=== PATIENT | female | born 1950 | race Caucasian/White ===

== ENCOUNTER → 2018-03-11 12:53 | Outpatient (CLI) | payer OTHER, SELFPAY ==
--- NOTE | 2018-03-11 12:59 | ECHOD_ITS ---
Reason For Study: Murmur Procedure This was a 2D Doppler, Color Flow transthoracic echocardiogram. Exam performed in department. Left Ventricle Normal size and thickness. The estimated ejection fraction is 65 %. Stage 1 diastolic dysfunction. No regional wall motion abnormalities noted. Right Ventricle Normal size and thickness. Normal systolic function. Atria Normal left atrium. Normal right atrium. Normal atrial septum. Mitral Valve The mitral valve is structurally normal. No prolapse or stenosis seen. Trivial mitral valve insufficiency. Tricuspid Valve Normal tricuspid valve. Trivial tricuspid valve insufficiency. Right ventricular systolic pressure estimated to be 32 mmHg. Aortic Valve Normal aortic valve. Trisinus/trileaflet aortic valve. Pulmonic Valve Normal pulmonic valve. Great Vessels Normal aortic root. Normal arch. Normal inferior vena cava. Inferior vena cava collapse with sniff. Pericardium/Pleural No pericardial effusion. MMode/2D Measurements & Calculations LVIDd: 4.6 cm IVSd: 0.96 cm Ao root diam: 3.1 cm LVIDs: 2.4 cm LVPWd: 0.76 cm LA dimension: 4.1 cm RVDd: 3.3 cm FS: 46.4 % LAV(MOD-bp): 46.4 ml LA A4 area: 16.8 cm2 RA A4 area: 11.9 cm2 LAV(MOD-bp) Indexed: 25.9 ml/m2 LAV(MOD-sp2): 44.4 ml LAV(MOD-sp4): 45.2 ml Time Measurements MV dec time: 0.26 sec Doppler Measurements & Calculations MV E max chris: 87.4 cm/sec Lat Peak E' Chris: 10.6 cm/sec Med Peak E' Chris: 6.1 cm/sec MV A max chris: 96.5 cm/sec E/E' lat: 8.2 E/E' med: 14.4 MV E/A: 0.91 MV V2 max: 99.2 cm/sec MV P1/2t max chris: 93.4 cm/sec Ao V2 max: 143.4 cm/sec MV max P.9 mmHg MV P1/2t: 90.3 msec Ao max P.2 mmHg MV V2 mean: 62.1 cm/sec MV dec slope: 302.9 cm/sec2 Ao V2 mean: 95.7 cm/sec MV mean P.7 mmHg MVA(P1/2t): 2.4 cm2 Ao mean P.1 mmHg MV V2 VTI: 32.8 cm Ao V2 VTI: 32.2 cm LV V1 max: 121.7 cm/sec PA V2 max: 96.3 cm/sec TR max chris: 259.3 cm/sec LV V1 max P.9 mmHg TR max P.9 mmHg LV V1 mean P.2 mmHg LV V1 mean: 67.2 cm/sec LV V1 VTI: 24.7 cm Interpretation Summary The estimated ejection fraction is 65 %. Stage 1 diastolic dysfunction. Trivial mitral valve insufficiency. Trivial tricuspid valve insufficiency. Right ventricular systolic pressure estimated to be 32 mmHg. Compared to echo report dated 12/04/2011, no appreciable changes noted. Ordering Physician: Filippo Javier Referring Physician: Filippo Javier Performed By: Jr Peña RCS
== END ==
PROVIDERS: Family Provider Family Medicine; PCP Family Medicine; Referring Provider Family Medicine; Visit Provider Family Medicine
DX: R01.1 Cardiac murmur, unspecified (principal)
CPT/HCPCS: 93306

== ENCOUNTER → 2018-12-11 | Outpatient (CLI) | payer OTHER, SELFPAY ==
[2018-12-11 12:36] VITALS: BMI 29.5
--- NOTE | 2018-12-11 13:22 | RAD_ITS ---
STUDY: X-RAY - RIGHT KNEE REASON FOR EXAM: Female, 68 years old. Pain, decreased range of motion TECHNIQUE: 3 view(s) of the knee. COMPARISON: None. FINDINGS: Normal visualized distal femur. Normal visualized proximal tibia and fibula. Normal proximal tibiofibular articulation. There is mild degenerative arthrosis of the medial femorotibial compartment. Normal lateral femorotibial compartment. There is mild degenerative arthrosis of the patellofemoral articulation. Diffuse soft tissue swelling anterior to patella consistent with likely hematoma RAD/Knee 3 Views IMPRESSION: Medial compartment arthrosis Anterior soft tissue swelling suggests hematoma Electronically Signed: Georges Tripathi MD at 14:08 EDT , Service support ,
== END | disposition home or self-care (01) ==
LOC: HPRAD 13:20
PROVIDERS: Family Provider Family Medicine; PCP Family Medicine; Referring Provider Physician Assistant Medical; Visit Provider Physician Assistant Medical
DX: M25.561 Pain in right knee (principal); M25.461 Effusion, right knee
CPT/HCPCS: 73562

== ENCOUNTER → 2019-01-03 | Outpatient (CLI) | payer OTHER, SELFPAY ==
[2018-12-16 08:46] VITALS: BMI 29.5
--- NOTE | 2019-01-03 14:11 | BI_ITS ---
MAMMOGRAPHY - BILATERAL SCREENING 3-D TOMOSYNTHESIS REASON FOR EXAM: Female, 68 years old. Bilateral Screening 3-D tomosynthesis PERTINENT HISTORY: No significant family history. TECHNIQUE: 2-D mammograms and 3-D Tomosynthesis of the breast (s) were performed. CAD was performed. COMPARISON: 11/17/2016, 03/24/2015, 01/14/2014. FINDINGS: The breast composition is heterogeneously dense that can obscure small breast masses. Scattered benign calcifications are seen. No dense spiculated masses or suspicious microcalcifications are identified. No architectural distortion is identified. There is no skin thickening or retraction. There has been no significant change since the prior study. BI/SCREEN MAMM (CAD) W/ISAC BILAT IMPRESSION: No mammographic signs of malignancy. Routine yearly mammograms recommended. ASSESSMENT CATEGORY: BIRADS Category 2: Benign. A letter regarding these results will be sent to the patient by the facility within 30 days. FOLLOW UP RECOMMENDATION: Yearly follow up mammogram recommended. (A) Approximately 10% of breast cancers are not detected by mammography. A normal mammogram should not delay biopsy of a clinically suspicious abnormality. Electronically Signed: Buddy Lenz MD at 12:57 EDT Tel [phone], Service support ,
== END | disposition home or self-care (01) ==
PROVIDERS: Family Provider Family Medicine; PCP Family Medicine; Referring Provider Family Medicine; Visit Provider Family Medicine
DX: Z12.31 Encounter for screening mammogram for malignant neoplasm of breast (principal)
CPT/HCPCS: 77063; 77067

== ENCOUNTER 2019-02-04 08:29 | Day surgery (SDC) | payer MEDICARE, SELFPAY ==
--- NOTE | 2019-01-08 09:25 | HP_ITS ---
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: No Is patient in pain?: No Allergies No Known Allergies Allergy (Unverified 01/08/19 09:32) Medications calcium carbonate 600 mg calcium (1,500 mg) tablet 600 mg PO DAILY 01/08/19 [History Confirmed 01/08/19] lisinopril 20 mg-hydrochlorothiazide 12.5 mg tablet 1 tab PO DAILY 01/08/19 [History Confirmed 01/08/19] multivitamin tablet 1 tab PO DAILY 01/08/19 [History Confirmed 01/08/19] PFSH Medical History (Updated 01/08/19 @ 09:29 by Kimberli Hall) Systolic murmur (Acute) Osteoporosis (Acute) Osteoarthritis (Acute) Eustachian tube disorder (Acute) Stool guaiac positive (Acute) Hypertension (Chronic) Surgical History (Updated 01/08/19 @ 09:29 by Kimberli Hall) Hx of colonoscopy (Acute) Hx of hysterectomy (Acute) Family History (Updated 01/08/19 @ 09:30 by Kimberli Hall) Mother Hypertension Father Hypertension Social History (Updated 01/08/19 @ 10:40 by Andrea Massey MD) Smoking Status: Never smoker second hand exposure: No alcohol intake: never substance use type: does not use caffeine: No what type of physical activity do you participate in: none frequency: does not exercise HPI HPI HPI: INÉS TAMEZ is a 68 F who presents to the office today for HPI HPI Surgical H&P: Yes HPI: INÉS TAMEZ is a 68 F who presents to the office today for surgical consultation regarding Hemoccult-positive stool. The patient was referred by Dr. Filippo Claremore and a written copy of my surgical consult recommendations will be returned to him. The patient via her insurance program obtain a stool sample which ended up being Hemoccult positive. She has never had a previous positive card though she is done these in the past. She had a very remote colonoscopy greater than 10 years ago. She has no personal history of colon polyps or colon cancer. She does not know of any family history of colon cancer. She denies history of peptic ulcer disease. She has not noticed any bright red blood per rectum or melena. No abdominal pain. No unexpected weight loss. She otherwise states that she enjoys a good quality of health. She is not on any anticoagulants ROS General General: No weight change, appetite, fatigue, colon cancer, breast cancer or weakness HEENT HEENT: No difficulty swallowing, eye injury, eye surgery, swollen glands or hoarseness Endo Endocrine: No thyroid disease, diabetes mellitus, thyroid cancer, Hair loss, heat intolerance or cold intolerance Skin Skin: No rash or changing moles Musc Musculoskeletal: Yes arthritis; no back problems, rheumatoid arthritis, gout or joint pain Cardio Cardiovascular: Yes high blood pressure; no murmur, pacemaker, heart disease, atrial fibrillation, heart attack, heart stent, palpitations, shortness of breat with exertion or chest pain Psych Psychiatric: No depression, anxiety or hearing voices Resp Respiratory: No shortness of breath, No sleep apnea, No cough, No COPD, No asthma, No emphysema, No wheezing Gastro Gastrointestinal: No abdominal pain, No nausea or vomiting, No diarrhea, No constipation, Yes blood in stool, No acid reflux, No hemorrhoids, No ulcers, No gallbladder problem, No black,tarry stools Kel Hematologic: No blood thinners, No blood disorders, No bleeding, No anemia, No blood clots Neuro Neurologic: No system reviewed and no additional complaints, except as docu, No as per HPI, No abnormal walking, No abnormal hearing, No abnormal movements, No abnormal speech, No behavioral changes, No burning sensations, No confusion, No seizure-like activity, No unsteadiness, No dizziness, No localized weakness, No frequent falls, No headache(s), No lack of coordination, No loss of vision, No memory loss, No numbness, No other visual disturbances, No radiating pain, No restless legs, No sensory deficit, No fainting, No tingling, No tremor(s), No weakness, No other Exam Const General: cooperative, healthy appearing, comfortable, no acute distress Nutritional Appearance: average body habitus Orientation: alert, awake HENMT Head: normal to inspection Chest Chest palpation & inspection: normal inspection of the chest Resp Effort & Inspection: normal respiratory effort Auscultation: clear to auscultation bilaterally Cardio Rate: regular rate Rhythm: regular rhythm Heart Sounds: no murmurs GI Palpation: soft, no hepatosplenomegaly Auscultation: normal bowel sounds Musc Cervical Spine: normal cervical lordosis Neuro Cognition: normal cognition Extrem General: no calf tenderness bilaterally Psych Affect: normal affect Assessment & Plan Problems 1. Stool guaiac positive R19.5 Plan I have discussed with the patient the potential etiology to her guaiac positive stool. Unfortunately it is not clear as to whether it is emanating from an upper or lower source. In detail I have discussed with her the technique, benefits, risks and alternatives of a combined esophagogastroduodenoscopy with possible biopsy as well as a colonoscopy with possible biopsy or polypectomy is indicated. She has had an opportunity to ask and have questions answered. We will schedule and proceed at her discretion. I very much appreciate the kind opportunity of assisting with her surgical care. CC: Dr. Filippo Massey M.D., F.A.C.S. Medications Discontinued: etodolac do not take with other NSAIDS Discontinued Reason: Pt no longer taking 500 mg PO ONCE 28 tabs 0RF Coding Level of Care Code Off vis,new,level 2 Diagnoses Stool guaiac positive R19.5 01/08/19 1040 <Electronically signed by Andrea godoy MD> Date _ Andrea Massey MD I have re-examined the patient. There are no clinical changes since date of exam.
[2019-01-08 09:31] VITALS: BMI 28.7
[2019-02-04] VITALS (9 sets, daily range): BP systolic 95–153; BP diastolic 51–120; PULSE 54–82; RESP 16; TEMP 36.4–36.8; O2SAT 94–99; BMI 28.9
[2019-02-04] MEDS: Lactated Ringers 1,000 ML 75 ML IV (09:01)
--- NOTE | 2019-02-04 09:30 | IMM_PTH ---
PATIENT: INÉS TAMEZ LOC: EN U#:[id number] AGE/SX: 68/F ROOM: RE02/04/[address]: Dr. Andrea Massey MD : 1950 BED: DIS: 02/04/2019 SPEC #: [id number] RECD: 02/04/19 12:26 STATUS: ANNA REQ #: [id number] REGGIE: 02/04/19 09:[address]: Andrea Massey DEPT: IMMUNOHISTOCHEMISTRY RECD BY: Cherelle Maldonado ENTERED: 02/04/19 12:27 SP TYPE: IMMUNO OTHR DR: Dr. Filippo Javier, Tissues: A - Stomach, NOS Procedures: H Pylori (initial) PHYSICIAN & INSTITUTION [place] [address] SPECIMEN INFORMATION: Tissue Source: A - Antral biopsy Clinical Info: Guaiac positive stool Specimen Number: [id number] CPT code: 07735 METHODOLOGY: Deparaffinized sections of prefer/formalin-fixed tissue or PAP/DQ stained slides are incubated with monoclonal/polyclonal antibodies/oligonucleotide probes. Localization is made via biotin free immunoperoxidase method. Appropriate controls are performed and reacted as expected. Results on target cell population are indicated in the following table: RESULTS: ANTIBODY / CLONE RESULT Block A H Pylori (polyclonal) positive These tests were developed and their performance characteristics determined by [facility]. They may not have been cleared or approved by the U.S. Food and Drug Administration. The FDA has determined that such clearance or approval is not necessary. INTERPRETATION: A. Antral biopsy: Positive for a few Helicobacter pylori organisms. SJ:jazmin 02/05/19 Case has been reviewed in consultation with Dr. Bassett who concurs with the above diagnosis. IDC:AM
--- NOTE | 2019-02-04 09:30 | EGD_PTH ---
PATIENT: INÉS TAMEZ LOC: EN U#:[id number] AGE/SX: 68/F ROOM: RE02/04/[address]: Dr. Andrea Massey MD : 1950 BED: DIS: 02/04/2019 SPEC #: [id number] RECD: 02/04/19 10:49 STATUS: ANNA REDhruv #: [id number] REGGIE: 02/04/19 09:[address]: Andrea Massey DEPT: SURGICAL PATHOLOGY RECD BY: Dorian Giang ENTERED: 02/04/19 11:52 SP TYPE: EGD BIOPSY OTHR DR: Dr. Filippo Javier, DO Tissues: A - Gastric mucous membrane B - Esophageal mucous membrane C - Sigmoid colon biopsy Procedures: Surgery Specimen Level IV HEADER OPERATION: Colonoscopy, EGD (MOD) PRE-OP DIAGNOSIS: Guaiac positive stool TISSUE SUBMITTED: A - Antral biopsy for H. pylori and pathology, B - Distal esophageal biopsy, C - Proximal sigmoid polyp MICROSCOPIC DIAGNOSIS A. Antrum biopsy: Moderate gastritis. See microscopic description and comment. B. Distal esophagus, biopsy: Fragments of squamous mucosa with focal ulceration, associated acute and chronic inflammation and reactive epithelial changes. Special stain for fungi is negative for organisms; matched control is appropriate. C. Proximal sigmoid polyp, biopsy: Tubular adenoma. SJ:jazmin 02/05/19 COMMENT A. The results of immunohistochemistry for Helicobacter pylori will be reported separately ([id number]). Case has been reviewed in consultation with Dr. Bassett who concurs with the above diagnosis. IDC:AM MICROSCOPIC DESCRIPTION Slides are reviewed. A. The specimen shows fragments of gastric mucosa with chronic inflammatory cell infiltrates in the lamina propria consisting of lymphocytes and plasma cells, consistent with moderate chronic gastritis. GROSS DESCRIPTION A - Received in fixative is one container labeled with the patient's name and designated antral biopsy. The specimen consists of one irregular fragment of light moreno soft tissue that measures 0.2 x 0.2 x 0.1 cm. The specimen is totally submitted in one cassette. B - Received in fixative is one container labeled with the patient's name and designated distal esophagus biopsy. The specimen consists of one irregular fragment of light moreno soft tissue that measures 0.3 x 0.2 x 0.1 cm. The specimen is totally submitted in one cassette. C -Received in fixative is one container labeled with the patient's name and designated proximal sigmoid polyp. The specimen consists of one irregular fragment of light moreno soft tissue that measures 0.4 x 0.4 x 0.3 cm. The specimen is totally submitted in one cassette. / AM:jazmin 02/04/19 TC:1 CPT: 18222 x3, 78316
--- NOTE | 2019-02-04 23:36 | OP.ENDO_ITS ---
02/04/2019 Filippo Javier [address] [place] [address] Re : Colonoscopy procedure for [place] Lieberman Dear Dr. Javier This procedure was performed on Monday, February 04, 2019. My impressions and recommendations are as follows: Impressions : - Non-thrombosed internal hemorrhoids and internal hemorrhoids that prolapse with straining, but spontaneously regress to the resting position (Grade II) found on digital rectal exam. - One 8 mm polyp in the proximal sigmoid colon, removed with a hot snare. Resected and retrieved. - Tortuous colon. Recommendations : - Discharge patient to home. - Resume previous diet. - Continue present medications. - Repeat colonoscopy in 5 years for surveillance based on pathology results. - Telephone my office for pathology results in 1 week. My findings are described in the full procedure note, which is enclosed. If I can be of further assistance, please feel free to contact me at Doctor phone number(s): Work: . Sincerely, Andrea Massey MD 02/04/2019 10:38:48 AM This report has been signed electronically.
--- NOTE | 2019-02-04 23:36 | OP.ENDO_ITS ---
02/04/2019 Filippo Javier [address] [place] [address] Re : Upper GI endoscopy procedure for [place] Lieberman Dear Dr. Javier This procedure was performed on Monday, February 04, 2019. My impressions and recommendations are as follows: Impressions : - LA Grade A reflux esophagitis. Biopsied. Mid esophageal non bleeding varices - Small hiatal hernia. - Erythematous mucosa in the antrum. Biopsied. - Normal examined duodenum. Recommendations : - Discharge patient to home. - Resume previous diet. - Continue present medications. - Telephone my office for pathology results in 1 week. Consider OTC medication for GERD My findings are described in the full procedure note, which is enclosed. If I can be of further assistance, please feel free to contact me at Doctor phone number(s): Work: . Sincerely, Andrea Massey MD 02/04/2019 10:35:27 AM This report has been signed electronically.
== END 2019-02-04 11:53 | disposition home or self-care (01) ==
LOC: EN 08:32 → AC 08:33
PROVIDERS: Family Provider Family Medicine; PCP Family Medicine; Referring Provider Family Medicine; Visit Provider Surgery
PROC: 0DJD8ZZ Inspection of Lower Intestinal Tract, Via Natural or Artificial Opening Endoscopic (ICD-10-PCS; CPT 45378; principal; 2019-02-04 09:25)
DX: K29.70 Gastritis, unspecified, without bleeding (principal); K44.9 Diaphragmatic hernia without obstruction or gangrene; K21.0 Gastro-esophageal reflux disease with esophagitis; I85.00 Esophageal varices without bleeding; D12.5 Benign neoplasm of sigmoid colon; K64.1 Second degree hemorrhoids; Q43.8 Other specified congenital malformations of intestine; R01.1 Cardiac murmur, unspecified; M81.0 Age-related osteoporosis without current pathological fracture; M19.90 Unspecified osteoarthritis, unspecified site; I10 Essential (primary) hypertension; H69.90 Unspecified Eustachian tube disorder, unspecified ear; Z79.899 Other long term (current) drug therapy
CPT/HCPCS: 43239; 45385; 88305; 88342; 99152; 99153; J7120

== ENCOUNTER → 2019-02-10 10:41 | Outpatient (CLI) | payer MEDICARE, SELFPAY ==
[2019-02-04 08:47] VITALS: BMI 28.9
[2019-02-10 11:06] LABS: Hematocrit 37.1 % (37-47); Mean Corp Hgb Conc 32.3 g/dL (32-36); Mean Corpuscular Hgb 28.3 pg (27.0-32.0); Mean Corpuscular Volume 87.5 fL (81-99); Mean Platelet Vol. 10.6 fl (6.2-12.0); Platelet Count 240 K/mm3 (150-450); RBC Distribution Width CV 12.9 % (11.6-14.6); RBC Distribution Width SD 41.3 fl (35.1-43.9); Red Blood Count 4.24 M/mm3 (4.2-5.4); White Blood Count 6.6 K/mm3 (4.4-11.0)
== END ==
PROVIDERS: Family Provider Family Medicine; PCP Family Medicine; Referring Provider Surgery; Visit Provider Surgery
DX: K92.1 Melena (principal)
CPT/HCPCS: 36415; 85027

== ENCOUNTER → 2019-11-28 15:04 | Outpatient (CLI) | payer MEDICARE, SELFPAY ==
[2019-02-04 08:47] VITALS: BMI 28.9
[2019-11-28 17:37] LABS: Anion Gap 7 (5-15); BUN 22 mg/dL (7-18); BUN/Creat Ratio 20.8 RATIO (10-20); Calcium,Total 8.8 mg/dL (8.5-10.1); Chloride 101 mmol/L (98-107); Creatinine, Serum 1.06 mg/dL (0.55-1.02); EST Glomerular Filtration Rate 54 mL/min (>60); Est Glom Filt Rate - Afr Amer 66 mL/min (>60); Glucose 103 mg/dL (74-106); Potassium 3.6 mmol/L (3.5-5.1); Sodium Level 139 mmol/L (136-145)
== END ==
PROVIDERS: PCP Student in an Organized Health Care Education/Training Program; Referring Provider Student in an Organized Health Care Education/Training Program; Visit Provider Student in an Organized Health Care Education/Training Program
DX: R94.4 Abnormal results of kidney function studies (principal); I10 Essential (primary) hypertension
CPT/HCPCS: 36415; 80048

== ENCOUNTER → 2020-04-01 11:43 | Outpatient (CLI) | payer MEDICARE, SELFPAY ==
[2019-02-04 08:47] VITALS: BMI 28.9
--- NOTE | 2020-04-01 11:46 | US_ITS ---
STUDY: RENAL ULTRASOUND - COMPLETE REASON FOR EXAM: Female, 69 years old. CKD3 TECHNIQUE: Ultrasound evaluation of the kidneys was performed with real-time and static lema-scale imaging. COMPARISON: None. FINDINGS: RIGHT KIDNEY: Normal location of the right kidney, which is normal in size. The right kidney measures 9.3 cm x 4.7 cm x 4.5 cm. There is diffuse thinning of the renal cortex. The renal cortex measures 0.8 cm. There is a 1.7 cm x 1.5 cm x 1.6 cm cyst. There are no right renal calculi. There is no right hydronephrosis. DISTAL RIGHT URETER: There is non-visualization of the distal right ureter. There is no demonstrated right ureterovesical junction calculus. There is a visualized right ureteral jet. LEFT KIDNEY: Normal location of the left kidney, which is normal in size. The left kidney measures 10.3 cm x 4.2 cm x 4.7 cm. There is a normal cortex of the left kidney. The renal cortex measures 1.0 cm. There is no left renal mass or cyst. There are no left renal calculi. There is no left hydronephrosis. DISTAL LEFT URETER: There is non-visualization of the distal left ureter. There is no demonstrated left ureterovesical junction calculus. There is a visualized left ureteral jet. BLADDER: The distended urinary bladder has a volume of 2010 ml. There is a normal wall thickness of the distended urinary bladder. There is no demonstrated mass within the urinary bladder. There are no demonstrated bladder calculi. Incidental note is made of a 5.4 cm x 6.8 cm x 6.3 cm cyst in the right lobe of the liver. US/Kidney and Bladder IMPRESSION: Small right renal cyst. Hepatic cyst. Electronically Signed: Jayden Yu, at 13:07 EST , Service support ,
== END ==
PROVIDERS: PCP Student in an Organized Health Care Education/Training Program; Referring Provider Student in an Organized Health Care Education/Training Program; Visit Provider Student in an Organized Health Care Education/Training Program
DX: N18.30 Chronic kidney disease, stage 3 unspecified (principal)
CPT/HCPCS: 76770

== ENCOUNTER → 2020-04-13 11:06 | Outpatient (CLI) | payer MEDICARE, SELFPAY ==
[2019-02-04 08:47] VITALS: BMI 28.9
--- NOTE | 2020-04-13 11:09 | US_ITS ---
STUDY: ABDOMINAL ULTRASOUND - RIGHT UPPER QUADRANT REASON FOR VISIT: Female, 69 years old HEPATIC CYST ON KIDNEY US TECHNIQUE: Ultrasound evaluation of the right upper quadrant was performed with real-time and static tejeda-scale imaging. TECHNICAL QUALITY: Adequate. COMPARISON: None. FINDINGS: Liver: The liver measures 15 cm. There is increased echogenicity of the liver. The bile ducts are within normal limits. There is hepatic color flow. The direction of portal flow is hepatopetal. There is simple anechoic cysts of the right hepatic lobe measuring up to 6.7 cm. Gallbladder: Normal distended gallbladder. The gallbladder wall measures 2 mm. There is a negative sonographic Rizzo''s sign. There is no pericholecystic fluid. There are no gallstones. Common Bile Duct (C.B.D.): The common bile duct measures 4 mm. Pancreas: There is no demonstrated pancreatic mass or cyst. Right Kidney: Normal size of the right kidney. The right kidney measures 9.3 x 5.2 x 3.9 cm. The right cortex measures 0.8 cm. There is a simple right renal cyst measures 1.9 cm. There is no right hydronephrosis. US/Abdomen Limited IMPRESSION: 1. Simple hepatic cysts. No solid hepatic masses. 2. Simple renal cysts. 3. Increased echogenicity of the liver is nonspecific but most commonly associated with hepatic steatosis. Electronically Signed: Renny Ohara MD ([place]) at 19:45 EST , Service support ,
== END ==
PROVIDERS: PCP Student in an Organized Health Care Education/Training Program; Referring Provider Student in an Organized Health Care Education/Training Program; Visit Provider Student in an Organized Health Care Education/Training Program
DX: K76.89 Other specified diseases of liver (principal)
CPT/HCPCS: 76705

== ENCOUNTER → 2020-04-23 15:43 | Outpatient (CLI) | payer MEDICARE, SELFPAY ==
[2019-02-04 08:47] VITALS: BMI 28.9
--- NOTE | 2020-04-22 16:30 | BI_ITS ---
MAMMOGRAPHY - BILATERAL SCREENING REASON FOR EXAM: Female, 69 years old. Routine annual screening examination. PERTINENT HISTORY: Non-contributory. TECHNIQUE: Digital bilateral breast isac (3D mammographic acquisition) in the CC and MLO projections. 2-D mediolateral oblique (MLO) and craniocaudad (CC) views of both breasts were obtained. CAD: Full Field Digital Mammography with Computer Added Detection was performed. COMPARISON: Comparison is made with prior study dated 01/03/2019 and 11/17/2016. FINDINGS: Breast Composition: The breasts are heterogeneously dense, which may obscure small masses. Since prior study, there is evidence of a cluster of microcalcifications in the central slightly lateral aspect of the left breast. A biopsy is recommended. No other significant abnormalities are identified. BI/SCREEN MAMM (CAD) W/ISAC BILAT IMPRESSION: Cluster microcalcifications in the central slightly lateral aspect of the left breast as described. Biopsy is recommended. ASSESSMENT CATEGORY: BIRADS Category 4: Suspicious - Biopsy Should Be Considered. A letter regarding these results will be sent to the patient by the facility within 30 days. Approximately 10% of breast cancers are not detected by mammography. A normal mammogram should not delay biopsy of a clinically suspicious abnormality. [id number] Electronically Signed: Jayden Yu, at 8:16 EST , Service support ,
== END ==
PROVIDERS: PCP Student in an Organized Health Care Education/Training Program; Referring Provider Student in an Organized Health Care Education/Training Program; Visit Provider Student in an Organized Health Care Education/Training Program
DX: Z12.31 Encounter for screening mammogram for malignant neoplasm of breast (principal)
CPT/HCPCS: 77063; 77067

== ENCOUNTER 2020-07-07 05:56 | Day surgery (SDC) | payer MEDICARE, SELFPAY ==
[2020-06-23 14:27] VITALS: BMI 27.6
[2020-07-07] VITALS (8 sets, daily range): BP systolic 92–154; BP diastolic 50–95; PULSE 64–79; RESP 16; TEMP 35.9–36.2; O2SAT 94–100; BMI 28.0
--- NOTE | 2020-07-07 06:23 | HP_ITS ---
Intake Vital Signs 06/23/20 Height 5 ft 3 in 06/23/20 Weight: 156 lb 06/23/20 BMI 27.6 06/23/20 BP 143/79 H 06/23/20 Blood Pressure Location Rt brachial 06/23/20 Position Sitting 06/23/20 Respiration 16 Intake Visit Reasons: Port placement Consult Chief Complaint: port placement [employer]ated [employer] Driver Required: No Is patient in pain?: No Allergies No Known Allergies Allergy (Verified 06/30/20 13:01) Medications lisinopril 20 mg-hydrochlorothiazide 12.5 mg tablet 1 tab PO DAILY 01/08/19 [History Confirmed 06/30/20] multivitamin 1 tab PO DAILY 01/08/19 [History Confirmed 06/30/20] cholecalciferol (vitamin D3) 50 mcg (2,000 unit) capsule 50 mcg PO DAILY 05/07/20 [History Confirmed 06/30/20] [facility] Medical History (Updated 06/23/20 @ 14:28 by Josefina Eason) Microcalcification of left breast on mammogram (Acute) Abnormal mammogram of left breast (Acute) Systolic murmur (Acute) Osteoporosis (Acute) Osteoarthritis (Acute) Eustachian tube disorder (Acute) Stool guaiac positive (Acute) Hypertension (Chronic) Breast cancer, left (Acute) Surgical History Hx of colonoscopy (Acute) Hx of hysterectomy (Acute) Family History Mother Hypertension Father Hypertension Social History (Updated 07/05/20 @ 13:[address] Karie Rojas MD) Smoking Status: Never smoker second hand exposure: No alcohol intake: never substance use type: does not use caffeine: Yes what type of physical activity do you participate in: aerobics frequency: daily HPI HPI HPI: INÉS TAMEZ, is a 69 F who presents to the office today for HPI HPI Surgical H&P: Yes HPI: INÉS TAMEZ, is a 69 F who presents to the office today for port placement due to left breast cancer with metastasis to axillary lymph nodes. Patient is seeing Dr. Latham at [facility] and Dr. Gutierrez for oncology. ROS General General: No weight change, appetite, fatigue, colon cancer, breast cancer or weakness HEENT HEENT: No difficulty swallowing, eye injury, eye surgery, swollen glands or hoarseness Endo Endocrine: No thyroid disease, diabetes mellitus, thyroid cancer, Hair loss, heat intolerance or cold intolerance Skin Skin: No rash or changing moles Breast Breast: Yes abnormal mammogram; no left breast lump, right breast lump, nipple discharge, breast pain, abnormal US or breast enlargement Musc Musculoskeletal: Yes arthritis; no back problems, rheumatoid arthritis, gout or joint pain Cardio Cardiovascular: Yes murmur and high blood pressure; no pacemaker, heart disease, atrial fibrillation, heart attack, heart stent, palpitations, shortness of breat with exertion or chest pain Psych Psychiatric: No depression, anxiety or hearing voices Resp Respiratory: No shortness of breath, No sleep apnea, No cough, No COPD, No asthma, No emphysema, No wheezing Gastro Gastrointestinal: No abdominal pain, No nausea or vomiting, No diarrhea, No constipation, No blood in stool, No acid reflux, No hemorrhoids, No ulcers, No gallbladder problem, No black,tarry stools Kel Hematologic: No blood thinners, No blood disorders, No bleeding, No anemia, No blood clots Neuro Neurologic: No system reviewed and no additional complaints, except as docu, No as per HPI, No abnormal walking, No abnormal hearing, No abnormal movements, No abnormal speech, No behavioral changes, No burning sensations, No confusion, No seizure-like activity, No unsteadiness, No dizziness, No localized weakness, No frequent falls, No headache(s), No lack of coordination, No loss of vision, No memory loss, No numbness, No other visual disturbances, No radiating pain, No restless legs, No sensory deficit, No fainting, No tingling, No tremor(s), No weakness, No other Exam Const General: cooperative, comfortable, no acute distress Neck Neck: supple Chest Chest palpation & inspection: normal inspection of the chest (Of upper chest) Breast Palpation: No nipple discharge Resp Effort & Inspection: normal respiratory effort Cardio Rate: regular rate Heart Sounds: murmur Assessment & Plan Problems 1. Breast cancer, left breast C50.912 Plan I have discussed above with the patient- Port-a-Cath placement. Right possible left IJ Patient has been counseled as to the risks/benefits of the procedure. I have explained the risks of the surgery, including but not limited to: infection, bleeding, injury to any blood vessels/nerves, injury to lungs (such as pneumothorax or hemothorax and need for chest tube), not having any access, nonfunctioning of port due to thrombosis, infection of port, etc. the patient understands and agrees to proceed. I have answered all the patient's questions to the patient?s satisfaction and the patient has no further questions. Karie Rojas M.D. Pager: [phone] [facility] [address] [place] [address], [address] [place] [address] Office: [phone] Plan Detail Follow Up We will schedule surgery Coding Level of Care Code Off vis,new,level 3 Diagnoses Breast cancer, left breast C50.912
[2020-07-07] MEDS: Lactated Ringers 1,000 ML 100 ML IV ×2 (06:39→08:27)
--- NOTE | 2020-07-07 07:20 | PCM.HP.BLA ---
History and Physical Date of Admission: 07/07/20 Date of Service: 06/23/20 MR#: [id number] Acct: [id number] Name: INÉS TAMEZ Rep #: [id number] : 1950 Provider: Dr. Karie Rojas MD Age/Sex: 69/F Location: [facility] Status: Signed Intake Vital Signs 06/23/20 Height 5 ft 3 in 06/23/20 Weight: 156 lb 06/23/20 BMI 27.6 06/23/20 BP 143/79 H 06/23/20 Blood Pressure Location Rt brachial 06/23/20 Position Sitting 06/23/20 Respiration 16 Intake Visit Reasons: Port placement Consult Chief Complaint: port placement [employer] Inventory Clerk Required: No Is patient in pain?: No Allergies No Known Allergies Allergy (Verified 06/30/20 13:01) Medications lisinopril 20 mg-hydrochlorothiazide 12.5 mg tablet 1 tab PO DAILY 01/08/19 [History Confirmed 06/30/20] multivitamin 1 tab PO DAILY 01/08/19 [History Confirmed 06/30/20] cholecalciferol (vitamin D3) 50 mcg (2,000 unit) capsule 50 mcg PO DAILY 05/07/20 [History Confirmed 06/30/20] PFSH Medical History (Updated 06/23/20 @ 14:28 by Josefina Eason) Microcalcification of left breast on mammogram (Acute) Abnormal mammogram of left breast (Acute) Systolic murmur (Acute) Osteoporosis (Acute) Osteoarthritis (Acute) Eustachian tube disorder (Acute) Stool guaiac positive (Acute) Hypertension (Chronic) Breast cancer, left (Acute) Surgical History Hx of colonoscopy (Acute) Hx of hysterectomy (Acute) Family History Mother Hypertension Father Hypertension Social History (Updated 07/05/20 @ 13:[address] Karie Rojas MD) Smoking Status: Never smoker second hand exposure: No alcohol intake: never substance use type: does not use caffeine: Yes what type of physical activity do you participate in: aerobics frequency: daily HPI HPI HPI: INÉS TAMEZ, is a 69 F who presents to the office today for HPI HPI Surgical H&P: Yes HPI: INÉS TAMEZ, is a 69 F who presents to the office today for port placement due to left breast cancer with metastasis to axillary lymph nodes. Patient is seeing Dr. Latham at [facility] and Dr. Gutierrez for oncology. ROS General General: No weight change, appetite, fatigue, colon cancer, breast cancer or weakness HEENT HEENT: No difficulty swallowing, eye injury, eye surgery, swollen glands or hoarseness Endo Endocrine: No thyroid disease, diabetes mellitus, thyroid cancer, Hair loss, heat intolerance or cold intolerance Skin Skin: No rash or changing moles Breast Breast: Yes abnormal mammogram; no left breast lump, right breast lump, nipple discharge, breast pain, abnormal US or breast enlargement Musc Musculoskeletal: Yes arthritis; no back problems, rheumatoid arthritis, gout or joint pain Cardio Cardiovascular: Yes murmur and high blood pressure; no pacemaker, heart disease, atrial fibrillation, heart attack, heart stent, palpitations, shortness of breat with exertion or chest pain Psych Psychiatric: No depression, anxiety or hearing voices Resp Respiratory: No shortness of breath, No sleep apnea, No cough, No COPD, No asthma, No emphysema, No wheezing Gastro Gastrointestinal: No abdominal pain, No nausea or vomiting, No diarrhea, No constipation, No blood in stool, No acid reflux, No hemorrhoids, No ulcers, No gallbladder problem, No black,tarry stools Kel Hematologic: No blood thinners, No blood disorders, No bleeding, No anemia, No blood clots Neuro Neurologic: No system reviewed and no additional complaints, except as docu, No as per HPI, No abnormal walking, No abnormal hearing, No abnormal movements, No abnormal speech, No behavioral changes, No burning sensations, No confusion, No seizure-like activity, No unsteadiness, No dizziness, No localized weakness, No frequent falls, No headache(s), No lack of coordination, No loss of vision, No memory loss, No numbness, No other visual disturbances, No radiating pain, No restless legs, No sensory deficit, No fainting, No tingling, No tremor(s), No weakness, No other Exam Const General: cooperative, comfortable, no acute distress Neck Neck: supple Chest Chest palpation & inspection: normal inspection of the chest (Of upper chest) Breast Palpation: No nipple discharge Resp Effort & Inspection: normal respiratory effort Cardio Rate: regular rate Heart Sounds: murmur Assessment & Plan Problems 1. Breast cancer, left breast C50.912 Plan I have discussed above with the patient- Port-a-Cath placement. Right possible left IJ Patient has been counseled as to the risks/benefits of the procedure. I have explained the risks of the surgery, including but not limited to: infection, bleeding, injury to any blood vessels/nerves, injury to lungs (such as pneumothorax or hemothorax and need for chest tube), not having any access, nonfunctioning of port due to thrombosis, infection of port, etc. the patient understands and agrees to proceed. I have answered all the patient's questions to the patient?s satisfaction and the patient has no further questions. Karie Rojas M.D. Pager: [phone] [facility] [address] [place] [address], [address] [place] [id number] Office: [phone] Plan Detail Follow Up We will schedule surgery Coding Level of Care Code Off vis,new,level 3 Diagnoses Breast cancer, left breast C50.912 07/05/20 1349 <Electronically signed by Karie Rojas MD> Date Karie Rojas MD
[2020-07-07] MEDS: Cefazolin 2 GM in 0.9% Normal Saline 100 ML IV (07:26)
[2020-07-07] MEDS: Lidocaine 1% /Epi 1:100 (20ml) 20 ML Vial (07:30)
[2020-07-07] MEDS: Bupivacaine Mpf 0.5% 30 ML VIAL (07:30)
--- NOTE | 2020-07-07 08:05 | PCM.OPRPT ---
Report of Operation Date of Procedure: 07/07/20 Pre-Operative Diagnosis: Z45.2, left breast cancer, Post-Operative Diagnosis: Same Surgery/Procedure Performed:: 1. Placement of right IJ port. 2. Use of ultrasound. 3. Use of fluoroscopy Type of Anesthesia:: MAC/Supplemental Anesthesiologist: Tung Mcdaniel Special Medications: Ancef 2 g IV x1 Specimen's removed: None Estimated Blood Loss (mL): < 10 cc Fluids Replaced: 800 cc Description of Procedure: After informed consent was given, the patient was brought to the operating room and placed in the supine position. Appropriate time out protocol was followed. He was then given IV conscious sedation for anesthesia. The patient's right upper chest and neck were then prepped with a surgical skin preparation and sterile surgical drapes were placed. After proper landmarks were ascertained, the skin at the upper right chest area was then infiltrated with 1:1 mixture of 1% lidocaine with epinephrine and 0.5% marcaine. A needle trocar was then inserted into the right internal jugular vein with ultrasound guidance-multiple vessels were viewed with u/s and the right IJ was chosen-- and there was good aspiration of venous blood. A wire was then threaded into the needle trocar and this was visualized under fluoroscopy to ensure that the wire was in the superior vena cava. Once this was done, then the needle trocar was removed. A small skin levi was made with an 11 blade knife at the wire entrance site. The dilator with the introducer sheath attached was then placed over the wire into the right internal jugular vein via the Seldinger technique and this was visualized under fluoroscopy. The dilator and sheath were in proper position as visualized by fluoroscopy. A subcutaneous pocket was then created caudad to the catheter insertion site. A transverse skin incision was made after the skin and subcutaneous tissues were infiltrated with local anesthetic. Blunt dissection was then used to create a space large enough for placement of the subcutaneous port. The catheter was then tunneled into the subcutaneous pocket. The wire and dilator were then removed. The catheter was then threaded into the introducer sheath and was positioned with its tip at the junction of the superior vena cava and the right atrium as visualized under fluoroscopy. The excess catheter was transected. The catheter was then attached to the subcutaneous port using manufacturers guidelines. The catheter was flushed with a heparin saline mixture prior to placement. Hemostasis was carefully controlled with electrocautery. The port was sutured to the subcutaneous fascia using 2-0 Vicryl suture at two sites. The port was then placed in the subcutaneous pocket. The incision were reapproximated with interrupted subdermal 3-0 vicryl sutures. The skin was reapproximated with 3-0 nylon suture in a interrupted fashion. Steristrips were used for reinforcement of the skin closure at IJ insertion site and a sterile opsite dressings were applied. The patient tolerated the procedure well. Implants Used: [employer] PowerPort isp M.R.I. 6Fr Lot [id number] ref [id number] Grafts/Implants Used: [employer] PowerPort isp M.R.I. 6Fr Lot [id number] ref [id number] - Complications none
--- NOTE | 2020-07-07 08:11 | PCM.DC.POR ---
Discharge Diet: Light diet - advance as tolerated Discharge Activity: May not drive while taking narcotic pain medications. May shower in (days): 5 - Keep port site clean and dry for 5 days okay for neck incision to get wet after 24 hours. Okay to tape off the port site with Ziploc bag and shower or do lower shower and upper sponge bath. Lifting Restrictions: No lifting greater than 15 pounds x 2 days with the right arm Call your doctor if your incision/area has: Continuous Slow Oozing, Sudden Increased Bleeding, Increased Pain/ Swelling, Increased Redness, Foul Smelling Discharge, Swelling at the incision site Call your doctor if you observe: Fever of 101 or Higher Remove Dressing in (days):: 5 - Okay to remove the neck OpSite in 1 day Steri-Strips after 7 to 10 days if they do not fall off in 10 days okay to remove. Keep the port site clean and dry for 5 days. Okay to keep OpSite on for 2 to 3 days at a time. Okay to get wet after 5 days. Allergies/Adverse Reactions: Allergies No Known Allergies Allergy (Verified 06/30/20 13:01) Medications to take at Discharge lisinopril 20 mg-hydrochlorothiazide 12.5 mg tablet 1 tab PO DAILY 01/08/19 multivitamin 1 tab PO DAILY 01/08/19 cholecalciferol (vitamin D3) 50 mcg (2,000 unit) capsule 50 mcg PO DAILY 05/07/20 Oxycodone HCl/Acetaminophen [Percocet 5/325] 1 tablet PO Q6H PRN PRN 2 Days #5 tablet 07/07/20 The following prescriptions were given: Oxycodone HCl/Acetaminophen [Percocet 5/325] 1 tablet PO Q6H PRN PRN 2 Days #5 tablet PRN Reason: Pain Transmission Status: Sent to [facility] Primary Care Physician: Odilon Novak DO [Primary Care Provider] - Test Results: Test results from this visit will be discussed in further detail at your follow-up appointment, if applicable. Please Follow Up With: Karie Rojas MD - At 5 PM and on the weekends call [phone] with any concerns When: Call the office for a follow-up appointment in 10 days for suture removal. Proposed Discharge Date: 07/07/20
--- NOTE | 2020-07-07 08:15 | RAD_ITS ---
STUDY: X-RAY CHEST REASON FOR EXAM: Female, 69 years old. Post port placement TECHNIQUE: Single AP portable view of the chest. COMPARISON: None. FINDINGS: A right-sided portacatheter as been placed. The tip is at the junction of the superior vena cava and right atrium. The lungs are clear and expanded. There is no demonstrated pleural abnormality. Normal size heart. Normal mediastinum and nuria. Normal visualized pulmonary arteries. There is atherosclerotic calcification of the aortic arch with tortuosity. There are diffuse degenerative changes of the visualized thoracic spine. Normal visualized ribs, clavicles, and shoulders. There is no demonstrated abnormality of the visualized soft tissue structures of the upper abdomen. RAD/CXR for Line Placement IMPRESSION: The tip of the right-sided portacatheter is at the junction of the superior vena cava and right atrium. Electronically Signed: Jayden Yu MD at 8:39 EST , Service support ,
== END 2020-07-07 09:43 | disposition home or self-care (01) ==
LOC: SDC 05:56 → AC 05:57
PROVIDERS: PCP Student in an Organized Health Care Education/Training Program; Referring Provider Surgery; Visit Provider Surgery
PROC: (CPT 36561; principal; 2020-07-07 07:15)
DX: Z45.2 Encounter for adjustment and management of vascular access device (principal); C50.912 Malignant neoplasm of unspecified site of left female breast; Z20.828 Contact with and (suspected) exposure to other viral communicable diseases; I10 Essential (primary) hypertension; M81.0 Age-related osteoporosis without current pathological fracture; M19.90 Unspecified osteoarthritis, unspecified site; Z78.0 Asymptomatic menopausal state; Z79.899 Other long term (current) drug therapy
CPT/HCPCS: 00532; 36561; 71045; 77001; 87426; C9803; J7120; J2405

== ENCOUNTER 2020-07-18 17:04 | Inpatient (IN) | payer MEDICARE, SELFPAY ==
[2020-07-07 06:26] VITALS: BMI 28.0
[2020-07-18 17:04] VITALS: BP 124/61; PULSE 114; RESP 18; TEMP 37.8; O2SAT 95; BMI 28.3
--- NOTE | 2020-07-18 17:43 | EKG12_ITS ---
Test Reason : GENERAL ILLNESS Blood Pressure : / mmHG Vent. Rate : 102 BPM Atrial Rate : 102 BPM P-R Int : 120 ms QRS Dur : 088 ms QT Int : 326 ms P-R-T Axes : 046 -03 -20 degrees QTc Int : 424 ms Sinus tachycardia Possible Inferior infarct , age undetermined Abnormal ECG Confirmed by YENNY MONCADA, XIOMARA ([id number]), editor continuity and script CESAR MAIN ([id number]) on 07/20/2020 10:34:50 AM Referred By: MILTON Confirmed By:XIOMARA ARMON MD
--- NOTE | 2020-07-18 17:57 | ED.DCSUM_ITS ---
- ER Visit Summary Date of Service: 07/18/20 Chief Complaint: Nausea, diarrhea, decreased appetite History of Present Illness: The patient is a 70 F who presents with nausea, decreased appetite, and diarrhea that began today. Patient states she had chemotherapy 6 days ago. Patient states her diarrhea is watery. Patient denies any melena or hematochezia. Patient admits to nausea but has not vomited. Patient denies any abdominal pain. Patient admits to general myalgias and aching. Patient states nothing makes it better nothing makes it worse. Patient admits to subjective chills but denies any fevers at home. Patient admits to a mild headache. Patient states she feels weak all over. Patient is unsure if this is all related to her recent chemotherapy. Physical Examination: Vital signs are stable except for tachycardia of 114. Patient has a temperature of 100.1 here. Patient is in no acute distress. Oral mucosa is pink and slightly dry. Oropharynx shows some mild erythema on the soft palate. There are a couple of white exudates noted. Neck is supple. Trachea is midline. There is no JVD. Heart was regular and tachycardic. Lungs are clear and equal bilaterally. Abdomen is soft. Bowel sounds are normal. There is no tenderness. Cranial nerves II through XII are intact. There are no focal motor or sensory deficits noted. Extremities are intact. There is no calf tenderness or edema. Test Results: EKG was obtained. On my interpretation, there is a sinus tachycardia with a rate of 122. There are no acute ST or T wave changes. Portable 1 view chest x-ray was obtained. On my interpretation, lung machado are clear. There is normal cardiac silhouette. Bony thorax is normal. There is no acute process noted. Radiologist also interpreted the x-ray and agrees. CBC shows a white blood cell count of 0.9. Platelets were slightly low at 124. Comprehensive metabolic profile was essentially within normal limits. BUN was slightly elevated at 28 and creatinine was 1.13. Troponin was normal. Lactate was normal. COVID-19 rapid antigen was obtained and was negative. Influenza swab was obtained and was negative. Urinalysis is ordered and does not show any evidence of urinary tract infection. Blood cultures are pending. Rapid strep was ordered and is negative. Emergency Department Course and Treatment: Patient was given IV fluids and Zofran here. Patient is feeling somewhat better on reevaluation. Patient was advised of her findings. Case was discussed with the hospitalist. She will admit the patient to her service. Patient was started on Zosyn. Patient und erstood and was agreeable with the plan. All questions were answered. Disposition: Admit to hospital Impression: 1. Neutropenic fever This note was generated with [employer] dictation software. It may contain incorrect words, spelling, and punctuation that were not noted in review of the chart prior to signing ED Disposition - Plan for ED Patient: Disposition: Acute Care Hospital [facility] Diagnosis: Neutropenia with fever
[2020-07-18 18:19] VITALS: BP 124/61; PULSE 95; RESP 18; TEMP 37.7; O2SAT 95
[2020-07-18] MEDS: Ondansetron 4 MG/2 ML Vial IV (18:20)
[2020-07-18] MEDS: 0.9% Normal Saline 1,000 ML 1000 ML IV (18:20)
--- NOTE | 2020-07-18 18:30 | RAD_ITS ---
STUDY: X-RAY CHEST REASON FOR EXAM: Female, 70 years old. Shortness of breath TECHNIQUE: Single AP portable view of the chest. COMPARISON: 07/07/2020. FINDINGS: [id number] terminates in the superior vena cava. The lungs are clear and expanded. There is no demonstrated pleural abnormality. Normal size heart. Normal mediastinum and nuria. Normal visualized pulmonary arteries. Normal visualized aortic arch and descending thoracic aorta. Normal visualized thoracic spine. Normal visualized ribs, clavicles, and shoulders. There is no demonstrated abnormality of the visualized soft tissue structures of the upper abdomen. RAD/Chest 1 View (Portable) IMPRESSION: Normal x-ray examination of the chest. Electronically Signed: Ludmila Abarca MD at 19:03 EST Tel , Service support ,
[2020-07-18 18:34] LABS: Absolute Lymphocyte Count 0.54 X10^3/uL (0.83-4.51); Absolute Neutrophil Count 0.1 X10^3/uL (2.0-7.7); Basophil# 0.01 X10^3/uL; Basophil% 1.2 % (0-1); Eosinophil# 0.02 X10^3/uL; Eosinophils% 2.3 % (0-5); Hematocrit 33.5 % (37-47); Hemoglobin 10.8 g/dL (12.0-15.0); Lymphocyte # 0.54 X10^3/ul (4.0); Lymphocyte % 62.8 % (19-41); Mean Corp Hgb Conc 32.2 g/dL (32-36); Mean Corpuscular Hgb 28.3 pg (27.0-32.0); Mean Corpuscular Volume 87.7 fL (81-99); Mean Platelet Vol. 12.1 fl (6.2-12.0); Monocyte# 0.23 X10^3/uL; Monocyte% 26.7 % (0-10); NRBC Flagged by Analyzer 0 % (0-5); Neutrophil # 0.06 X10^3/uL (2.7-7.7); POSITIVE COUNT YES; POSITIVE DIFFERENTIAL YES; POSITIVE MORPHOLOGY YES; Platelet Count 124 K/mm3 (150-450); RBC Distribution Width CV 12.2 % (11.6-14.6); RBC Distribution Width SD 39.2 fl (35.1-43.9); Red Blood Count 3.82 M/mm3 (4.2-5.4); White Blood Count 0.9 K/mm3 (4.4-11.0)
[2020-07-18 18:48] LABS: Differential Indicated SCAN CRITERIA MET
[2020-07-18 18:49] LABS: ALB/GLOB Ratio 1.1 RATIO (0.9-2.4); AST(SGOT) 21 U/L (15-37); Alanine Aminotransfer ALT/SGPT 32 U/L (13-56); Albumin, Serum 3.5 g/dL (3.2-5.0); Alkaline Phosphatase 79 U/L (45-117); Anion Gap 9 (5-15); BUN 28 mg/dL (7-18); BUN/Creat Ratio 24.8 RATIO (10-20); Calcium,Total 8.6 mg/dL (8.5-10.1); Chloride 99 mmol/L (98-107); Creatinine, Serum 1.13 mg/dL (0.55-1.02); EST Glomerular Filtration Rate 50 mL/min (>60); Est Glom Filt Rate - Afr Amer 61 mL/min (>60); Estimated Creatinine Clearance 35.59 ml/min; Globulin 3.2 g/dL (2.2-4.2); Glucose 142 mg/dL (74-106); International Normalized Ratio 1.1; Partial Thromboplast Time 26.9 Seconds (24.1-36.2); Potassium 3.2 mmol/L (3.5-5.1); Protein, Total 6.7 g/dL (6.4-8.2); Prothrombin Time (Protime)PT. 13.7 SECONDS (11.7-14.9); Sodium Level 136 mmol/L (136-145)
[2020-07-18 18:55] LABS: Lactic Acid 1.9 mmol/L (0.4-1.9)
[2020-07-18 19:10] VITALS: BP 98/61; PULSE 81; RESP 20; TEMP 37.7; O2SAT 95
--- NOTE | 2020-07-18 19:11 | ED.RN ---
PT ASSISTED UP TO BEDSIDE COMMODE. PT UNABLE TO URINATE AT THIS TIME.
[2020-07-18] MEDS: 0.9% Normal Saline 1,000 ML 999 ML IV (19:48)
[2020-07-18 20:00] VITALS: BP 97/54; PULSE 83; RESP 20; TEMP 37.1; O2SAT 95
--- NOTE | 2020-07-18 20:14 | HP.PCM_ITS ---
Problem List (1) Pancytopenia Status: Acute (2) Neutropenia with fever Status: Acute (3) Breast cancer, left Status: Chronic Qualifiers: Breast location: unspecified site of breast Estrogen receptor status: unspecified Patient sex: female Qualified Code(s): C50.912 - Malignant neoplasm of unspecified site of left female breast (4) Hypertension Status: Chronic Qualifiers: Hypertension type: essential hypertension Qualified Code(s): I10 - Essential (primary) hypertension History of Present Illness Date of Admission: 07/18/20 Chief Complaint: F/C, weakness, sore throat, recent chemotherapy The patient is a 70 y/o F w/ PMHx: CKD stage III, HTN, OA, L Breast CA following at [facility] with Dr. Latham and also with Dr. Gutierrez locally with oncology who presents to the [facility] ED on 07/18/20 with history of first chemotherapy 6 days prior to current presentation now with onset fever, chills, debility, weakness and malaise, poor appetite, nausea with poor oral intake, mild loose stools, sore throat. Work-up in the ED included T 100.1 improved to 98.7, heart rate initially 114 improved 83, BP 124/61 with a low of 97/54, respiratory rate 20, 95% on room air, CBC with WBC 0.9, hemoglobin 10.8, platelet 124 with ANC 0.1 and absolute lymphocytes 0.54, unremarkable coags, CMP with potassium 3.2, BUN/creatinine 28/1.13, glucose 142, lactic acid 1.9, troponin 0 0.030, unremarkable hepatic profile, SARS rapid Covid antigen and rapid influenza negative, blood culture pending per ED, rest x-ray with no acute cardiopulmonary findings, urinalysis pending per ED upon requested evaluation. In the ED patient ministered normal saline, Zofran, Tylenol. Past Medical History Past Medical History (Chronic Problems): Chronic Problems (Last Updated 06/23/20 @ 14:28 by Josefina Eason) Breast cancer, left (Chronic) Hypertension (Chronic) Medical History: Medical History (Last Updated 06/23/20 @ 14:28 by Josefina Eason) Microcalcification of left breast on mammogram (Acute) R92.0 Abnormal mammogram of left breast (Acute) R92.8 Systolic murmur (Acute) R01.1 Osteoporosis (Acute) M81.0 Osteoarthritis (Acute) M19.90 Eustachian tube disorder (Acute) H69.90 Stool guaiac positive (Acute) R19.5 Hypertension (Chronic) I10 Breast cancer, left C50.912 Allergies No Known Allergies Allergy (Verified 06/30/20 13:01) Home Medications: Ambulatory Orders Medication Instructions Recorded lisinopril 20 1 tab PO DAILY 01/08/19 mg-hydrochlorothiazide 12.5 mg tablet multivitamin 1 tab PO DAILY 01/08/19 cholecalciferol (vitamin D3) 50 50 mcg PO DAILY 05/07/20 mcg (2,000 unit) capsule Surgical History: Surgical History (Last Reviewed 06/23/20 @ 14:27 by Josefina Eason) Hx of colonoscopy (Acute) Z98.890 Hx of hysterectomy (Acute) Z90.710 Surgical History: - - Port placement, Hysterectomy. Psychiatric History: No pertinent psych hx [employer] History: No pertinent [employer] history Lives: Spouse/ Significant Other Smoking Status: Never smoker Tobacco Use: Non-smoker Alcohol: None Drugs: None - *Family History Maternal Family History: Family History (Last Reviewed 06/23/20 @ 14:27 by Josefina Eason) Mother Hypertension Father Hypertension History Items: Heart Disease Paternal Family History: Family History (Last Reviewed 06/23/20 @ 14:27 by Josefina Eason) Mother Hypertension Father Hypertension History Items: Hypertension Review of Systems Constitutional: Reports: Anorexia, Chills, Fever, Malaise, Weakness, Fatigue. Denies: Weight Change HEENT: Reports: Sore Throat. Denies: Head Aches, Sinus Congestion, Sinus Drainage Cardiovascular: Denies: Chest Pain, Palpitations Respiratory: Denies: Cough, Shortness of breath at rest, Sputum production Gastrointestinal: Reports: Diarrhea, Nausea, Vomiting. Denies: Abdominal Pain Genitourinary: Denies: Dysuria Musculoskeletal: Reports: Joint Pain. Denies: Joint Tenderness Skin: Denies: Rash, Wounds Neurological: Denies: Numbness, Tingling, Focal weakness Psychiatric: Denies: Anxiety, Depression, Homicidal Ideations, Suicidal Ideations Hematologic/ Lymphatic: Reports: Anemia. Denies: Easy Bruising, Easy Bleeding VTE Information - Inpt Only VTE Present on Admission: No VTE Mechan Device Prophylaxis: SCD's VTE Pharm Prophylaxis ordered?: Yes Patient Problems: Active and Suspected Problems (Last Updated 06/23/20 @ 14:28 by Josefina Eason) Neutropenia with fever (Acute) Pancytopenia (Acute) Subjective: Seated upright in the ED bed, fatigued, ill appearing. Objective: Physical Examination: General: awake, alert, oriented x 3 and cooperative, seated upright in the ED bed in no apparent distress, fatigued and ill appearing. Skin: normal color, turgor, no icterus, cyanosis. HEENT: AT/NC, EOMI, PERRLA, dry MM, mild OP erythema, minimal scant posterior exudate, no carotid bruits or JVD noted. Lungs: Diminished BS BL, > bases, moderate effort, no rales, ronchi or wheezing. Heart: Improved, mildly tachycardic with regular rhythm; no gallop, rub audible. Abdomen: soft, NTTP, ND, normal BS, no HSM. Extremities: no cyanosis, clubbing, or edema. Neurological: patient awake, alert, oriented as noted; cognitive function intact; pupils equally reactive to light and accomodation; cranial nerves II-XII grossly normal, moving all 4 extremities, no focal deficits, strength moderately to severely globally decreased secondary to acute presentation. Psychiatric: affect appears fatigued, ill appearing, no acute evidence of depressive or anxiety feelings. - Physical Exam Vitals/I&O's: Vital Signs Temp Pulse Resp BP Pulse Ox 98.7 F 83 20 H 97/54 L 95 07/18/20 20:00 07/18/20 20:00 07/18/20 20:00 07/18/20 20:00 07/18/20 20:00 Oxygen Delivery Method Room Air Weight: 155 lb Body Mass Index (BMI) 28.3 Intake and Output for Last 24 Hours 07/16/20 07/17/20 07/18/20 23:59 23:59 23:59 Intake Total 1000 / 1000 Balance 1000 / 1000 Microbiology Past 72 Hours 07/18/20 17:58 Mucosa - Nose SARS-CoV-2 Antigen (Rapid) - Final 07/18/20 17:58 Mucosa - Nose Influenza Types A,B Direct FA (RICARDO) - Final Laboratory Results 07/18/20 18:15: WBC 0.9 L*, RBC 3.82 L, Hgb 10.8 L, Hct 33.5 L, MCV 87.7, MCH 28.3, MCHC 32.2, RDW Std Deviation 39.2, RDW Coeff of Terrence 12.2, Plt Count 124 L, MPV 12.1 H, Immature Gran % (Auto) 0.000, Neut % (Auto) 7.0 L, Lymph % (Auto) 62.8 H, [place] % (Auto) 26.7 H, Eos % (Auto) 2.3, Baso % (Auto) 1.2 H, Absolute Neuts (auto) 0.1 L, Absolute Lymphs (auto) 0.54 L, Nucleated RBC % 0, Diff Path Review September07/18/20 18:15: PT 13.7, INR 1.1, APTT 26.9 07/18/20 18:15: Sodium 136, Potassium 3.2 L, Chloride 99, Carbon Dioxide 28.0, Anion Gap 9, BUN 28 H, Creatinine 1.13 H, Estim Creat Clear Calc 35.59, Est GFR (MDRD) Af Amer 61, Est GFR (MDRD) Non-Af 50 L, BUN/Creatinine Ratio 24.8 H, Glucose 142 H, Calcium 8.6, Total Bilirubin 0.40, AST 21, ALT 32, Alkaline Phosphatase 79, Troponin I 0.030, Total Protein 6.7, Albumin 3.5, Globulin 3.2, Albumin/Globulin Ratio 1.1 07/18/20 18:15: Lactic Acid 1.9 Current Medications Sodium Chloride () 1,000 mls @ 999 mls/hr IV .Q1H1M ONE Stop: 07/18/20 20:42 Last Admin: 07/18/20 19:48 Dose: 999 mls/hr Documented by: Assessment/Plan All Active Problems (Last Updated 06/23/20 @ 14:28 by Josefina Eason) Neutropenia with fever (Acute) Pancytopenia (Acute) Microcalcification of left breast on mammogram (Acute) Abnormal mammogram of left breast (Acute) Hx of colonoscopy (Acute) Hx of hysterectomy (Acute) Systolic murmur (Acute) Osteoporosis (Acute) Osteoarthritis (Acute) Eustachian tube disorder (Acute) Stool guaiac positive (Acute) The patient is a 70 y/o F w/ PMHx: CKD stage III, HTN, OA, L Breast CA following at [facility] with Dr. Latham and also with Dr. Gutierrez locally with oncology who presents to the [facility] ED on 07/18/20 with history of first chemotherapy 6 days prior to current presentation now with onset fever, chills, debility, weakness and malaise, poor appetite, nausea with poor oral intake, mild loose stools, sore throat. 1. SIRS with L Sided Breast Cancer, Unclear Type w/ Acute Pancytopenia/neutropenic Fever: Will admit to MS, maintain on Neutropenic precautions, obtain mag and phos level given recent chemotherapy treatments, maintain I&Os, treat with IV meropenem pending cultures. PRN tylenol, anti- emetics, pain regimen. Recent right IJ port placement on 07/07/2020 therefore will assure blood culture also obtained from the port as well as peripherally. Urinalysis pending upon presentation, urine culture will be added. Stool culture and cdiff requested. Rapid strep also pending per ED given mild evidence mild posterior OP erythema/exudate. Until etiology elucidated or negative cultures will initiate empiric zosyn therapy. May consider Oncology consultation. Plan to remove sutures 07/19/20 or 07/20/20 if amenable per Surgery. 2. Hypokalemia: Admission K+ 3.2, magnesium level requested, supplementation given, repeat level in AM. 3. Hypertension: Patient BP low upon presentation, will temporarily hold lisinopril/hydrochlorothiazide, resume once appropriate, PRN hydralazine. 4. Chronic Kidney Disease Stage III with mild insufficiency: Admission BUN/Cr 28/1.13, baseline renal function 0.9 previously, repeat BMP in AM. 5. DVT prophylaxis: SCDs, Lovenox. 6. CODE status: Patient HCPOA is her and living will is currently in place. Patient and her spouse nor her daughter who is present have ever discussed CODE STATUS concept therefore strongly encouraged especially given her recent diagnosis but they discuss these items. Currently, discussed CODE status at length including difference between FULL code, DNR-CCA and DNR-CC status and following discussions about the differences in these status, will remain Full Code status until they further discuss. Advanced Care Planning Face to Face Time: 16 minutes. OBSV E&M: 72763 Initial observation care L3 Procedures: 41910 Advncd Care Plan 30 Min
[2020-07-18 20:22] LABS: Bacteria 0 SEEN /hpf (None Seen); Color, Urine Yellow (Yellow); Glucose, Dipstick Normal (Normal); Ketone-Dipstick Negative (Negative); Leukocyte Esterase-Dipstick Negative /ul (Negative); Mucous, Urine 0 SEEN /hpf (<or=2+); Nitrite-Dipstick Negative (Negative); Occult Blood-Urine Negative /ul (Negative); Protein-Dipstick Negative (Negative); Red Blood Cells-Urine 0 SEEN /hpf (0-5); Squamous Epithelial Cells - UA 0 SEEN /hpf (5-10); Urine Bilirubin Dipstick Negative (Negative); Urine Clarity Clear (Clear); Urine Urobilinogen Normal (Normal); White Blood Cells 0 SEEN /hpf (0-5)
[2020-07-18 20:27] VITALS: BP 102/57; PULSE 94; RESP 18; TEMP 37.1
[2020-07-18 20:36] LABS: Uric Acid Crystals Ur 1+ /hpf (<or=1+)
[2020-07-18 21:08] VITALS: BMI 27.5
[2020-07-18 21:12] VITALS: BP 97/52; PULSE 87; RESP 18; TEMP 37.2; O2SAT 97
[2020-07-18 21:17] VITALS: BMI 27.5
[2020-07-18 21:50] LABS: Magnesium 1.9 mg/dL (1.6-2.6); Phosphorus 2.4 mg/dL (2.5-4.9)
[2020-07-18] MEDS: 0.9% Normal Saline 1,000 ML 125 ML IV (21:51)
[2020-07-18] MEDS: Potassium Chloride Oral Tablet 20 MEQ 40 MEQ PO (21:52)
[2020-07-18 22:00] LABS: Procalcitonin 0.08 ng/mL (0.00-0.09)
[2020-07-18] MEDS: Famotidine 20 MG Tablet PO (22:28)
[2020-07-19 02:50] VITALS: BP 128/65; PULSE 84; RESP 16; TEMP 37.4; O2SAT 93
[2020-07-19] MEDS: Menthol/Lanolin/Calamine/Znox 113 GM Tube 1 APPLIC TOPICAL ×5 (02:57→21:53)
[2020-07-19] MEDS: Acetaminophen 325 MG Tablet 650 MG PO ×2 (03:00→18:45)
[2020-07-19 04:57] LABS: Absolute Neutrophil Count 0.1 X10^3/uL (2.0-7.7); Basophil# 0.01 X10^3/uL; Basophil% 0.9 % (0-1); Eosinophil# 0.02 X10^3/uL; Eosinophils% 1.8 % (0-5); Hematocrit 27.4 % (37-47); Hemoglobin 8.7 g/dL (12.0-15.0); Lymphocyte % 53.1 % (19-41); Mean Corp Hgb Conc 31.8 g/dL (32-36); Mean Corpuscular Hgb 28.2 pg (27.0-32.0); Monocyte# 0.35 X10^3/uL; NRBC Flagged by Analyzer 0 % (0-5); Neutrophil # 0.14 X10^3/uL (2.7-7.7); Neutrophil % 12.3 % (47-70); POSITIVE COUNT YES; POSITIVE DIFFERENTIAL YES; POSITIVE MORPHOLOGY YES; Platelet Count 101 K/mm3 (150-450); RBC Distribution Width CV 12.3 % (11.6-14.6); RBC Distribution Width SD 39.8 fl (35.1-43.9); Red Blood Count 3.08 M/mm3 (4.2-5.4)
[2020-07-19 04:59] LABS: Differential Indicated SCAN CRITERIA MET; White Blood Count 1.1 K/mm3 (4.4-11.0)
[2020-07-19 05:11] LABS: AST(SGOT) 27 U/L (15-37); Alanine Aminotransfer ALT/SGPT 32 U/L (13-56); Albumin, Serum 2.7 g/dL (3.2-5.0); Alkaline Phosphatase 66 U/L (45-117); Anion Gap 6 (5-15); BUN 19 mg/dL (7-18); BUN/Creat Ratio 22.3 RATIO (10-20); Calcium,Total 7.6 mg/dL (8.5-10.1); Chloride 109 mmol/L (98-107); Creatinine, Serum 0.85 mg/dL (0.55-1.02); EST Glomerular Filtration Rate 70 mL/min (>60); Est Glom Filt Rate - Afr Amer 84 mL/min (>60); Estimated Creatinine Clearance 47.32 ml/min; Globulin 2.7 g/dL (2.2-4.2); Glucose 99 mg/dL (74-106); Potassium 3.8 mmol/L (3.5-5.1); Protein, Total 5.4 g/dL (6.4-8.2); Sodium Level 140 mmol/L (136-145)
[2020-07-19] MEDS: 0.9% Normal Saline 1,000 ML 125 ML IV (05:27)
[2020-07-19] MEDS: 0.9% Saline Lock 10 ML Syringe IV ×2 (05:28→22:00)
[2020-07-19] MEDS: Ensure Clear 120 ML Liquid PO ×2 (08:27→11:41)
[2020-07-19] MEDS: Famotidine 20 MG Tablet PO ×2 (08:30→22:05)
[2020-07-19] MEDS: Multivitamins,Therapeutic Tablet 1 TABLET PO (08:30)
[2020-07-19 08:43] VITALS: BP 119/51; PULSE 86; RESP 16; TEMP 36.6; O2SAT 97
[2020-07-19] MEDS: Enoxaparin 30 MG/0.3 ML Syringe SC (08:53)
--- NOTE | 2020-07-19 09:12 | PN_ITS ---
Patient Problems: Active and Suspected Problems (Last Updated 06/23/20 @ 14:28 by Josefina Eason) Neutropenia with fever (Acute) Pancytopenia (Acute) Subjective: Chief complaint: Follow-up after admission for febrile neutropenia, pancytopenia. Patient seen and examined. No acute events overnight. Today, she is feeling better, weakness improved. Still complaining of diarrhea, but she was. No abdominal pain. Maximum temperature overnight was 98.6 Fahrenheit. Other vital signs are stable. - Physical Exam Vitals/I&O's: Vital Signs Temp Pulse Resp BP Pulse Ox 99.3 F H 84 16 128/65 H 93 07/19/20 02:50 07/19/20 02:50 07/19/20 02:50 07/19/20 02:50 07/19/20 02:50 Oxygen Delivery Method Room Air Weight: 154 lb Body Mass Index (BMI) 27.5 Intake and Output for Last 24 Hours 07/17/20 07/18/20 07/19/20 23:59 23:59 23:59 Intake Total 2300 / 2300 1151.25 / 1151.25 Output Total 900 / 900 550 / 550 Balance 1400 / 1400 601.25 / 601.25 General: Alert, Oriented x3, Cooperative, No apparent distress HEENT: Atraumatic, PERRLA, EOMI, Normocephalic Oral: Moist Mucosa, No Gingival or Mucosal Lesions/ Ulcerations Neck: Supple, No JVD, Negative Carotid Bruits, Trachea Midline, Thyroid Normal Size and Texture Lungs: Clear to auscultation, Normal air movement, No rhonchi, No wheeze, No rales, Diminished Cardiovascular: Regular rate, Regular Rhythm, Normal S1, Normal S2, PMI Normal Abdomen: Bowel Sounds Present, Soft, Non Tender, Non-Distended, No Hepato- splenomegaly Extremities: No clubbing, No cyanosis, No edema Skin: No rashes, No breakdown Lymphatic: No Cervical, Supraclavicular, or Inguinal Adenopathy Neurological: Cranial nerves II-XII grossly intact, Motor Exam 5/5 strength throughout Psych/Mental Status: Normal Affect, Appropriate, Alert and oriented to time, place, person, mood and affect Microbiology Past 72 Hours 07/19/20 06:35 Stool C. difficile DNA Amplification - Final 02/28/21 20:50 Mucosa - Nose Group A Streptococcus Rapid Screen - Final 07/18/20 17:58 Mucosa - Nose SARS-CoV-2 Antigen (Rapid) - Final 07/18/20 17:58 Mucosa - Nose Influenza Types A,B Direct FA (RICARDO) - Final Laboratory Results 07/18/20 18:15: WBC 0.9 L*, RBC 3.82 L, Hgb 10.8 L, Hct 33.5 L, MCV 87.7, MCH 28.3, MCHC 32.2, RDW Std Deviation 39.2, RDW Coeff of Terrence 12.2, Plt Count 124 L, MPV 12.1 H, Immature Gran % (Auto) 0.000, Neut % (Auto) 7.0 L, Lymph % (Auto) 62.8 H, [place] % (Auto) 26.7 H, Eos % (Auto) 2.3, Baso % (Auto) 1.2 H, Absolute Neuts (auto) 0.1 L, Absolute Lymphs (auto) 0.54 L, Nucleated RBC % 0, Diff Path Review September07/18/20 18:15: PT 13.7, INR 1.1, APTT 26.9 07/18/20 18:15: Sodium 136, Potassium 3.2 L, Chloride 99, Carbon Dioxide 28.0, Anion Gap 9, BUN 28 H, Creatinine 1.13 H, Estim Creat Clear Calc 35.59, Est GFR (MDRD) Af Amer 61, Est GFR (MDRD) Non-Af 50 L, BUN/Creatinine Ratio 24.8 H, Glucose 142 H, Calcium 8.6, Total Bilirubin 0.40, AST 21, ALT 32, Alkaline Phosphatase 79, Troponin I 0.030, Total Protein 6.7, Albumin 3.5, Globulin 3.2, Albumin/Globulin Ratio 1.1 07/18/20 18:15: Lactic Acid 1.9 07/18/20 18:15: Phosphorus 2.4 L, Magnesium 1.9 07/18/20 18:15: Procalcitonin 0.08 07/18/20 20:15: Urine Color Yellow, Urine Clarity Clear, Urine pH 6.0, Ur Specific [place] 1.010, Urine Protein Negative, Urine Glucose (UA) Normal, Urine Ketones Negative, Urine Occult Blood Negative, Urine Nitrite Negative, Urine Bilirubin Negative, Urine Urobilinogen Normal, Ur Leukocyte Esterase Negative, Urine RBC 0 SEEN, Urine WBC 0 SEEN, Ur Squamous Epith Cells 0 SEEN, Uric Acid Crystals 1+, Urine Bacteria 0 SEEN, Urine Mucus 0 SEEN 07/19/20 04:45: WBC 1.1 L*, RBC 3.08 L, Hgb 8.7 L, Hct 27.4 L, MCV 89.0, MCH 28.2, MCHC 31.8 L, RDW Std Deviation 39.8, RDW Coeff of Terrence 12.3, Plt Count 101 L, MPV 11.0, Immature Gran % (Auto) 0.900, Neut % (Auto) 12.3 L, Lymph % (Auto) 53.1 H, [place] % (Auto) 31.0 H, Eos % (Auto) 1.8, Baso % (Auto) 0.9, Absolute Neuts (auto) 0.1 L, Absolute Lymphs (auto) 0.60 L, Nucleated RBC % 0, Differential Comment , Diff Path Review September07/19/20 04:45: Sodium 140, Potassium 3.8, Chloride 109 H, Carbon Dioxide 25.0, Anion Gap 6, BUN 19 H, Creatinine 0.85, Estim Creat Clear Calc 47.32, Est GFR (MDRD) Af Amer 84, Est GFR (MDRD) Non-Af 70, BUN/Creatinine Ratio 22.3 H, Glucose 99, Calcium 7.6 L, Total Bilirubin 0.50, AST 27, ALT 32, Alkaline Phosphatase 66, Total Protein 5.4 L, Albumin 2.7 L, Globulin 2.7, Albumin/Globulin Ratio 1.0 Clinical Impression(s) from Imaging Studies Chest X-Ray 07/18/20 18:30 IMPRESSION: Normal x-ray examination of the chest. Electronically Signed: Ludmila Abarca MD at 19:03 EST Tel , Service support , Current Medications Acetaminophen (Acetaminophen 325 Mg Tablet) 650 mg PO Q6H PRN PRN PRN Reason: Pain Score 1-10/Temp > 100.7 F Last Admin: 07/19/20 03:00 Dose: 650 mg Documented by: Al Hydroxide/Mg Hydroxide (Mag Hydrox/Al Hydrox/Simeth 30 Ml Udc) 30 ml PO Q6H PRN PRN PRN Reason: Gastric Burning Albuterol Sulfate (Albuterol 2.5 Mg/3 Ml Vial.Neb.) 2.5 mg INHALATION Q2H PRN PRN PRN Reason: Dyspnea, wheezing Calamine/Phenol (Menthol/Lanolin/Calamine/Znox 113 Gm Tube) 1 applic TOPICAL 4X/DAY [facility]; Protocol Last Admin: 07/19/20 08:31 Dose: 1 applicatio Documented by: Enoxaparin Sodium (Enoxaparin 30 Mg/0.3 Ml Syringe) 30 mg SC DAILY [facility] Last Admin: 07/19/20 08:53 Dose: 30 mg Documented by: Famotidine (Famotidine 20 Mg Tablet) 20 mg PO BID [facility] Last Admin: 07/19/20 08:30 Dose: 20 mg Documented by: Guaifenesin (Guaifenesin 10 Ml Udc (200mg/10ml)) 20 ml PO Q4H PRN PRN PRN Reason: COUGH Heparin Sodium (Beef Lung) (Heparin Pf Lock 10 Units/Ml 50 Units/5 Ml Syringe) 50 units IV UD PRN PRN Reason: Port-a-Cath (VAD)Heparin Flush Hydralazine HCl (Hydralazine 20 Mg/Ml Vial) 10 mg IV Q4H PRN PRN PRN Reason: SBP > 160 Sodium Chloride () 250 mls @ 15 mls/hr IV .[id number] PRN PRN Reason: Saline Flush Last Infusion: 07/19/20 05:32 Dose: 0 mls/hr Documented by: Sodium Chloride () 250 mls @ 15 mls/hr IV .[id number] PRN PRN Reason: Additional IVPB Infusion Sodium Chloride () 1,000 mls @ 125 mls/hr IV .Q8H [facility] Last Admin: 07/19/20 05:27 Dose: 125 mls/hr Documented by: Piperacillin Sod/Tazobactam (Sod 3.375 gm/ Sodium Chloride) 50 mls @ 12.5 mls/hr IV Q8 [facility] Last Admin: 07/19/20 05:32 Dose: 12.5 mls/hr Documented by: Melatonin (Melatonin 3 Mg Tablet) 3 mg PO QHS PRN PRN PRN Reason: INSOMNIA Multivitamins (Multivitamins,Therapeutic Tablet) 1 tablet PO DAILYCM [facility] Last Admin: 07/19/20 08:30 Dose: 1 tablet Documented by: Nutritional Formula (Lactose Free) (Ensure Clear 120 Ml Liquid) 120 ml PO TIDCM [facility] Last Admin: 07/19/20 08:27 Dose: 120 ml Documented by: Ondansetron HCl (Ondansetron 4 Mg/2 Ml Vial) 4 mg IV Q8H PRN PRN PRN Reason: NAUSEA/VOMITING Prochlorperazine Edisylate (Prochlorperazine 10 Mg/2 Ml Vial) 5 mg IV Q4H PRN PRN PRN Reason: Breakthrough nausea/vomiting Sodium Chloride (0.9% Saline Lock 10 Ml Syringe) 10 - 40 ml IV UD PRN PRN Reason: Port-a-Cath (VAD) Flush Last Admin: 07/19/20 05:28 Dose: 20 ml Documented by: Sodium Chloride (0.9 % Nacl (Sterile) Posiflush 10 Ml) 10 - 40 ml IV UD PRN PRN Reason: Port access or dressing change Sodium Chloride (0.9% Saline Lock 10 Ml Syringe) 10 - 40 ml IV UD PRN PRN Reason: SALINE FLUSH Throat Lozenges (Benzocaine/Menthol 1 Lozenge) 1 lozenge MUCOUS MEM Q2H PRN PRN PRN Reason: SORE THROAT Medical Necessity - Tobacco Use Smoking Status: Never smoker Tobacco Use: Non-smoker Assessment/Plan All Active Problems (Last Updated 06/23/20 @ 14:28 by Josefina Eason) Neutropenia with fever (Acute) Pancytopenia (Acute) This is a 70 years old female patient presented to the emergency room because of fever, chills, weakness and she was found to have febrile neutropenia and pancytopenia. #1 febrile neutropenia: Without evidence of infection. It is secondary to chemotherapy. Today's WBC is 1100, absolute neutrophil count is 100. Chest x- ray showed no acute findings. Urinalysis was unremarkable. Patient is on IV Zosyn empirically. COVID-19 antigen was negative. Nasal swab for influenza a and B were negative. Blood cultures are pending. Stool studies are pending at this time. This morning, her temperature was 99.8 Fahrenheit. Other vital signs are stable. Patient stated that she received Neulasta injection after a chemotherapy which was around 8 days ago. Plan to continue same treatment, repeat CBC and BMP tomorrow morning. #2 pancytopenia: As above due to chemotherapy. WBC, hemoglobin and platelets are low. Plan as above. At this time, no indication for transfusion. Pro time and INR normal. #3 hypokalemia/dehydration: She is on IV fluids. Potassium was replaced and corrected. Serum magnesium was normal. Today's potassium is 3.8. #4 left breast cancer: Currently on chemotherapy, plan as above. #5 hypertension: Blood pressure stable. Currently, she is off lisinopril and HCTZ. #6 DVT prophylaxis: Subcu Lovenox. This note was generated with [employer] dictation software. It may contain incorrect words, spelling, and punctuation that were not noted in checking the note before signing. Inpatient E&M: 98067 Subs Hosp L2
[2020-07-19] MEDS: BENZOCAINE/MENTHOL 1 LOZENGE MUCOUS MEM ×3 (11:41→22:05)
[2020-07-19 11:53] VITALS: BP 109/58; PULSE 89; RESP 16; TEMP 36.9; O2SAT 98
--- NOTE | 2020-07-19 12:57 | PCM.PN.SRG ---
Patient Problems: Active and Suspected Problems (Last Updated 07/19/20 @ 10:[address] Sarah Beth Johnston MD) Neutropenia with fever (Acute) Pancytopenia (Acute) Subjective: Patient ended due to neutropenic fever status post chemo still has permanent sutures from port placement.Patient states overall she is feeling better. - Physical Exam Vitals/I&O's: Vital Signs Temp Pulse Resp BP Pulse Ox 98.4 F 89 16 109/58 L 98 07/19/20 11:53 07/19/20 11:53 07/19/20 11:53 07/19/20 11:53 07/19/20 11:53 Oxygen Delivery Method Room Air Weight: 154 lb Body Mass Index (BMI) 27.5 Intake and Output for Last 24 Hours 07/17/20 07/18/20 07/19/20 23:59 23:59 23:59 Intake Total 2300 / 2300 2376.25 / 2376.25 Output Total 900 / 900 550 / 550 Balance 1400 / 1400 1826.25 / 1826.25 Skin: - - Right chest permanent sutures removed from port incision. Incision healing well. Microbiology Past 72 Hours 07/19/20 06:35 Stool Enteric Bacteriology - Final 07/19/20 06:35 Stool C. difficile DNA Amplification - Final 07/18/20 20:50 Mucosa - Nose Group A Streptococcus Rapid Screen - Final 07/18/20 17:58 Mucosa - Nose SARS-CoV-2 Antigen (Rapid) - Final 07/18/20 17:58 Mucosa - Nose Influenza Types A,B Direct FA (RICARDO) - Final Laboratory Results 07/18/20 18:15: WBC 0.9 L*, RBC 3.82 L, Hgb 10.8 L, Hct 33.5 L, MCV 87.7, MCH 28.3, MCHC 32.2, RDW Std Deviation 39.2, RDW Coeff of Terrence 12.2, Plt Count 124 L, MPV 12.1 H, Immature Gran % (Auto) 0.000, Neut % (Auto) 7.0 L, Lymph % (Auto) 62.8 H, [place] % (Auto) 26.7 H, Eos % (Auto) 2.3, Baso % (Auto) 1.2 H, Absolute Neuts (auto) 0.1 L, Absolute Lymphs (auto) 0.54 L, Nucleated RBC % 0, Diff Path Review [facility] 07/18/20 18:15: PT 13.7, INR 1.1, APTT 26.9 07/18/20 18:15: Sodium 136, Potassium 3.2 L, Chloride 99, Carbon Dioxide 28.0, Anion Gap 9, BUN 28 H, Creatinine 1.13 H, Estim Creat Clear Calc 35.59, Est GFR (MDRD) Af Amer 61, Est GFR (MDRD) Non-Af 50 L, BUN/Creatinine Ratio 24.8 H, Glucose 142 H, Calcium 8.6, Total Bilirubin 0.40, AST 21, ALT 32, Alkaline Phosphatase 79, Troponin I 0.030, Total Protein 6.7, Albumin 3.5, Globulin 3.2, Albumin/Globulin Ratio 1.1 07/18/20 18:15: Lactic Acid 1.9 07/18/20 18:15: Phosphorus 2.4 L, Magnesium 1.9 07/18/20 18:15: Procalcitonin 0.08 07/18/20 20:15: Urine Color Yellow, Urine Clarity Clear, Urine pH 6.0, Ur Specific [place] 1.010, Urine Protein Negative, Urine Glucose (UA) Normal, Urine Ketones Negative, Urine Occult Blood Negative, Urine Nitrite Negative, Urine Bilirubin Negative, Urine Urobilinogen Normal, Ur Leukocyte Esterase Negative, Urine RBC 0 SEEN, Urine WBC 0 SEEN, Ur Squamous Epith Cells 0 SEEN, Uric Acid Crystals 1+, Urine Bacteria 0 SEEN, Urine Mucus 0 SEEN 07/19/20 04:45: WBC 1.1 L*, RBC 3.08 L, Hgb 8.7 L, Hct 27.4 L, MCV 89.0, MCH 28.2, MCHC 31.8 L, RDW Std Deviation 39.8, RDW Coeff of Terrence 12.3, Plt Count 101 L, MPV 11.0, Immature Gran % (Auto) 0.900, Neut % (Auto) 12.3 L, Lymph % (Auto) 53.1 H, [place] % (Auto) 31.0 H, Eos % (Auto) 1.8, Baso % (Auto) 0.9, Absolute Neuts (auto) 0.1 L, Absolute Lymphs (auto) 0.60 L, Nucleated RBC % 0, Differential Comment , Diff Path Review September07/19/20 04:45: Sodium 140, Potassium 3.8, Chloride 109 H, Carbon Dioxide 25.0, Anion Gap 6, BUN 19 H, Creatinine 0.85, Estim Creat Clear Calc 47.32, Est GFR (MDRD) Af Amer 84, Est GFR (MDRD) Non-Af 70, BUN/Creatinine Ratio 22.3 H, Glucose 99, Calcium 7.6 L, Total Bilirubin 0.50, AST 27, ALT 32, Alkaline Phosphatase 66, Total Protein 5.4 L, Albumin 2.7 L, Globulin 2.7, Albumin/Globulin Ratio 1.0 Current Medications Acetaminophen (Acetaminophen 325 Mg Tablet) 650 mg PO Q6H PRN PRN PRN Reason: Pain Score 1-10/Temp > 100.7 F Last Admin: 07/19/20 03:00 Dose: 650 mg Documented by: Al Hydroxide/Mg Hydroxide (Mag Hydrox/Al Hydrox/Simeth 30 Ml Udc) 30 ml PO Q6H PRN PRN PRN Reason: Gastric Burning Albuterol Sulfate (Albuterol 2.5 Mg/3 Ml Vial.Neb.) 2.5 mg INHALATION Q2H PRN PRN PRN Reason: Dyspnea, wheezing Calamine/Phenol (Menthol/Lanolin/Calamine/Znox 113 Gm Tube) 1 applic TOPICAL 4X/DAY [facility]; Protocol Last Admin: 07/19/20 08:31 Dose: 1 applicatio Documented by: Enoxaparin Sodium (Enoxaparin 30 Mg/0.3 Ml Syringe) 30 mg SC DAILY [facility] Last Admin: 07/19/20 08:53 Dose: 30 mg Documented by: Famotidine (Famotidine 20 Mg Tablet) 20 mg PO BID [facility] Last Admin: 07/19/20 08:30 Dose: 20 mg Documented by: Guaifenesin (Guaifenesin 10 Ml Udc (200mg/10ml)) 20 ml PO Q4H PRN PRN PRN Reason: COUGH Heparin Sodium (Beef Lung) (Heparin Pf Lock 10 Units/Ml 50 Units/5 Ml Syringe) 50 units IV UD PRN PRN Reason: Port-a-Cath (VAD)Heparin Flush Hydralazine HCl (Hydralazine 20 Mg/Ml Vial) 10 mg IV Q4H PRN PRN PRN Reason: SBP > 160 Sodium Chloride () 250 mls @ 15 mls/hr IV .[id number] PRN PRN Reason: Saline Flush Last Infusion: 07/19/20 05:32 Dose: 0 mls/hr Documented by: Sodium Chloride () 250 mls @ 15 mls/hr IV .[id number] PRN PRN Reason: Additional IVPB Infusion Piperacillin Sod/Tazobactam (Sod 3.375 gm/ Sodium Chloride) 50 mls @ 12.5 mls/hr IV Q8 [facility] Last Infusion: 07/19/20 09:32 Dose: Infused Documented by: Melatonin (Melatonin 3 Mg Tablet) 3 mg PO QHS PRN PRN PRN Reason: INSOMNIA Multivitamins (Multivitamins,Therapeutic Tablet) 1 tablet [facility] Last Admin: 07/19/20 08:30 Dose: 1 tablet Documented by: Nutritional Formula (Lactose Free) (Ensure Clear 120 Ml Liquid) 120 ml PO TIDCM [facility] Last Admin: 07/19/20 11:41 Dose: 120 ml Documented by: Ondansetron HCl (Ondansetron 4 Mg/2 Ml Vial) 4 mg IV Q8H PRN PRN PRN Reason: NAUSEA/VOMITING Prochlorperazine Edisylate (Prochlorperazine 10 Mg/2 Ml Vial) 5 mg IV Q4H PRN PRN PRN Reason: Breakthrough nausea/vomiting Sodium Chloride (0.9% Saline Lock 10 Ml Syringe) 10 - 40 ml IV UD PRN PRN Reason: Port-a-Cath (VAD) Flush Last Admin: 07/19/20 05:28 Dose: 20 ml Documented by: Sodium Chloride (0.9 % Nacl (Sterile) Posiflush 10 Ml) 10 - 40 ml IV UD PRN PRN Reason: Port access or dressing change Sodium Chloride (0.9% Saline Lock 10 Ml Syringe) 10 - 40 ml IV UD PRN PRN Reason: SALINE FLUSH Throat Lozenges (Benzocaine/Menthol 1 Lozenge) 1 lozenge MUCOUS MEM Q2H PRN PRN PRN Reason: SORE THROAT Last Admin: 07/19/20 11:41 Dose: 1 lozenge Documented by: Medical Necessity - Tobacco Use Smoking Status: Never smoker Tobacco Use: Non-smoker Assessment/Plan All Active Problems (Last Updated 07/19/20 @ 10:[address] Sarah Beth Johnston MD) Neutropenia with fever (Acute) Pancytopenia (Acute) 70-year-old female with neutropenic fever status post chemo and port placement. 1. Permanent sutures removed from right chest port site. Incision healing well. Port working well currently accessed. Karie Rojas M.D. Pager: [phone] [facility] [address] [place] [address], [address] [place] [address] Office: [phone]
[2020-07-19 14:35] LABS: Pathologist Review Reviewed
[2020-07-19 14:36] LABS: Pathologist Review Reviewed
[2020-07-19 18:35] VITALS: BP 121/54; PULSE 85; RESP 16; TEMP 36.7; O2SAT 98
[2020-07-19 22:17] VITALS: BP 142/76; PULSE 85; RESP 18; TEMP 36.8; O2SAT 97
[2020-07-20 03:03] VITALS: BP 124/60; PULSE 75; RESP 16; TEMP 36.8; O2SAT 94
[2020-07-20 06:57] LABS: Absolute Lymphocyte Count 1.14 X10^3/uL (0.83-4.51); Absolute Neutrophil Count 2.6 X10^3/uL (2.0-7.7); Basophil# 0.06 X10^3/uL; Basophil% 1.3 % (0-1); Eosinophil# 0.03 X10^3/uL; Eosinophils% 0.6 % (0-5); Hematocrit 31.4 % (37-47); Lymphocyte # 1.14 X10^3/ul (4.0); Lymphocyte % 23.8 % (19-41); Mean Corp Hgb Conc 31.8 g/dL (32-36); Mean Corpuscular Hgb 28.7 pg (27.0-32.0); Mean Platelet Vol. 11.4 fl (6.2-12.0); Monocyte# 0.77 X10^3/uL; Monocyte% 16.1 % (0-10); NRBC Flagged by Analyzer 0 % (0-5); Neutrophil # 2.59 X10^3/uL (2.7-7.7); Neutrophil % 54.2 % (47-70); POSITIVE MORPHOLOGY YES; Platelet Count 124 K/mm3 (150-450); RBC Distribution Width CV 12.4 % (11.6-14.6); RBC Distribution Width SD 40.3 fl (35.1-43.9); Red Blood Count 3.49 M/mm3 (4.2-5.4); White Blood Count 4.8 K/mm3 (4.4-11.0)
[2020-07-20 07:03] LABS: Differential Indicated SCAN CRITERIA MET
[2020-07-20 07:22] LABS: Anion Gap 8 (5-15); BUN 7 mg/dL (7-18); BUN/Creat Ratio 8.5 RATIO (10-20); Calcium,Total 8.4 mg/dL (8.5-10.1); Chloride 111 mmol/L (98-107); Creatinine, Serum 0.83 mg/dL (0.55-1.02); EST Glomerular Filtration Rate 72 mL/min (>60); Est Glom Filt Rate - Afr Amer 87 mL/min (>60); Estimated Creatinine Clearance 48.46 ml/min; Glucose 85 mg/dL (74-106); Potassium 3.5 mmol/L (3.5-5.1); Sodium Level 141 mmol/L (136-145)
[2020-07-20 07:35] VITALS: O2SAT 98
[2020-07-20 07:40] LABS: Dohle Bodies RARE; Hypochromasia RARE; Platelet Estimate ADEQUATE (ADEQ); Toxic Granulation 1+
[2020-07-20] MEDS: Loperamide 2 MG Capsule PO (08:24)
[2020-07-20 08:27] VITALS: BP 139/72; PULSE 83; RESP 18; TEMP 36.7; O2SAT 95
--- NOTE | 2020-07-20 08:35 | PCM.DC ---
- Discharge Diagnoses Current Active Problems: Current Active and Chronic Problems (Last Updated 07/19/20 @ 10:[address] Sarah Beth Johnston MD) Neutropenia with fever (Acute) Pancytopenia (Acute) Breast cancer, left (Chronic) Hypertension (Chronic) You will use the following diet at home:: Cardiac Your food should be the consistency of: Regular Discharge Activity: Return to Normal Activity Weight Bearing Status: Weight bearing as tolerated Call your doctor if you observe: Fever of 101 or Higher, Shortness of breath, Dizziness, Fainting spells, Chest pain, Increased palpitations (irregular heartbeat), Uncontrolled pain Allergies/Adverse Reactions: Allergies No Known Allergies Allergy (Verified 06/30/20 13:01) Medications to take at Discharge lisinopril 20 mg-hydrochlorothiazide 12.5 mg tablet 1 tab PO DAILY 01/08/19 multivitamin 1 tab PO DAILY 01/08/19 cholecalciferol (vitamin D3) 50 mcg (2,000 unit) capsule 50 mcg PO DAILY 05/07/20 Loperamide [Imodium] 2 mg PO Q4H PRN PRN #30 cap 07/20/20 The following prescriptions were given: Loperamide [Imodium] 2 mg PO Q4H PRN PRN #30 cap PRN Reason: Diarrhea Transmission Status: Pending to [facility] Primary Care Physician: Odilon Novak DO [Primary Care Provider] - Please follow up with your Primary Care Physician in: 2 weeks. Test Results: Test results from this visit will be discussed in further detail at your follow-up appointment, if applicable. Please Follow Up With: Sukumar Gutierrez DO When: as scheduled.
[2020-07-20] MEDS: Ensure Clear 120 ML Liquid PO (08:36)
[2020-07-20] MEDS: Multivitamins,Therapeutic Tablet 1 TABLET PO (08:36)
--- NOTE | 2020-07-20 10:54 | PHA.DC.MC ---
Pharmacy Service has performed discharge medication reconciliation and counseling for this patient. 1. LOPERAMIDE 2MG PO Q4H PRN DIARRHEA The patient's discharge medication list was reviewed for discrepancies and discrepancies were resolved. Home Medications lisinopril 20 mg-hydrochlorothiazide 12.5 mg tablet 1 tab PO DAILY 01/08/19 multivitamin 1 tab PO DAILY 01/08/19 cholecalciferol (vitamin D3) 50 mcg (2,000 unit) capsule 50 mcg PO DAILY 05/07/20 Loperamide [Imodium] 2 mg PO Q4H PRN PRN #30 cap 07/20/20 The patient was counseled on the following discharge medications and changes in medications for homegoing were reviewed. The Reason for Use, instructions for use, and potential side effects were reviewed for all new medications. The patient's questions regarding all of their medications were answered. The patient was able to verbally demonstrate an understanding of their discharge medications.
[2020-07-20] MEDS: Menthol/Lanolin/Calamine/Znox 113 GM Tube 1 APPLIC TOPICAL (11:18)
[2020-07-20] MEDS: Famotidine 20 MG Tablet PO (11:18)
[2020-07-20] MEDS: 0.9% Saline Lock 10 ML Syringe IV (11:20)
--- NOTE | 2020-07-20 11:30 | CASEMGMT ---
RN NAOMI Face to Face with patient for initial transition planning/care coordination assessment. RN CM introduced self and role at [facility]. Patient lying in bed, alert and oriented. Patient willing to participate in assessment and is able to answer all questions appropriately. Care providers, pharmacy, and demographics verified. Patient wishes to discharge home, denies need for home health at this time. Patient states she has no further needs or concerns at this time. CM to follow for discharge planning needs that may arise. PCP: Kishore Specialists: Matt, oncologist Preferred Pharmacy: [facility] Insurance: [facility] Prescription Benefit: yes Living Will/HPOA: yes, Charlie Lieberman LNOK: Living Arrangements: Patient lives with in a single story home with no steps to enter. Patient states she is independent at home. Transportation: self/ DME/HHC: Patient denies previous HHC or DME. Disposition Plan: Patient to discharge home with family support and follow-up plans in place. Astrid WADE, RN, CM
[2020-07-20 11:41] VITALS: BP 131/57; PULSE 89; RESP 14; TEMP 36.8; O2SAT 98
--- NOTE | 2020-07-20 11:59 | PCM.DC.SUM ---
Discharge Date and Diagnosis - Problem List Patient Problems: Active and Suspected Problems (Last Updated 07/19/20 @ 10:[address] Sarah Beth Johnston MD) Neutropenia with fever (Acute) Pancytopenia (Acute) Date of Admission: 07/18/20 Date of Discharge: 07/20/20 - Primary Discharge Diagnosis Acute Problems: Active Problems (Last Updated 07/19/20 @ 10:[address] Sarah Beth Johnston MD) #1 febrile neutropenia without evidence of infection. #2 pancytopenia. #3 hypokalemia/dehydration. #4 acute diarrheal illness, secondary to chemotherapy, stool studies were negative. - Secondary Discharge Diagnosis Chronic Problems: Chronic Problems (Last Updated 07/19/20 @ 10:[address] Sarah Beth Johnston MD) Breast cancer, left (Chronic) Microcalcification of left breast on mammogram (Chronic) Systolic murmur (Chronic) Osteoporosis (Chronic) Osteoarthritis (Chronic) Hypertension (Chronic) Hospital Course and Treatment Imaging Results: Clinical Impression(s) from Imaging Studies Chest X-Ray 07/18/20 18:30 IMPRESSION: Normal x-ray examination of the chest. Electronically Signed: Ludmila Abarca MD at 19:03 EST Tel , Service support , Operations: None Procedures: None Summary of Care Provided: Patient was seen and examined on the day of discharge and appeared to be stable to be discharged home. She has been afebrile overnight, vital signs were stable. She still complaining of diarrhea and she was started on Imodium. Her stool studies were negative. The patient is a 70 year old F presented to the emergency room because of fever, chills, weakness and she was found to have febrile neutropenia and pancytopenia. This patient had a history of breast cancer and she received chemotherapy around 1 week ago before admission. On admission, her WBC was 900, absolute neutrophil count was 100, platelet count was 124,000 and hemoglobin was 10.8 g/dL. She was started on IV Zosyn empirically for febrile neutropenia. Chest x-ray showed no acute findings. Urinalysis showed no evidence of infection. LFT was unremarkable. COVID-19 antigen was negative. Patient stated that she received Neulasta injection 1 day after her last chemotherapy which was around 1 week ago. Stool was negative for C. difficile and enteric pathogens. Nasal swab for influenza a and B were negative. Blood culture showed no growth up to the time of discharge. With treatment, symptoms improved. Her potassium was replaced and corrected. On day of discharge, her wounds are recovered and had WBC went back to normal. Discharge WBC was 4800, absolute neutrophil count was 2600 and her platelet count was 124,000. Discharge hemoglobin was 10 g/dL. There was no evidence of active bleeding. Patient was started on on Imodium for diarrhea. Patient discharged home in a stable medical condition, discharged on Imodium as needed for diarrhea, continued on her previous home medications without any changes, plan to follow-up with oncology as scheduled, recommended follow-up with PCP in 2 weeks. Patient Problems: Active and Suspected Problems (Last Updated 07/19/20 @ 10:[address] Sarah Beth Johnston MD) Neutropenia with fever (Acute) Pancytopenia (Acute) - Physical Exam Vitals/I&O's: Vital Signs Temp Pulse Resp BP Pulse Ox 98.3 F 89 14 131/57 H 98 07/20/20 11:41 07/20/20 11:41 07/20/20 11:41 07/20/20 11:41 07/20/20 11:41 Oxygen Delivery Method Room Air Weight: 154 lb 15.759 oz Body Mass Index (BMI) 27.5 Intake and Output for Last 24 Hours 07/18/20 07/19/20 07/20/20 23:59 23:59 23:59 Intake Total 2300 / 2300 2876.25 / 2876.25 100 / 100 Output Total 900 / 900 550 / 850 600 / 600 Balance 1400 / 1400 2326.25 / 2026.25 -500 / -500 General: Alert, Oriented x3, Cooperative, No apparent distress HEENT: Atraumatic, PERRLA, EOMI, Normocephalic Oral: Moist Mucosa, No Gingival or Mucosal Lesions/ Ulcerations Neck: Supple, No JVD, Negative Carotid Bruits, Trachea Midline, Thyroid Normal Size and Texture Lungs: Clear to auscultation, Normal air movement, No rhonchi, No wheeze, No rales Cardiovascular: Regular rate, Regular Rhythm, Normal S1, Normal S2, PMI Normal Abdomen: Bowel Sounds Present, Soft, Non Tender, Non-Distended, No Hepato-splenomegaly Extremities: No clubbing, No cyanosis, No edema Skin: No rashes, No breakdown Lymphatic: No Cervical, Supraclavicular, or Inguinal Adenopathy Neurological: Cranial nerves II-XII grossly intact, Neuro grossly intact Psych/Mental Status: Normal Affect, Appropriate Microbiology Past 72 Hours 07/18/20 20:50 Mucosa - Nose Group A Streptococcus Rapid Screen - Preliminary 07/19/20 06:35 Stool Enteric Bacteriology - Final 07/19/20 06:35 Stool C. difficile DNA Amplification - Final 07/18/20 17:58 Mucosa - Nose SARS-CoV-2 Antigen (Rapid) - Final 07/18/20 17:58 Mucosa - Nose Influenza Types A,B Direct FA (RICARDO) - Final Laboratory Results 07/18/20 18:15: Diff Path Review Reviewed 07/19/20 04:45: Diff Path Review Reviewed 07/20/20 06:30: WBC 4.8, RBC 3.49 L, Hgb 10.0 L, Hct 31.4 L, MCV 90.0, MCH 28.7, MCHC 31.8 L, RDW Std Deviation 40.3, RDW Coeff of Terrence 12.4, Plt Count 124 L, MPV 11.4, Immature Gran % (Auto) 4.000 H, Neut % (Auto) 54.2, Lymph % (Auto) 23.8, [place] % (Auto) 16.1 H, Eos % (Auto) 0.6, Baso % (Auto) 1.3 H, Absolute Neuts (auto) 2.6, Absolute Lymphs (auto) 1.14, Nucleated RBC % 0, Toxic Granulation 1+, Dohle Bodies RARE, Platelet Estimate ADEQUATE, Hypochromasia RARE 07/20/20 06:30: Sodium 141, Potassium 3.5, Chloride 111 H, Carbon Dioxide 22.0, Anion Gap 8, BUN 7, Creatinine 0.83, Estim Creat Clear Calc 48.46, Est GFR (MDRD) Af Amer 87, Est GFR (MDRD) Non-Af 72, BUN/Creatinine Ratio 8.5 L, Glucose 85, Calcium 8.4 L Current Medications Acetaminophen (Acetaminophen 325 Mg Tablet) 650 mg PO Q6H PRN PRN PRN Reason: Pain Score 1-10/Temp > 100.7 F Last Admin: 07/19/20 18:45 Dose: 650 mg Documented by: Al Hydroxide/Mg Hydroxide (Mag Hydrox/Al Hydrox/Simeth 30 Ml Udc) 30 ml PO Q6H PRN PRN PRN Reason: Gastric Burning Albuterol Sulfate (Albuterol 2.5 Mg/3 Ml Vial.Neb.) 2.5 mg INHALATION Q2H PRN PRN PRN Reason: Dyspnea, wheezing Calamine/Phenol (Menthol/Lanolin/Calamine/Znox 113 Gm Tube) 1 applic TOPICAL 4X/DAY [facility]; Protocol Last Admin: 07/20/20 11:18 Dose: 1 applicatio Documented by: Enoxaparin Sodium (Enoxaparin 30 Mg/0.3 Ml Syringe) 30 mg SC DAILY [facility] Last Admin: 07/20/20 11:15 Dose: Not Given Documented by: Famotidine (Famotidine 20 Mg Tablet) 20 mg PO BID [facility] Last Admin: 07/20/20 11:18 Dose: 20 mg Documented by: Guaifenesin (Guaifenesin 10 Ml Udc (200mg/10ml)) 20 ml PO Q4H PRN PRN PRN Reason: COUGH Heparin Sodium (Beef Lung) (Heparin Pf Lock 10 Units/Ml 50 Units/5 Ml Syringe) 50 units IV UD PRN PRN Reason: Port-a-Cath (VAD)Heparin Flush Last Admin: 07/20/20 11:19 Dose: 50 units Documented by: Hydralazine HCl (Hydralazine 20 Mg/Ml Vial) 10 mg IV Q4H PRN PRN PRN Reason: SBP > 160 Sodium Chloride () 250 mls @ 15 mls/hr IV .[id number] PRN PRN Reason: Saline Flush Last Infusion: 07/19/20 05:32 Dose: 0 mls/hr Documented by: Sodium Chloride () 250 mls @ 15 mls/hr IV .[id number] PRN PRN Reason: Additional IVPB Infusion Piperacillin Sod/Tazobactam (Sod 3.375 gm/ Sodium Chloride) 50 mls @ 12.5 mls/hr IV Q8 [facility] Last Infusion: 07/20/20 10:00 Dose: Infused Documented by: Loperamide HCl (Loperamide 2 Mg Capsule) 2 mg PO Q2H PRN PRN PRN Reason: Diarrhea Last Admin: 07/20/20 08:24 Dose: 2 mg Documented by: Melatonin (Melatonin 3 Mg Tablet) 3 mg PO QHS PRN PRN PRN Reason: INSOMNIA Multivitamins (Multivitamins,Therapeutic Tablet) [facility] Last Admin: 07/20/20 08:36 Dose: 1 tablet Documented by: Nutritional Formula (Lactose Free) (Ensure Clear 120 Ml Liquid) 120 ml PO TIDCM [facility] Last Admin: 07/20/20 08:36 Dose: 120 ml Documented by: Ondansetron HCl (Ondansetron 4 Mg/2 Ml Vial) 4 mg IV Q8H PRN PRN PRN Reason: NAUSEA/VOMITING Prochlorperazine Edisylate (Prochlorperazine 10 Mg/2 Ml Vial) 5 mg IV Q4H PRN PRN PRN Reason: Breakthrough nausea/vomiting Sodium Chloride (0.9% Saline Lock 10 Ml Syringe) 10 - 40 ml IV UD PRN PRN Reason: Port-a-Cath (VAD) Flush Last Admin: 07/20/20 11:20 Dose: 10 ml Documented by: Sodium Chloride (0.9 % Nacl (Sterile) Posiflush 10 Ml) 10 - 40 ml IV UD PRN PRN Reason: Port access or dressing change Sodium Chloride (0.9% Saline Lock 10 Ml Syringe) 10 - 40 ml IV UD PRN PRN Reason: SALINE FLUSH Throat Lozenges (Benzocaine/Menthol 1 Lozenge) 1 lozenge MUCOUS MEM Q2H PRN PRN PRN Reason: SORE THROAT Last Admin: 07/19/20 22:05 Dose: 1 lozenge Documented by: Discharge Activity: Return to Normal Activity Weight Bearing Status: Weight bearing as tolerated Call your doctor if you observe: Fever of 101 or Higher, Shortness of breath, Dizziness, Fainting spells, Chest pain, Increased palpitations (irregular heartbeat), Uncontrolled pain Home Medications: Medications to take at Discharge lisinopril 20 mg-hydrochlorothiazide 12.5 mg tablet 1 tab PO DAILY 01/08/19 multivitamin 1 tab PO DAILY 01/08/19 cholecalciferol (vitamin D3) 50 mcg (2,000 unit) capsule 50 mcg PO DAILY 05/07/20 Loperamide [Imodium] 2 mg PO Q4H PRN PRN #30 cap 07/20/20 Following Prescriptions Were Given to Patient: Loperamide [Imodium] 2 mg PO Q4H PRN PRN #30 cap PRN Reason: Diarrhea Transmission Status: Received by [facility] Primary Care Physician: Odilon Novak DO [Primary Care Provider] - Please follow up with your Primary Care Physician in: 2 weeks. Please Follow Up With: Sukumar Gutierrez DO When: as scheduled. Disposition: Home Minutes spent on discharge:: 32 Patient Condition:: Stable Medical Necessity - Tobacco Use Smoking Status: Never smoker Tobacco Use: Non-smoker Meaningful Use Info Meaningful Use Diagnoses (Choose all that apply): None applicable Inpatient E&M: [id number] [facility]
== END 2020-07-20 12:19 | disposition home or self-care (01) | DRG 809 ==
LOC: ED 20:10 → MS3 20:28
PROVIDERS: Admitting Provider Family Medicine; Emergency Provider Emergency Medicine; PCP Student in an Organized Health Care Education/Training Program; Visit Provider Hospitalist
DX: D70.1 Agranulocytosis secondary to cancer chemotherapy (principal); K52.1 Toxic gastroenteritis and colitis; D61.810 Antineoplastic chemotherapy induced pancytopenia; R50.81 Fever presenting with conditions classified elsewhere; C50.912 Malignant neoplasm of unspecified site of left female breast; T45.1X5A Adverse effect of antineoplastic and immunosuppressive drugs, initial encounter; Y92.9 Unspecified place or not applicable; E86.0 Dehydration; E87.6 Hypokalemia; H69.90 Unspecified Eustachian tube disorder, unspecified ear; I12.9 Hypertensive chronic kidney disease with stage 1 through stage 4 chronic kidney disease, or unspecified chronic kidney disease; M19.90 Unspecified osteoarthritis, unspecified site; M81.0 Age-related osteoporosis without current pathological fracture; N18.30 Chronic kidney disease, stage 3 unspecified; N28.9 Disorder of kidney and ureter, unspecified; R01.1 Cardiac murmur, unspecified; Z79.899 Other long term (current) drug therapy
CPT/HCPCS: 36415; 71045; 80048; 80053; 81001; 83605; 83735; 84100; 84145; 84484; 85025; 85610; 85730; 87040; 87426; 87493; 87506; 87804; 87880; 93005; 97161; 97166; 97802; 99251; 99285; J7030; J7050; A4216; G0463; J2405

== ENCOUNTER → 2020-11-02 11:19 | Outpatient (CLI) | payer MEDICARE, SELFPAY ==
[2020-11-02 11:27] VITALS: BP 106/60; PULSE 93; RESP 16; TEMP 36.7; O2SAT 98; BMI 24.3
[2020-11-02 12:12] VITALS: BP 101/51; PULSE 88; RESP 16; TEMP 36.9; O2SAT 98
[2020-11-02 13:33] VITALS: BP 104/58; PULSE 87; RESP 16; TEMP 36.5; O2SAT 98
[2020-11-02 14:20] VITALS: BP 97/55; PULSE 84; RESP 16; TEMP 36.5; O2SAT 99
== END ==
PROVIDERS: PCP Student in an Organized Health Care Education/Training Program; Referring Provider Internal Medicine Hematology & Oncology; Visit Provider Internal Medicine Hematology & Oncology
DX: D64.81 Anemia due to antineoplastic chemotherapy (principal)
CPT/HCPCS: 36430; 86850; 86900; 86901; 86920; 86922; J7040; J7050; P9016

== ENCOUNTER 2021-02-24 14:00 | Outpatient (RCR) | payer MEDICARE, SELFPAY ==
--- NOTE | 2021-02-21 16:54 | HP.OTEVAL_ITS ---
Patient's Visit Information INÉS TAMEZ is a 70 year old F, referred to Occupational Therapy by CESAR SABA, with a diagnosis of breast cancer. Date of Evaluation: 02/16/21 Occupational Therapist: Johanna Newman, SUE/Aileen, CHT - Subjective This 70 year old female was seen for OT eval with dx of breast cancer. pt states she had double mastectomy on 2020. pt is 6 weeks and 2 days s/p- states she went for radiation on 02/07/21 but could not get her arms in the position they wanted- pts states she then was given UB ROM exercises- pt states she initiated exercise and is trying doing them at least two times a day. pt goes back to radiation this coming Sunday. - ROM Shoulder: right 125 left 110 ROM Comments: right shoulder abductions 135 left 125. pt limited with shoulder external rotation - Goals Goal:: pt will demo a increase in bilateral shoulder flexion by 30* or greater to increase pts ability to position self for radiation by d.c Goal:: pt will demo understanding of skin care and scar mtg by end of 1st session - Rehabilitation General Assessment: pt demo with limited bilateral shoulder ROM following double mastectomy. this limited ROM interferes with her IND with ADLs and IADLs . pt demo need for skilled OT services 1-2x 4 weeks to increase pts BUE shoulder ROM to return pt to PLOF. Rehabilitation Potential: Excellent - Anticipated Interventions A/AAROM/PROM, Scar Care, Home Program - Visit Plan Frequency: 1-2x /Week Duration: 6 Weeks TEXT: Thank you for the opportunity to evaluate your patient. For Medicare and Medicare HMO plans, please review the plan of care and approve it. It will need to be FAXED BACK to us at [phone] for Medicare purposes. Please let me know if there are questions or concerns regarding this plan of care. Physician S ignature: Date:
--- NOTE | 2021-06-09 09:45 | HP.OT.NRP ---
INÉS TAMEZ was seen in my office for initial evaluation on 02/16/21. The following Plan of Care was established for this patient: Initial Frequency: 1-2x /Week Initial Duration: 6 Weeks Anticipated Interventions: A/AAROM/PROM, Scar Care, Home Program This patient was last seen in our office 02/24/21. Pertinent comments regarding their Occupational therapy will appear below: pt was seen for 2 OT sessions for dx of lymphedema. No further apts are scheduled and due to time lapse in services pt is d/c. At this point I will be discontinuing this patient from occupational therapy. I would be happy to see this patient again in the future if found appropriate by the physician. Thank you! Johanna Newman, OTR/L, CHT
== END 2021-02-24 19:00 | disposition home or self-care (01) ==
LOC: OT 14:00
PROVIDERS: PCP Student in an Organized Health Care Education/Training Program
DX: C50.412 Malignant neoplasm of upper-outer quadrant of left female breast (principal); Z17.1 Estrogen receptor negative status [ER-]
CPT/HCPCS: 97140; 97166

== ENCOUNTER 2021-06-29 10:29 | Outpatient (CLI) | payer MEDICARE, SELFPAY ==
--- NOTE | 2021-06-29 10:37 | BD_ITS ---
STUDY: DUAL ENERGY X-RAY ABSORPTIOMETRY / DXA REASON FOR EXAM: Female, 70 years old. Z780. The patient is postmenopausal. TECHNIQUE: Bone Mineral Density (BMD) measurements of lumbar spine and bilateral hips were obtained. COMPARISON: Comparison is made with prior study 08/18/2010. FINDINGS: Lumbar Spine (L1-L4): g/cm2 (0.818) / T-score (-2.1) / Z-score (0.2) Findings are suggestive of osteopenia with a high fracture risk. Left Femur Total: g/cm2 (0.787) / T-score (-1.3) / Z-score (0.4) Left Femoral Neck: g/cm2 (0.622) / T-score (-2.0) / Z-score (-0.1) Right Femur Total: g/cm2 (0.791) / T-score (-1.2) / Z-score (0.4) Right Femoral Neck: g/cm2 (0.654) / T-score (-1.8) / Z-score (0.2) The T-Scores on the most recent prior examination were: Lumbar Spine (L1-L4): There has been worsening of bone density since the previous examination. Left Femur Total: which represents a worsening of 14.3%. Right Femur Total: which represents a worsening of 9.3%. BD/Dexa Bone Density Study IMPRESSION: The patient is considered osteopenic as outlined below according to World [place] Organization (WHO) criteria with a moderate fracture risk. There has been worsening of bone density since the previous examination. Reference Information: The T-score is the number of standard deviations above or below the standard which is normal for young adults at their peak bone mineral density. The World Health Organization (WHO) interprets the T-scores as follows: Above -1 Normal bone density Between -1 and -2.5 Osteopenia Equal to / or below -2.5 Osteoporosis As a practical clinical guideline, osteopenia may be graded as follows: Mild -1 through -1.5 Moderate -1.6 through -2.0 Severe -2.1 through -2.4 The Z-score is the number of standard deviations above or below age-matched controls. A Z-score of less than -1.5 would be considered abnormal. References: 1. NIH Osteoporosis and Related Bone Diseases www osteo.org 2. International Society for Clinical Densitometry www iscd.org 3. National Osteoporosis Foundation www nof.org Electronically Signed: Jayden Yu MD at 10:30 EST ,
== END 2021-06-29 23:59 | disposition home or self-care (01) ==
LOC: OPBD 10:30
PROVIDERS: PCP Student in an Organized Health Care Education/Training Program; Referring Provider Student in an Organized Health Care Education/Training Program; Visit Provider Student in an Organized Health Care Education/Training Program
DX: Z78.0 Asymptomatic menopausal state (principal); Z13.820 Encounter for screening for osteoporosis
CPT/HCPCS: 77080

== ENCOUNTER → 2021-10-03 | Outpatient (CLI) | payer MEDICARE, SELFPAY ==
[2021-10-03 17:04] LABS: Anion Gap 4 (5-15); BUN 28 mg/dL (7-18); BUN/Creat Ratio 28.5 RATIO (10-20); Calcium,Total 9.4 mg/dL (8.5-10.1); Chloride 106 mmol/L (98-107); Creatinine, Serum 0.98 mg/dL (0.55-1.02); EST Glomerular Filtration Rate 59 mL/min (>60); Est Glom Filt Rate - Afr Amer 71 mL/min (>60); Glucose 86 mg/dL (74-106); Sodium Level 140 mmol/L (136-145)
== END | disposition home or self-care (01) ==
PROVIDERS: PCP Student in an Organized Health Care Education/Training Program; Visit Provider Student in an Organized Health Care Education/Training Program
DX: I10 Essential (primary) hypertension (principal)
CPT/HCPCS: 36415; 80048

== ENCOUNTER → 2024-02-22 | Outpatient (CLI) | payer MEDICARE, SELFPAY ==
[2024-02-22 11:47] LABS: Hematocrit 35.8 % (37-47); Hemoglobin 11.2 g/dL (12.0-15.0); Mean Corp Hgb Conc 31.3 g/dL (32-36); Mean Corpuscular Hgb 28.2 pg (27.0-32.0); Mean Corpuscular Volume 90.2 fL (81-99); Mean Platelet Vol. 10.8 fl (6.2-12.0); Platelet Count 228 K/mm3 (150-450); RBC Distribution Width CV 13.3 % (11.6-14.6); RBC Distribution Width SD 44.4 fl (35.1-43.9); Red Blood Count 3.97 M/mm3 (4.2-5.4); White Blood Count 5.2 K/mm3 (4.4-11.0)
[2024-02-22 12:01] LABS: PTHIN 62.9 pg/mL (18.4-80.1)
[2024-02-22 12:16] LABS: ALB/GLOB Ratio 1.1 RATIO (0.9-2.4); AST(SGOT) 24 U/L (15-37); Alanine Aminotransfer ALT/SGPT 19 U/L (13-56); Albumin, Serum 3.8 g/dL (3.2-5.0); Alkaline Phosphatase 119 U/L (45-117); Anion Gap 3 (5-15); BUN 18 mg/dL (7-18); BUN/Creat Ratio 21.4 RATIO (10-20); Calcium,Total 9.2 mg/dL (8.5-10.1); Chloride 107 mmol/L (98-107); Cholesterol 207 mg/dL (200); Creatinine, Serum 0.84 mg/dL (0.55-1.02); EST Glomerular Filtration Rate 70 mL/min (>60); Est Glom Filt Rate - Afr Amer 85 mL/min (>60); Ferritin 80 ng/mL (8-252); Globulin 3.4 g/dL (2.2-4.2); Glucose 94 mg/dL (74-106); High Density Lipoprotein 67 mg/dL; Iron 64 ug/dL (50-170); Phosphorus 2.9 mg/dL (2.5-4.9); Potassium 4.2 mmol/L (3.5-5.1); Protein, Total 7.2 g/dL (6.4-8.2); Sodium Level 140 mmol/L (136-145); Triglycerides 48 mg/dL; Very Low Density Lipoprotein 10 mg/dL (5-40)
[2024-02-22 12:44] LABS: Hepatitis C Antibody Non-Reactive (Nonreactive); Vitamin B12 694 pg/mL (211-911); Vitamin D,25 Hydroxy 37.8 ng/mL
== END | disposition home or self-care (01) ==
LOC: LAB 10:20
PROVIDERS: PCP Student in an Organized Health Care Education/Training Program; Referring Provider Student in an Organized Health Care Education/Training Program; Visit Provider Student in an Organized Health Care Education/Training Program
DX: Z00.00 Encounter for general adult medical examination without abnormal findings (principal); N18.31 Chronic kidney disease, stage 3a; I12.9 Hypertensive chronic kidney disease with stage 1 through stage 4 chronic kidney disease, or unspecified chronic kidney disease; I49.8 Other specified cardiac arrhythmias; N39.0 Urinary tract infection, site not specified; Z11.59 Encounter for screening for other viral diseases; R01.1 Cardiac murmur, unspecified; D64.9 Anemia, unspecified; E55.9 Vitamin D deficiency, unspecified
CPT/HCPCS: 36415; 80053; 80061; 82306; 82607; 82728; 82746; 83540; 83970; 84100; 85027; 86803; 87086; 87088

== ENCOUNTER → 2024-09-19 | Outpatient (CLI) | payer MEDICARE, SELFPAY ==
--- NOTE | 2024-09-19 15:10 | VDLE_ITS ---
Reason For Study Reason For Study: Right leg swelling RIGHT LEFT GSV is normal. CFV is compressible, spontaneous, phasic, competent, CFV is compressible, spontaneous, phasic, competent and demonstrates normal augmentation. and demonstrates normal augmentation. FV is compressible, spontaneous, phasic, competent and demonstrates normal augmentation. POP V is compressible, spontaneous, phasic, competent and demonstrates normal augmentation. T/P Trunk is compressible. PTV is compressible. RT PerV is compressible. Procedure This is a venous duplex using B-mode, color flow and spectral Doppler. Exam performed in department. A preliminary report was called and/or faxed to Deya AZAR. VL/Venous Duplex US, Unilateral Interpretation Summary Deep veins of the right lower extremity are patent and compressible segmentally . There is no evidence of right lower extremity deep vein thrombosis. Valvular competence appears intact within the p roximal deep venous system on the right . The right great saphenous vein appears patent and compressible segmentally. The left common femoral vein is patent and compressible . Ordering Physician: Tana Falk Referring Physician: Odilon Novak Performed By: Astrid Proctor RVT
== END | disposition home or self-care (01) ==
PROVIDERS: PCP Student in an Organized Health Care Education/Training Program; Referring Provider Physician Assistant; Visit Provider Physician Assistant
DX: R22.41 Localized swelling, mass and lump, right lower limb (principal)
CPT/HCPCS: 93971

== ENCOUNTER → 2024-11-27 | Outpatient (CLI) | payer MEDICARE, SELFPAY ==
--- NOTE | 2024-11-27 14:56 | CT_ITS ---
PROCEDURE: EXTREMITY LOWER WITHOUT CONTRA 11/27/2024 REASON FOR EXAM: STRESS FX R TIBIA/MENISCUS TEAR TECHNIQUE: EXTREMITY LOWER WITHOUT CONTRA Coronal and Sagittal reconstruction series were provided. CONTRAST: VOLUME: mL One or more dose reduction techniques were used (e.g., Automated exposure control, adjustment of the mA and/or kV according to patient size, use of iterative reconstruction technique). RADIATION DOSE SUMMARY: CTDlvol: mGy DLP: mGycm COMPARISON: none FINDINGS: I-HIP: Mild right hip osteoarthritic changes evident by small marginal osteophytic lipping of its opposing articular surfaces with subcortical pseudocystic changes of the acetabulum and associated narrowed joint space. No evidence of femoral head fractures of structural collapse. No significant hip joints effusion. Degenerative changes of the sacroiliac joint. Femoral greater trochanter as well as ischial and iliac ensethopathy noted. 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 Mottled johny-articular osteopenia. Mild osteoarthritic changes of the tibiofemoral and patellofemoral articulations as evidenced by marginal osteophytes, subchondral sclerosis of the articular surfaces, spiking of tibial spines and bi-polar patellar spurring with cortical irregularities and subcortical luecncies of its articular surfaces and relatively narrowed joints spaces. Subarticular luecncies of the patella. Marked knee joint effusion with synovial hypertrophy and johny-articular soft tissue edema. Vascular atheromatous calcifications III-ANKLE: Insertional calcifications of the Achilles tendon. Type I Os navicular is noted. The examined bones show osseous destruction or no obvious acute osseous fractures. Intact articular relations. No dislocation or obvious subluxation is seen at the ankle joint. Mild tibio-talar and inter-tarsal joints effusion. 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 Mottled johny-articular osteopenia. Mild osteoarthritic changes of the knee. Marked knee joint effusion with synovial hypertrophy and johny-articular soft ti ssue edema. Unremarkable study of the ankle with mild joint effusion. [facility]
== END | disposition home or self-care (01) ==
LOC: CT 14:52
PROVIDERS: PCP Student in an Organized Health Care Education/Training Program; Referring Provider Student in an Organized Health Care Education/Training Program; Visit Provider Student in an Organized Health Care Education/Training Program
DX: M84.361D Stress fracture, right tibia, subsequent encounter for fracture with routine healing (principal); S83.281D Other tear of lateral meniscus, current injury, right knee, subsequent encounter; S83.241D Other tear of medial meniscus, current injury, right knee, subsequent encounter; X58.XXXD Exposure to other specified factors, subsequent encounter
CPT/HCPCS: 73700

== ENCOUNTER 2024-12-01 05:14 | Day surgery (SDC) | payer MEDICARE, SELFPAY ==
--- NOTE | 2024-11-11 10:57 | EKG12_ITS ---
Test Reason : PRE OP Blood Pressure : */* mmHG Vent. Rate : 78 BPM Atrial Rate : 78 BPM P-R Int : 98 ms QRS Dur : 82 ms QT Int : 376 ms P-R-T Axes : 25 58 26 degrees QTcB Int : 428 ms Sinus rhythm with short [place] Left ventricular hypertrophy with repolarization abnormality Abnormal ECG Confirmed by YENNY MONCADA, XIOMARA ([id number]), deputy editor in chief [facility] ([id number]) on 11/12/2024 11:01:37 AM Referred By: Sarthak Browning Confirmed By: XIOMARA RAMON MD
--- NOTE | 2024-11-11 10:57 | EKG12_ITS ---
Test Reason : PRE OP Blood Pressure : */* mmHG Vent. Rate : 78 BPM Atrial Rate : 78 BPM P-R Int : 98 ms QRS Dur : 82 ms QT Int : 376 ms P-R-T Axes : 25 58 26 degrees QTcB Int : 428 ms Sinus rhythm with short [place] Left ventricular hypertrophy with repolarization abnormality Abnormal ECG Confirmed by YENNY MONCADA, XIOMARA ([id number]), website/blog editor [facility] ([id number]) on 11/12/2024 11:01:37 AM Referred By: Sarthak Browning Confirmed By: XIOMARA RAMON MD
[2024-11-11 12:05] LABS: Hematocrit 35.3 % (37-47); Hemoglobin 11.4 g/dL (12.0-15.0); Immature Granulocytes Count 0.020 X10^3/uL (0.0-0.0); Mean Corp Hgb Conc 32.3 g/dL (32-36); Mean Corpuscular Volume 88.3 fL (81-99); Mean Platelet Vol. 10.6 fl (6.2-12.0); NRBC Flagged by Analyzer 0 % (0-5); Platelet Count 241 K/mm3 (150-450); RBC Distribution Width CV 12.7 % (11.6-14.6); RBC Distribution Width SD 41.2 fl (35.1-43.9); Red Blood Count 4.00 M/mm3 (4.2-5.4); White Blood Count 6.0 K/mm3 (4.4-11.0)
[2024-11-11 12:53] LABS: Albumin, Serum 4.3 g/dL (3.4-4.8); Anion Gap 11 (5-15); BUN 25 mg/dL (4-19); BUN/Creat Ratio 28.5 RATIO (10-20); Calcium,Total 9.3 mg/dL (7.6-11.0); Carbon Dioxide 24.7 mmol/L (21.0-32.0); Chloride 105 mmol/L (98-108); Glucose 99 mg/dL (70-99); Potassium 3.8 mmol/L (3.3-5.1)
[2024-11-11 13:25] LABS: Magnesium 2.2 mg/dL (1.5-2.2)
--- NOTE | 2024-11-11 16:18 | PAT.ANE_ITS ---
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 When Was Last Pacemaker Check QUESTION #4 FULL TEXT: You/Your Family Experience fever (hyperthermia) with Anesthesia Last Oral Intake Last Oral intake: Last Oral Intake NPO since Meds taken in AM with sips of water? 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 Female Yes 11/10/24 11:13 HX of Motion Sickness No 11/10/24 11:13 HX of N/V After Surgery No 11/10/24 11:13 Non-Smoker Yes 11/10/24 11:13 Duration of Surgery greater Yes 11/10/24 11:13 than 60 minutes Number of Risk Factors 3 11/10/24 11:13 PONV Score Moderate Risk 11/10/24 11:13 Height & Weight Height & Weight: Anesthesia: Height & Weight Height 5 ft 3 in 11/02/20 11:27 Respiratory Assessment Respiratory Assessment - semiconductor wafers etcher stripper: Respiratory Tract Infection Hx - semiconductor wafers etcher stripper Hx Respiratory Tract Infection No 11/10/24 11:13 STOP Sleep Apnea STOP Sleep Apnea - semiconductor wafers etcher stripper: STOP Sleep Apnea - semiconductor wafers etcher stripper Hx Hypertension Yes: ON MED 11/10/24 11:13 Hx Sleep Apnea No 11/10/24 11:13 CPAP BIPAP Do you snore loudly (louder No 11/10/24 11:13 than talking or can be heard Do you often feel tired/ No 11/10/24 11:13 fatigued/ sleepy during daytime? Has anyone observed you stop No 11/10/24 11:13 breathing during sleep? STOP Results Negative 11/10/24 11:13 QUESTION #5 FULL TEXT : Do you snore loudly (louder than talking or can be heard through closed doors)? 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 Specify any problems Hx of Preganancy in last 3 No 11/10/24 11:13 Months Nurse Filling Out Transfusion JZOLLNELSY 11/10/24 11:13 & Questions: Date: 11/10/24 11/10/24 11:13 Time: 11:11/10/24 11:13 Patient unable to answer at this time (ie. 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 stripper: /Reproductive Hx- semiconductor wafers etcher stripper Hx Now Gestational Age (in weeks): EDC: Hx Hx Para Hx Section SAB No 11/10/24 11:13 PFSH Medical History (Updated 11/10/24 @ 11:13 by Es Willard) Loss of hearing Wears glasses Anxiety Non-smoker Hx of echocardiogram Breast cancer, left Microcalcification of left breast on mammogram Abnormal mammogram of left breast Systolic murmur Osteoporosis Osteoarthritis Eustachian tube disorder Stool guaiac positive Hypertension Home Medications ?Medication ?Instructions ?Recorded ?Last Taken ?Type lisinopril 20 1 tab PO DAILY 01/08/1901/19 06:00 History mg-hydrochlorothiazide 12.5 mg tablet multivitamin 1 tab PO DAILY 01/08/19 Unkn own History cholecalciferol (vitamin D3) 50 50 mcg PO DAILY Unknown History mcg (2,000 unit) capsule acetaminophen 500 mg tablet 1,000 mg PO Q6H PRN pain 0 11/10/24 Unknown History (Tylenol Extra Strength) hydroxyzine HCl 50 mg tablet 50 mg PO TID PRN PRN anxi ety 11/10/24 Unknown History ibuprofen 600 mg tablet 600 mg PO Q6H PRN PRN pain 0 11/10/24 Unknown History meloxicam 15 mg tablet 15 mg PO DAILY 11/10/24 Unkn own History Allergy/AdvReac Type Severity Reaction Status Date / Time No Known Allergies Allergy Verified 11/10/24 10:57 Family History Mother Hypertension Father Hypertension Surgical History (Updated 11/10/24 @ 11:13 by Es Willard) History of total mastectomy History of prolapse of bladder Hx of colonoscopy Hx of hysterectomy Social History Smoking Status: Never smoker second hand exposure: No alcohol intake: never substance use type: does not use caffeine: Yes what type of physical activity do you participate in: aerobics frequency: daily Audit: Pertinent Findings Pertinent Findings EKG Perinent findings: November 11, 2024. Sinus rhythm with short RI interval. Left ventricular hypertrophy with repolarization abnormality. Compared to 2020 borderline criteria for inferior infarct are no longer present. The T wave amplitude has increased in the anterior leads. Echo (EF%) pertinent findings: March 11, 2018. EF is 65%. RVSP is 32 mmHg. No aortic stenosis is noted. Recommendation Anesthesia Recommendation Anesthesia recommendation: OPTIMIZED for anesthesia
--- NOTE | 2024-11-11 16:18 | PAT.ANE_ITS ---
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 When Was Last Pacemaker Check QUESTION #4 FULL TEXT: You/Your Family Experience fever (hyperthermia) with Anesthesia Last Oral Intake Last Oral intake: Last Oral Intake NPO since Meds taken in AM with sips of water? 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 Female Yes 11/10/24 11:13 HX of Motion Sickness No 11/10/24 11:13 HX of N/V After Surgery No 11/10/24 11:13 Non-Smoker Yes 11/10/24 11:13 Duration of Surgery greater Yes 11/10/24 11:13 than 60 minutes Number of Risk Factors 3 11/10/24 11:13 PONV Score Moderate Risk 11/10/24 11:13 Height & Weight Height & Weight: Anesthesia: Height & Weight Height 5 ft 3 in 11/02/20 11:27 Respiratory Assessment Respiratory Assessment - office mail clerk: Respiratory Tract Infection Hx - office mail clerk Hx Respiratory Tract Infection No 11/10/24 11:13 STOP Sleep Apnea STOP Sleep Apnea - office mail clerk: STOP Sleep Apnea - office mail clerk Hx Hypertension Yes: ON MED 11/10/24 11:13 Hx Sleep Apnea No 11/10/24 11:13 CPAP BIPAP Do you snore loudly (louder No 11/10/24 11:13 than talking or can be heard Do you often feel tired/ No 11/10/24 11:13 fatigued/ sleepy during daytime? Has anyone observed you stop No 11/10/24 11:13 breathing during sleep? STOP Results Negative 11/10/24 11:13 QUESTION #5 FULL TEXT : Do you snore loudly (louder than talking or can be heard through closed doors)? 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 Specify any problems Hx of Preganancy in last 3 No 11/10/24 11:13 Months Nurse Filling Out Transfusion JZOLLNELSY 11/10/24 11:13 & Questions: Date: 11/10/24 11/10/24 11:13 Time: 11:11/10/24 11:13 Patient unable to answer at this time (ie. confused, unrespo /Reproduction History /Reproductive History - office mail clerk: /Reproductive Hx- office mail clerk Hx Now Gestational Age (in weeks): EDC: Hx Hx Para Hx Section SAB No 11/10/24 11:13 PFSH Medical History (Updated 11/10/24 @ 11:13 by Es Willard) Loss of hearing Wears glasses Anxiety Non-smoker Hx of echocardiogram Breast cancer, left Microcalcification of left breast on mammogram Abnormal mammogram of left breast Systolic murmur Osteoporosis Osteoarthritis Eustachian tube disorder Stool guaiac positive Hypertension Home Medications ?Medication ?Instructions ?Recorded ?Last Taken ?Type lisinopril 20 1 tab PO DAILY 01/08/1901/19 06:00 History mg-hydrochlorothiazide 12.5 mg tablet multivitamin 1 tab PO DAILY 01/08/19 Unkn own History cholecalciferol (vitamin D3) 50 50 mcg PO DAILY Unknown History mcg (2,000 unit) capsule acetaminophen 500 mg tablet 1,000 mg PO Q6H PRN pain 0 11/10/24 Unknown History (Tylenol Extra Strength) hydroxyzine HCl 50 mg tablet 50 mg PO TID PRN PRN anxi ety 11/10/24 Unknown History ibuprofen 600 mg tablet 600 mg PO Q6H PRN PRN pain 0 11/10/24 Unknown History meloxicam 15 mg tablet 15 mg PO DAILY 11/10/24 Unkn own History Allergy/AdvReac Type Severity Reaction Status Date / Time No Known Allergies Allergy Verified 11/10/24 10:57 Family History Mother Hypertension Father Hypertension Surgical History (Updated 11/10/24 @ 11:13 by Es Willard) History of total mastectomy History of prolapse of bladder Hx of colonoscopy Hx of hysterectomy Social History Smoking Status: Never smoker second hand exposure: No alcohol intake: never substance use type: does not use caffeine: Yes what type of physical activity do you participate in: aerobics frequency: daily Audit: Pertinent Findings Pertinent Findings EKG Perinent findings: November 11, 2024. Sinus rhythm with short [place] interval. Left ventricular hypertrophy with repolarization abnormality. Compared to 2020 borderline criteria for inferior infarct are no longer present. The T wave amplitude has increased in the anterior leads. Echo (EF%) pertinent findings: March 11, 2018. EF is 65%. RVSP is 32 mmHg. No aortic stenosis is noted. Recommendation Anesthesia Recommendation Anesthesia recommendation: OPTIMIZED for anesthesia
[2024-12-01] VITALS (15 sets, daily range): BP systolic 119–181; BP diastolic 60–86; PULSE 60–74; RESP 14–67; TEMP 36.4–37.4; O2SAT 14–100; BMI 24.5
--- OUTSIDE RECORDS SUMMARY | 2024-12-01 05:23 | XMS RPT_ITS | CCD ---
Author Organization [facility] CliniSy[facility] Care Team Providers Care Emergency Service Worker Name Role Phone Odilon Serrano DO Unavailable Lucy Chan RN Unavailable Unavailable Odilon Serrano DO Primary Care Provider [phone] Emile MONCADA MD, Daesung Unavailable Fish Rosaline N Unavailable Roberts MARINE DRILLER.ISAÍAS, Elizabeth Unavailable [phone] Dr. Odilon Serrano Primary Care Provider [phone] Dr. Odilon Serrano Referring Provider [phone] Karie Rojas Attending Provider [phone] Odilon Serrano DO Unavailable Dustin PEARSON, Lucy Unavailable Unavailable Odilon Serrano DO Primary Care Provider [phone] Emile MONCADA MD, Daesung Unavailable Fish ISAÍAS Rosaline N Unavailable Roberts MARINE DRILLER.ISAÍAS, Elizabeth Unavailable [phone] Odilon Serrano DO Unavailable Dustin PEARSON, Lucy Unavailable Unavailable Odilon Serrano DO Primary Care Provider [phone] Emiel MONCADA MD, Daesung Unavailable Fish ISAÍAS Rosaline N Unavailable Roberts MARINE DRILLER.ISAÍAS Elizabeth Unavailable [phone] DR ODILON SERRANO DO Attending Unavailable DR ODILON SERRANO DO Primary Care Unavailable Lucy Chan RN Unavailable Unavailable Odilon Serrano DO Primary Care Provider [phone] Wilman Baptiste MD Unavailable DR ODILON SERRANO DO Primary Care Physician Roberts MARINE DRILLER.PRODUCTION ILLUSTRATOR, Elizabeth Unavailable [phone] SHAILA, ELIZABETH JAYDA Admitting Unavailable SHAILA, ELIZABETH MONTELONGO Attending Unavailable ROMAR, ODILON Primary Care Unavailable Fish ISAÍAS, Rosaline N Unavailable Cary MARINE DRILLER.PRODUCTION ILLUSTRATOR, Elizabeth Unavailable Kishore DO, Dr. Donald Primary Care Provider Tana Martinez Attending Provider Tana Martinez Referring Provider [phone] ROMAR, ODILON Primary Care Unavailable IRAIS PEÑALOZA Attending Unavailable ROMAR, ODILON Primary Care Unavailable SHAILA, ELIZABETH MONTELONGO Referring Unavailable ROMAR, ODILON Primary Care Unavailable IRAIS PEÑALOZA Attending Unavailable ROMAR, ODILON Primary Care Unavailable SHAILA, ELIZABETH JAYDA Referring Unavailable SHAILAELIZABETH Attending Unavailable ROMAR, ODILON Primary Care Unavailable SHAILA, ELIZABETH MONTELONGO Referring Unavailable ROMAR, ODILON Primary Care Unavailable ROMAR, ODILON Primary Care Unavailable ROMAR, ODILON Primary Care Unavailable SHAILA, ELIZABETH MONTELONGO Attending Unavailable ROMAR, ODILON Primary Care Unavailable SHAILA, ELIZABETH MONTELONGO Attending Unavailable ROMAR DO, DR DONALD Primary Care Unavailable ROMAR DO, DR DONALD Attending Unavailable ROMAR DO, DR DONALD Primary Care Unavailable ROMAR DO, DR DONALD Attending Unavailable ROMAR DO, DR DONALD Primary Care Unavailable ROMAR DO, DR DONALD Attending Unavailable ROMAR DO, DR DONALD Primary Care Unavailable ROMAR DO, DR DONALD Attending Unavailable ROMAR DO, DR DONALD Primary Care Unavailable JANNETTE MEI MD Attending Unavail able ROMAR DO, DR DONALD Attending Unavailable ROMAR DO, DR DONALD Primary Care Unavailable ROMAR DO, DR DONALD Primary Care Unavailable ROMAR DO, DR DONALD Attending Unavailable ROMAR DO, DR DONALD Primary Care Unavailable MARKO MARINE DRILLER-PRODUCTION ILLUSTRATOR, ROSEMARY Attending Unavai lable RomOdilon dunlap Referring Unavailable Romar, Odilon Attending Unavailable Romar, Odilon Primary Care Unavailable Romar, Odilon Primary Care Unavailable RomarOdilon Attending Unavailable SpittSarthak ayala Referring Unavailable Spittlucy, Sarthak Attending Unavailable Romar, Odilon Primary Care Unavailable Romar, Odilon Primary Care Unavailable SpittleSarthak Referring Unavailable Spittle, Sarthak Attending Unavailable Odilon Serrano Primary Care Unavailable Tana Martinez Referring Unavailable Tana Martinez Attending Unavailable Medications Current Medications Medication Drug Class(es) Dates Sig (Normalized) Sig (Original) acetaminophen 500 mg oral tablet (3 sources) Start: 11-14-2024 End: 01-13-2025 take 1 tablet by mouth once daily acetaminophen 500 mg oral tablet Dose : 1,000 mg = 2 tab(s), Oral, q8hr, PRN as needed for pain, not to exceed 3000 mg/day, # 100 tab(s), 1 Refill(s), Pharmacy: [id number], 157.6, cm, 11/14/24 8:56:00 EDT, Height, kg, 11/14/24 8:56:00 EDT, Dosing Weight Start Date: 11/14/24 Stop Date: 01/13/25 Status: Ordered Quantity: 100.0 Unit: tab(s) Repeat number: 2 Start: 09-12-2024 End: 09-19-2024 take 2 tablets by mouth every six hours as needed acetaminophen (TYLENOL EXTRA STRENGTH) 500 mg tablet Take 2 tablets by mouth every 6 hours as needed for pain for up to 7 days. 56 tablet 09/12/2024 10:19 AM EDT 09/12/2024 09/19/2024 calcium carbonate 1500 mg oral tablet (10 sources) Start: 12-31-2018 End: 06-23-2020 take 1 tablet by mouth once daily calcium carbonate (CALTRATE) 600 mg calcium (1,500 mg) tab Take 600 mg by mouth once daily. 12/31/2018 Active Start: 12-31-2018 calcium (as ca rbonate) 600 mg oral tablet Dose : 600 mg = 1 tab(s), Oral, qDay, 0 Refill(s) Start Date: 12/31/18 Status: Ordered Repeat number: 1 cholecalciferol 0.05 mg oral capsule (4 sources) Vitamin D Start: 05-07-2020 take 1 capsule by mouth once daily Cholecalciferol (Vitamin D3) 50 mcg (2,000 unit) capsule Active 50 ug PO DAILY May 07, 2020 1:00am cholecalciferol, vitamin D3, (VITAMIN D3 ORAL) (20 sources) take 1 tablet by mouth once daily cholecalciferol, vitamin D3, (VITAMIN D3 ORAL) Take 1 tablet by mouth once daily. Active take 1 tablet by mouth once cecil y cholecalciferol, vitamin D3, (VITAMIN D3 ORAL) Take 1 tablet by mouth once daily. 0 Active Comment on above: Take 1 tablet by michael th once daily. diclofenac sodium 0.01 mg/mg topical gel (2 sources) Nonsteroidal Anti-inflammatory Drug Start: apply 4 g topically four times daily ARTHRITIS PAIN, DICLOFENAC, 1 % topical gel Apply 4 g to affected area four times daily. 09/30/2024 Active docusate sodium 100 mg oral capsule (1 source) Start: End: take 1 capsule by mouth twice daily docusate sodium (COLACE) 100 mg capsule Take 1 capsule by mouth two times a day. 60 capsule 09/12/2024 10:19 AM EDT 09/12/2024 10/12/2024 Active hydroCHLOROthiazide 12.5 mg / lisinopril 20 mg oral tablet (4 sources) Thiazide Diuretic, Angiotensin Converting Enzyme Inhibitor Start: Lisinopril-Garwood chlorothiazide 20-12.5 mg tablet Active 1 {tbl} PO DAILY January 08, 2019 12:00am Start: 01-08-2019 take 1 tablet by michael once daily Lisinopril-Hydrochlorothiazide Active 1 TABLET PO DAILY January 08, 2019 9:33am hydrOXYzine hydrochloride 50 mg oral tablet (17 sources) Antihistamine Start: 11-14-2024 End: 02-12-2025 hydrOXYzine hydrochloride 50 mg oral tablet Dose : 50 mg = 1 tab(s), Oral, QID, PRN as needed for anxiety, Do not drive, operate heavy machinery, or drink alcohol while on this med. Okay to try half a tab when first starting med. Do not take any other anti-histamines while on this med., # 100 tab(s), 0 Refill(s), Pharmacy: [facility], 157.6, cm, 11/14/24 8:56:00 EDT, Height, kg, 11/14/24 8:56:00 EDT, Dosing Weight Start Date: 11/14/24 Stop Date: 02/12/25 Status: Ordered Quantity: 100.0 Unit: tab(s) Repeat number: 1 Start: 01-28-2024 End: 04-27-2024 hydrOXYzine hydrochloride 50 mg oral tablet Dose : 50 mg = 1 tab(s), Oral, QID, PRN as needed for anxiety, Do not drive, operate heavy machinery, or drink alcohol while on this med. Okay to try half a tab when first starting med. Do not take any other anti-histamines while on this med., # 100 tab(s), 0 Refill(s), Pharmacy: [facility], 158.8, cm, 08/02/23 14:00:00 EDT, Height, kg, 08/02/23 14:00:00 EDT, Dosing Weight Start Date: 01/28/24 Stop Date: 04/27/24 Status: Ordered hydrOXYzine HCl (ATARAX) 10 mg tablet Take 10 mg by mouth as needed. Active lisinopril 5 mg oral tablet (20 sources) Angiotensin Converting Enzyme Inhibitor Start: 09-11-2024 End: 12-20-2024 lisinopril 5 mg oral tablet Dose : 5 mg = 1 tab(s), Oral, qDay, # 100 tab(s), 0 Refill(s), Pharmacy: [id number], 157.6, cm, 08/12/24 11:01:00 EDT, Height, kg, 08/12/24 11:01:00 EDT, Dosing Weight Start Date: 09/11/24 Stop Date: 12/20/24 Status: Ordered Quantity: 100.0 Unit: tab(s) Repeat number: 1 Start: 02-07-2024 End: 08-25-2024 lisinopril 5 mg oral tablet Dose : 5 mg = 1 tab(s), Oral, qDay, # 100 tab(s), 1 Refill(s), Pharmacy: [id number], 159.5, cm, 02/07/24 13:29:00 EDT, Height, kg, 02/07/24 13:29:00 EDT, Dosing Weight Start Date: 02/07/24 Stop Date: 08/25/24 Status: Ordered Start: 03-08-2022 take 1 tablet by michael th once daily lisinopril (ZESTRIL, PRINIVIL) 10 mg tablet Take 10 mg by mouth once daily. 07/26/2021 Active Start: 12-11-2018 End: 01-08-2019 take 1 tablet by mouth once daily Lisinopril 5 mg tablet Discontinued 5 mg PO DAILY December 11, 2018 12:00am January 08, 2019 9:32am Comment on above: Take 10 mg by mouth once daily. loperamide hydrochloride 2 mg oral capsule (4 sources) Opioid Agonist Start: 07-21-19 take 1 capsule by mouth every four hours as needed for diarrhea Loperamide 2 MG capsule Active 2 mg PO EVERY 4 HOURS NEEDED as needed for Diarrhea July 20, 2020 9:33am meloxicam 15 mg oral tablet (4 sources) Nonsteroidal Anti-inflammatory Drug Start: 11-15-19 meloxicam 15 mg oral tablet Dose : 15 mg = 1 tab(s), Oral, qDay, # 30 tab(s), 0 Refill(s) Start Date: 11/14/24 Status: Ordered Quantity: 30.0 Unit: tab(s) Repeat number: 1 take 1 tablet by mouth once cecil y meloxicam (MOBIC) 15 mg tablet Take 15 mg by mouth once daily. Active Multivitamin preparation (7 sources) Start: 07-03-2019 take 1 tablet by mouth once daily Multivitamin Dose = 1 tab(s), Oral, Daily, 0 Refill(s) Start Date: 07/03/19 Status: Ordered Repeat number: 1 Start: 07-03-2019 take 1 tablet by michael th once daily Multivitamin Dose = 1 tab(s), Oral, Daily, 0 Refill(s) Start Date: 07/03/19 Status: Ordered Start: 01-08-2019 take 1 tablet by michael th once daily Multivitamin Active 1 TABLET PO DAILY January 08, 2019 9:33am Start: 01-08-2019 take 1 tablet by michael th once daily Multivitamin Active 1 TABLET PO DAILY January 07, 2019 11:00pm multivitamin tablet (20 sources) take 1 tablet by michael th twice daily multivitamin tablet Take 1 tablet by mouth twice daily. Active take 1 tablet by mouth twice edwin ly multivitamin tablet Take 1 tablet by mouth twice daily. 0 Active Comment on above: Take 1 tablet by michael th twice daily. Multivitamin tablet (1 source) Start: 01-09-20 Multivitamin tablet Active 1 {tbl} PO DAILY January 08, 2019 12:00am mupirocin 0.02 mg/mg topical ointment (2 sources) RNA Synthetase Inhibitor Antibacterial Start: 11-15-19 End: 11-25-19 mupirocin 2% topical ointment Apply 1 sirena, Topical, BID, Apply into each nostril (an amount sufficient to cover the top of a cotton swab [~500 mg]) twice daily for 10 days, Apply to: each nostril, X 10 day(s), # 22 gram(s), 0 Refill(s), Pharmacy: [facility], 157.6, cm, 11/14/24 8:56:00 EDT, Height, 62.6, kg, 11/14/24 8:56:00 EDT, Dosing Weight Start Date: 11/14/24 Stop Date: 11/24/24 Status: Ordered Quantity: 22.0 Unit: g Repeat number: 1 oxyCODONE hydrochloride 5 mg oral tablet (1 source) Opioid Agonist Start: 09-21-19 End: 09-24-19 take 1 tablet by mouth every six hours as needed for pain oxyCODONE IR (ROXICODONE) 5 mg immediate release tablet Indications: Post-op pain Take 1 tablet by mouth every 6 hours as needed for pain for up to 3 days. 5 tablet 09/20/2024 09/23/2024 Active perflutren lipid microspheres 1.3 mL in NaCl (PF) 0.9% 10 mL injection (DEFINITY) (19 sources) Start: 06-10-19 End: 09-10-19 perflutren lipid microspheres 1.3 mL in NaCl (PF) 0.9% 10 mL injection (DEFINITY) Start: 02-03-2021 End: 05-05-2022 perflutren lipid microsphere s 1.3 mL in NaCl (PF) 0.9% 10 mL injection (DEFINITY) Start: 12-16-2020 End: 03-17-2022 perflutren lipid microsphere s 1.3 mL in NaCl (PF) 0.9% 10 mL injection (DEFINITY) polyethylene glycol 3350 27971 mg powder for oral solution (1 source) Osmotic Laxative Start: 09-12-2024 End: 10-12-2024 polyethylene glycol 3350 (MIRALAX) 17 gram/dose powder Take 17 g by mouth once daily. Dissolve dose in 4 - 8 ounces of liquid and take as directed. 476 g 09/12/2024 10:19 AM EDT 09/12/2024 10/12/2024 Active 125 ml sodium chloride 9 mg/ml prefilled syringe (19 sources) Start: 12-16-2020 End: 09-09-2022 sodium chloride 0.9 % (flush) 10 mL (BD POSIFLUSH) Vitamin D3 50 mcg (2000 intl units) oral tablet (2 sources) Start: 03-12-2024 End: 03-07-2025 Vitamin D3 50 mcg (2000 intl units) oral tablet Dose : 2,000 unit(s) = 1 tab(s), Oral, Daily, # 90 tab(s), 3 Refill(s), Pharmacy: [facility], 158.3, cm, 03/12/24 13:32:00 EDT, Height, kg, 03/12/24 13:32:00 EDT, Dosing Weight Start Date: 03/12/24 Stop Date: 03/07/25 Status: Ordered Quantity: 90.0 Unit: tab(s) Repeat number: 4 Completed/Discontinued Medications Medication Drug Class(es) Dates Sig (Normalized) Sig (Original) acetaminophen 325 mg / oxyCODONE hydrochloride 5 mg oral tablet (4 sources) Opioid Agonist Start: 07-07-2020 End: 07-09-2020 Oxycodone-Acetamino phen 1 TABLET tablet Discontinued 1 {tbl} PO EVERY 6 HOURS NEEDED as needed for Pain 5 2 July 07, 2020 July 08, 2020 1:00am July 09, 2020 1:03am Start: 07-07-2020 End: 07-09-2020 take 1 tablet by mouth every six hours as needed Oxycodone-Acetaminophen Discontinued 1 TABLET PO EVERY 6 HOURS NEEDED 5 2 July 07, 2020 July 09, 2020 12:03am bismuth subsalicylate 262 mg oral tablet (4 sources) Bismuth Start: 02-06-2019 End: 02-20-2019 take 6 tablets by mouth every twenty-four hours as needed for diarrhea Bismuth Subsalicylate 262 mg tablet Discontinued 2 {tbl} PO .q 6 as needed for diarrhea 112 February 06, 2019 12:00am February 19, 2019 12:00am February 20, 2019 12:07am do not exceed 16 tabs per 24 hrs etodolac 500 mg oral tablet (4 sources) Nonsteroidal Anti-inflammatory Drug Start: 12-16-2018 End: 01-08-2019 take 1 tablet by mouth once Etodolac 500 mg tablet Discontinued 500 mg PO ONCE December 16, 2018 12:00am January 08, 2019 9:32am do not take with other NSAIDS ibuprofen 600 mg oral tablet (5 sources) Nonsteroidal Anti-inflammatory Drug Start: 09-12-2024 End: 09-19-2024 take 1 tablet by mouth every six hours as needed ibuprofen (MOTRIN) 600 mg tablet Take 1 tablet by mouth every 6 hours as needed for pain for up to 7 days. 28 tablet 09/12/2024 10:19 AM EDT 09/12/2024 09/19/2024 Start: 07-03-2019 take 2 tablets by mo uth every eight hours ibuprofen (MOTRIN) 200 mg tablet Take 400 mg by mouth every 8 hours. 07/03/2019 Active Start: 07-03-2019 ibuprofen 200 mg oral tablet Dose : 400 mg = 2 tab(s), Oral, q6hr, PRN as needed for pain, 0 Refill(s) Start Date: 07/03/19 Status: Ordered lansoprazole 30 mg delayed release oral capsule (4 sources) Proton Pump Inhibitor Start: 02-06-2019 End: 02-20-2019 take 1 capsule by mouth twice daily Lansoprazole 30 mg capsule,delayed release(DR/EC) Discontinued 30 mg PO TWICE A DAY 28 February 06, 2019 12:00am February 19, 2019 12:00am February 20, 2019 12:07am lidocaine 25 mg/ml / prilocaine 25 mg/ml topical cream (1 source) Antiarrhythmic, Amide Local Anesthetic Start: 06-18-2020 End: 08-17-2021 lidocaine-prilocain e (EMLA) 2.5-2.5 % cream Apply to port site 60 minutes prior to accessing. 15 g 2 06/18/2020 08/17/2021 Discontinued (Course of therapy completed) Comment on above: Apply to port site 6 0 minutes prior to accessing. methylPREDNISolone acetate 40 mg/ml injectable suspension (1 source) Corticosteroid Start: 12-16-2018 End: 12-16-2018 Depo-Medrol (methylprednisolone acetate) 40 mg/mL suspension for injection Discontinued 40 MG INTRAARTIC ONCE 1 December 16, 2018 8:38am December 16, 2018 9:00am metroNIDAZOLE 250 mg oral tablet (4 sources) Nitroimidazole Antimicrobial Start: 02-06-2019 End: 02-20-2019 take 1 tablet by mouth every six hours Metronidazole 250 mg tablet Discontinued 250 mg PO EVERY 6 HOURS 56 14 February 06, 2019 12:00am February 19, 2019 12:00am February 20, 2019 12:07am tetracycline hydrochloride 500 mg oral capsule (4 sources) Tetracycline-class Antimicrobial Start: 02-06-2019 End: 05-07-2020 take 1 capsule by mouth every six hours Tetracycline 500 mg capsule Discontinued 500 mg PO EVERY 6 HOURS 56 February 06, 2019 12:00am May 07, 2020 10:01am Vitamin D3 2000 intl units (50 mcg) oral tablet (2 sources) Start: 04-04-2020 End: 10-01-2020 Vitamin D3 2000 intl units (50 mcg) oral tablet Dose : 2,000 unit(s) = 1 tab(s), Oral, Daily, # 90 tab(s), 1 Refill(s), Pharmacy: [facility], 159.4, cm, 03/24/20 13:42:00 EST, Height, kg, 03/24/20 13:42:00 EST, Dosing Weight Start Date: 04/04/20 Stop Date: 10/01/20 Status: Ordered Problems Active Problems Problem Classification Problem Date Documented Da te Episodic/Chronic Administrative/social admission (3 sources) Education and/or schooling finding; Translations: [Problems related to education and literacy, unspecified] Onset: 5 08-19-2024 Episodic Anxiety disorders (11 sources) Anxiety; Translations: [Anxiety disorder, unspecified] Onset: 5 08-09-2020 Chronic Cancer of breast (20 sources) Malignant neoplasm of upper-outer quadrant of female breast; Translations: [Malignant neoplasm of upper-outer quadrant of left female breast] Onset: 1 Chronic Comment on above: Lymph node positive for metastatic carcinoma, ER/MT negative, 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 Cancer of breast (17 sources) History of malignant neoplasm of breast; Translations: [Personal history of malignant neoplasm of breast] Onset: 1 10-26-2023 Episodic Chronic kidney disease (4 sources) Chronic kidney disease stage 3A 12-01-2019 Chronic Chronic kidney disease (1 source) Chronic kidney disease; Translations: [Chronic kidney disease, stage 3 unspecified] Onset: 5 Conduction disorders (4 sources) Ventricular bigeminy 08-02-2023 Chronic Congestive heart failure; nonhypertensive (2 sources) Diastolic dysfunction 03-12-2024 Chronic Deficiency and other anemia (6 sources) Pancytopenia; Translations: [Other pancytopenia] 08-06-2020 Chronic Deficiency and other anemia (4 sources) Anemia 02-08-2024 Episodic Deficiency and other anemia (1 source) Anemia, unspecified; Translations: [Anemia, unspecified] Onset: 5 Episodic Diseases of mouth; excluding dental (4 sources) Lesion of lip 06-05-2022 Episodic Diseases of white blood cells (4 sources) Febrile neutropenia; Translations: [Neutropenia, unspecified] 07-18-2020 Chronic Esophageal disorders (8 sources) Gastroesophageal reflux disease; Translations: [Ulcer of esophagus] 07-19-2020 Chronic Comment on above: On colonoscopy 02/06 tejas Massey, focal ulceration Essential hypertension (16 sources) Hypertensive disorder; Translations: [Essential (primary) hypertension] Onset: 5 06-07-2021 Chronic Fluid and electrolyte disorders (2 sources) Hypokalemia 08-06-2020 Episodic Gastritis and duodenitis (4 sources) Chronic gastritis 04-29-2021 Chronic Comment on above: On colonoscopy 02/06 tejas Massey Genitourinary symptoms and ill-defined conditions (4 sources) Stress incontinence (female) (male); Translations: [Stress incontinence, female] Onset: 5 07-30-2024 Chronic Heart valve disorders (11 sources) Systolic murmur; Translations: [Cardiac murmur, unspecified] Onset: 5 12-15-2020 Episodic Intestinal infection (4 sources) Infection caused by Helicobacter pylori 07-03-2019 Episodic Mycoses (4 sources) Onychomycosis of toenails 08-02-2023 Episodic Nutritional deficiencies (5 sources) Vitamin D deficiency; Translations: [Vitamin D deficiency, unspecified] Onset: 5 04-04-2020 Chronic Osteoarthritis (8 sources) Osteoarthritis; Translations: [Unspecified osteoarthritis, unspecified site] 12-26-2018 Chronic Osteoporosis (8 sources) Osteoporosis; Translations: [Age-related osteoporosis without current pathological fracture] 12-26-2018 Chronic Other aftercare (4 sources) Patient encounter status; Translations: [Encounter for adjustment and management of vascular access device] 08-01-2021 Episodic Other aftercare (1 source) Encounter for adjustment and management of vascular access device; Translations: [Fitting and adjustment of vascular catheter] Episodic Other aftercare (1 source) Encounter for follow-up examination after completed treatment for malignant neoplasm; Translations: [Encounter for follow-up surveillance of breast cancer] Onset: Episodic Other aftercare (1 source) Surgical follow-up; Translations: [Encounter for surgical aftercare following surgery on the genitourinary system] 10-27-2024 Episodic Other and ill-defined heart disease (2 sources) Left ventricular hypertrophy 11-14-2024 Chronic Other and ill-defined heart disease (2 sources) Rupture of papillary muscle, not elsewhere classified; Translations: [Rupture of papillary muscle, not elsewhere classified] Onset: Chronic Other and unspecified benign neoplasm (4 sources) Tubular adenoma of colon 04-29-2021 Episodic Comment on above: On colonoscopy 02/06 tejas Massey Other bone disease and musculoskeletal deformities (4 sources) Osteopenia 07-14-2021 Episodic Other diseases of bladder and urethra (2 sources) Polyp of urethra 03-12-2024 Episodic Other diseases of kidney and ureters (4 sources) Cyst of kidney 05-06-2020 Episodic Comment on above: 04/09 US simple righ t renal cyst measures 1.9 cm Other ear and sense organ disorders (4 sources) Hearing loss 05-02-2021 Chronic Other ear and sense organ disorders (4 sources) Lesion of ear canal 06-05-2022 Episodic Other gastrointestinal disorders (8 sources) Occult blood in stools; Translations: [Other fecal abnormalities] 12-31-2018 Episodic Other gastrointestinal disorders (4 sources) Constipation 07-19-2020 Episodic Other liver diseases (4 sources) Lesion of liver 08-03-2020 Chronic Comment on above: Indeterminate on MRI breasts 07/11 Other liver diseases (4 sources) Liver cyst 05-06-2020 Chronic Comment on above: 04/09 US benign marta uring up to 6.7 cm Other liver diseases (4 sources) Steatosis of liver 05-04-2020 Chronic Other lower respiratory disease (4 sources) Chronic cough 07-03-2019 Episodic Other lower respiratory disease (4 sources) Nodule of lung 08-03-2020 Episodic Other lower respiratory disease (5 sources) Wheezing; Translations: [Wheezing] Onset: 5 06-07-2021 Episodic Other lower respiratory disease (1 source) Wheezing; Translations: [Wheezing] Onset: 5 Episodic Other nervous system disorders (1 source) Postoperative pain ; Translations: [Other acute postprocedural pain] 09-16-2024 Episodic Other nutritional; endocrine; and metabolic disorders (1 source) Hypomagnesemia; Translations: [Hypomagnesemia] Chronic Other nutritional; endocrine; and metabolic disorders (2 sources) Hypocalcemia 08-06-2020 Chronic Other screening for suspected conditions (not mental disorders or infectious disease) (7 sources) Mammography abnormal; Translations: [Other abnormal and inconclusive findings on diagnostic imaging of breast] Onset: 5 07-19-2020 Episodic Other skin disorders (1 source) Localized swelling, mass and lump, right lower limb; Translations: [Localized swelling, mass and lump, right lower limb] Onset: 5 Episodic Other upper respiratory disease (4 sources) Lesion of nose 05-02-2021 Episodic Otitis media and related conditions (8 sources) Eustachian tube disorder; Translations: [Unspecified Eustachian tube disorder, unspecified ear] 12-31-2018 Episodic Meredith-; endo-; and myocarditis; cardiomyopathy (except that caused by tuberculosis or sexually transmitted disease) (11 sources) Ejection murmur; Translations: [Heart valve disorder] Onset: 5 06-07-2021 Chronic Prolapse of female genital organs (6 sources) Vaginal vault prolapse; 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, unspecified] Onset: 5 07-30-2024 Chronic Residual codes; unclassified (4 sources) History of colonoscopy; Translations: [Other specified postprocedural states] 07-19-2020 Episodic Residual codes; unclassified (4 sources) Difficulty sleeping 06-27-2020 Episodic Residual codes; unclassified (4 sources) Not for resuscitation 08-06-2023 Episodic Residual codes; unclassified (4 sources) Postmenopausal state 05-02-2021 Episodic Residual codes; unclassified (1 source) Postoperative state; Translations: [Other specified postprocedural states] 10-27-2024 Episodic Secondary malignancies (20 sources) Secondary malignant neoplasm of axillary lymph nodes; Translations: [Secondary and unspecified 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] Onset: 1 06-17-2020 Chronic Unclassified (4 sources) Glomerular filtration rate decreased 04-04-2023 Past or Other Problems Problem Classification Problem Date Documented Da te Episodic/Chronic Genitourinary symptoms and ill-defined conditions (4 sources) Urgent desire to urinate; Translations: [Urgency of urination] Onset: 08-07-2024 08-21-2024 Episodic Nonmalignant breast conditions (20 sources) Lump in left breast; Translations: [Unspecified lump in the left breast, unspecified quadrant] Onset: 06-09-2020 06-09-2020 Episodic Unclassified (1 source) Primary stress urinary incontinence 07-30-2024 Urinary tract infections (2 sources) Urinary tract infection, site not specified; Translations: [Urinary tract infection, site not specified] Onset: 02-07-2024 Episodic Results Test Name Value Interpretation Reference Range Facility XR CHEST 2 VIEWSon 5 XR CHEST 2 VIEWS ORIGINAL EXAMINATION: TWO XRAY VIEWS OF THE CHEST 11/14/2024 10:17 am COMPARISON: September 29, 2020 HISTORY: ORDERING SYSTEM PROVIDED HISTORY: Reason for Exam: wheezing scattered throughout, rule out pneumonia FINDINGS: Heart is normal in size and there is no vascular congestion present. No infiltrate or pleural fluid seen. Minor degenerative changes are noted in the spine. IMPRESSION: No acute process. Interpreted by: Zeeshan Montenegro MD Preliminary Report By: Zeeshan Montenegro MD Electronically signed By Zeeshan Montenegro MD Dictated Date: 11/15/2024 8:29:47 AM Prelim Date: 11/15/2024 8:30:16 AM Sign Date: 11/15/2024 8:30:16 AM Ordering Provider: ODILON SERRANO Interpreted by: Zeeshan Montenegro MD Preliminary Report By: Zeeshan Montengero MD Electronically signed By Zeeshan Montenegro MD Dictated Date: 11/15/2024 8:29:47 AM Prelim Date: 11/15/2024 8:30:16 AM Sign Date: 11/15/2024 8:30:16 AM Ordering Provider: ODILON SERRANO Normal [facility]dered By: Myrna Salas on 11-14-2024 Albumin DL <= 20 mg/L (U) [Mass/Vol] 8.6 mg/L Invalid Interpretation Code AO ADM SS Albumin/Creatinine DL <= 20 mg/L (U) [Mass ratio] 12 mg/G Normal 0 - 30 mg/G AO Chemistry S Creatinine (U) [Mass/Vol] 68.8 mg/dL Invalid Interpretation Code AO ADM SS MALBRon 11-14-2024 U Creatinine 68.8 mg/dL Normal [facility] Comment on above: Performed By: #### M ALBR #### [address] [place], [place] [address] U Microalb 8.6 mg/L Normal [facility] Comment on above: Performed By: #### M ALBR #### [address] [address] U Ratio Alb/Cre 12 mg/G Normal 0-30 [facility] Comment on above: Performed By: #### M ALBR #### [address] [place], [place] [address] 12 Lead EKGon 11-11-2024 12 Lead EKG [facility] [address] [place] [address] 12 Lead EKG 11/11/24 1102 MR#: [id number] Acct: [id number] Name: INÉS LIEBERMAN Rep #: [id number] : 1950 74 From: Joseph Gaines MD Attending Dr: Dr. Sarthak Browning, DO Status: PRE SDC Ordering Dr: Sarthak Browning DO Date: 11/11/24 [place] [facility] [place] Sex: F C Admitted: Test Reason : PRE OP Blood Pressure : */* mmHG Vent. Rate : 78 BPM Atrial Rate : 78 BPM P-R Int : 98 ms QRS Dur : 82 ms QT Int : 376 ms P-R-T Axes : 25 58 26 degrees QTcB Int : 428 ms Sinus rhythm with short MT Left ventricular hypertrophy with repolarization abnormality Abnormal ECG Confirmed by YENNY MONCADA, JOESPH ([id number]), senior editor SUZI MAIN ([id number]) on 11/12/2024 11:01:37 AM Referred By: Sarthak Browning Confirmed By: JOSEPH GAINES MD 11/12/24 1101 Date Joseph Gaines MD CC: Dr. Odilon Serrano DO; Dr. Sarthak Browning DO Signed Normal [facility] Albumin, Serumon 11-11-2024 Albumin [Mass/Vol] 4.3 g/dL Normal 3.4-4.8 [facility] Comment on above: Performed By: #### M 100.651, L100.0100, L500.2500, L501.1800 #### [facility] [address] [place], [address] Basic Metabolic Profile (BMP )on 11-11-2024 BUN/CRE 28.5 RATIO High 10-20 [facility] Comment on above: Performed By: #### M 100.651, L100.0100, L500.2500, L501.1800 #### [facility] [address] [place], [address] Calcium [Mass/Vol] 9.3 mg/dL Normal 7.6-11.0 [facility] Comment on above: Performed By: #### M 100.651, L100.0100, L500.2500, L501.1800 #### [facility] [address] [place], [address] Chloride [Moles/Vol] 105 mmol/L Normal 98-[address] [facility] Comment on above: Performed By: #### M 100.651, L100.0100, L500.2500, L501.1800 #### [facility] [address] [place], [address] CO2 [Moles/Vol] 24.7 mmol/L Normal 21.0-32.0 [facility] Comment on above: Performed By: #### M 100.651, L100.0100, L500.2500, L501.1800 #### [facility] [address] [place], [address] Creatinine [Mass/Vol] 0.87 mg/dL Normal 0.70-1.20 [facility] Comment on above: Performed By: #### M 100.651, L100.0100, L500.2500, L501.1800 #### [facility] [address] [place], [address] GAP 11 Normal 5-15 [facility] Comment on above: Performed By: #### M 100.651, L100.0100, L500.2500, L501.1800 #### [facility] [address] [place], [address] GFR/1.73 sq M.predicted among non-blacks MDRD (S/P/Bld) [Vol rate/Area] 69 mL/min/{1.73_m2} Normal >60 [facility] Comment on above: Result Comment: mL/m in/1.73m2 CKD-EPI Creatinine Equation (2020) Performed By: #### M 100.651, L100.0100, L500.2500, L501.1800 #### [facility] [address] [place], [address] Glucose [Mass/Vol] 99 mg/dL Normal 70-99 [facility] Comment on above: Performed By: #### M 100.651, L100.0100, L500.2500, L501.1800 #### [facility] [address] [place], [address] Potassium [Moles/Vol] 3.8 mmol/L Normal 3.3-5.1 [facility] Comment on above: Performed By: #### M 100.651, L100.0100, L500.2500, L501.1800 #### [facility] [address] [place], [address] Sodium [Moles/Vol] 140 mmol/L Normal 133-145 [facility] Comment on above: Performed By: #### M 100.651, L100.0100, L500.2500, L501.1800 #### [facility] [address] [place], [address] Urea nitrogen [Mass/Vol] 25 mg/dL High 4-19 [facility] Comment on above: Performed By: #### M 100.651, L100.0100, L500.2500, L501.1800 #### [facility] [address] [place], [address] CBC W/Diff, Automatedon 06-2 -2024 Absolute Lymph 1.36 X10 3/uL Normal 0.83-4.51 [facility] Comment on above: Performed By: #### M 100.651, L100.0100, L500.2500, L501.1800 #### [facility] [address] [place], [address] Absolute Neut 3.9 X10 3/uL Normal 2.0-7.7 [facility] Comment on above: Performed By: #### M 100.651, L100.0100, L500.2500, L501.1800 #### [facility] [address] [place], [address] Basophils/100 WBC (Bld) 0.8 % Normal 0-1 [facility] Comment on above: Performed By: #### M 100.651, L100.0100, L500.2500, L501.1800 #### [facility] [address] [place], [address] Eosinophils/100 WBC (Bld) 1.8 % Normal 0-5 [facility] Comment on above: Performed By: #### M 100.651, L100.0100, L500.2500, L501.1800 #### [facility] [address] [place], [address] Erythrocyte distribution width (RBC) [Ratio] 12.7 % Normal 11.6-14.6 [facility] Comment on above: Performed By: #### M 100.651, L100.0100, L500.2500, L501.1800 #### [facility] [address] [place], [address] Hematocrit (Bld) [Volume fraction] 35.3 % Low 37-47 [facility] Comment on above: Performed By: #### M 100.651, L100.0100, L500.2500, L501.1800 #### [facility] [address] [place], [address] Hemoglobin (Bld) [Mass/Vol] 11.4 g/dL Low 12.0-15.0 [facility] Comment on above: Performed By: #### M 100.651, L100.0100, L500.2500, L501.1800 #### [facility] [address] [place], [address] IG% 0.300 Normal 0.0-0.9 [facility] Comment on above: Result Comment: IG% - Immature Granulocytes (promyelocytes, myelocytes and metamyelocytes) > 1% indicates that a LEFT SHIFT is Present. Performed By: #### M 100.651, L100.0100, L500.2500, L501.1800 #### [facility] [address] [place], [address] Lymphocytes/100 WBC (Bld) 22.7 % Normal 19-41 [facility] Comment on above: Performed By: #### M 100.651, L100.0100, L500.2500, L501.1800 #### [facility] [address] [place], [address] MCH (RBC) [Entitic mass] 28.5 pg Normal 27.0-32.0 [facility] Comment on above: Performed By: #### M 100.651, L100.0100, L500.2500, L501.1800 #### [facility] [address] [place], [address] MCHC (RBC) [Mass/Vol] 32.3 g/dL Normal 32-36 [facility] Comment on above: Performed By: #### M 100.651, L100.0100, L500.2500, L501.1800 #### [facility] [address] [place], [address] MCV (RBC) [Entitic vol] 88.3 fL Normal 81-99 [facility] Comment on above: Performed By: #### M 100.651, L100.0100, L500.2500, L501.1800 #### [facility] [address] [place], [address] Monocytes/100 WBC (Bld) 9.9 % Normal 0-10 [facility] Comment on above: Performed By: #### M 100.651, L100.0100, L500.2500, L501.1800 #### [facility] [address] [place], [address] Neutrophils/100 WBC (Bld) 64.5 % Normal 47-70 [facility] Comment on above: Performed By: #### M 100.651, L100.0100, L500.2500, L501.1800 #### [facility] [address] [place], [address] Nucleated RBC (Bld) [#/Vol] 0 10*3/uL Normal 0-5 [facility] Comment on above: Performed By: #### M 100.651, L100.0100, L500.2500, L501.1800 #### [facility] [address] [place], [address] Platelet mean volume (Bld) [Entitic vol] 10.6 fL Normal 6.2-12.0 [facility] Comment on above: Performed By: #### M 100.651, L100.0100, L500.2500, L501.1800 #### [facility] [address] [place], [address] Platelets (Bld) [#/Vol] 241 10*3/uL Normal 150-450 [facility] Comment on above: Performed By: #### M 100.651, L100.0100, L500.2500, L501.1800 #### [facility] [address] [place], [address] RBC (Bld) [#/Vol] 4.00 10*6/uL Low 4.2-5.4 [facility] Comment on above: Performed By: #### M 100.651, L100.0100, L500.2500, L501.1800 #### [facility] [address] [place], [address] RDW SD 41.2 fl Normal 35.1-43.9 [facility] Comment on above: Performed By: #### M 100.651, L100.0100, L500.2500, L501.1800 #### [facility] [address] [place], [address] WBC (Bld) [#/Vol] 6.0 10*3/uL Normal 4.4-11.0 [facility] Comment on above: Performed By: #### M 100.651, L100.0100, L500.2500, L501.1800 #### [facility] [address] [place], [address] MR/PAT.HAWKon 11-11-2024 MR/PAT.HAWK [facility] Medical Records Department [address] [place] [address] PAT - Anesthesia 11/11/24 1618 MR#: [id number] Acct: [id number] Name: INÉS LIEBERMAN Rep #: [id number] : 1950 74 From: Evangelista Guzmán MD PCP: Dr. 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 When Was Last Pacemaker Check QUESTION #4 FULL TEXT: You/Your Family Experience fever (hyperthermia) with Anesthesia Last Oral Intake Last Oral intake: Last Oral Intake NPO since Meds taken in AM with sips of water? 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 - engraved roller inspector: PONV - engraved roller inspector Female Yes 11/10/24 11:13 HX of Motion Sickness No 11/10/24 11:13 HX of N/V After Surgery No 11/10/24 11:13 Non-Smoker Yes 11/10/24 11:13 Duration of Surgery greater Yes 11/10/24 11:13 than 60 minutes Number of Risk Factors 3 11/10/24 11:13 PONV Score Moderate Risk 11/10/24 11:13 Height Weight Height Weight: Anesthesia: Height Weight Height 5 ft 3 in 11/02/20 11:27 Respiratory Assessment Respiratory Assessment - engraved roller inspector: Respiratory Tract Infection Hx - engraved roller inspector Hx Respiratory Tract Infection No 11/10/24 11:13 STOP Sleep Apnea STOP Sleep Apnea - engraved roller inspector: STOP Sleep Apnea - engraved roller inspector Hx Hypertension Yes: ON MED 11/10/24 11:13 Hx Sleep Apnea No 11/10/24 11:13 CPAP BIPAP Do you snore loudly (louder No 11/10/24 11:13 than talking or can be heard Do you often feel tired/ No 11/10/24 11:13 fatigued/ sleepy during daytime? Has anyone observed you stop No 11/10/24 11:13 breathing during sleep? STOP Results Negative 11/10/24 11:13 QUESTION #5 FULL TEXT : Do you snore loudly (louder than talking or can be heard through closed doors)? Tobacco Use History Tobacco Use History - engraved roller inspector: Tobacco Use History - engraved roller inspector Tobacco Use Smoking Status Never smoker 11/10/24 11:13 Hx Tobacco Use No 11/10/24 11:13 Years Smoking Packs Smoked per Day Smoking Cessation Date was within the last 15 years Hx Smoking Cessation Date Hx Smoking Cessation Counseling Hematologic Medial History Hematologic Hx - engraved roller inspector: Hematologic Medical Hx - mop man Hx of Blood Transfusion No 11/10/24 11:13 Hx of Transfusion in last 3 No 11/10/24 11:13 Months Date of Last Transfusion (if within last 3 months) Ever experience any problems No 11/10/24 11:13 with transfusion(s)? Specify any problems Hx of Preganancy in last 3 No 11/10/24 11:13 Months Nurse Filling Out Transfusion JZOLLINGE 11/10/24 11:13 Questions: Date: 11/10/24 11/10/24 11:13 Time: 11:11/10/24 11:13 Patient unable to answer at this time (ie. confused, unrespo /Reproduction History /Reproductive History - engraved roller inspector: /Reproductive Hx- engraved roller inspector Hx Now Gestational Age (in weeks): EDC: Hx Hx Para Hx Section SAB No 11/10/24 11:13 PFSH Medical History (Updated 11/10/24 @ 11:13 by Es Willard) Loss of hearing Wears glasses Anxiety Non-smoker Hx of echocardiogram Breast cancer, left Microcalcification of left breast on mammogram Abnormal mammogram of left breast Systolic murmur Osteoporosis Osteoarthritis Eustachian tube disorder Stool guaiac positive Hypertension Home Medications ???Medication ???Instructions ???Recorded ???Last Taken ???Type lisinopril 20 1 tab PO DAILY 01/08/19 02/04/19 0 6:00 History mg-hydrochlorothiazide 12.5 mg tablet multivitamin 1 tab PO DAILY 01/08/19 Unknown Hi story cholecalciferol (vitamin D3) 50 50 mcg PO DAILY 05/07/20 Unknown H istory mcg (2,000 unit) capsule acetaminophen 500 mg tablet 1,000 mg PO Q6H PRN pain 11/10/24 Unknown History (Tylenol Extra Strength) hydroxyzine HCl 50 mg tablet 50 mg PO TID PRN PRN anxiety 11/10 Unknown History ibuprofen 600 mg tablet 6 (more content not included)... Normal [facility] MRSA/SAID NASAL SCREENon MRSA+SAID SCRN Reason for Exam: PRE OP MRSA MRSA Negative S. AUREUS S. aureus PositiveA Normal [facility] Comment on above: Performed By: #### M 100.651, L100.0100, L500.2500, L501.1800 #### [facility] [address] [place], [place], [address] Magnesiumon 11-11-2024 Magnesium [Mass/Vol] 2.2 mg/dL Normal 1.5-2.[address] [facility] Comment on above: Performed By: #### L 501.5200 #### [facility] [address] [place], [address] CNOVon 10-27-2024 CNOV Office Visit ([place] ) INÉS LIEBERMAN ([id number]) 1950 F Date Time Provider Department 10/27/24 3:30 PM ELIZABETH LINTON During your visit today, we recorded the following information about you: Pulse Blood pressure Weight 65/minute 181/79 63 kg Elizabeth Linton MD 10/27/2024 4:50 PM Signed Female Pelvic Medicine AND Reconstructive Surgery Post-Op Visit Recording using Secure[employer] software for draft documentation of the visit was discussed with the patient/authorized professional healthcare representative; all questions welcomed and answered. Patient/authorized professional healthcare representative agreed to proceed HPI:Inés Lieberman is a 74 year old female who presents for a 6 Week post-op check s/p Procedure(s): Sacrospinous ligament suspension of the vaginal vault/extraperitoneal colpopexy, Anterior colporrhaphy, Posterior colporrhaphy, Perineorrhaphy, and Cystoscopy. Post-op complications: no Bleeding: no Pain: no If you had pain related to your prolapse before surgery, has your pain resolved? Yes Abnormal vaginal discharge: no Pathology: n/a PFDI-20 Do you: Usually experience pressure in the lower abdomen? No (0) Usually experience heaviness or dullness in the pelvic area? No (0) Usually have a bulge or something falling out that you can see or feel in your vaginal area? No (0) Ever have to push on the vagina or around the rectum to have or complete a bowel movement? Yes, somewhat bothersome (2) Usually experience a feeling of incomplete bladder emptying? No (0) Ever have to push up on a bulge in the vaginal area with your fingers to start or complete urination? No (0) Feel you need to strain too hard to have a bowel movement? Yes, not at all bothersome (1) Feel you have not completely emptied your bowels at the end of a bowel movement? Yes, not at all bothersome (1) Usually lose stool beyond your control if your stool is well formed? Yes, not at all bothersome (1) Usually lose stool beyond your control if your stool is loose? Yes, not at all bothersome (1) Usually lose gas from the rectum beyond your control? Yes, somewhat bothersome (2) Usually have pain when you pass your stool? Yes, not at all bothersome (1) Experience a strong sense of urgency and have to escobedo to the bathroom to have a bowel movement? Yes, not at all bothersome (1) Does part of your bowel ever pass through the rectum and bulge outside during or after a bowel movement? Yes, not at all bothersome (1) Usually experience frequent urination? Yes, somewhat bothersome (2) Usually experience urine leakage associated with a feeling of urgency, that is, a strong sensation of needing to go to the bathroom? Yes, somewhat bothersome (2) Usually experience urine leakage related to coughing, sneezing or laughing? Yes, somewhat bothersome (2) Usually experience small amounts of urine leakage (that is, drops)? Yes, somewhat bothersome (2) Usually experience difficulty emptying your bladder? Yes, not at all bothersome (1) Usually experience pain or discomfort in the lower abdomen or genital region? Yes, not at all bothersome (1) Overall, how satisfied were you with your postoperative pain medication? Very satisfied With regard to your expectations before surgery, did you have the amount of pain you expected, more pain, or less pain? About the amount of pain I expected Was the preoperative teaching you had about pain expectations helpful? Yes Were the discharge instructions you received about pain medications helpful? Yes Building Operator offered:Patient accepts, visit chaperoned by RN SENSITIVE EXAM: The sensitive examination was discussed with the Patient or Patient's Authorized Canine Deputy. As applicable, any other physician, advance practice provider, medical student, or other health professional student that will be observing or involved in the sensitive examination for educational or training purposes was discussed with the Patient or Authorized Canine Deputy. The Patient or Authorized Canine Deputy has agreed to proceed with the sensitive examination. (Sensitive examination includes inspection and/or palpation of the breasts, pelvis, prostate and anorectal regions). OBJECTIVE: BP 181/79 Pulse 65 Wt 139 lb (63.1kg) General: Well appearing, alert, in no acute distress, well-hydrated, well nourished. Abdomen: Abdomen soft, non-tender Pelvic: Ext. Genitalia, No lesions or other abnormalities, Perineal incision healing well Vagina: WNL, Good vaginal support, and Surgical incisions are well healed Cervix: Absent Urethra: Normal, Supine cough stress test negative Bimanual: No tenderness, No masses Rectovaginal: No tenderness, No masses ASSESMENT: Inés Lieberman is a 74 year old female who is post-op; stable and doing well post-operative course uncomplicated PLAN: May resume normal activities. May resume intercourse. Follow u (more content not included)... Normal [facility] CNOVSPon 10-24-2024 CNOVSP Visit ([place]) Office ([place]) INÉS LIEBERMAN ([id number]) 1950 F Date Time Provider Department 10/24/24 10:00 AM IRAIS PEÑALOZA During your visit today, we recorded the following information about you: Temperature Pulse Blood pressure Weight 98.4 degrees 69/minute 172/75 63.5 kg Irais Peñaloza APRN.PRODUCTION ILLUSTRATOR 10/24/2024 10:30 AM Signed Chief Complaint Patient presents with: Established Patient HPI: Inés Lieberman is a 74 year old female who presents here today for follow up breast cancer. Per Dr. Gutierrez's previous note: H/o hypertension. Screening mammogram in April demonstrated a 9 cm area of segmental pleomorphic calcifications in the left breast. A subsequent left breast ultrasound revealed a 1-1/2 cm irregular mass in the left breast at the 3:00 middle depth position. There was also a lymph node with uniform cortical thickening in the left axillary tail consistent with an enlarged lymph node and was moderate suspicion for malignancy. Patient underwent ultrasound-guided core needle biopsy with clip placement on 06/09/2020. Pathology: Invasive ductal carcinoma, grade 3 nuclei. Biopsy of left axillary lymph node revealed fragments of lymph node positive for metastatic carcinoma (approximately 3 mm in greatest dimension). ER - - - - - Negative. MT - - - - - Negative. HER2 (ERBB2) IMMUNOHISTOCHEMISTRY ASSAY Interpretation: POSITIVE for HER2 (ERBB2) Expression Score: 3+ Percentage of cells with uniform intense complete membrane stainin% (reported for 2+ and 3+ scores only). Underwent right-sided internal jugular vein port placement on 07/07/2020. MRI Breasts 06/30/2020: RESULT: Bilateral background breast enhancement is mild. Current study was also evaluated with a Computer Aided Detection (CAD) system. There is 4.5 cm x 9.2 cm x 6.5 cm segmental area in the left breast lower outer aspect middle depth. This shows non-mass like enhancement. This correlates with mammography and ultrasound findings. Specifically, multiple masses with intervening non mass enhancement (NME) is demonstrated in a segmental distribution from approximately 3:00 to 6:00, correlating with the malignant calcifications seen mammographically. This is inclusive of the prior biopsy site at the 3:00 position 5 cmfn, which contains a biopsy clip. Enhancement extends to a mildly retracted left nipple, which is also enhancing asymmetrically and abnormally. No suspicious enhancement extends posteriorly to the chest wall. The skin of the left breast is thickened and edematous with mildly asymmetric enhancement, which appears somewhat nodular in areas (especially medially) on later time points. There is no suspicious mass, abnormal enhancement, distortion, or other significant abnormality in the right breast. Multiple small foci of persistent enhancement are seen and these are judged to be benign. There also are multiple oval masses in the left axilla. These show heterogeneous enhancement and rapid initial rise and delayed washout type vascular enhancement. The largest node measures 2.3 cm maximally and contains a biopsy clip. This is a biopsy proven metastatic axillary node. No abnormalities in the right axillary nodes or internal mammary nodes region. Multiple T2/STIR hyperintense lesions are scattered within the liver measuring up to 1.4 cm in size. While these most likely represent benign cysts or hemangiomas, they are incompletely characterized on the current exam. The 4.5 cm x 9.2 cm x 6.5 cm segmental area in the left breast lower outer aspect middle depth is consistent with the known carcinoma and is a known biopsy positive for malignancy. A surgical consult is recommended. This area is inclusive of the biopsy site at 3:00 5 cmfn, which contains a biopsy clip. - There is involvement of the left nipple and abnormal enhancement of thickened edematous skin of the left breast. No evidence for chest wall disease involvement. The multiple oval masses in the left axilla are consistent with a pathological lymph node and are a known biopsy positive for malignancy. A surgical consult is recommended. This includes a biopsy proven metastatic axillary node, which contains a biopsy clip. - No internal mammary adenopathy. No MRI evidence of malignancy in the right breast. Multiple indeterminate T2/STIR hyperintense liver lesions. While these most likely represent benign cysts or hemangiomas, they are incompletely characterized on the current exam. Further evaluation via dedicated abdominal CT or MRI is recommended. Previous therapy: 1) Neoadjuvant TCHP. 2) Adjuvant radiation 03/03/21 - 04/06/21. 3) Trastuzumab alone. Completed 2021. CT chest 11/04 revealed stable 3 mm nodule right lung. MRI Breasts 11/12/2020: Left Breast - Category 6 - Known cancer. No residual enhancing tissue at the (more content not included)... Normal [facility] Venous Duplex US, Unilateral on 09-19-2024 Venous Duplex US, Unilateral [facility] [address] [place] [address] Venous Duplex US, Unilateral 09/19/24 1515 MR#: [id number] Acct: [id number] Name: INÉS LIEBERMAN Rep #: [id number] : 1950 74 From: Alessandro Mak MD Attending Dr: DOE Downing Status: REG CL I Ordering Dr: Tana Falk Date: 09/19/24 Location: [facility] Sex: F C Admitted: Reason For Study Reason For Study: Right leg swelling RIGHT LEFT GSV is normal. CFV is compressible, spontaneous, phasic, competent, CFV is compressible, spontaneous, phasic, competent and demonstrates normal augmentation. and demonstrates normal augmentation. FV is compressible, spontaneous, phasic, competent and demonstrates normal augmentation. POP V is compressible, spontaneous, phasic, competent and demonstrates normal augmentation. T/P Trunk is compressible. PTV is compressible. RT PerV is compressible. Procedure This is a venous duplex using B-mode, color flow and spectral Doppler. Exam performed in department. A preliminary report was called and/or faxed to Deya AZAR. VL/Venous Duplex US, Unilateral Interpretation Summary Deep veins of the right lower extremity are patent and compressible segmentally. There is no evidence of right lower extremity deep vein thrombosis. Valvular competence appears intact within the proximal deep venous system on the right . The right great saphenous vein appears patent and compressible segmentally. The left common femoral vein is patent and compressible . Ordering Physician: Tana Falk Referring Physician: Odilon Serrano Performed By: Astrid Proctor, RVT 09/19/241834 Date Alessandro Mak MD CC: DOE Downing; Dr. Odilon Serrano, Date Dictated: 09/19/241514 Date Transcribed: 09/19/241834 Lime Kiln Operator: Signed Normal [facility] Venous duplex ultrasound rep ortOrdered By: Alessandro Mak on 09-19-2024 US Vein [facility] [address] [place] [address] Venous Duplex US, Unilateral 09/19/241514 MR#: [id number] Acct: [id number] Name: INÉS LIEBERMAN Rep #:[id number] : 1950 74 From: Alessandro Mak MD Attending Dr: DOE Downing atus: REG CLI Ordering Dr: Tana Falk Date : 09/19/24 Location: [facility] Sex: F C Admitted: Reason For Study Reason For Study: Right leg swelling RIGHT LEFT GSV is normal. CFV is compressible, spontaneous, phasic, competent, CFV is compressible, spontaneous, phasic, competent and demonstrates normal augmentation. and demonstrates normal augmentation. FV is compressible, spontaneous, phasic, competent and demonstrates normal augmentation. POP V is compressible, spontaneous, phasic, competent and demonstrates normal augmentation. T/P Trunk is compressible. PTV is compressible. RT PerV is compressible. Procedure This is a venous duplex using B-mode, color flow and spectral Doppler. Exam performed in department. A preliminary report was called and/or faxed to Deya AZAR. VL/Venous Duplex US, Unilateral Interpretation Summary Deep veins of the right lower extremity are patent and compressible segmentally.There is no evidence of right lower extremity deep vein thrombosis. Valvular competence appears intact within the proximal deep venous system on the right . The right great saphenous vein appears patent and compressible segmentally. The left common femoral vein is patent and compressible . Ordering Physician: Tana Falk Referring Physician: Odilon Serrano Performed By: Astrid Proctor RVT 09/19/241834 Date _ Alessandro Mak MD CC: DOE Downing; Dr. Odilon Serrano, DO ~ Date Dictated: 09/19/24 1515 Date Transcribed: 09/19/241834 [place] [place] Operator: Signed [facility] Other Phone: ANES POSTPROC EVALon 025 ANES POSTPROC EVAL HNO ID: [id number] Author: STEFANY GARCIA MD Service: Anesthesiology Author Type: Anesthesiologist Type: Anesthesia Postprocedure Evaluation Filed: 09/12/2024 14:23 Note Text: POST ANESTHESIA EVALUATION NOTE : 1950 Procedure Summary Date: 09/12/24 Room / Location: [facility] OR / [facility] OR Anesthesia Start: 0752 Anesthesia Stop: 946 Procedures: COLPOPEXY VAGINAL EXTRA-PERITONEAL (Vagina ) ANTERIOR COLPORRHAPHY REPAIR CYSTOCELE W/REPAIR URETHROCELE INCLUDING CYSTOURETHROSCOPY WHEN PERFORMED (Vagina ) POSTERIOR COLPORRHAPHY W/ REPAIR RECTOCELE AND PERINEORRHAPHY (Vagina ) CYSTOSCOPY (Bladder) Diagnosis: Vaginal vault prolapse Primary stress urinary incontinence History of breast cancer Pre-operative clearance (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]) (Primary stress urinary incontinence [N39.3]) (History of breast cancer [Z85.3]) (Pre-operative clearance [Z01.818]) Surgeons: Elizabeth Linton MD Responsible Provider: Stefany Garcia MD Anesthesia Type: general ASA Status: 3 Anesthesia Type: general Airway Type: ETT Last Vitals Vitals Value Taken Time BP 162/74 09/12/24 1045 Temp 36.5 ?C (97.7 ?F) 09/12/24 0945 Pulse 71 09/12/24 1104 Resp 19 09/12/24 1035 SpO2 99 % 09/12/24 1104 Vitals shown include unfiled device data. Post Anesthesia Patient Status Patient Evaluation: PACU. PACU/ICU Patient Condition: stable. Anticipated Disposition: inpatient floor planned admission. Neurological Status: aware and responsive. Pulmonary Status: breathing comfortably on room air Airway Control: returned to baseline unsupported. Cardiovascular Status: stable. Pain Management: clinically adequate - multimodal analgesia pain management approach Postoperative Hydration: acceptable. Intraoperative Events: no significant anesthesia events Post Operative Nausea/Vomiting Status: no significant post operative nausea or vomiting Recommendation: continue current plan of care and further care per PACU/ICU/floor team. Anesthesia Observations No Documentation SIGNATURE: Stefany Garcia MD PATIENT NAME: Inés Lieberman DATE: September 12, 2024 TIME: 2:23 PM CSN: [id number] [facility] ANES PRE-OPon 09-12-2024 ANES PRE-OP HNO ID: [id number] Author: STEFANY GARCIA MD Service: Anesthesiology Author Type: Anesthesiologist Type: Anesthesia Preprocedure Evaluation Filed: 09/12/2024 06:45 Note Text: ANESTHESIOLOGY DAY OF SURGERY NOTE : 1950 Procedure Information Date/Time: 09/12/24 0730 Procedures: COLPOPEXY VAGINAL EXTRA-PERITONEAL (Vagina ) - 300MIN PER ANGEL ANTERIOR COLPORRHAPHY REPAIR CYSTOCELE W/REPAIR URETHROCELE INCLUDING CYSTOURETHROSCOPY WHEN PERFORMED (Vagina ) POSTERIOR COLPORRHAPHY W/ REPAIR RECTOCELE AND PERINEORRHAPHY (Vagina ) CYSTOSCOPY (Bladder) SUSPENSION BLADDER SLING TAPE TRANSVAGINAL (Vagina ) Location: ND OR / ND OR Surgeons: Elizabeth Linton MD Estimated body mass index is 25.56 kg/m? as calculated from the following: Height as of 08/25/24: 158.8 cm (5' 2.5). Weight as of 08/25/24: 64.4 kg (142 lb). 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 Tracheostomy tube not present Mallampati: II. TM distance: >3 FB. Neck ROM: full ROM without neurological symptoms. Mouth opening: adequate. Short neck: no. Thick neck: no DENTAL Dental findings: teeth intact. Additional exam findings: yes. CARDIOVASCULAR Rhythm: regular PULMONARY Breath sounds clear to auscultation. II - ANESTHESIA PLAN ASA Score: 3 Anesthetic Plan: general Airway type: ETT The patient is not a current smoker. NPO Status: adequate Beta Thelma Monitoring Plan Monitoring plan: Standard ASA. Post Procedure Analgesic Plan Postoperative analgesic plan: parenteral or oral opioids and multimodal analgesia. Informed Consent Anesthetic risks, benefits, alternatives, personnel and consent discussed: yes. Patient / Responsible Republican agrees to proceed: yes Patient / Surrogate agrees to blood products: yes DNR status not reviewed with patient and/or family prior to surgery. Significant changes in the patient condition since the History and Physical, not otherwise documented in primary service progress note: no. Potential Anesthesia issues that may suggest increased risk of complications or contraindication to planned procedure: none. Vitals Value Taken Time BP 188/86 09/12/24 0618 Pulse Resp 16 09/12/24 0618 Temp 36.6 ?C (97.9 ?F) 09/12/24 0618 SpO2 95 % 09/12/2418 Facility-Administered Medications as of 09/12/2024 Medication Dose Route Frequency [COMPLETED] acetaminophen 650 mg tab(s) (TYLENOL) 650 mg ORAL Pre-Op Once [COMPLETED] promethazine 12.5 mg tab(s) (PHENERGAN) 12.5 mg ORAL Pre-Op Once lactated ringers iv infusion 5-30 mL/hr INTRAVENOUS CONTINUOUS Outpatient Medications as of 09/12/2024 Medication Sig lisinopril (ZESTRIL, PRINIVIL) 10 mg tablet Take 10 mg by mouth once daily. hydrOXYzine HCl (ATARAX) 10 mg tablet Take 10 mg by mouth as needed. multivitamin tablet Take 1 tablet by mouth twice daily. cholecalciferol, vitamin D3, (VITAMIN D3 ORAL) Take 1 tablet by mouth once daily. I have interviewed and examined the patient. I have reviewed the medical record and/or the pre-anesthesia evaluation, pertinent labs, and test results. This contains updated information obtained within 48 hours of Surgery/Procedure. SIGNATURE: Stefany Garcia MD PATIENT NAME: Inés Lieberman DATE: September 12, 2024 TIME: 6:45 AM CSN: [id number] [facility] HISTORY PHYSICALon HISTORY PHYSICAL HNO ID: [id number] Author: ELIZABETH LINTON MD Service: Urogynecology Author Type: Physician Type: H&P Filed: 09/12/2024 07:46 Note Text: UPDATED HISTORY AND PHYSICAL EXAMINATION SERVICE DATE: 09/12/2024 SERVICE TIME: 744 Participation of a fellow, resident, medical student, or advanced practice provider student in performing the sensitive examination was discussed with the patient or authorized professional healthcare representative. The patient or authorized professional healthcare representative has agreed to proceed with the sensitive examination. PHYSICAL EXAM MUST BE COMPLETED ON ADMISSION The History and Physical (completed in the past 30 days) has been reviewed and the patient has been examined. The contents accurately reflect the patient's condition with the following additions or revisions since the HANDP was completed. Examination indicates no changes. This HANDP can be found in Epic SIGNATURE: Elizabeth Linton MD PATIENT NAME: Inés Lieberman DATE: September 12, 2024 TIME: 7:46 AM [facility] OPERATIVE NOon 09-12-2024 OPERATIVE NO HNO ID: [id number] Author: ELIZABETH LINTON MD Service: Urogynecology Author Type: Physician Type: Operative Report Filed: 09/12/2024 10:08 Note Text: OPERATIVE / PROCEDURE NOTE LOG ID: [id number] Surgery/Procedure Date: 09/12/2024 Incision/Procedure Start Time: 8:16 AM Incision Close/Procedure End Time: 9:34 AM Surgeon(s)/Proceduralis t(s) and Green Hide Inspector(s): Surgeons and Role: * Elizabeth Linton MD - Primary Registered Nurse Claim Rep: Nasra Wilkerson RN Procedure(s): Sacrospinous ligament suspension of the vaginal vault/extraperitoneal colpopexy, Anterior colporrhaphy, Posterior colporrhaphy, Perineorrhaphy, and Cystoscopy Anesthesia: General Findings: -normal uterus, cervix, bilateral fallopian tubes and ovaries. Ovaries normal bilaterally by visual inspection and palpation. -Normal 360 degree cystoscopy. Bladder and urethra without injury, sutures, or masses. Strong bilateral ureteral jets seen. -Stage III Cystocele and stage II vaginal vault prolapse, stage 2 rectocele -vaginal sweep negative -rectal exam without injury or suture Estimated Blood Loss: 25 mls IVF/UOP: per anesthesia records Antibiotics: 2g of cefazolin prior to skin incision Specimens: none VTE Prophylaxis: SCDs for mechanical prophylaxis Complications: None Implanted Devices: * No implants in log * Pre-Op/Pre-Procedure Diagnosis: Cystocele, Vaginal vault prolapse, and Rectocele Post-Op/Post-Procedure Diagnosis: same Indications: The patient is a 74 year old with symptoms of vaginal vault prolapse, cystocele, rectocele, and stress incontinence who desires surgical management. Preoperative POPQ points were: Aa =+3 Ba = +3 C = 0 gh = 4 pb = 2.5 tvl = 8 Ap = 0 Bp = 0 D = NA. Preoperative urodynamics did show urodynamic stress incontinence at max capacity of 569ml. We discussed r/b/a of anti-incontinence procedure. After long discussion, she would like to have a staged procedure if SHALINI develops. We discussed UDS testing isn't perfect to predict leakage and she understands this. Risks, benefits, and alternatives of the procedure were reviewed, and the patient wished to proceed. Informed consent was obtained. Procedure: The patient was taken to the operating room where a surgical time-out and safety checklist were performed. The patient was then given prophylactic antibiotic and compression stockings were applied bilaterally. She underwent general anesthesia without any difficulty. She was positioned in the dorsal lithotomy position using Yellofin stirrups, making sure that her lower extremities were not overly extended or flexed. She was prepped and draped in the normal sterile fashion. A Trinh catheter was inserted, and the bladder was drained of all urine. Indications: The patient is a 61 year old with symptoms of vaginal vault prolapse, cystocele, rectocele who desires surgical management. Preoperative POPQ points were: Aa =+3 Ba = +3 C = -7 gh = 4.5 pb = 2 tvl = 10 Ap = 0 Bp = 0 D = NA. Risks, benefits, and alternatives of the procedure were reviewed, and the patient wished to proceed. Informed consent was obtained. Procedure: The patient was taken to the operating room where a surgical time-out and safety checklist were performed. The patient was then given prophylactic antibiotic and compression stockings were applied bilaterally. She underwent general anesthesia without any difficulty. She was positioned in the dorsal lithotomy position using Yellofin stirrups, making sure that her lower extremities were not overly extended or flexed. She was prepped and draped in the normal sterile fashion. A Trinh catheter was inserted, and the bladder was drained of all urine. The apex of the vaginal cuff was identified and grasped with an Allis clamp. The apex was tented towards the right ischial spine, which confirmed adequate vaginal length to reach the sacrospinous ligament. The apex was tagged with an Allis clamp. The anterior vaginal wall was grasped in the midline just cephalad to the bladder neck. Dilute lidocaine with epinephrine was injected along the anterior vaginal wall. The epithelium was excised vertically, about 1cm from the previously marked Allis. The vaginal epithelium was then cut with a scalpel in the midline. Allis clamps were placed on the epithelial edges of the incision and sharp dissection was performed to dissect the vaginal epithelium off of the underlying muscularis to open the extraperitoneal space. Blunt dissection into the right pararectal space was performed until the ischial spine was palpated and the sacrospinous ligament was identified and cleared off. Using the Capio device, two 0-PDS Monodek sutures were placed in the mid portion of the ligament with the most lateral stitched placed 1.5 cm medial to the ischial spine. Repeated tensioning on both PDS sutures confirmed excellent placement. A rectal exam was normal. The anterior colporrhaphy was comp (more content not included)... [facility] INÉS LIEBERMAN ([id number]) 1950 F Date Time Provider Department 08/27/24 ELIZABETH LINTON During your visit today, we recorded the following information about you: Odilia Velasco 08/27/2024 11:43 AM Signed Patient called stating she had her pre anesthesia appt on 08/25 and they mentioned that there is no confirmation for her surgery on 09/12 at [facility]. She was told to reach out to the office. Odilia Velasco 08/29/2024 11:00 AM Signed Patient called in again in regard to her upcoming surgery Allergies As of Date: 08/27/2024 (No Known Allergies) Date Reviewed: 08/25/2024 Reviewed by: Bartolome Lopez APRN.[facility] - Fully Assessed Reason for Visit: Surgery Question [Other] Prescriptions as of 09/01/2024 - hydrOXYzine HCl (ATARAX) 10 mg tablet Take 10 mg by mouth as needed. - lisinopril (ZESTRIL, PRINIVIL) 10 mg tablet Take 10 mg by mouth once daily. - multivitamin tablet Take 1 tablet by mouth twice daily. - cholecalciferol, vitamin D3, (VITAMIN D3 ORAL) Take 1 tablet by mouth once daily. 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 Author Type: Nurse Practitioner Type: H&P Filed: 08/25/2024 09:01 Note Text: [facility] HISTORY AND PHYSICAL EXAMINATION SERVICE DATE: 08/25/2024 SERVICE TIME: 9:00 AM PRIMARY CARE PHYSICIAN: Odilon Serrano DO Assessment Patient has the following medical conditions which may affect meredith-operative course: History of breast cancer Assessment: hx left breast CA, s/p bilateral mastectomy, chemo and XRT HTN (hypertension) Assessment: controlled on rx Last 14 BP Last 14 Encounter BP Readings: Date: BP: 08/25/2024 140/68 08/21/2024 196/82[patient notes being anxious about testing. denies cardiac symptoms[ 07/28/2024 185/64 04/25/2024 190/76 10/26/2023 163/76 10/25/2022 170/78 04/26/2022 169/92 01/25/2022 145/71 10/26/2021 143/72 08/17/2021 176/66[Re check[ 07/27/2021 131/75 07/04/2021 140/70 06/13/2021 144/60 06/10/2021 120/57 Anxiety Assessment: rx as needed VHD (valvular heart disease) Assessment: +murmur, 2021 echo EF 65%, trace MVR, trace-1+ TVR, trace PVR ANESTHESIA FINDINGS: Intubation History: No history of difficult intubation Significant Anesthesia Considerations: potential postop nausea/vomiting Airway History: No history of difficult airway Perez Activity Status Index: METS: Climb a flight of stairs or walk up a hill (5.50 METs) DASI Score: 5.5 Patient denies any chest pain or undue shortness of breath with the above physical activity. Clinical Frailty Scale: 3. Well, with treated comorbid disease STOP-Bang Score: Denies snoring loudly Denies feeling tired, fatigued, or sleepy during the daytime Has not been observed to stop breathing or choking/gasping during sleep Denies having high blood pressure BMI less than or equal to 35 kg/m2 Patient 50 years old or younger Does not have a large neck Non-male patient STOP-Bang Score: 0 [id number] Score: Age: >=75 Sex: female CHF history: No Hypertension history: Yes Stroke/TIA/thromboembol ism history: No Vascular disease history: No Diabetes history: No [id number] Score: 4 ARISCAT Score: Age: 51-80 Preoperative SpO2: >=96% Respiratory infection in the last month: No Preoperative anemia: No Surgical incision: peripheral Duration of surgery: >3 hrs Emergency procedure: No ARISCAT Score: 26 I - PHYSICAL EVALUATION AIRWAY Patient intubated: No. Tracheostomy tube not present Mallampati: II. TM distance: >3 FB. Neck ROM: full ROM without neurological symptoms. Mouth opening: adequate. Short neck: no. Thick neck: no Kerr present: no Lip Bite Test: I Microretrognathia/Micro nagthia/Recessed Chin: No DENTAL Dental findings: teeth intact. II - ANESTHESIA PLAN Anesthetic Plan: other Beta Thelma Monitoring Plan Post Procedure Analgesic Plan Prepared for Surgery: optimally prepared for surgery. CONSULTS: Patient does not require consults for optimization at this time Planned Anesthetic: other anesthesia choice The Following Tests/Procedures Have Been Initiated: No orders of the defined types were placed in this encounter. REASON FOR VISIT: Inés Lieberman is a 74 year old female who is scheduled for Procedure(s) with comments: COLPOPEXY VAGINAL EXTRA-PERITONEAL (N/A) - 300MIN PER ANGEL ANTERIOR COLPORRHAPHY REPAIR CYSTOCELE W/REPAIR URETHROCELE INCLUDING CYSTOURETHROSCOPY WHEN PERFORMED (N/A) POSTERIOR COLPORRHAPHY W/ REPAIR RECTOCELE AND PERINEORRHAPHY (N/A) CYSTOSCOPY (N/A) SUSPENSION BLADDER SLING TAPE TRANSVAGINAL (N/A) at the request of Dr. Elizabeth Linton for consultation. My final recommendation will be communicated back to the requesting physician by way of shared medical record or letter. Subjective The patient has the following: COVID-19 Immunization Status Current Care Gaps Covid-19 Vaccine ( season) Overdue since 01/20/2024 04/19/2021 Imm Admin: COVID-19 original vaccine, full dose, monovalent (MODERNA) 10/02/2020 Imm Admin: COVID-19 original vaccine, age 12+ yr, monovalent (PFIZER-BIONTECH - PURPLE TOP) 09/11/2020 Imm Admin: COVID-19 original vaccine, age 12+ yr, monovalent (PFIZER-BIONTECH - PURPLE TOP) Only the first 3 history entries have been loaded, but more history exists. CHIEF COMPLAINT: Pre-op exam HPI: Inés Lieberman is a 74 year old seen for PAC due to scheduled above surgery because of vaginal prolapse. 07/28/2024, Dr. Elizabeth Linton HISTORY OF PRESENT ILLNESS: Patient is a poor historian. S/P prolapse repair at [facility], unknown year. Has had hysterectomy, open. Has midline vertical incision. Doesn't remember why she had hysterectomy. Feels recurrent bulge. Interested in surgical repair, does not want a pessary. SHALINI- leakage with cough, laugh, sneeze UUI- mostly at night, urinary frequency and urgency. Voiding every hour, has been going on for so (more content not included)... Normal [facility] UA DIP B/Oon 08-21-2024 Bilirubin Ql (U) Negative Neg [facility] Color/Appearance Clear/Yellow comment: [facility] Glucose Ql (U) Negative Neg mg/dL [facility] Hemoglobin Ql (U) Negative Neg [facility] Interpretation and review of laboratory results Abnormal [facility] Ketones Ql (U) Negative Neg [facility] Leukocytes Negative Neg [facility] Nitrite Ql (U) Negative Neg [facility] pH (U) 5 [pH] 4.5 - 8.[address] [facility] Protein.monoclonal (U) [Mass/Vol] Negative Neg mg/dL [facility] Specific [place], Ur 1 Abnormal 1.005 - 1.030 C [facility] Urobilinogen, Urine Normal Normal ( <1.1) [facility] Fredrick 08-18-2024 SOFIA Telephone (HIOB) INÉS LIEBERMAN ([id number]) 1950 F Date Time Provider Department 08/18/24 ELIZABETH LINTON During your visit today, we recorded the following information about you: Nasra Doe 08/18/2024 3:36 PM Signed Inés Lieberman called today. Caller's (home) [phone] (cell) Reason for call: Patient had a cortisone shot and was told to check to make sure this does not interfere with any upcoming visits. Please call and advise. Cindy Law RN 08/18/2024 4:20 PM Signed Called Patient. Verified name and . Pt asking if a cortisone injection into her knee completed on 08-14-24 at [facility] will interfere with her procedure that was originally on 09-04-[address] Linton. Pt informed RN that her surgery was moved to 08-21-24 and her PACC is still trying to be rescheduled to accommodate pt new procedure date. Cindy Mason RN August 18, 2024 4:19 PM Liana Araya APRN.ISAÍAS 08/19/2024 9:19 AM Signed D/W Dr. Linton. Pt needs to wait at least 1 month after injection to have surgery. Unfortunately - her case will need to be reschedule. Dr. Linton will work on getting the patient rescheduled. Please let her know. Thank you Liana Araya APRN.Vin Bangura RN 08/19/2024 9:34 AM Signed Called Patient. Verified name and . Notified of message below from Liana Araya APRN CNP. Patient verbalized understanding. Patient asking if it was ok to have her UDS completed this week. Notified patient that should be fine to keep that appt but will route to providers to double check. Vin Nath RN August 19, 2024 9:33 AM Liana Araya APRN.PRODUCTION ILLUSTRATOR 08/19/2024 10:49 AM Signed Yes, it's fine to proceed with UDS as scheduled Thanks Liana Araya APRN.Vida Fontenot RN 08/19/2024 11:00 AM Signed Called and spoke with pt. She is advised to keep scheduled UDS appt for this week. Pt states understanding and denies any further questions or concerns at this time. Vida Merrill RN Allergies As of Date: 08/18/2024 (No Known Allergies) Date Reviewed: 07/28/2024 Reviewed by: Brad Sauceda RN - Fully Assessed Reason for Visit: Patient Question [3147] Primary Visit Diagnosis:Educational circumstance [Z55.9] Prescriptions as of 08/19/2024 - hydrOXYzine HCl (ATARAX) 10 mg tablet Take 10 mg by mouth as needed. - lisinopril (ZESTRIL, PRINIVIL) 10 mg tablet Take 10 mg by mouth once daily. - multivitamin tablet Take 1 tablet by mouth twice daily. - cholecalciferol, vitamin D3, (VITAMIN D3 ORAL) Take 1 tablet by mouth once daily. 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)*06/15/2020 Malignant neoplasm of overlapping sites of left*07/30/2020 H/O bilateral mastectomy [Z90.13] 08/15/2021 Encounter Status:Closed by NASRA DOE on 08/19/24 [facility] SOFIA Telephone (WHQ) MIOINÉS WATKINS ([id number]) 1950 F Date Time Provider Department 08/18/24 ELIZABETH LINTON During your visit today, we recorded the following information about you: Lenora Borja 08/18/2024 4:22 PM Signed Spoke with pt to get PACC appt rescheduled since her uds/consent appt was changed, pt aware of new date, time AND location Allergies As of Date: 08/18/2024 (No Known Allergies) Date Reviewed: 07/28/2024 Reviewed by: Brad Sauceda, MICHEL - Fully Assessed Reason for Visit: Appointment Rescheduled [1024] Prescriptions as of 08/18/2024 - hydrOXYzine HCl (ATARAX) 10 mg tablet Take 10 mg by mouth as needed. - lisinopril (ZESTRIL, PRINIVIL) 10 mg tablet Take 10 mg by mouth once daily. - multivitamin tablet Take 1 tablet by mouth twice daily. - cholecalciferol, vitamin D3, (VITAMIN D3 ORAL) Take 1 tablet by mouth once daily. 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 Vascular calcifications. No acute fracture or dislocation. No suspicious osseous lesions. Quadriceps enthesopathy. No significant knee joint effusion. Mild infrapatellar subcutaneous edema. IMPRESSION: No acute fracture. Mild infrapatellar subcutaneous edema. If clinical concern persists for internal derangement of the knee consider correlation with cross-sectional imaging. Interpreted by: Ruth Rojas Preliminary Report By: Ruth Rojas Electronically signed By Ruth Rojas Dictated Date: 08/12/2024 11:38:22 AM Prelim Date: 08/12/2024 11:39:49 AM Sign Date: 08/12/2024 11:39:49 AM Ordering Provider: JANNETTE Van [facility] Basic metabolic 2000 panelon 08-01-2024 Anion gap [Moles/Vol] 9 mmol/L Normal 8-15 [facility] Comment on above: Order Comment: Speci men Type: BLOOD SPECIMENOrdering Facility: [facility] Address: [address] [place] [address] Performed By: #### 2 4321-2 ####[facility] LABCLIA [id number] [place] [address] [place] Calcium [Mass/Vol] 9.7 mg/dL Normal 8.5-10.2 [facility] Comment on above: Order Comment: Speci men Type: BLOOD SPECIMENOrdering Facility: [facility] Address: [address] [place] [address] Performed By: #### 2 4321-2 ####[facility] LABCLIA [id number] [place] [address] [place] Chloride [Moles/Vol] 104 mmol/L Normal 98-107 [facility] Comment on above: Order Comment: Speci men Type: BLOOD SPECIMENOrdering Facility: [facility] Address: [address] [place] [address] Performed By: #### 2 4321-2 ####[facility] LABCLIA [id number] [place] [id number] [place] CO2 [Moles/Vol] 28 mmol/L Normal 22-30 [facility] Comment on above: Order Comment: Speci men Type: BLOOD SPECIMENOrdering Facility: [facility] Address: [address] [place] [address] Performed By: #### 2 4321-2 ####[facility] LABIA [id number] [address] [address] [place] Creatinine [Mass/Vol] 0.94 mg/dL Normal 0.58-0.96 [facility] Comment on above: Order Comment: Cielo sanches Type: BLOOD SPECIMENOrdering Facility: [facility] Address: [address] [place] [address] Performed By: #### 2 4321-2 ####[facility] LABIA [id number] [address] [address] [place] Creatinine and Glomerular filtration rate.predicted panel (S/P/Bld) 63 mL/min/1.73m??? Normal >=60 [facility] Comment on above: Order Comment: Cielo sanches Type: BLOOD SPECIMENOrdering Facility: [facility] Address: [address] [place] [address] Result Comment: Leesa mated Glomerular Filtration Rate (eGFR) is calculated using the 2020 CKD-EPI creatinine equation. This equation utilizes serum creatinine, sex, and age as parameters. The creatinine assay has traceable calibration to isotope dilution-mass spectrometry. Refer to KDIGO guidelines for clinical interpretation. In patients with unstable renal function, e.g. those with acute kidney injury, the eGFR may not accurately reflect actual GFR. Performed By: #### 2 4321-2 ####[facility] LABIA [id number] [address] [address] [place] Glucose [Mass/Vol] 138 mg/dL High 74-99 [facility] Comment on above: Order Comment: Novai men Type: BLOOD SPECIMENOrdering Facility: [facility] Address: [address] [place] [address] Result Comment: The [place] Diabetes Association (ADA) provides guidance for cutoff values for fasting glucose and random glucose. The ADA defines fasting as no caloric intake for at least 8 hours. Fasting plasma glucose results between 100 to 125 mg/dL indicate increased risk for diabetes (prediabetes). Fasting plasma glucose results greater than or equal to 126 mg/dL meet the criteria for diagnosis of diabetes. In the absence of unequivocal hyperglycemia, results should be confirmed by repeat testing. In a patient with classic symptoms of hyperglycemia or hyperglycemic crisis, random plasma glucose results greater than or equal to 200 mg/dL meet the criteria for diagnosis of diabetes. Reference: Standards of Medical Care in Diabetes 2016, [place] [employer] Association. Diabetes Care. 2016.39(Suppl 1). Performed By: #### 2 4321-2 ####[facility] LABCLIA [id number] [place] [address] [place] Potassium [Moles/Vol] 4.2 mmol/L Normal 3.7-5.1 [facility] Comment on above: Order Comment: Cielo sanches Type: BLOOD SPECIMENOrdering Facility: [facility] Address: [address] [place] [address] Performed By: #### 2 4321-2 ####[facility] [id number] [place] [address] [place] Sodium [Moles/Vol] 141 mmol/L Normal 136-144 [facility] Comment on above: Order Comment: Cielo sanches Type: BLOOD SPECIMENOrdering Facility: [facility] Address: [address] [place] [address] Performed By: #### 2 4321-2 ####[facility] LABIA [id number] [place] [address] [place] Urea nitrogen [Mass/Vol] 17 mg/dL Normal 7-21 [facility] Comment on above: Order Comment: Cielo sanches Type: BLOOD SPECIMENOrdering Facility: [facility] Address: [address] [place] [address] Performed By: #### 2 4321-2 ####[facility] LABIA [id number] [place] [id number] [place] CBC W Auto Differential pane l (Bld)on 08-01-2024 Basophils (Bld) [#/Vol] 0.03 10*3/uL Normal <0.11 [facility] Comment on above: Order Comment: Speci men Type: BLOOD SPECIMEN [facility] Address: [address] [place] [address] Performed By: #### 5 7021-8 #### [facility] CLIA [id number] [address] [place] [address] [place] Basophils/100 WBC (Bld) 0.5 % Normal [facility] Comment on above: Order Comment: Speci men Type: BLOOD SPECIMEN [facility]ing [facility] Address: [address] [place] [address] Performed By: #### 5 7021-8 #### [facility] CLIA [id number] [address] [place] [address] [place] Differential cell count method Nom (Bld) Auto Normal [facility] Comment on above: Order Comment: Speci men Type: BLOOD SPECIMEN [facility] Address: [address] [place] [address] Performed By: #### 5 7021-8 #### [facility] CLIA [id number] [address] [place] [address] [place] Eosinophils (Bld) [#/Vol] 0.08 10*3/uL Normal <0.46 [facility] Comment on above: Order Comment: Speci men Type: BLOOD SPECIMEN [facility] Address: [address] [place] [address] Performed By: #### 5 7021-8 #### [facility] CLIA [id number] [address] [place] [address] [place] Eosinophils/100 WBC (Bld) 1.4 % Normal [facility] Comment on above: Order Comment: Speci men Type: BLOOD SPECIMEN [facility] Address: [address] [place] [address] Performed By: #### 5 7021-8 #### [facility] [id number] [address] [place] [address] [place] Erythrocyte distribution width (RBC) [Ratio] 12.9 % Normal 11.5-15.0 [facility] Comment on above: Order Comment: Speci men Type: BLOOD SPECIMEN [facility] Address: [address] [place] [address] Performed By: #### 5 7021-8 #### [facility] CLIA [id number] [address] [place] [address] [place] Hematocrit (Bld) [Volume fraction] 35.3 % Low 36.0-46.0 [facility] Comment on above: Order Comment: Speci men Type: BLOOD SPECIMEN [facility] Address: [address] [place] [address] Performed By: #### 5 7021-8 #### [facility] CLIA [id number] [address] [place] [address] [place] Hemoglobin (Bld) [Mass/Vol] 11.6 g/dL Normal 11.5-15.5 [facility] Comment on above: Order Comment: Speci men Type: BLOOD SPECIMEN [facility] Address: [address] [place] [address] Performed By: #### 5 7021-8 #### [facility] CLIA [id number] [address] [place] [address] [place] Immature granulocytes (Bld) [#/Vol] 10*3/uL Normal <0.10 [facility] Comment on above: Order Comment: Speci men Type: BLOOD SPECIMEN [facility] Address: [address] [place] [address] Performed By: #### 5 7021-8 #### [facility] CLIA [id number] [address] [place] [address] [place] Immature granulocytes/100 WBC (Bld) 0.2 % Normal [facility] Comment on above: Order Comment: Speci men Type: BLOOD SPECIMEN [facility] Address: [address] [place] [address] Performed By: #### 5 7021-8 #### [facility] CLIA [id number] [address] [place] [address] [place] Lymphocytes (Bld) [#/Vol] 1.17 10*3/uL Normal 1.00-4.00 [facility] Comment on above: Order Comment: Speci men Type: BLOOD SPECIMEN [facility] Address: [address] [place] [address] Performed By: #### 5 7021-8 #### [facility] CLIA [id number] [address] [place] [address] [place] Lymphocytes/100 WBC (Bld) 20.7 % Normal [facility] Comment on above: Order Comment: Speci men Type: BLOOD SPECIMEN [facility] Address: [address] [place] [address] Performed By: #### 5 7021-8 #### [facility] CLIA [id number] [address] [place] [address] [place] MCH (RBC) [Entitic mass] 29.1 pg Normal 26.0-34.0 [facility] Comment on above: Order Comment: Speci men Type: BLOOD SPECIMEN [facility] Address: [address] [place] [address] Performed By: #### 5 7021-8 #### [facility] CLIA [id number] [address] [place] [address] [place] MCHC (RBC) [Mass/Vol] 32.9 g/dL Normal 30.5-36.0 [facility] Comment on above: Order Comment: Speci men Type: BLOOD SPECIMEN [facility] Address: [address] [place] [address] Performed By: #### 5 7021-8 #### [facility] CLIA [id number] [address] [place] [address] [place] MCV (RBC) [Entitic vol] 88.7 fL Normal 80.0-100.0 [facility] Comment on above: Order Comment: Speci men Type: BLOOD SPECIMEN [facility] Address: [address] [place] [address] Performed By: #### 5 7021-8 #### [facility] CLIA [id number] [address] [place] [address] [place] Monocytes (Bld) [#/Vol] 0.41 10*3/uL Normal <0.87 [facility] Comment on above: Order Comment: Speci men Type: BLOOD SPECIMEN [facility] Address: [address] [place] [address] Performed By: #### 5 7021-8 #### [facility] CLIA [id number] [address] [place] [address] [place] Monocytes/100 WBC (Bld) 7.3 % Normal [facility] Comment on above: Order Comment: Speci men Type: BLOOD SPECIMEN [facility] Address: [address] [place] [address] Performed By: #### 5 7021-8 #### [facility] CLIA [id number] [address] [place] [address] [place] Neutrophils (Bld) [#/Vol] 3.95 10*3/uL Normal 1.45-7.50 [facility] Comment on above: Order Comment: Speci men Type: BLOOD SPECIMEN [facility] Address: [address] [place] [address] Performed By: #### 5 7021-8 #### [facility] CLIA [id number] [address] [place] [address] [place] Neutrophils/100 WBC (Bld) 69.9 % Normal [facility] Comment on above: Order Comment: Speci men Type: BLOOD SPECIMEN [facility] Address: [address] [place] [address] Performed By: #### 5 7021-8 #### [facility] CLIA [id number] [address] [place] [address] [place] Nucleated RBC (Bld) [#/Vol] 10*3/uL Normal <0.01 [facility] Comment on above: Order Comment: Speci men Type: BLOOD SPECIMEN [facility] Address: [address] [place] [address] Performed By: #### 5 7021-8 #### [facility] CLIA [id number] [address] [place] [address] [place] Nucleated RBC/100 WBC (Bld) [Ratio] 0.0 /100 WBC Normal [facility] Comment on above: Order Comment: Speci men Type: BLOOD SPECIMEN [facility] Address: [address] [place] [address] Performed By: #### 5 7021-8 #### [facility] CLIA [id number] [address] [place] [address] [place] Platelet mean volume (Bld) [Entitic vol] 10.1 fL Normal 9.0-12.7 [facility] Comment on above: Order Comment: Speci men Type: BLOOD SPECIMEN [facility] Address: [address] [place] [address] Performed By: #### 5 7021-8 #### [facility] CLIA [id number] [address] [place] [address] [place] Platelets (Bld) [#/Vol] 230 10*3/uL Normal 150-400 [facility] Comment on above: Order Comment: Speci men Type: BLOOD SPECIMEN [facility] Address: [address] [place] [address] Performed By: #### 5 7021-8 #### [id number] [address] [place] [address] [place] RBC (Bld) [#/Vol] 3.98 10*6/uL Normal 3.90-5.20 [facility] Comment on above: Order Comment: Speci men Type: BLOOD SPECIMEN [facility] Address: [address] [place] [address] Performed By: #### 5 7021-8 #### [facility] [id number] [address] [place] [address] [place] WBC (Bld) [#/Vol] 5.65 10*3/uL Normal 3.70-11.00 [facility] Comment on above: Order Comment: Speci men Type: BLOOD SPECIMEN [facility] Address: [address] [place] [address] Performed By: #### 5 7021-8 #### [facility] [id number] [address] [place] [address] OF [facility] Fredrick 08-01-2024 [facility] Telephone ([facility]) INÉS LIEBERMAN ([id number]) 1950 F Date Time Provider Department 08/01/24 ELIZABETH LINTON [facility] During your visit today, we recorded the following information about you: Lenora Borja 08/01/2024 8:52 AM Signed Spoke with pt AND confirmed 09/04/24 surgery date at , scheduled pre/post op appts and informed pt teaching appt does not appear on MyChart Allergies As of Date: 08/01/2024 (No Known Allergies) Date Reviewed: 07/28/2024 Reviewed by: Brad Sauceda RN - Fully Assessed Reason for Visit: Future Appointment [256] Prescriptions as of 08/01/2024 - hydrOXYzine HCl (ATARAX) 10 mg tablet Take 10 mg by mouth as needed. - lisinopril (ZESTRIL, PRINIVIL) 10 mg tablet Take 10 mg by mouth once daily. - multivitamin tablet Take 1 tablet by mouth twice daily. - cholecalciferol, vitamin D3, (VITAMIN D3 ORAL) Take 1 tablet by mouth once daily. 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)*06/15/2020 Malignant neoplasm of overlapping sites of left*07/30/2020 H/O bilateral mastectomy [Z90.13] 08/15/2021 Encounter Status:Closed by LENORA BORJA on 08/01/24 Normal [facility] HbA1c (Bld)on 08-01-2024 Average glucose Estimated from glycated hemoglobin (Bld) [Mass/Vol] 120 mg/dL Normal [facility] Comment on above: Order Comment: Cielo sanches Type: BLOOD SPECIMENOrdering Facility: [facility] Address: [address] [place] [address] Result Comment: eAG: (Estimated average glucose) is a calculated value from HgbA1c and is professional healthcare representative of the average blood glucose level in the last 2-3 month period. Performed By: #### 5 5454-3 ####[facility] LABCLIA [id number] [place] [address] [place] HbA1c (Bld) [Mass fraction] 5.8 % High 4.3-5.6 [facility] Comment on above: Order Comment: Cielo sanches Type: BLOOD SPECIMENOrdering Facility: [facility] Address: [address] [place] [address] Result Comment: Amer [place] Diabetes Association guidelines indicate that patients with HgbA1c in the range 5.7-6.4% are at increased risk for development of diabetes, and intervention by lifestyle modification may be beneficial. HgbA1c greater or equal to 6.5% is considered diagnostic of diabetes. Performed By: #### 5 5454-3 ####[facility] LABLITA [id number] [place] [address] [place] XR KNEE THREE VIEWS RIGHTon 08-01-2024 XR KNEE THREE VIEWS RIGHT ORIGINAL EXAMINATION: XR right knee three views 08/01/2024 11:53 am COMPARISON: None HISTORY: ORDERING SYSTEM PROVIDED HISTORY: Reason for Exam: Right knee pain, FINDINGS: No acute fracture, dislocation, lytic process or periosteal reaction is seen in the visualized bones and joints. No erosive type of arthritis. No periarticular soft tissue calcification. No significant osteoarthritis, joint space narrowing or joint effusion. Mild arterial calcifications. No patellar instability. IMPRESSION: No significant skeletal abnormality in the right knee. Interpreted by: Henry Funez MD Preliminary Report By: Henry Funez MD Electronically signed By Henry Funez MD Dictated Date: 08/01/2024 4:54:53 PM Prelim Date: 08/01/2024 4:55:29 PM Sign Date: 08/01/2024 4:55:29 PM [facility] Office Visit (RAKESH ) INÉS LIEBERMAN ([id number]) 1950 F Date Time Provider Department 07/28/24 2:00 PM ELIZABETH LINTON During your visit today, we recorded the following information about you: Blood pressure Weight Height 185/64 67 kg 1.6 m Elizabeth Linton MD 07/30/2024 3:19 PM Signed Female Pelvic Medicine AND Reconstructive Surgery Consult CHIEF COMPLAINT: Inés Lieberman is a 74 year old female who presents for consultation requested by Dr. Serrano, PCP for an opinion regarding Pelvic Organ Prolapse . HISTORY OF PRESENT ILLNESS: Patient is a poor historian. S/P prolapse repair at [facility], unknown year. Has had hysterectomy, open. Has midline vertical incision. Doesn't remember why she had hysterectomy. Feels recurrent bulge. Interested in surgical repair, does not want a pessary. SHALINI- leakage with cough, laugh, sneeze UUI- mostly at night, urinary frequency and urgency. Voiding every hour, has been going on for some months. Voiding 2 times a night, leakage 3 times weekly at night Urgency Hesitancy Patient can feel her prolapse and is experiencing urgency. When she does feel like she has to go she has pressure, but does not void. Has worse urgency at night and UUI, nocturnal enuresis (drops on pads). +SHALINI with sneeze. Occasional has a hard time stooling and has to bear down at times. Of note, hx of breast cancer in 2020 s/p mastectomy and chemo. She stopped herceptin in 2021. No longer on any medications. 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 Last Mammogram: Her last mammogram was 2020. She has a previous history of an abnormal mammogram with breast cancer diagnosed in 2020 LMP: No LMP recorded. Patient has had a hysterectomy.; Menopause Yes: Menstrual history: Menarche: 10; Deliveries: History of third or fourth degree laceration: No Weight of largest baby: 8 lb 14oz Sexual function Sexually active: Yes, painful at time. PFDI-20 Do you: Usually experience pressure in the lower abdomen? Yes, somewhat bothersome (2) Usually experience heaviness or dullness in the pelvic area? Yes, moderately bothersome (3) Usually have a bulge or something falling out that you can see or feel in your vaginal area? 4 Ever have to push on the vagina or around the rectum to have or complete a bowel movement? 2 Usually experience a feeling of incomplete bladder emptying? Yes, quite a bit bothersome (4) Ever have to push up on a bulge in the vaginal area with your fingers to start or complete urination? Yes, quite a bit bothersome (4) Feel you need to strain too hard to have a bowel movement? Yes, somewhat bothersome (2) Feel you have not completely emptied your bowels at the end of a bowel movement? Yes, somewhat bothersome (2) Usually lose stool beyond your control if your stool is well formed? Yes, somewhat bothersome (2) Usually lose stool beyond your control if your stool is loose? Yes, somewhat bothersome (2) Usually lose gas from the rectum beyond your control? Yes, somewhat bothersome (2) Usually have pain when you pass your stool? Yes, somewhat bothersome (2) Experience a strong sense of urgency and have to escobedo to the bathroom to have a bowel movement? Yes, somewhat bothersome (2) Does part of your bowel ever pass through the rectum and bulge outside during or after a bowel movement? Yes, not at all bothersome (1) Usually experience frequent urination? Yes, quite a bit bothersome (4) Usually experience urine leakage associated with a feeling of urgency, that is, a strong sensation of needing to go to the bathroom? Yes, quite a bit bothersome (4) Usually experience urine leakage related to coughing, sneezing or laughing? Yes, moderately bothersome (3) Usually experience small amounts of urine leakage (that is, drops)? Yes, moderately bothersome (3) Usually experience difficulty emptying your bladder? Yes, quite a bit bothersome (4) Usually experience pain or discomfort in the lower abdomen or genital region? Yes, moderately bothersome (3) Do you have pain associated with your prolapse (not pressure or fullness) No PAST SURGICAL HISTORY Procedure Laterality Date BREAST BIOPSY HX Left 06/09/2020 Invasive Ductal Carcinoma EXCISION AXILLARY LYMPH NODE Left 01/03/2021 2 nodes removed; #1 Features consistent with therapy effect. Negative for malignancy, #2 negative HYSTERECTOMY HX IMAGING GUIDED BIOPSY INGUINAL/AXILLARY LYMPH NODE Left 06/09/2020 metastic invasive ductal carcinoma MASTECTOMY, SIMPLE, COMPLETE Bilateral 01/03/2021 Left: IDC Right: negative PAST MEDICAL HISTORY Diagnosis Date H/O bilateral mastectomy No reconstruction was done HTN (hypertension) Malignant neoplasm of left breast in female, estrogen receptor 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) PONV (postoperative nausea and vomiting) FAMILY HISTOR (more content not included)... Normal [facility] Fredrick 05-19-2024 ISAÍASN Telephone ([place] [employer]) INÉS LIEBERMAN ([id number]) 1950 F Date Time Provider Department 05/19/24 SUKUMAR GUTIERREZ During your visit today, we recorded the following information about you: Katerine Krishnamurthy LPN 05/19/2024 2:[address] Karen Woods contacted office questioning if pt. Can be placed on Topical Vaginal Estrogen 0.25 gm as a pre op for prolapsed uterus? Informed Dr. Gutierrez will not return into office until 05/22/[address] Woods office [phone] and speak with her nurse. JAQUI Dutta Paul A, DO 05/21/2024 11:06 AM Signed Yes, that would be okay. DO Isaura Mejias Melanie, LPN 05/22/2024 10:02 AM Signed Left message for nurse to contact this office. JAQUI Zaragoza Pamela S, LPN 05/28/2024 12:39 PM Signed Attempted to contact pt, and physicians office . No answer at either place. JAQUI Dutta Pamela S, LPN 05/29/2024 1:29 PM Signed Spoke with Hannah NAILS in Dr. Vincent office, given information ,ok for Topical Vaginal Estrogen 0.25 gm as a pre op for prolapsed uterus per Dr. Gutierrez. Hannah will pass informeation on to physician. Katerine Krishnamurthy LPN Allergies As of Date: 05/19/2024 (No Known Allergies) Date Reviewed: 04/25/2024 Reviewed by: Irais Peñaloza APRN.PRODUCTION ILLUSTRATOR - Fully Assessed Reason for Visit: medication question [Other] Prescriptions as of 05/29/2024 - lisinopril (ZESTRIL, PRINIVIL) 10 mg tablet Take 10 mg by mouth once daily. - multivitamin tablet Take 1 tablet by mouth twice daily. - cholecalciferol, vitamin D3, (VITAMIN D3 ORAL) Take 1 tablet by mouth once daily. 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)*06/15/2020 Malignant neoplasm of overlapping sites of left*07/30/2020 H/O bilateral mastectomy [Z90.13] 08/15/2021 Encounter Status:Closed by KATERINE KRISHNAMURTHY on 05/29/24 [facility] CNOVSPon 04-25-2024 CNOVSP Visit (SP) Office ([place]) MIOINÉS ([id number]) 1950 F Date Time Provider Department 04/25/24 10:00 AM IRAIS PEÑALOZA During your visit today, we recorded the following information about you: Temperature Pulse Blood pressure Weight 97.5 degrees 69/minute 190/76 66.8 kg Irais Peñaloza APRN.CNP 04/25/2024 10:22 AM Signed Chief Complaint Patient presents with: Established Patient HPI: Inés Lieberman is a 73 year old female who presents here today for follow up breast cancer. Per Dr. Gutierrez's previous note: H/o hypertension. Screening mammogram in April demonstrated a 9 cm area of segmental pleomorphic calcifications in the left breast. A subsequent left breast ultrasound revealed a 1-1/2 cm irregular mass in the left breast at the 3:00 middle depth position. There was also a lymph node with uniform cortical thickening in the left axillary tail consistent with an enlarged lymph node and was moderate suspicion for malignancy. Patient underwent ultrasound-guided core needle biopsy with clip placement on 06/09/2020. Pathology: Invasive ductal carcinoma, grade 3 nuclei. Biopsy of left axillary lymph node revealed fragments of lymph node positive for metastatic carcinoma (approximately 3 mm in greatest dimension). ER - - - - - Negative. MT - - - - - Negative. HER2 (ERBB2) IMMUNOHISTOCHEMISTRY ASSAY Interpretation: POSITIVE for HER2 (ERBB2) Expression Score: 3+ Percentage of cells with uniform intense complete membrane stainin% (reported for 2+ and 3+ scores only). Underwent right-sided internal jugular vein port placement on 07/07/2020. MRI Breasts 06/30/2020: RESULT: Bilateral background breast enhancement is mild. Current study was also evaluated with a Computer Aided Detection (CAD) system. There is 4.5 cm x 9.2 cm x 6.5 cm segmental area in the left breast lower outer aspect middle depth. This shows non-mass like enhancement. This correlates with mammography and ultrasound findings. Specifically, multiple masses with intervening non mass enhancement (NME) is demonstrated in a segmental distribution from approximately 3:00 to 6:00, correlating with the malignant calcifications seen mammographically. This is inclusive of the prior biopsy site at the 3:00 position 5 cmfn, which contains a biopsy clip. Enhancement extends to a mildly retracted left nipple, which is also enhancing asymmetrically and abnormally. No suspicious enhancement extends posteriorly to the chest wall. The skin of the left breast is thickened and edematous with mildly asymmetric enhancement, which appears somewhat nodular in areas (especially medially) on later time points. There is no suspicious mass, abnormal enhancement, distortion, or other significant abnormality in the right breast. Multiple small foci of persistent enhancement are seen and these are judged to be benign. There also are multiple oval masses in the left axilla. These show heterogeneous enhancement and rapid initial rise and delayed washout type vascular enhancement. The largest node measures 2.3 cm maximally and contains a biopsy clip. This is a biopsy proven metastatic axillary node. No abnormalities in the right axillary nodes or internal mammary nodes region. Multiple T2/STIR hyperintense lesions are scattered within the liver measuring up to 1.4 cm in size. While these most likely represent benign cysts or hemangiomas, they are incompletely characterized on the current exam. The 4.5 cm x 9.2 cm x 6.5 cm segmental area in the left breast lower outer aspect middle depth is consistent with the known carcinoma and is a known biopsy positive for malignancy. A surgical consult is recommended. This area is inclusive of the biopsy site at 3:00 5 cmfn, which contains a biopsy clip. - There is involvement of the left nipple and abnormal enhancement of thickened edematous skin of the left breast. No evidence for chest wall disease involvement. The multiple oval masses in the left axilla are consistent with a pathological lymph node and are a known biopsy positive for malignancy. A surgical consult is recommended. This includes a biopsy proven metastatic axillary node, which contains a biopsy clip. - No internal mammary adenopathy. No MRI evidence of malignancy in the right breast. Multiple indeterminate T2/STIR hyperintense liver lesions. While these most likely represent benign cysts or hemangiomas, they are incompletely characterized on the current exam. Further evaluation via dedicated abdominal CT or MRI is recommended. Previous therapy: 1) Neoadjuvant TCHP. 2) Adjuvant radiation 03/03/21 - 04/06/21. 3) Trastuzumab alone. Completed 2021. CT chest 11/04 revealed stable 3 mm nodule right lung. MRI Breasts 11/12/2020: Left Breast - Category 6 - Known cancer. No residual enhancing tissue at the (more content not included)... Normal [facility] BD BONE DENSITY DEXA AXIAL S [facility] 02-25-2024 BD BONE DENSITY DEXA AXIAL S[facility]TON ORIGINAL EXAMINATION: BONE DENSITOMETRY 02/25/2024 1:17 pm TECHNIQUE: A bone density dual x-ray absorptiometry (DEXA) scan was performed of the axial (e.g. hips, spine) and/or appendicular (e.g. radius) skeleton as appropriate. COMPARISON: None. HISTORY: ORDERING SYSTEM PROVIDED HISTORY: Reason for Exam: Osteoporosis Screening FINDINGS: BMD (g/cm2) Lumbar Spine: 0.831. T Score Lumbar Spine: -2.0 BMD (g/cm2) Left Femoral Neck: 0.648. T Score Left Femoral Neck: -1.8 BMD (g/cm2) Left Hip: 0.827. T Score Left Hip: -0.9 FRAX: 10 year fracture risk assessment Major osteoporotic fracture: 13% Hip fracture: 3.1% IMPRESSION: Osteopenia by WHO criteria. World Health Organization criteria: (Comparing with young normal sex matched population) - Normal: T-score at or above -1 SD (standard deviation) - Osteopenia: T-score between -1 and -2.5 SD - Osteoporosis: T-score at or below -2.5 SD The NOF recommends that FDA-approved medical therapies be considered in post-menopausal women and men age >/= 50 years with a: * Hip or vertebral fracture, or * T-score of /= 20% for major osteoporotic fractures or * >/= 3% for hip fractures All treatment decisions require clinical judgement and consideration of individual patient factors, including patient preferences, comorbidities, previous drug use, risk factors not captured in the FRAX registered model (e.g., frailty, falls, vitamin D deficiency, increased bone turnover, interval significant decline in bone density) and possible under- or over-estimation of fracture risk by FRAX. I have personally reviewed the images of this examination and agree with the resident's findings and interpretation. Interpreted by: Feliciano Ventura DO Preliminary Report By: Tomas Monterroso Electronically signed By Feliciano Ventura DO Dictated Date: 02/25/2024 1:39:04 PM Prelim Date: 02/25/2024 1:50:25 PM Sign Date: 02/25/2024 1:50:25 PM Ordering Provider: ODILON SERRANO [facility] Urine Cultureon 02-24-2024 URC Mixed Gram Positive Organisms [place] Count 1000-10,000 MIXC Mixed contaminants. Submit a new specimen if indicated. Normal [facility] Comment on above: Performed By: #### L 506.0250, L3890.6300, L503.6550, M100.2200, L506.1000, L503.0105, L503.6150, L501.2300, L100.0500, L500.4100, L509.1000, L500.4050 ####[facility] [address] [place], [address] CBC-Complete Blood Cnt No Di ffon 02-22-2024 Erythrocyte distribution width (RBC) [Ratio] 13.3 % Normal 11.6-14.6 [facility] Comment on above: Performed By: #### L 506.0250, L3890.6300, L503.6550, M100.2200, L506.1000, L503.0105, L503.6150, L501.2300, L100.0500, L500.4100, L509.1000, L500.4050 #### [facility] [address] [place], [address] Hematocrit (Bld) [Volume fraction] 35.8 % Low 37-47 [facility] Comment on above: Performed By: #### L 506.0250, L3890.6300, L503.6550, M100.2200, L506.1000, L503.0105, L503.6150, L501.2300, L100.0500, L500.4100, L509.1000, L500.4050 #### [facility] [address] [facility] [place], [address] ( Hemoglobin (Bld) [Mass/Vol] 11.2 g/dL Low 12.0-15.0 [facility] Comment on above: Performed By: #### L 506.0250, L3890.6300, L503.6550, M100.2200, L506.1000, L503.0105, L503.6150, L501.2300, L100.0500, L500.4100, L509.1000, L500.4050 #### [facility] [address] [facility] [place], [address] MCH (RBC) [Entitic mass] 28.2 pg Normal 27.0-32.0 [facility] Comment on above: Performed By: #### L 506.0250, L3890.6300, L503.6550, M100.2200, L506.1000, L503.0105, L503.6150, L501.2300, L100.0500, L500.4100, L509.1000, L500.4050 #### [facility] [address] [facility] [place], [address] MCHC (RBC) [Mass/Vol] 31.3 g/dL Low 32-36 [facility] Comment on above: Performed By: #### L 506.0250, L3890.6300, L503.6550, M100.2200, L506.1000, L503.0105, L503.6150, L501.2300, L100.0500, L500.4100, L509.1000, L500.4050 #### [facility] [address] [place], [address] MCV (RBC) [Entitic vol] 90.2 fL Normal 81-99 [facility] Comment on above: Performed By: #### L 506.0250, L3890.6300, L503.6550, M100.2200, L506.1000, L503.0105, L503.6150, L501.2300, L100.0500, L500.4100, L509.1000, L500.4050 #### [facility] [address] [place], [place], [phone] ([address] Platelet mean volume (Bld) [Entitic vol] 10.8 fL Normal 6.2-12.0 [facility] Comment on above: Performed By: #### L 506.0250, L3890.6300, L503.6550, M100.2200, L506.1000, L503.0105, L503.6150, L501.2300, L100.0500, L500.4100, L509.1000, L500.4050 #### [facility] [address] [place], [address] Platelets (Bld) [#/Vol] 228 10*3/uL Normal 150-450 [facility] Comment on above: Performed By: #### L 506.0250, L3890.6300, L503.6550, M100.2200, L506.1000, L503.0105, L503.6150, L501.2300, L100.0500, L500.4100, L509.1000, L500.4050 #### [facility] [address] [place], [place], [phone] (164) RBC (Bld) [#/Vol] 3.97 10*6/uL Low 4.2-5.4 [facility] Comment on above: Performed By: #### L 506.0250, L3890.6300, L503.6550, M100.2200, L506.1000, L503.0105, L503.6150, L501.2300, L100.0500, L500.4100, L509.1000, L500.4050 #### [facility] [address] [place], [place], [id number] RDW SD 44.4 fl High 35.1-43.9 [facility] Comment on above: Performed By: #### L 506.0250, L3890.6300, L503.6550, M100.2200, L506.1000, L503.0105, L503.6150, L501.2300, L100.0500, L500.4100, L509.1000, L500.4050 #### [facility] [address] [place], [place], [phone] WBC (Bld) [#/Vol] 5.2 10*3/uL Normal 4.4-11.0 [facility] Comment on above: Performed By: #### L 506.0250, L3890.6300, L503.6550, M100.2200, L506.1000, L503.0105, L503.6150, L501.2300, L100.0500, L500.4100, L509.1000, L500.4050 #### [facility] [address] [place], [place], [id number] Comprehensive Metabolic Prof akon 02-22-2024 Albumin [Mass/Vol] 3.8 g/dL Normal 3.2-5.0 [facility] Comment on above: Order Comment: N Performed By: #### L 506.0250, L3890.6300, L503.6550, M100.2200, L506.1000, L503.0105, L503.6150, L501.2300, L100.0500, L500.4100, L509.1000, L500.4050 ####[facility] [address] [place], [place], [phone] Albumin/Globulin [Mass ratio] 1.1 {ratio} Normal 0.9-2.4 [facility] Comment on above: Order Comment: N Performed By: #### L 506.0250, L3890.6300, L503.6550, M100.2200, L506.1000, L503.0105, L503.6150, L501.2300, L100.0500, L500.4100, L509.1000, L500.4050 ####[facility] [address] [place], [place], [id number] ALK P 119 U/L High 45-117 [facility] Comment on above: Order Comment: N Performed By: #### L 506.0250, L3890.6300, L503.6550, M100.2200, L506.1000, L503.0105, L503.6150, L501.2300, L100.0500, L500.4100, L509.1000, L500.4050 ####[facility] [address] [place], [place], [id number] ALT [Catalytic activity/Vol] 19 U/L Normal 13-56 [facility] Comment on above: Order Comment: N Performed By: #### L 506.0250, L3890.6300, L503.6550, M100.2200, L506.1000, L503.0105, L503.6150, L501.2300, L100.0500, L500.4100, L509.1000, L500.4050 ####[facility] [address] [place], [place], [id number] AST [Catalytic activity/Vol] 24 U/L Normal 15-37 [facility] Comment on above: Order Comment: N Performed By: #### L 506.0250, L3890.6300, L503.6550, M100.2200, L506.1000, L503.0105, L503.6150, L501.2300, L100.0500, L500.4100, L509.1000, L500.4050 ####[facility] [address] [place], [place], [phone](948) Bilirubin [Mass/Vol] 0.50 mg/dL Normal 0.20-1.[address] [facility] Comment on above: Order Comment: N Result Comment: For patients on eltrombopag therapy, use of Dimension [place] TBIL is not recommended. Performed By: #### L 506.0250, L3890.6300, L503.6550, M100.2200, L506.1000, L503.0105, L503.6150, L501.2300, L100.0500, L500.4100, L509.1000, L500.4050 ####[facility] [address] [place], [place], [phone](369) BUN/CRE 21.4 RATIO High 10-20 [facility] Comment on above: Order Comment: N Performed By: #### L 506.0250, L3890.6300, L503.6550, M100.2200, L506.1000, L503.0105, L503.6150, L501.2300, L100.0500, L500.4100, L509.1000, L500.4050 ####[facility] [address] [place], [place], [phone](221) CA,Total 9.2 mg/dL Normal 8.5-10.1 [facility] Comment on above: Order Comment: N Performed By: #### L 506.0250, L3890.6300, L503.6550, M100.2200, L506.1000, L503.0105, L503.6150, L501.2300, L100.0500, L500.4100, L509.1000, L500.4050 ####[facility] [address] [place], [address] Chloride [Moles/Vol] 107 mmol/L Normal 98-[address] [facility] Comment on above: Order Comment: N Performed By: #### L 506.0250, L3890.6300, L503.6550, M100.2200, L506.1000, L503.0105, L503.6150, L501.2300, L100.0500, L500.4100, L509.1000, L500.4050 ####[facility] [facility] [address] [place], [address] CO2 [Moles/Vol] 29.0 mmol/L Normal 21.0-32.0 [facility] Comment on above: Order Comment: N Performed By: #### L 506.0250, L3890.6300, L503.6550, M100.2200, L506.1000, L503.0105, L503.6150, L501.2300, L100.0500, L500.4100, L509.1000, L500.4050 ####[facility] [address] [place], [address] Creatinine [Mass/Vol] 0.84 mg/dL Normal 0.55-1.02 [facility] Comment on above: Order Comment: N Result Comment: The validity of the calculated GFR GFRAA in patients over 70 years has not been determined. Clinical correlation is essential. Performed By: #### L 506.0250, L3890.6300, L503.6550, M100.2200, L506.1000, L503.0105, L503.6150, L501.2300, L100.0500, L500.4100, L509.1000, L500.4050 ####[facility] [address] [place], [address] EST GFR - AA 85 mL/min Normal >60 [facility] Comment on above: Order Comment: N Result Comment: Afri can Malian GFR Calc Performed By: #### L 506.0250, L3890.6300, L503.6550, M100.2200, L506.1000, L503.0105, L503.6150, L501.2300, L100.0500, L500.4100, L509.1000, L500.4050 ####[facility] [address] [place], [place], [phone] GAP 3 Low 5-15 [facility] Comment on above: Order Comment: N Performed By: #### L 506.0250, L3890.6300, L503.6550, M100.2200, L506.1000, L503.0105, L503.6150, L501.2300, L100.0500, L500.4100, L509.1000, L500.4050 ####[facility] [address] [place], [address] GFR/1.73 sq M.predicted among non-blacks MDRD (S/P/Bld) [Vol rate/Area] 70 mL/min/{1.73_m2} Normal >60 [facility] Comment on above: Order Comment: N Result Comment: Non- GFR Calc Performed By: #### L 506.0250, L3890.6300, L503.6550, M100.2200, L506.1000, L503.0105, L503.6150, L501.2300, L100.0500, L500.4100, L509.1000, L500.4050 ####[facility] [address] [place], [place], [phone] Globulin (S) [Mass/Vol] 3.4 g/dL Normal 2.2-4.2 [facility] Comment on above: Order Comment: N Performed By: #### L 506.0250, L3890.6300, L503.6550, M100.2200, L506.1000, L503.0105, L503.6150, L501.2300, L100.0500, L500.4100, L509.1000, L500.4050 ####[facility] [address] [place], [address] Glucose [Mass/Vol] 94 mg/dL Normal 74-106 [facility] Comment on above: Order Comment: N Performed By: #### L 506.0250, L3890.6300, L503.6550, M100.2200, L506.1000, L503.0105, L503.6150, L501.2300, L100.0500, L500.4100, L509.1000, L500.4050 ####[facility] [address] [place], [address] Potassium [Moles/Vol] 4.2 mmol/L Normal 3.5-5.1 [facility] Comment on above: Order Comment: N Performed By: #### L 506.0250, L3890.6300, L503.6550, M100.2200, L506.1000, L503.0105, L503.6150, L501.2300, L100.0500, L500.4100, L509.1000, L500.4050 ####[facility] [address] [place], [address] Sodium [Moles/Vol] 140 mmol/L Normal 136-145 [facility] Comment on above: Order Comment: N Performed By: #### L 506.0250, L3890.6300, L503.6550, M100.2200, L506.1000, L503.0105, L503.6150, L501.2300, L100.0500, L500.4100, L509.1000, L500.4050 ####[facility] [address] [place], [address] T PROT 7.2 g/dL Normal 6.4-8.2 [facility] Comment on above: Order Comment: N Performed By: #### L 506.0250, L3890.6300, L503.6550, M100.2200, L506.1000, L503.0105, L503.6150, L501.2300, L100.0500, L500.4100, L509.1000, L500.4050 ####[facility] [address] [place], [place], [phone] Urea nitrogen [Mass/Vol] 18 mg/dL Normal 7-18 [facility] Comment on above: Order Comment: N Performed By: #### L 506.0250, L3890.6300, L503.6550, M100.2200, L506.1000, L503.0105, L503.6150, L501.2300, L100.0500, L500.4100, L509.1000, L500.4050 ####[facility] [address] [facility] [address] [place], [place], [phone] Ferritinon 02-22-2024 Ferritin [Mass/Vol] 80 ng/mL Normal 8-252 [facility] Comment on above: Order Comment: N Performed By: #### L 506.0250, L3890.6300, L503.6550, M100.2200, L506.1000, L503.0105, L503.6150, L501.2300, L100.0500, L500.4100, L509.1000, L500.4050 ####[facility] [address] [place], [place], [address] Folates, (Folic Acid)on FOLATES 19.20 ng/mL Normal 3.1-55.4 [facility] Comment on above: Order Comment: N Performed By: #### L 506.0250, L3890.6300, L503.6550, M100.2200, L506.1000, L503.0105, L503.6150, L501.2300, L100.0500, L500.4100, L509.1000, L500.4050 ####[facility] [address] [place], [place], [phone] Hepatitis C Antibodyon 02-21 Hepatitis C AB Non-Reactive Normal Nonreactive [facility] Comment on above: Result Comment: Non Reactive: < 0.8 Equivocal: >/= 0.8 to < 1.0 Reactive: >/= 1.0 The [facility] requires that a reactive/equivocal HCV antibody result be sent out for confirmation. HCV Quant by PCR testing. Performed By: #### L 506.0250, L3890.6300, L503.6550, M100.2200, L506.1000, L503.0105, L503.6150, L501.2300, L100.0500, L500.4100, L509.1000, L500.4050 ####[facility] [address] [place], [address] Ironon 02-22-2024 Iron [Mass/Vol] 64 ug/dL Normal 50-170 [facility] Comment on above: Order Comment: N Performed By: #### L 506.0250, L3890.6300, L503.6550, M100.2200, L506.1000, L503.0105, L503.6150, L501.2300, L100.0500, L500.4100, L509.1000, L500.4050 ####[facility] [address] [place], [place], [phone] Lipid Profileon 02-22-2024 Cholesterol [Mass/Vol] 207 mg/dL High 200 [facility] Comment on above: Order Comment: N Result Comment: <200 mg/dL Desirable 200-240 mg/dL Borderline >240 mg/dL High Risk Performed By: #### L 506.0250, L3890.6300, L503.6550, M100.2200, L506.1000, L503.0105, L503.6150, L501.2300, L100.0500, L500.4100, L509.1000, L500.4050 ####[facility] [address] [place], [address] Cholesterol in HDL [Mass/Vol] 67 mg/dL Normal [facility] Comment on above: Order Comment: N Result Comment: The drugs N-Acetylcysteine and Metamizole may falsely depress this assay. Reference Range HDL <40 mg/dL Low HDL Cholesterol HDL >or= 60 mg/dL High HDL Cholesterol Performed By: #### L 506.0250, L3890.6300, L503.6550, M100.2200, L506.1000, L503.0105, L503.6150, L501.2300, L100.0500, L500.4100, L509.1000, L500.4050 ####[facility] [address] [place], [address] Cholesterol in LDL [Mass/Vol] 130 mg/dL Normal 0-130 [facility] Comment on above: Order Comment: N Performed By: #### L 506.0250, L3890.6300, L503.6550, M100.2200, L506.1000, L503.0105, L503.6150, L501.2300, L100.0500, L500.4100, L509.1000, L500.4050 ####[facility] [address] [place], [address] Cholesterol in VLDL [Mass/Vol] 10 mg/dL Normal 5-40 [facility] Comment on above: Order Comment: N Performed By: #### L 506.0250, L3890.6300, L503.6550, M100.2200, L506.1000, L503.0105, L503.6150, L501.2300, L100.0500, L500.4100, L509.1000, L500.4050 ####[facility] [address] [place], [address] Triglyceride [Mass/Vol] 48 mg/dL Normal [facility] Comment on above: Order Comment: N Result Comment: The drugs N-Acetylcysteine and Metamizole may falsely depress this assay. Serum Triglycerides Reference Interval Normal <150 mg/dL Borderline high 150 - 199 mg/dL High 200 - 499 mg/dL Very High > or = 500 mg/dL Performed By: #### L 506.0250, L3890.6300, L503.6550, M100.2200, L506.1000, L503.0105, L503.6150, L501.2300, L100.0500, L500.4100, L509.1000, L500.4050 ####[facility] [address] [place], [address] PTHINon 02-22-2024 PTH 62.9 pg/mL Normal 18.4-80.1 [facility] Comment on above: Performed By: #### L 506.0250, L3890.6300, L503.6550, M100.2200, L506.1000, L503.0105, L503.6150, L501.2300, L100.0500, L500.4100, L509.1000, L500.4050 #### [facility] [address] [place], [address] Phosphoruson 02-22-2024 Phosphate [Mass/Vol] 2.9 mg/dL Normal 2.5-4.[address] [facility] Comment on above: Order Comment: N Performed By: #### L 506.0250, L3890.6300, L503.6550, M100.2200, L506.1000, L503.0105, L503.6150, L501.2300, L100.0500, L500.4100, L509.1000, L500.4050 ####[facility] [address] [place], [address] Vitamin B12on 02-22-2024 Cobalamin (Vitamin B12) [Mass/Vol] 694 pg/mL Normal 211-911 [facility] Comment on above: Performed By: #### L 506.0250, L3890.6300, L503.6550, M100.2200, L506.1000, L503.0105, L503.6150, L501.2300, L100.0500, L500.4100, L509.1000, L500.4050 ####[facility] [address] [place], [place], [phone] Vitamin D,25 Hydroxyon 02-21 Vitamin D 25-OH 37.8 ng/mL Normal [facility] Comment on above: Result Comment: Anca min D 25([place]) Status Range Deficiency <20 ng/mL (50nmol/L) Insufficiency 20 - 30 ng/mL (50 - 75 nmol/L) Sufficiency 30 - 100 ng/mL (75 - 250 nmol/L) Toxicity >100 ng/mL (>250 nmol/L) Performed By: #### L 506.0250, L3890.6300, L503.6550, M100.2200, L506.1000, L503.0105, L503.6150, L501.2300, L100.0500, L500.4100, L509.1000, L500.4050 ####[facility] [address] [place], [address] AMOXICILLIN+CLAVULANATE:SUSC :PT:ISOLATE:ORDQN:MICon 02-07-2024 Amoxicillin+Clavulan ate RICARDO [Susc] >100,000 cfu/ml Escherichia coli [facility] Work Phone: Amoxicillin+Clavulanate RICARDO [Susc]on 02-07-2024 Escherichia coli Escherichia coli [facility] Work Phone: .Auto Diffon 04-04-2023 Basophil, Absolute 0.1 10 3/mcL Normal 0.0-0.2 [facility] ([place]) Comment on above: Performed By: #### A DIFF, CBC, ANEU, BMP, GFR #### [facility] [address] [place], [place] [address] Basophils/100 WBC (Bld) 0.9 % Normal 0.0-2.5 [facility] ([place]) Comment on above: Performed By: #### A DIFF, CBC, ANEU, BMP, GFR #### [address] [address] Eosinophil, Absolute 0.2 10 3/mcL Normal 0.0-0.4 [facility] ([place]) Comment on above: Performed By: #### A DIFF, CBC, ANEU, BMP, GFR #### [address] [address] Eosinophils/100 WBC (Bld) 3.5 % Normal 0.0-7.0 [facility] ([place]) Comment on above: Performed By: #### A DIFF, CBC, ANEU, BMP, GFR #### [address] [address] Lymphocyte, Absolute 1.5 10 3/mcL Normal 0.8-3.9 [facility] ([place]) Comment on above: Performed By: #### A DIFF, CBC, ANEU, BMP, GFR #### [address] [address] Lymphocytes/100 WBC (Bld) 26.2 % Normal 10.0-50.0 [facility] ([place]) Comment on above: Performed By: #### A DIFF, CBC, ANEU, BMP, GFR #### [address] [address] Monocyte, Absolute 0.7 10 3/mcL Normal 0.2-1.0 [facility] ([place]) Comment on above: Performed By: #### A DIFF, CBC, ANEU, BMP, GFR #### [address] [address] Monocytes/100 WBC (Bld) 13.0 % Normal 1.7-13.0 [facility] ([place]) Comment on above: Performed By: #### A DIFF, CBC, ANEU, BMP, GFR #### [address] [address] Neutrophils/100 WBC (Bld) 56.4 % Normal 37.0-80.0 [facility] ([place]) Comment on above: Performed By: #### A DIFF, CBC, ANEU, BMP, GFR #### [address] [address] .GFRon 04-04-2023 GFR 73 ml/min/1.73sqm Normal [facility] ([place]) Comment on above: Result Comment: GFR Population mean for , Non- Americans Ages 20-29 = 116 mL/min/1.73 sq.m. Ages 30-39 = 107 mL/min/1.73 sq.m. Ages 40-49 = 99 mL/min/1.73 sq.m. Ages 50-59 = 93 mL/min/1.73 sq.m. Ages 60-69 = 85 mL/min/1.73 sq.m. Ages 70+ = 75 mL/min/1.73 sq.m. Chronic Kidney Disease: Less than 60 mL/min/1.73 square meters End Stage Renal Disease: Less than 15 mL/min/1.73 square meters Performed By: #### A DIFF, CBC, ANEU, BMP, GFR #### [address] [address] GFR Non- 60 ml/min/1.73sqm Normal [facility] ([place]) Comment on above: Result Comment: GFR Population mean for , Non- Americans Ages 20-29 = 116 mL/min/1.73 sq.m. Ages 30-39 = 107 mL/min/1.73 sq.m. Ages 40-49 = 99 mL/min/1.73 sq.m. Ages 50-59 = 93 mL/min/1.73 sq.m. Ages 60-69 = 85 mL/min/1.73 sq.m. Ages 70+ = 75 mL/min/1.73 sq.m. Chronic Kidney Disease: Less than 60 mL/min/1.73 square meters End Stage Renal Disease: Less than 15 mL/min/1.73 square meters Performed By: #### A DIFF, CBC, ANEU, BMP, GFR #### [address] [address] .NEUABSon 11-15-2023 Neutrophil, Absolute 3.1 10 3/mcL Normal 2.9-6.2 [facility] ([place]) Comment on above: Performed By: #### A DIFF, CBC, ANEU, BMP, GFR #### [address] [address] BMPon 04-04-2023 BUN/Creatinine Ratio 23 ratio Normal 7-27 [facility] ([place]) Comment on above: Performed By: #### A DIFF, CBC, ANEU, BMP, GFR #### [address] [address] Calcium [Mass/Vol] 8.9 mg/dL Normal 8.4-10.2 [facility] ([place]) Comment on above: Performed By: #### A DIFF, CBC, ANEU, BMP, GFR #### [address] [address] Chloride [Moles/Vol] 105 mmol/L Normal 98-107 [facility] ([place]) Comment on above: Performed By: #### A DIFF, CBC, ANEU, BMP, GFR #### [address] [address] CO2 [Moles/Vol] 29 mmol/L Normal 23-31 [facility] ([place]) Comment on above: Performed By: #### A DIFF, CBC, ANEU, BMP, GFR #### [address] [address] Creatinine [Mass/Vol] 0.91 mg/dL Normal 0.55-1.02 [facility] ([place]) Comment on above: Performed By: #### A DIFF, CBC, ANEU, BMP, GFR #### [address] [address] Electrolyte Balance 7.0 mEq/L Normal 4.0-15.0 [facility] ([place] Comment on above: Performed By: #### A DIFF, CBC, ANEU, BMP, GFR #### [address] [address] Glucose [Mass/Vol] 115 mg/dL High 83-110 [facility] ([place]) Comment on above: Performed By: #### A DIFF, CBC, ANEU, BMP, GFR #### [address] [address] Potassium [Moles/Vol] 4.3 mmol/L Normal 3.5-5.1 [facility] ([place]) Comment on above: Performed By: #### A DIFF, CBC, ANEU, BMP, GFR #### [place] [address] Sodium [Moles/Vol] 141 mmol/L Normal 136-145 [facility] ([place] Comment on above: Performed By: #### A DIFF, CBC, ANEU, BMP, GFR #### [place] [address] Urea nitrogen [Mass/Vol] 21 mg/dL High 7-18 [facility] ([place]) Comment on above: Performed By: #### A DIFF, CBC, ANEU, BMP, GFR #### [place] [address] CBCon 04-04-2023 Erythrocyte distribution width (RBC) [Ratio] 13.4 % Normal 11.5-14.5 [facility] ([place] Comment on above: Performed By: #### A DIFF, CBC, ANEU, BMP, GFR #### [place] [id number] Hematocrit (Bld) [Volume fraction] 34.8 % Low 37.0-47.0 [facility] ([place]) Comment on above: Performed By: #### A DIFF, CBC, ANEU, BMP, GFR #### [place] [address] Hgb 11.6 G/dL Low 12.0-16.0 [facility] ([place] Comment on above: Performed By: #### A DIFF, CBC, ANEU, BMP, GFR #### [place] [id number] MCH (RBC) [Entitic mass] 28.5 pg Normal 27.0-31.2 [facility] ([place] Comment on above: Performed By: #### A DIFF, CBC, ANEU, BMP, GFR #### [address] [address] MCHC 33.2 G/dL Normal 33.0-37.0 [facility] ([place] Comment on above: Performed By: #### A DIFF, CBC, ANEU, BMP, GFR #### [address] [address] MCV (RBC) [Entitic vol] 85.9 fL Normal 80.0-94.0 [facility] ([place] Comment on above: Performed By: #### A DIFF, CBC, ANEU, BMP, GFR #### [address] [address] Platelet 223 10 3/mcL Normal 130-400 [facility] ([place] Comment on above: Performed By: #### A DIFF, CBC, ANEU, BMP, GFR #### [address] [address] Platelet mean volume (Bld) [Entitic vol] 8.4 fL Normal 7.4-10.4 [facility] ([place] Comment on above: Performed By: #### A DIFF, CBC, ANEU, BMP, GFR #### [address] [address] RBC 4.05 10 6/mcL Low 4.20-5.40 [facility] ([place]) Comment on above: Performed By: #### A DIFF, CBC, ANEU, BMP, GFR #### [address] [address] WBC 5.6 10 3/mcL Normal 4.6-10.8 [facility] ([place]) Comment on above: Performed By: #### A DIFF, CBC, ANEU, BMP, GFR #### [address] [address] Basophil percentageon 2021 Chloride [Moles/Vol] 106 mmol/L 98-[address] [facility] Work Phone: [phone] Glucose [Mass/Vol] 86 mg/dL 74-106 [facility] Work Phone: Potassium [Moles/Vol] 4.0 mmol/L 3.5-5.1 [facility] Work Phone: Sodium [Moles/Vol] 140 mmol/L 136-145 [facility] Work Phone: Laboratory - Chemistry and C hemistry - challengeon 10-03-2021 CO2 [Moles/Vol] 30.0 mmol/L 21.0-32.0 [facility] Work Phone: Urea nitrogen/Creatinine [Mass ratio] 28.5 mg/mg 10-20 [facility] Work Phone: No Panel Informationon 10-03 Estimated GFR (MDRD) Amer 71 mL/min >60 [facility] Work Phone: Comment on above: GFR Calc Estimated GFR (MDRD) Non-Af Amer 59 mL/min >60 [facility] Work Phone: Comment on above: Non- GFR Calc Serum or plasma calcium marta urement (mass/volume)on 10-03-2021 Calcium [Mass/Vol] 9.4 mg/dL 8.5-10.1 [facility] Work Phone: Serum or plasma creatinine m easurement (mass/volume)on 10-03-2021 Creatinine [Mass/Vol] 0.98 mg/dL 0.55-1.02 [facility] Work Phone: Comment on above: The validity of the calculated GFR & GFRAA in patients over 70 years has not been determined. Clinical correlation is essential. Serum or plasma urea nitroge n measurement (mass/volume)on 10-03-2021 Urea nitrogen [Mass/Vol] 28 mg/dL 7-18 [facility] Work Phone: Thin prep Papanicolaou smear with manual screeningon 10-03-2021 Thin prep Papanicolaou smear with manual screening 4 5-15 [facility] Work Phone: MRI BREAST WO/W IVCON BILon 06-30-2020 MRI BREAST WO/W IVCON JERICA Final Report DATE OF EXAM: Jun 30 2020 8:39AM [id number] - MRI BREAST WO/W IVCON JERICA / PROCEDURE REASON: multiple diagnoses Physician Interpretation #[id number] - MRI BREAST WO/W IVCON JERICA SCREENING BREAST MRI OF BOTH BREASTS- WITH CAD: 06/30/2020 HISTORY: 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 MRI performed for extent of/occult disease and prior to initiation of domonique-adjuvant chemotherapy. RESULT: Comparison is made to exams dated: 06/09/2020 mammogram, 06/09/2020 ultrasound biopsy, 06/09/2020 localization, 06/09/2020 ultrasound biopsy, 05/26/2020 ultrasound, and 05/26/2020 mammogram - [facility]. Interpretation of this MRI was correlated with available mammograms, ultrasounds, and clinical information. MRI images were obtained with a dedicated breast coil. Post processing was performed including 3D multiplanar reconstruction. TECHNIQUE: MRI images were obtained with a dedicated breast coil. The patient was studied using the dedicated breast coil in the Siemens 1.5 Amanda scanner. Initial axial STIR imaging was carried out followed by axial T1-weighted GRE imaging both before and after IV administration of 15 ml of Dotarem. Subsequently, subtraction imaging and 3-D reconstruction were completed on an independent workstation. An additional 4 minute high resolution sequence was performed after the first two 1 minute post-contrast sequences. RESULT: Bilateral background breast enhancement is mild. Current study was also evaluated with a Computer Aided Detection (CAD) system. There is 4.5 cm x 9.2 cm x 6.5 cm segmental area in the left breast lower outer aspect middle depth. This shows non-mass like enhancement. This correlates with mammography and ultrasound findings. Specifically, multiple masses with intervening non mass enhancement (NME) is demonstrated in a segmental distribution from approximately 3:00 to 6:00, correlating with the malignant calcifications seen mammographically. This is inclusive of the prior biopsy site at the 3:00 position 5 cmfn, which contains a biopsy clip. Enhancement extends to a mildly retracted left nipple, which is also enhancing asymmetrically and abnormally. No suspicious enhancement extends posteriorly to the chest wall. The skin of the left breast is thickened and edematous with mildly asymmetric enhancement, which appears somewhat nodular in areas (especially medially) on later time points. There is no suspicious mass, abnormal enhancement, distortion, or other significant abnormality in the right breast. Multiple small foci of persistent enhancement are seen and these are judged to be benign. There also are multiple oval masses in the left axilla. These show heterogeneous enhancement and rapid initial rise and delayed washout type vascular enhancement. The largest node measures 2.3 cm maximally and contains a biopsy clip. This is a biopsy proven metastatic axillary node. No abnormalities in the right axillary nodes or internal mammary nodes region. Multiple T2/STIR hyperintense lesions are scattered within the liver measuring up to 1.4 cm in size. While these most likely represent benign cysts or hemangiomas, they are incompletely characterized on the current exam. IMPRESSION: KNOWN BIOPSY PROVEN MALIGNANCY The 4.5 cm x 9.2 cm x 6.5 cm segmental area in the left breast lower outer aspect middle depth is consistent with the known carcinoma and is a known biopsy positive for malignancy. A surgical consult is recommended. This area is inclusive of the biopsy site at 3:00 5 cmfn, which contains a biopsy clip. - There is involvement of the left nipple and abnormal enhancement of thickened edematous skin of the left breast. No evidence for chest wall disease involvement. The multiple oval masses in the left axilla are consistent with a pathological lymph node and are a known biopsy positive for malignancy. A surgical consult is recommended. This includes a biopsy proven metastatic axillary node, which contains a biopsy clip. - No internal mammary adenopathy. No MRI evidence of malignancy in the right breast. Multiple indeterminate T2/STIR hyperintense liver lesions. While these most likely represent benign cysts or hemangiomas, they are incompletely characterized on the current exam. Further evaluation via dedicated abdominal CT or MRI is recommended. SUMMARY: The patient is under the care of Dr. Latham for the above results and surgical management. Shahana vinson/vielka:06/30/2020 09:38:58 Attending Technologist(s): RT Randee (R) (MR), [facility] Prototype Special Build(s): Kong Candelaria (R) (MR), [facility] MRI BI-RADS: 6 Known biopsy proven malignancy Multiple national specialty organizations have released breast cancer screening guidelines for women at average ris (more content not included)... Normal [facility] DIAGNOSTIC LTon 06-09-19 21 [facility] DIAGNOSTIC LT Final Report SEE BOTTOM OF REPORT FOR ADDENDED TEXT DATE OF EXAM: Jun 09 2020 10:45AM AAW 0621 - [facility] DIAGNOSTIC LT / PROCEDURE REASON: Left breast mass Physician Interpretation FINAL REPORT #[id number] - [facility] US BIOPSY BREAST LT #[id number] - [facility] DIAGNOSTIC LT ULTRASOUND GUIDED BIOPSY LEFT BREAST WITH MARKING DEVICE INSERTED AND POST DIGITAL MAMMOGRAPHIC AND ULTRASOUND IMAGIN06/09/2020 HISTORY: The patient presents for ultrasound-guided left breast biopsy. Pre and post fire sonographic images were obtained and stored in permanent archive. Left Breast Mass Post breast biopsy clip placement. PATIENT CONSENT: A time out was performed immediately prior to procedure start with the nursing and radiology team, correctly identifying the patient name, date of , procedure, anatomy (including marking of site and side), patient position, relevant diagnostic and radiology test results, safety precautions, and procedure-specific equipment needs. The procedure was explained to the patient including the risks, benefits and alternatives. Medications were also reviewed. The risks, including but not limited to infection and bleeding, were reviewed by the performing physician and the patient agreed to undergo the procedure. Dr. Cole and a radiology specialist were present throughout the entire procedure. Audible Time Out Time: 1007 Procedure Start Time: 1008 Procedure Stop Time: 1012 Dr. Cole performed the entire procedure without an assistant production manager. PROCEDURE: Correlation is made to exams dated: 05/26/2020 ultrasound, 05/26/2020 mammogram - [facility], and 04/22/2020 mammogram. An ultrasound guided biopsy using real-time ultrasound was performed for the concerning irregular shaped mass located in the left breast at 3 o'clock middle depth. This was described on the previous mammography and ultrasound reports. The skin was prepped in the usual manner. Local anesthetic was administered to the access site. A skin levi was made in the breast. The abnormality was approached from the lateral aspect. A 14 gauge biopsy needle was placed adjacent to the abnormality under ultrasound guidance. Once the needle was documented to be in the correct location, three cores were obtained using a BARD biopsy device. A coil type clip was inserted into the biopsy cavity. A skin closure strip and a sterile dressing were applied to the access site. Post procedure digital mammographic and ultrasound imaging demonstrates the location device at the targeted area. The specimens were sent to the laboratory for pathological analysis. IMPRESSION: ULTRASOUND GUIDED BIOPSY MALIGNANT Ultrasound guided biopsy of the mass in the left breast at 3 o'clock middle depth was successful with no apparent post procedure complications. Pathology indicates malignant invasive ductal carcinoma (ID). Pathology results are concordant with imaging findings. A surgical consultation is recommended. SUMMARY: Pathology results are as follows: FINAL DIAGNOSIS A) Breast, left 3 o'clock 5 cm FN, core needle biopsy - Invasive ductal carcinoma with provisional grade 3 nuclei. The patient is under the care of Dr. Latham for surgical management of the above newly diagnosed breast carcinoma. Note that calcifications span approximately 9.6 cm maximally and extend to a retracted left nipple. Shahana vinson/vielka:06/16/2020 08:59:53 Prototype Special Build(s): Kong Aquino(R)(M), [facility] [employer] [facility]; Delfina Hairston RT, [employer] [facility] Multiple national specialty organizations have released breast cancer screening guidelines for women at average risk for developing breast cancer - guidelines that are based on both evidence and opinion, yet differ on when to start and how often to screen for breast cancer. With representation from Breast Imaging, Internal Medicine, Women's Health, Family Medicine, and Medical/Surgical Oncology, the [facility] has carefully reviewed the data and reached the following consensus: 1) All women should engage in shared decision-making with their providers to decide when to start and how often to screen; 2) All women should have the opportunity to start screening mammography at age 40; 3) For women ages 45-55, we recommend annual screening mammograms; 4) For women ages 55 and over, we support both the transition from an annual to a biennial interval if this aligns more with patient's values and preferences, or continuation with annual screening; 5) All women should discuss with their providers when to stop screening mammograms. Lime Kiln Operator: Vielka Transcribe Date/Time: Jun 09 2020 9:31A Dictated by : SHAHANA COLE MD This examination was interpreted and the report reviewed and electronically signed by: SHAHANA COLE MD on Jun 09 2020 1:50PM EST This document has been addended by: SHAHANA COLE MD on Jun 16 (more content not included)... Normal [facility] US BIOPSY AXILLA LTon [facility] US BIOPSY AXILLA LT Final Report SEE BOTTOM OF REPORT FOR ADDENDED TEXT DATE OF EXAM: Jun 09 2020 10:42AM AAW 0601 - [facility] US BIOPSY AXILLA LT / PROCEDURE REASON: Left breast mass Physician Interpretation FINAL REPORT #[id number] - [facility] US BIOPSY AXILLA LT #[id number] - [facility] US CLIP [facility] LT ULTRASOUND GUIDED BIOPSY LEFT BREAST WITH MARKING DEVICE INSERTED AND POST DIGITAL MAMMOGRAPHIC AND ULTRASOUND IMAGIN06/09/2020 HISTORY: Left Breast Mass\ Patient presents for an ultrasound guided biopsy of left axillary lymph node. Left Breast Mass\ Patient presents for an ultrasound guided biopsy of left axillary lymph node. PATIENT CONSENT: A time out was performed immediately prior to procedure start with the nursing and radiology team, correctly identifying the patient name, date of , procedure, anatomy (including marking of site and side), patient position, relevant diagnostic and radiology test results, safety precautions, and procedure-specific equipment needs. The procedure was explained to the patient including the risks, benefits and alternatives. Medications were also reviewed. The risks, including but not limited to infection and bleeding, were reviewed by the performing physician and the patient agreed to undergo the procedure. Dr. Cole and a radiology specialist were present throughout the entire procedure. Audible Time Out Time: 1007 Procedure Start Time: 1015 Procedure Stop Time: 1019 Dr. Cole performed the entire procedure without an assistant production manager. PROCEDURE: Correlation is made to exams dated: 05/26/2020 mammogram and 05/26/2020 ultrasound - [facility]. An ultrasound guided biopsy using real-time ultrasound was performed for the concerning lymph node located in the left axilla. This was described on the previous mammography report. The skin was prepped in the usual manner. Local anesthetic was administered to the access site. A skin levi was made in the breast. The abnormality was approached from the lateral aspect. A 14 gauge biopsy needle was placed adjacent to the abnormality under ultrasound guidance. Once the needle was documented to be in the correct location, three cores were obtained using a BARD biopsy device. A Q clip was inserted into the biopsy cavity. A skin closure strip and a sterile dressing were applied to the access site. Post procedure digital mammographic and ultrasound imaging demonstrates the location device at the targeted area. The specimens were sent to the laboratory for pathological analysis. IMPRESSION: ULTRASOUND GUIDED BIOPSY MALIGNANT Ultrasound guided biopsy of the lymph node in the left axilla was successful with no apparent post procedure complications. 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 Pathology results are concordant with imaging findings. A surgical consultation is recommended. SUMMARY: Pathology results are as follows: FINAL DIAGNOSIS B) Lymph node, left axilla, biopsy - Fragments of lymph node positive for metastatic carcinoma (approximately 3 mm in greatest dimension). The patient is under the care of Dr. Latham for surgical management of the above newly diagnosed breast carcinoma. Note that malignant calcifications span approximately 9.6 cm maximally and extend to a retracted left nipple. Shahana vinson/vielka:06/16/2020 09:00:57 Prototype Special Build(s): Delfina Hairston RT, [employer] [facility] Multiple national specialty organizations have released breast cancer screening guidelines for women at average risk for developing breast cancer - guidelines that are based on both evidence and opinion, yet differ on when to start and how often to screen for breast cancer. With representation from Breast Imaging, Internal Medicine, Women's Health, Family Medicine, and Medical/Surgical Oncology, the [facility] has carefully reviewed the data and reached the following consensus: 1) All women should engage in shared decision-making with their providers to decide when to start and how often to screen; 2) All women should have the opportunity to start screening mammography at age 40; 3) For women ages 45-55, we recommend annual screening mammograms; 4) For women ages 55 and over, we support both the transition from an annual to a biennial interval if this aligns more with patient's values and preferences, or continuation with annual screening; 5) All women should discuss with their providers when to stop screening mammograms. Lime Kiln Operator: Vielka Transcribe Date/Time: Jun 09 2020 9:31A Dictated by : SHAHANA COLE MD This examination was interpreted and the report reviewed and electronically signed by: SHAHANA COLE MD on Jun 09 2020 1:54PM EST This document has been addended by: SHAHANA COLE MD on Jun 16 2020 9:00AM EST Normal [facility] US BIOPSY BREAST LTon [facility] US BIOPSY BREAST LT Final Report SEE BOTTOM OF REPORT FOR ADDENDED TEXT DATE OF EXAM: Jun 09 2020 10:41AM AAW 0597 - [facility] US BIOPSY BREAST LT / PROCEDURE REASON: Left breast mass Physician Interpretation FINAL REPORT #[id number] - [facility] US BIOPSY BREAST LT #[id number] - [facility] DIAGNOSTIC LT ULTRASOUND GUIDED BIOPSY LEFT BREAST WITH MARKING DEVICE INSERTED AND POST DIGITAL MAMMOGRAPHIC AND ULTRASOUND IMAGIN06/09/2020 HISTORY: The patient presents for ultrasound-guided left breast biopsy. Pre and post fire sonographic images were obtained and stored in permanent archive. Left Breast Mass Post breast biopsy clip placement. PATIENT CONSENT: A time out was performed immediately prior to procedure start with the nursing and radiology team, correctly identifying the patient name, date of , procedure, anatomy (including marking of site and side), patient position, relevant diagnostic and radiology test results, safety precautions, and procedure-specific equipment needs. The procedure was explained to the patient including the risks, benefits and alternatives. Medications were also reviewed. The risks, including but not limited to infection and bleeding, were reviewed by the performing physician and the patient agreed to undergo the procedure. Dr. Cole and a radiology specialist were present throughout the entire procedure. Audible Time Out Time: 1007 Procedure Start Time: 1008 Procedure Stop Time: 1012 Dr. Cole performed the entire procedure without an assistant production manager. PROCEDURE: Correlation is made to exams dated: 05/26/2020 ultrasound, 05/26/2020 mammogram - [facility], and 04/22/2020 mammogram. An ultrasound guided biopsy using real-time ultrasound was performed for the concerning irregular shaped mass located in the left breast at 3 o'clock middle depth. This was described on the previous mammography and ultrasound reports. The skin was prepped in the usual manner. Local anesthetic was administered to the access site. A skin levi was made in the breast. The abnormality was approached from the lateral aspect. A 14 gauge biopsy needle was placed adjacent to the abnormality under ultrasound guidance. Once the needle was documented to be in the correct location, three cores were obtained using a BARD biopsy device. A coil type clip was inserted into the biopsy cavity. A skin closure strip and a sterile dressing were applied to the access site. Post procedure digital mammographic and ultrasound imaging demonstrates the location device at the targeted area. The specimens were sent to the laboratory for pathological analysis. IMPRESSION: ULTRASOUND GUIDED BIOPSY MALIGNANT Ultrasound guided biopsy of the mass in the left breast at 3 o'clock middle depth was successful with no apparent post procedure complications. Pathology indicates malignant invasive ductal carcinoma (ID). Pathology results are concordant with imaging findings. A surgical consultation is recommended. SUMMARY: Pathology results are as follows: FINAL DIAGNOSIS A) Breast, left 3 o'clock 5 cm FN, core needle biopsy - Invasive ductal carcinoma with provisional grade 3 nuclei. The patient is under the care of Dr. Latahm for surgical management of the above newly diagnosed breast carcinoma. Note that calcifications span approximately 9.6 cm maximally and extend to a retracted left nipple. Shahana vinson/vielka:06/16/2020 08:59:53 Prototype Special Build(s): Kong Aquino(R)(M), [employer]; Delfina Hairston RT, [facility] Multiple national specialty organizations have released breast cancer screening guidelines for women at average risk for developing breast cancer - guidelines that are based on both evidence and opinion, yet differ on when to start and how often to screen for breast cancer. With representation from Breast Imaging, Internal Medicine, Women's Health, Family Medicine, and Medical/Surgical Oncology, the [facility] has carefully reviewed the data and reached the following consensus: 1) All women should engage in shared decision-making with their providers to decide when to start and how often to screen; 2) All women should have the opportunity to start screening mammography at age 40; 3) For women ages 45-55, we recommend annual screening mammograms; 4) For women ages 55 and over, we support both the transition from an annual to a biennial interval if this aligns more with patient's values and preferences, or continuation with annual screening; 5) All women should discuss with their providers when to stop screening mammograms. Lime Kiln Operator: Vielka Transcribe Date/Time: Jun 09 2020 9:31A Dictated by : SHAHANA COLE MD This examination was interpreted and the report reviewed and electronically signed by: SHAHANA COLE MD on Jun 09 2020 1:50PM EST This document has been addended by: SHAHANA COLE MD on May (more content not included)... Normal [facility] LTon 06-09 [facility] LT Final Report SEE BOTTOM OF REPORT FOR ADDENDED TEXT DATE OF EXAM: Jun 09 2020 10:42AM AAW 0603 - [facility] US CLIP [facility] LT / PROCEDURE REASON: Left breast mass Physician Interpretation FINAL REPORT #[id number] - [facility] US BIOPSY AXILLA LT #[id number] - [facility] US CLIP [facility] LT ULTRASOUND GUIDED BIOPSY LEFT BREAST WITH MARKING DEVICE INSERTED AND POST DIGITAL MAMMOGRAPHIC AND ULTRASOUND IMAGIN06/09/2020 HISTORY: Left Breast Mass\ Patient presents for an ultrasound guided biopsy of left axillary lymph node. Left Breast Mass\ Patient presents for an ultrasound guided biopsy of left axillary lymph node. PATIENT CONSENT: A time out was performed immediately prior to procedure start with the nursing and radiology team, correctly identifying the patient name, date of , procedure, anatomy (including marking of site and side), patient position, relevant diagnostic and radiology test results, safety precautions, and procedure-specific equipment needs. The procedure was explained to the patient including the risks, benefits and alternatives. Medications were also reviewed. The risks, including but not limited to infection and bleeding, were reviewed by the performing physician and the patient agreed to undergo the procedure. Dr. Cole and a radiology specialist were present throughout the entire procedure. Audible Time Out Time: 1007 Procedure Start Time: 1015 Procedure Stop Time: 1019 Dr. Cole performed the entire procedure without an assistant production manager. PROCEDURE: Correlation is made to exams dated: 05/26/2020 mammogram and 05/26/2020 ultrasound - [facility]. An ultrasound guided biopsy using real-time ultrasound was performed for the concerning lymph node located in the left axilla. This was described on the previous mammography report. The skin was prepped in the usual manner. Local anesthetic was administered to the access site. A skin levi was made in the breast. The abnormality was approached from the lateral aspect. A 14 gauge biopsy needle was placed adjacent to the abnormality under ultrasound guidance. Once the needle was documented to be in the correct location, three cores were obtained using a BARD biopsy device. A Q clip was inserted into the biopsy cavity. A skin closure strip and a sterile dressing were applied to the access site. Post procedure digital mammographic and ultrasound imaging demonstrates the location device at the targeted area. The specimens were sent to the laboratory for pathological analysis. IMPRESSION: ULTRASOUND GUIDED BIOPSY MALIGNANT Ultrasound guided biopsy of the lymph node in the left axilla was successful with no apparent post procedure complications. 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 Pathology results are concordant with imaging findings. A surgical consultation is recommended. SUMMARY: Pathology results are as follows: FINAL DIAGNOSIS B) Lymph node, left axilla, biopsy - Fragments of lymph node positive for metastatic carcinoma (approximately 3 mm in greatest dimension). The patient is under the care of Dr. Latham for surgical management of the above newly diagnosed breast carcinoma. Note that malignant calcifications span approximately 9.6 cm maximally and extend to a retracted left nipple. Shahana vinson/vielka:06/16/2020 09:00:57 Prototype Special Build(s): Delfina Hairston RT, [employer] [facility] Multiple national specialty organizations have released breast cancer screening guidelines for women at average risk for developing breast cancer - guidelines that are based on both evidence and opinion, yet differ on when to start and how often to screen for breast cancer. With representation from Breast Imaging, Internal Medicine, Women's Health, Family Medicine, and Medical/Surgical Oncology, the [facility] has carefully reviewed the data and reached the following consensus: 1) All women should engage in shared decision-making with their providers to decide when to start and how often to screen; 2) All women should have the opportunity to start screening mammography at age 40; 3) For women ages 45-55, we recommend annual screening mammograms; 4) For women ages 55 and over, we support both the transition from an annual to a biennial interval if this aligns more with patient's values and preferences, or continuation with annual screening; 5) All women should discuss with their providers when to stop screening mammograms. Lime Kiln Operator: Vielka Transcribe Date/Time: Jun 09 2020 9:31A Dictated by : SHAHANA COLE MD This examination was interpreted and the report reviewed and electronically signed by: SHAHANA COLE MD on Jun 09 2020 1:54PM EST This document has been addended by: SHAHANA COLE MD on Jun 16 2020 9:00AM EST Normal [facility] DIAGNOSTIC LTon 05-26-19 21 [facility] DIAGNOSTIC LT Final Report DATE OF EXAM: May 26 2020 3:55PM AAW 0621 - [facility] DIAGNOSTIC LT / PROCEDURE REASON: Abnormal mammogram Physician Interpretation #[id number] - [facility] DIAGNOSTIC LT #[id number] - [facility] US BREAST LTD LT UNILATERAL LEFT DIGITAL DIAGNOSTIC MAMMOGRAM WITH CAD: 05/26/2020 HISTORY: Abnormal Mammogram\ Patient returns for abnormal left mammogram. Abnormal Mammogram/ Followup abnormal mammogram. RESULT: TECHNIQUE: The study was acquired using full field digital technology and interpreted from soft copy. Current study was also evaluated with a Computer Aided Detection (CAD). Comparison is made to exams dated: 04/22/2020 mammogram and 01/03/2019 mammogram. The tissue of left breast is predominantly fatty. There are a segmental pleomorphic calcifications in the left breast at 2 o'clock middle depth. There also is 1.5 cm irregular mass in the left breast at 3 o'clock middle depth. There is architectural distortion associated with the mass. No other significant masses or calcifications are seen in the breast. IMPRESSION: HIGHLY SUGGESTIVE OF MALIGNANCY - APPROPRIATE ACTION SHOULD BE TAKEN The segmental pleomorphic calcifications in the left breast at 2 o'clock middle depth resemble DCIS and are highly suggestive of malignancy. A surgical consult is recommended. The calcifications extend throughout an area measuring up to 9 cm anterior to posterior and 7 cm transverse. A few of the calcifications are within the subareolar region. There appears to be nipple retraction. The 1.5 cm irregular mass in the left breast at 3 o'clock middle depth resembles carcinoma and is highly suggestive of malignancy. An ultrasound guided biopsy is recommended. The mass is within the region of calcifications. LIMITED ULTRASOUND OF BOTH BREASTS: 05/26/2020 RESULT: Comparison is made to exams dated: 04/22/2020 mammogram and 01/03/2019 mammogram. Ultrasound of the right breast and ultrasound of the left breast 3 o'clock region was performed. Hoffmann scale images of the real-time examination were reviewed. There is 1.2 cm x 1.4 cm x 0.7 cm irregular mass in the left breast at 3 o'clock middle depth 5 cm from the nipple. There also is a lymph node with uniform cortical thickening in the left axillary tail. This correlates with mammography findings. IMPRESSION: HIGHLY SUGGESTIVE OF MALIGNANCY - APPROPRIATE ACTION SHOULD BE TAKEN The 1.2 cm x 1.4 cm x 0.7 cm irregular mass in the left breast at 3 o'clock middle depth resembles carcinoma and is highly suggestive of malignancy. An ultrasound guided biopsy is recommended. This is within the area of calcifications. There are vague areas of abnormal appearing tissue surrounding the mass. The lymph node with uniform cortical thickening in the left axillary tail is consistent with an enlarged lymph node and is at a moderate suspicion for malignancy. An ultrasound guided biopsy is recommended. SUMMARY: Ultrasound biopsy of the mass and the lymph node are recommended. This will likely be sufficient for diagnosis. If extent of disease needs to be established, a stereotactic biopsy could also be considered. William mayes/vielka:05/26/2020 17:01:27 Multiple national specialty organizations have released breast cancer screening guidelines for women at average risk for developing breast cancer - guidelines that are based on both evidence and opinion, yet differ on when to start and how often to screen for breast cancer. With representation from Breast Imaging, Internal Medicine, Women's Health, Family Medicine, and Medical/Surgical Oncology, the [facility] has carefully reviewed the data and reached the following consensus: 1) All women should engage in shared decision-making with their providers to decide when to start and how often to screen; 2) All women should have the opportunity to start screening mammography at age 40; 3) For women ages 45-55, we recommend annual screening mammograms; 4) For women ages 55 and over, we support both the transition from an annual to a biennial interval if this aligns more with patient's values and preferences, or continuation with annual screening; 5) All women should discuss with their providers when to stop screening mammograms. Prototype Special Build(s): Zora Gaytan, [facility], [employer] Program Director Center; Elizabeth Michele, RT(R)(M), [employer] Program Director Center OVERALL STUDY BIRADS: 5 Highly suggestive of malignancy - Appropriate action should be taken Lime Kiln Operator: Vielka Transcribe Date/Time: May 26 2020 3:24P Dictated by : WILLIAM PETERS MD This examination was interpreted and the report reviewed and electronically signed by: WILLIAM PETERS MD on May 26 2020 5:01PM EST Normal [facility] [employer] LTon 05-26 [employer] Final Report DATE OF EXAM: May 26 2020 4:35PM [id number] - [employer] / PROCEDURE REASON: Abnormal mammogram Physician Interpretation #[id number] - [facility] #[id number] - [facility] [employer] LT UNILATERAL LEFT DIGITAL DIAGNOSTIC MAMMOGRAM WITH CAD: 05/26/2020 HISTORY: Abnormal Mammogram\ Patient returns for abnormal left mammogram. Abnormal Mammogram/ Followup abnormal mammogram. RESULT: TECHNIQUE: The study was acquired using full field digital technology and interpreted from soft copy. Current study was also evaluated with a Computer Aided Detection (CAD). Comparison is made to exams dated: 04/22/2020 mammogram and 01/03/2019 mammogram. The tissue of left breast is predominantly fatty. There are a segmental pleomorphic calcifications in the left breast at 2 o'clock middle depth. There also is 1.5 cm irregular mass in the left breast at 3 o'clock middle depth. There is architectural distortion associated with the mass. No other significant masses or calcifications are seen in the breast. IMPRESSION: HIGHLY SUGGESTIVE OF MALIGNANCY - APPROPRIATE ACTION SHOULD BE TAKEN The segmental pleomorphic calcifications in the left breast at 2 o'clock middle depth resemble DCIS and are highly suggestive of malignancy. A surgical consult is recommended. The calcifications extend throughout an area measuring up to 9 cm anterior to posterior and 7 cm transverse. A few of the calcifications are within the subareolar region. There appears to be nipple retraction. The 1.5 cm irregular mass in the left breast at 3 o'clock middle depth resembles carcinoma and is highly suggestive of malignancy. An ultrasound guided biopsy is recommended. The mass is within the region of calcifications. LIMITED ULTRASOUND OF BOTH BREASTS: 05/26/2020 RESULT: Comparison is made to exams dated: 04/22/2020 mammogram and 01/03/2019 mammogram. Ultrasound of the right breast and ultrasound of the left breast 3 o'clock region was performed. Hoffmann scale images of the real-time examination were reviewed. There is 1.2 cm x 1.4 cm x 0.7 cm irregular mass in the left breast at 3 o'clock middle depth 5 cm from the nipple. There also is a lymph node with uniform cortical thickening in the left axillary tail. This correlates with mammography findings. IMPRESSION: HIGHLY SUGGESTIVE OF MALIGNANCY - APPROPRIATE ACTION SHOULD BE TAKEN The 1.2 cm x 1.4 cm x 0.7 cm irregular mass in the left breast at 3 o'clock middle depth resembles carcinoma and is highly suggestive of malignancy. An ultrasound guided biopsy is recommended. This is within the area of calcifications. There are vague areas of abnormal appearing tissue surrounding the mass. The lymph node with uniform cortical thickening in the left axillary tail is consistent with an enlarged lymph node and is at a moderate suspicion for malignancy. An ultrasound guided biopsy is recommended. SUMMARY: Ultrasound biopsy of the mass and the lymph node are recommended. This will likely be sufficient for diagnosis. If extent of disease needs to be established, a stereotactic biopsy could also be considered. William mayes/vielka:05/26/2020 17:01:27 Multiple national specialty organizations have released breast cancer screening guidelines for women at average risk for developing breast cancer - guidelines that are based on both evidence and opinion, yet differ on when to start and how often to screen for breast cancer. With representation from Breast Imaging, Internal Medicine, Women's Health, Family Medicine, and Medical/Surgical Oncology, the [facility] has carefully reviewed the data and reached the following consensus: 1) All women should engage in shared decision-making with their providers to decide when to start and how often to screen; 2) All women should have the opportunity to start screening mammography at age 40; 3) For women ages 45-55, we recommend annual screening mammograms; 4) For women ages 55 and over, we support both the transition from an annual to a biennial interval if this aligns more with patient's values and preferences, or continuation with annual screening; 5) All women should discuss with their providers when to stop screening mammograms. Prototype Special Build(s): Zora Gaytan RDMS, [employer] Program Director Center; RT Bhaskar(R)(M), [employer] Program Director Center OVERALL STUDY BIRADS: 5 Highly suggestive of malignancy - Appropriate action should be taken Lime Kiln Operator: Vielka Transcribe Date/Time: May 26 2020 3:24P Dictated by : WILLIAM PETERS MD This examination was interpreted and the report reviewed and electronically signed by: WILLIAM PETERS MD on May 26 2020 5:01PM EST Normal [facility] Vital Signs Date Time Vital Sign Value Performing Clinician Facility 10-27-2024 15:-0400 Body mass index (BMI) [Ratio] 25.02 kg/m2 Elizabeth Linton MD Work Phone: [facility] 10-27-2024 15:0 Body weight 63.05 kg Elizabeth Linton MD Work Phone: [facility] 10-27-2024 15:27-0400 Diastolic blood pressure 79 mm[Hg] Elizabeth Linton MD Work Phone: [facility] 10-27-2024 15:27-0400 Heart rate 65 /min Elizabeth Linton MD Work Phone: [facility] 10-27-2024 15:27-0400 Systolic blood pressure 181 mm[Hg] Elizabeth Linton MD Work Phone: [facility] 10-24-2024 10:03-0400 Body mass index (BMI) [Ratio] 25.2 kg/m2 Irais Peñaloza MARINE DRILLER.PRODUCTION ILLUSTRATOR Work Phone: [facility] 10-24-2024 10:03-0400 Body temperature 98.4 [degF] Irais Peñaloza MARINE DRILLER.PRODUCTION ILLUSTRATOR Work Phone: [facility] 10-24-2024 10:03-0400 Body weight 63.5 kg Irais Peñaloza MARINE DRILLER.PRODUCTION ILLUSTRATOR Work Phone: [facility] 10-24-2024 10:03-0400 Diastolic blood pressure 75 mm[Hg] Irais Peñaloza MARINE DRILLER.PRODUCTION ILLUSTRATOR Work Phone: [facility] 10-24-2024 10:03-0400 Heart rate 69 /min Irais Peñaloza MARINE DRILLER.PRODUCTION ILLUSTRATOR Work Phone: [facility] 10-24-2024 10:03-0400 SaO2% (BldA) [Mass fraction] 95 % Irais Peñaloza MARINE DRILLER.PRODUCTION ILLUSTRATOR Work Phone: [facility] 10-24-2024 10:03-0400 Systolic blood pressure 172 mm[Hg] Irais Peñaloza MARINE DRILLER.PRODUCTION ILLUSTRATOR Work Phone: [facility] 08-25-2024 07:58-0400 Body height 158.8 cm Pac 1 Work Phone: [facility] 08-25-2024 07:58-0400 Body mass index (BMI) [Ratio] 25.56 kg/m2 [facility] 1 Work Phone: [facility] 08-25-2024 07:58-0400 Body temperature 97 [degF] Pacc 1 Work Phone: [facility] 08-25-2024 07:58-0400 Body weight 64.41 kg Pacc 1 Work Phone: [facility] 08-25-2024 07:58-0400 Diastolic blood pressure 68 mm[Hg] Pacc 1 Work Phone: [facility] 08-25-2024 07:58-0400 Heart rate 71 /min Pacc 1 Work Phone: [facility] 08-25-2024 07:58-0400 Respiratory rate 14 /min Pacc 1 Work Phone: [facility] 08-25-2024 07:58-0400 SaO2% (BldA) [Mass fraction] 98 % Pacc 1 Work Phone: [facility] 08-25-2024 07:58-0400 Systolic blood pressure 140 mm[Hg] Pacc 1 Work Phone: [facility] 08-21-2024 14:16-0400 Body height 157.5 cm Elizabeth Linton MD Work Phone: [facility] 08-21-2024 14:16-0400 Body mass index (BMI) [Ratio] 26.45 kg/m2 Elizabeth Linton MD Work Phone: [facility] 08-21-2024 14:16-0400 Body weight 65.6 kg Elizabeth Linton MD Work Phone: [facility] 08-21-2024 14:16-0400 Diastolic blood pressure 82 mm[Hg] Elizabeth Linton MD Work Phone: [facility] Comment on above: patient notes being anxious about testin g. denies cardiac symptoms 08-21-2024 14:16-0400 Systolic blood pressure 196 mm[Hg] Elizabeth Linton MD Work Phone: [facility] Comment on above: patient notes being anxious about testin g. denies cardiac symptoms 07-28-2024 14:03-0400 Body height 160 cm Elizabeth Linton MD Work Phone: [facility] 07-28-2024 14:03-0400 Body mass index (BMI) [Ratio] 26.17 kg/m2 Elizabeth Linton MD Work Phone: [facility] 07-28-2024 14:03-0400 Body weight 67 kg Elizabeth Linton MD Work Phone: [facility] 07-28-2024 14:03-0400 Diastolic blood pressure 64 mm[Hg] Elizabeth Linton MD Work Phone: [facility] 07-28-2024 14:03-0400 Systolic blood pressure 185 mm[Hg] Elizabeth Linton MD Work Phone: [facility] 04-25-2024 09:46-0500 Body mass index (BMI) [Ratio] 26.42 kg/m2 Irais Peñaloza MARINE DRILLER.PRODUCTION ILLUSTRATOR Work Phone: [facility] 04-25-2024 09:46-0500 Body temperature 97.5 [degF] Irais Peñaloza MARINE DRILLER.PRODUCTION ILLUSTRATOR Work Phone: [facility] 04-25-2024 09:46-0500 Body weight 66.8 kg Irais Peñaloza MARINE DRILLER.PRODUCTION ILLUSTRATOR Work Phone: [facility] 04-25-2024 09:46-0500 Diastolic blood pressure 76 mm[Hg] Irais Peñaloza MARINE DRILLER.PRODUCTION ILLUSTRATOR Work Phone: [facility] 04-25-2024 09:46-0500 Heart rate 69 /min Irais Peñlaoza MARINE DRILLER.PRODUCTION ILLUSTRATOR Work Phone: [facility] 04-25-2024 09:46-0500 SaO2% (BldA) [Mass fraction] 99 % Irais Peñaloza MARINE DRILLER.PRODUCTION ILLUSTRATOR Work Phone: [facility] 04-25-2024 09:46-0500 Systolic blood pressure 190 mm[Hg] Irais Peñaloza MARINE DRILLER.PRODUCTION ILLUSTRATOR Work Phone: [facility] 10-26-2023 10:37-0400 Body mass index (BMI) [Ratio] 26.63 kg/m2 Bluff Peñaloza MARINE DRILLER.PRODUCTION ILLUSTRATOR Work Phone: [facility] 10-26-2023 10:37-0400 Body temperature 98.1 [degF] Irais Peñaloza MARINE DRILLER.PRODUCTION ILLUSTRATOR Work Phone: [facility] 10-26-2023 10:37-0400 Body weight 67.31 kg [place] Peñaloza MARINE DRILLER.PRODUCTION ILLUSTRATOR Work Phone: [facility] 10-26-2023 10:37-0400 Diastolic blood pressure 76 mm[Hg] [place] Peñaloza MARINE DRILLER.PRODUCTION ILLUSTRATOR Work Phone: [facility] 10-26-2023 10:37-0400 Heart rate 55 /min Irais Peñaloza MARINE DRILLER.PRODUCTION ILLUSTRATOR Work Phone: [facility] 10-26-2023 10:37-0400 SaO2% (BldA) [Mass fraction] 99 % [place] Peñaloza MARINE DRILLER.PRODUCTION ILLUSTRATOR Work Phone: [facility] 10-26-2023 10:37-0400 Systolic blood pressure 163 mm[Hg] [place] Peñaloza MARINE DRILLER.PRODUCTION ILLUSTRATOR Work Phone: [facility] 04-26-2023 11:05-0500 Body temperature 97.59 [degF] [place] Peñaloza MARINE DRILLER.PRODUCTION ILLUSTRATOR Work Phone: [facility] 04-26-2023 11:05-0500 Body weight 69.4 kg [place] Peñaloza MARINE DRILLER.PRODUCTION ILLUSTRATOR Work Phone: [facility] 04-26-2023 11:05-0500 Heart rate 65 /min Irais Peñaloza MARINE DRILLER.PRODUCTION ILLUSTRATOR Work Phone: [facility] 10-25-2022 10:48-0400 Body height 159 cm Bl[place] Peñaloza MARINE DRILLER.PRODUCTION ILLUSTRATOR Work Phone: [facility] 10-25-2022 10:48-0400 Body temperature 98.49 [degF] Irais Peñaloza MARINE DRILLER.PRODUCTION ILLUSTRATOR Work Phone: [facility] 10-25-2022 10:48-0400 Body weight 67.59 kg Irais Peñaloza MARINE DRILLER.PRODUCTION ILLUSTRATOR Work Phone: [facility] 10-25-2022 10:48-0400 Diastolic blood pressure 78 mm[Hg] Bluff Peñaloza MARINE DRILLER.PRODUCTION ILLUSTRATOR Work Phone: [facility] 10-25-2022 10:48-0400 Heart rate 67 /min Irais Peñaloza MARINE DRILLER.PRODUCTION ILLUSTRATOR Work Phone: [facility] 10-25-2022 10:48-0400 SaO2% (BldA) [Mass fraction] 99 % [place] Peñaloza MARINE DRILLER.PRODUCTION ILLUSTRATOR Work Phone: [facility] 10-25-2022 10:48-0400 Systolic blood pressure 170 mm[Hg] Irais Peñaloza MARINE DRILLER.PRODUCTION ILLUSTRATOR Work Phone: [facility] 04-26-2022 10:22-0500 Body temperature 98.49 [degF] Irais Peñaloza MARINE DRILLER.PRODUCTION ILLUSTRATOR Work Phone: [facility] 04-26-2022 10:22-0500 Body weight 66.91 kg Irais Peñaloza MARINE DRILLER.PRODUCTION ILLUSTRATOR Work Phone: [facility] 04-26-2022 10:22-0500 Diastolic blood pressure 92 mm[Hg] Irais Peñaloza MARINE DRILLER.PRODUCTION ILLUSTRATOR Work Phone: [facility] 04-26-2022 10:22-0500 Heart rate 74 /min [place] Peñaloza MARINE DRILLER.PRODUCTION ILLUSTRATOR Work Phone: [facility] 04-26-2022 10:22-0500 Respiratory rate 16 /min Irais Peñaloza MARINE DRILLER.PRODUCTION ILLUSTRATOR Work Phone: [facility] 04-26-2022 10:22-0500 SaO2% (BldA) [Mass fraction] 100 % Irais Peñaloza MARINE DRILLER.PRODUCTION ILLUSTRATOR Work Phone: [facility] 04-26-2022 10:22-0500 Systolic blood pressure 169 mm[Hg] Irais Peñaloza MARINE DRILLER.PRODUCTION ILLUSTRATOR Work Phone: [facility] 10-26-2021 10:25-0400 Body temperature 97.59 [degF] Irais Peñaloza MARINE DRILLER.PRODUCTION ILLUSTRATOR Work Phone: [facility] 10-26-2021 10:25-0400 Body weight 65.55 kg [place] Peñaloza MARINE DRILLER.PRODUCTION ILLUSTRATOR Work Phone: [facility] 10-26-2021 10:25-0400 Diastolic blood pressure 72 mm[Hg] [place] Peñaloza MARINE DRILLER.PRODUCTION ILLUSTRATOR Work Phone: [facility] 10-26-2021 10:25-0400 Heart rate 64 /min Irais Peñaloza MARINE DRILLER.PRODUCTION ILLUSTRATOR Work Phone: [facility] 10-26-2021 10:25-0400 SaO2% (BldA) [Mass fraction] 98 % [place] Peñaloza MARINE DRILLER.PRODUCTION ILLUSTRATOR Work Phone: [facility] 10-26-2021 10:25-0400 Systolic blood pressure 143 mm[Hg] Irais Peñaloza MARINE DRILLER.PRODUCTION ILLUSTRATOR Work Phone: [facility] 08-17-2021 10:45-0400 Diastolic blood pressure 66 mm[Hg] Elizabeth Roberts MARINE DRILLER.PRODUCTION ILLUSTRATOR Work Phone: [facility] 08-17-2021 10:45-0400 Systolic blood pressure 176 mm[Hg] Elizabeth Roberts MARINE DRILLER.PRODUCTION ILLUSTRATOR Work Phone: [facility] 08-17-2021 09:54-0400 Body height 160 cm Elizabeth Roberts MARINE DRILLER.PRODUCTION ILLUSTRATOR Work Phone: [facility] 08-17-2021 09:54-0400 Body weight 65.32 kg Elizabeth Roberts MARINE DRILLER.PRODUCTION ILLUSTRATOR Work Phone: [facility] 08-17-2021 09:54-0400 Heart rate 67 /min Elizabeth Roberts MARINE DRILLER.PRODUCTION ILLUSTRATOR Work Phone: [facility] Encounters Encounter Date Encounter Type Care Provider Facility Start: 12-01-2024 ambulatory Odilon Serrano Facility:[facility] Start: 11-27-2024 ambulatory Sarthak Louie ty:[facility] Start: 11-27-2024 Encounter for other preprocedural examination Sarthak Browning [facility] Start: 11-17-2024 ambulatory Odilon Serrano Facility:[facility] Start: 11-14-2024 End: 11-18-[address] ODILON SERRANO DO [facility] Start: 11-14-2024 End: 11-18-[address] ODILON SERRANO DO [facility] Start: 11-14-2024 End: 11-14-[address] ODILON SERRANO DO [facility] Start: 11-14-2024 End: 11-14-[address] ODILON SERRANO DO [facility] Start: 10-27-2024 End: 10-27-2024 Patient encounter procedure Elizabeth Linton MD Work Phone: Urogynecology Comment on above: Post-operative state (Primary Dx); Encounter for surgical aftercare following surgery on the genitourinary system Start: 10-27-2024 End: 10-27-2024 ambulatory ODILON SERRANO Facility[facility] [facility] Start: 10-24-2024 End: 10-24-2024 Follow-up encounter Irais Peñaloza APRN.CNP Work Phone: Hematology/Oncology Comment on above: Encounter for follow -up surveillance of breast cancer (Primary Dx) Start: 10-24-2024 End: 10-24-2024 Patient encounter procedure Irais Peñaloza APRN.PRODUCTION ILLUSTRATOR Work Phone: Hematology/Oncology Start: 10-24-2024 End: 10-24-2024 ambulatory ODILON SERRANO Facility:[facility] Start: 09-19-2024 End: 09-19-[address] Odilon Serrano DO Work Phone: [facility] Work Phone: Start: 09-19-2024 End: 09-19-2024 Patient encounter procedure Tana AZAR -Cardiovascular Services Work Phone: Start: 09-19-2024 End: 09-19-2024 ambulatory [facility] Facility:[facility] Start: 09-16-2024 End: 09-20-2024 Refill Elizabeth Linton MD Work Phone: Medical Records Comment on above: Refill Request Start: 09-12-2024 ambulatory ELIZABETH LINTON Facility:[facility] Start: 09-12-2024 Encounter for other preprocedural examination ELIZABETH LINTON [facility] Start: 08-27-2024 End: 09-01-2024 Telephone encounter Elizabeth Linton MD Work Phone: Urogynecology Comment on above: Surgery Question Start: 08-25-2024 End: 08-25-2024 Admission to establishment [place] [id number] Work Phone: Pre Anesthesia Start: 08-25-2024 End: 08-25-2024 [facility] Facility:[facility] Start: 08-25-2024 End: 08-25-2024 Anesthesia consultation [place] [id number] Work Phone: Pre Anesthesia Comment on above: Pre-operative examin ation (Primary Dx); History of breast cancer; Primary hypertension; Anxiety; VHD (valvular heart disease) Start: 08-25-2024 End: 08-25-2024 Preprocedural examination done [place] [id number] Work Phone: [facility] Start: 08-21-2024 End: 08-21-2024 ambulatory Elizabeth Linton MD Work Phone: Urogynecology Comment on above: Procedure (UDS ) Start: 08-21-2024 End: 08-21-2024 Patient encounter procedure Elizabeth Linton MD Work Phone: Urogynecology Start: 08-20-2024 End: 08-20-2024 ambulatory Nurse Railroad Design Consultant Work Phone: Gynecology Comment on above: Educational circumst ances (Primary Dx) Start: 08-20-2024 End: 08-20-2024 Telemedicine consultation with patient Nurse Railroad Design Consultant Work Phone: Gynecology Start: 08-18-2024 End: 08-19-2024 Telephone encounter Elizabeth Linton MD Work Phone: [facility] Comment on above: Appointment Reschedu led Patient Question Start: 08-12-2024 End: 08-12-2024 Emergency department patient visit DR ODILON SERRANO DO Facility:[facility] Start: 08-08-[address] ODILON SERRANO DO Facili ty:[facility] Start: 08-07-2024 End: 08-11-[address] ODILON SERRANO DO Facility[facility] Start: 08-04-2024 End: 08-04-2024 ambulatory ODILON SERRANO Facility:[facility] Start: 08-01-2024 End: 08-01-2024 ambulatory ELIZABETH LINTON Facility:[facility] Start: 08-01-2024 Encounter for other preprocedural examination ODILON SERRANO [facility] Start: 08-01-2024 End: 08-01-2024 Telephone encounter Elizabeth Linton MD Work Phone: [facility] Comment on above: Future Appointment Start: 08-01-2024 End: 08-01-[address] ODILON SERRANO DO Facility:[facility] Start: 07-30-2024 End: 07-30-2024 Orders Only Elizabeth Linton MD Work Phone: Urogynecology Comment on above: Vaginal vault prolap se (Primary Dx) Start: 07-28-2024 End: 07-28-2024 E-mail encounter from caregiver Elizabeth Linton MD Work Phone: Urogynecology Start: 07-28-2024 End: 07-28-2024 Follow-up encounter Elizabeth Linton MD Work Phone: Urogynecology Comment on above: Surgery Follow up Start: 07-28-2024 End: 07-28-2024 Patient encounter procedure Elizabeth Linton MD Work Phone: Urogynecology Comment on above: Vaginal vault prolap se (Primary Dx); Primary stress urinary incontinence; History of breast cancer; Pre-operative clearance Start: 07-28-2024 End: 07-28-2024 Preoperative state Elizabeth Linton MD Work Phone: [facility] Start: 07-28-2024 End: 07-28-2024 ambulatory ODILON SERRANO [facility] Start: 05-19-2024 End: 05-29-2024 Telephone encounter Sukumar Gutierrez DO Work Phone: Hematology/Oncology Comment on above: medication question Start: 04-25-2024 End: 04-25-2024 ambulatory IRAIS PEÑALOZA Facility:[facility] Start: 04-25-2024 End: 04-25-2024 Follow-up encounter Irais Peñaloza APRN.PRODUCTION ILLUSTRATOR Work Phone: Hematology/Oncology Comment on above: Encounter for follow -up surveillance of breast cancer (Primary Dx); Malignant neoplasm of upper-outer quadrant of left breast in female, estrogen receptor 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); 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); HER2-positive carcinoma of breast (HCC) Start: 04-25-2024 End: 04-25-2024 Patient encounter procedure Irais Peñaloza APRN.PRODUCTION ILLUSTRATOR Work Phone: Hematology/Oncology Start: 03-22-2024 Encounter for genera l adult medical examination without abnormal findings Odilon Serrano [facility] Start: 02-25-2024 End: 02-25-[address] ODILON SERRANO DO [facility] [place] Start: 02-25-2024 End: 02-25-[address] ODILON SERRANO DO [facility] Start: 02-22-2024 End: 02-22-2024 ambulatory Odilon Serrano Facility:[facility] Start: 02-07-2024 End: 02-11-[address] ODILON SERRANO DO [facility] Start: 02-07-2024 End: 02-11-[address] ODILON SERRANO DO [facility] Start: 10-26-2023 End: 10-26-2023 ambulatory Irais Peñaloza MARINE DRILLER.PRODUCTION ILLUSTRATOR Work Phone: Hematology/Oncology Comment on above: Personal history of breast cancer (Primary Dx) Start: 10-26-2023 End: 10-26-2023 Patient encounter procedure Irais Peñaloza MARINE DRILLER.PRODUCTION ILLUSTRATOR Work Phone: Hematology/Oncology Start: 04-26-2023 End: 04-26-2023 ambulatory Irais Peñaloza MARINE DRILLER.PRODUCTION ILLUSTRATOR Work Phone: Hematology/Oncology Comment on above: Malignant neoplasm o f upper-outer quadrant of left breast in female, estrogen receptor 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) (Primary Dx); 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); HER2-positive carcinoma of breast (HCC) Start: 04-26-2023 End: 04-26-2023 Patient encounter procedure [place] Peñaloza MARINE DRILLER.PRODUCTION ILLUSTRATOR Work Phone: [facility] Start: 04-04-2023 End: 04-05-[address] ODILON SERRANO Facility:[facility] Start: 10-25-2022 End: 10-25-2022 ambulatory Irais Peñaloza MARINE DRILLER.PRODUCTION ILLUSTRATOR Work Phone: Hematology/Oncology Comment on above: Malignant neoplasm o f upper-outer quadrant of left breast in female, estrogen receptor 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) (Primary Dx); 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); HER2-positive carcinoma of breast (HCC) Start: 10-25-2022 End: 10-25-2022 Patient encounter procedure Irais Peñaloza MARINE DRILLER.PRODUCTION ILLUSTRATOR Work Phone: [facility] Start: 07-24-2022 Telephone encounter [place] Carp enter MARINE DRILLER.PRODUCTION ILLUSTRATOR Work Phone: Hematology/Oncology Comment on above: Question Start: 04-27-2022 Telephone encounter Irais Carp enter MARINE DRILLER.PRODUCTION ILLUSTRATOR Work Phone: Hematology/Oncology Comment on above: Results Start: 04-26-2022 End: 04-26-2022 ambulatory Irais Peñaloza MARINE DRILLER.PRODUCTION ILLUSTRATOR Work Phone: Hematology/Oncology Comment on above: Malignant neoplasm o f upper-outer quadrant of left breast in female, estrogen receptor 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) (Primary Dx); 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); HER2-positive carcinoma of breast (HCC) Start: 04-26-2022 End: 04-26-2022 Patient encounter procedure Irais Peñaloza APRN.PRODUCTION ILLUSTRATOR Work Phone: [facility] Start: 04-06-2022 Transcribe Orders Lisa Talley MA Patient Services Comment on above: Malignant neoplasm o f upper-outer quadrant of left female breast, unspecified estrogen receptor status (HCC) (Primary Dx) Start: 10-26-2021 Telephone encounter Irais christensen APRN.PRODUCTION ILLUSTRATOR Work Phone: Hematology/Oncology Comment on above: Appointment Start: 10-26-2021 End: 10-26-2021 ambulatory Irais Peñaloza MARINE DRILLER.PRODUCTION ILLUSTRATOR Work Phone: Hematology/Oncology Comment on above: Malignant neoplasm o f upper-outer quadrant of left breast in female, estrogen receptor 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) (Primary Dx); 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 Odilon Serrano Work Phone: [facility] Start: 08-17-2021 End: 08-17-2021 Patient encounter procedure Elizabeth Roberts MARINE DRILLER.PRODUCTION ILLUSTRATOR Work Phone: [facility] Comment on above: Malignant neoplasm o f upper-outer quadrant of left breast in female, estrogen receptor 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) (Primary Dx); H/O bilateral mastectomy Start: 08-01-2021 End: 08-01-[address] Odilon Serrano Work Phone: [facility] Start: 06-29-2021 End: 06-29-[address] Odilon Serrano Work Phone: [facility]-Outpatient Bone Densitometry Procedures Date Procedure Procedure Detail Performing Clinician Start: 08-21-2024 Urnls dip stick/tabl et rgnt auto w/o microscopy Elizabeth Linton MD Work Phone: Start: 08-15-2021 History of bilateral mastectomy H/O bilateral mastectomy Elizabeth Roberts MARINE DRILLER.PRODUCTION ILLUSTRATOR Work Phone: Start: 06-29-2021 Dual energy X-ray absorptiometry Dr. Odilon Serrano Work Phone: Start: 01-03-[address] ODILON SERRANO DO Start: 07-07-2020 Port (substance) DR EL SERRANO DO Comment on above: Right-sided internal jugular vein port placement for chemotherapy Start: 06-09-2020 Breast biopsy and re lated procedures DR ODILON SERRANO DO Comment on above: Ultrasound-guided co re needle biopsy with clip placement Start: 02-04-2019 Colonoscopy Elizabeth herrera MARINE DRILLER.PRODUCTION ILLUSTRATOR Work Phone: H/O: hysterectomy Hx of hysterectomy Dr. Odilon Serrano Work Phone: History of bilateral mastectomy H/O bilateral mastectomy Elizabeth Roberts MARINE DRILLER.PRODUCTION ILLUSTRATOR Work Phone: Hysterectomy DR ODILON Duggan O Hysterectomy DR ODILON Duggan O Comment on above: unsure of the year Plan of Treatment Date Care Activity Detail Author Start: 08-02-2027 Diabetes Screening Diabetes Screening [facility] Start: 04-27-2025 End: 04-27-2025 Follow-up encounter 04/27/2025 1:00 PM EST Visit (SP) Office Hematology/Oncology [address] [place] [address] Irais Peñaloza APRN.PRODUCTION ILLUSTRATOR [address] [place] [address] Follow up in 6 months Hematology/Oncology Comment on above: Follow up in 6 months Start: 01-25-2025 DIABETES SCREEN DIABETES SCREEN [facility] Start: 01-25-2025 Diabetes Screening Diabetes Screening [facility] Start: 10-27-2024 End: 10-27-2024 Patient encounter procedure 10/27/2024 3:30 PM EDT Office Visit Urogynecology [address] [place] [address] Elizabeth Linton MD [address] [place] [address] POST OP 6-8 WEEKS Urogynecology Comment on above: POST OP 6-8 WEEKS Start: 10-26-2024 DIABETES SCREEN DIABETES SCREEN [facility] Start: 10-24-2024 End: 10-24-2024 Follow-up encounter 10/24/2024 10:00 AM EDT Visit (SP) Office Hematology/Oncology [address] [place] [address] Irais ePñaloza APRN.PRODUCTION ILLUSTRATOR [address] [place] [address] 6 mo follow up Hematology/Oncology Comment on above: 6 mo follow up Start: 09-12-2024 End: 09-12-2024 Admission to same day surgery center 09/12/2024 7:30 AM EDT - 09/12/2024 10:45 AM EDT Surgery [facility] Surgery [address] [place] [id number] Elizabeth Linton MD [address] [place] [address] COLPOPEXY VAGINAL EXTRA-PERITONEAL [facility] Surgery Comment on above: COLPOPEXY VAGINAL EXTRA-PERITONEAL Start: 09-12-2024 End: 09-12-2024 Anterior colporraphy rpr cystocele w/cysto ANTERIOR COLPORRHAPHY REPAIR CYSTOCELE W/REPAIR URETHROCELE INCLUDING CYSTOURETHROSCOPY WHEN PERFORMED Vaginal vault prolapse Primary stress urinary incontinence History of breast cancer Pre-operative clearance 09/12/2024 7:30 AM EDT ME OR Start: 09-12-2024 End: 09-12-2024 Colpopexy vaginal extraperitoneal approach COLPOPEXY VAGINAL EXTRA-PERITONEAL Vaginal vault prolapse Primary stress urinary incontinence History of breast cancer Pre-operative clearance 09/12/2024 7:30 AM EDT ME OR Start: 09-12-2024 End: 09-12-2024 Cystourethroscopy CYSTOSCOPY Vaginal vault prolapse Primary stress urinary incontinence History of breast cancer Pre-operative clearance 09/12/2024 7:30 AM EDT ME OR Start: 09-12-2024 End: 09-12-2024 Post colporrhaphy rectocele w/wo perineorrhaphy POSTERIOR COLPORRHAPHY W/ REPAIR RECTOCELE AND PERINEORRHAPHY Vaginal vault prolapse Primary stress urinary incontinence History of breast cancer Pre-operative clearance 09/12/2024 7:30 AM EDT ME OR Start: 09-12-2024 End: 09-12-2024 Sling operation stress incontinence SUSPENSION BLADDER SLING TAPE TRANSVAGINAL Vaginal vault prolapse Primary stress urinary incontinence History of breast cancer Pre-operative clearance 09/12/2024 7:30 AM EDT ME OR Start: 09-12-2024 Subsequent hospital visit by physician [facility] Surgery Comment on above: 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], Primary stress urinary incontinence [N39.3], History of breast cancer [Z85.3], Pre-operative clearance [Z01.818] Start: 09-04-2024 End: 09-04-2024 Admission to same day surgery center 09/04/2024 1:35 PM EDT - 09/04/2024 7:05 PM EDT Surgery [facility] [address] [place] [address] Elizabeth Linton MD [address] [place] [address] COLPOPEXY VAGINAL EXTRA-PERITONEAL [facility] Comment on above: COLPOPEXY VAGINAL EXTRA-PERITONEAL Start: 09-04-2024 End: 09-04-2024 Anterior colporraphy rpr cystocele w/cysto ANTERIOR COLPORRHAPHY REPAIR CYSTOCELE W/REPAIR URETHROCELE INCLUDING CYSTOURETHROSCOPY WHEN PERFORMED Vaginal vault prolapse Primary stress urinary incontinence History of breast cancer Pre-operative clearance 09/04/2024 1:35 PM EDT HL OR Start: 09-04-2024 End: 09-04-2024 Colpopexy vaginal extraperitoneal approach COLPOPEXY VAGINAL EXTRA-PERITONEAL Vaginal vault prolapse Primary stress urinary incontinence History of breast cancer Pre-operative clearance 09/04/2024 1:35 PM EDT HL OR Start: 09-04-2024 End: 09-04-2024 Cystourethroscopy CYSTOSCOPY Vaginal vault prolapse Primary stress urinary incontinence History of breast cancer Pre-operative clearance 09/04/2024 1:35 PM EDT HL OR Start: 09-04-2024 End: 09-04-2024 Post colporrhaphy rectocele w/wo perineorrhaphy POSTERIOR COLPORRHAPHY W/ REPAIR RECTOCELE AND PERINEORRHAPHY Vaginal vault prolapse Primary stress urinary incontinence History of breast cancer Pre-operative clearance 09/04/2024 1:35 PM EDT HL OR Start: 09-04-2024 End: 09-04-2024 Sling operation stress incontinence SUSPENSION BLADDER SLING TAPE TRANSVAGINAL Vaginal vault prolapse Primary stress urinary incontinence History of breast cancer Pre-operative clearance 09/04/2024 1:35 PM EDT OR Start: 09-04-2024 Subsequent hospital visit by physician 09/04/2024 1:35 PM EDT Hospital Encounter [facility] [address] [place] [address] Elizabeth Linton MD [address] [place], [place] [id number] 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], Primary stress urinary incontinence [N39.3], History of breast cancer [Z85.3], Pre-operative clearance [Z01.818] [facility] Comment on above: 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], Primary stress urinary incontinence [N39.3], History of breast cancer [Z85.3], Pre-operative clearance [Z01.818] Start: 08-25-2024 End: 08-25-2024 Anesthesia consultation 08/25/2024 8:00 AM EDT PAT Pre Anesthesia [address] [place] [address] 1, [facility] [place] [address] [place] [address] PRE OP Pre Anesthesia Comment on above: PRE OP Start: 08-22-2024 End: 08-22-2024 Admission to same day surgery center 08/22/2024 2:30 PM EDT Procedure Urogynecology [address] [facility] [address] [place] [address] Elizabeth Linton MD [address] [place], [place] [id number] PRE OP/SURGERY CONSENT Urogynecology Comment on above: PRE OP/SURGERY CONSENT Start: 08-22-2024 End: 08-22-2024 Anesthesia consultation 08/22/2024 1:00 PM EDT PAT Pre Anesthesia [address] [facility] [address] [place] [address] 1, [facility] [address] [place] [address] PRE OP Pre Anesthesia Comment on above: PRE OP Start: 08-21-2024 End: 08-21-2024 ambulatory 08/21/2024 2:30 PM EDT Procedure Urogynecology [address] [address] Elizabeth Linton MD [address] [place], [place] [id number] *appt confirmed Urogynecology Comment on above: *appt confirmed Start: 08-20-2024 End: 08-20-2024 ambulatory Gynecology Comment on above: 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 Educational circumst ances (Primary Dx) Start: 08-04-2024 End: 08-04-2024 Patient encounter procedure 08/04/2024 9:30 AM EDT Office [place] [address] SURGERY [employer] [facility] Comment on above: SURGERY Start: 08-01-2024 End: 08-01-2024 ambulatory 08/01/2024 3:30 PM EDT Results Only Tejas Valverde [facility] [address] [place] [address] [address] [facility] Start: 07-30-2024 End: 10-29-2024 Basic metabolic 2000 panel - Serum or Plasma BASIC METABOLIC PANEL Lab Routine Vaginal vault prolapse Primary stress urinary incontinence History of breast cancer Pre-operative clearance Expected: 07/30/2024, Expires: 10/29/2024 [facility] Work Phone: Comment on above: Expected: 07/30/2024, Expires: Start: 07-30-2024 End: 10-29-2024 CBC W Auto Differential panel - Blood COMPLETE BLOOD COUNT AND DIFFERENTIAL Lab Routine Vaginal vault prolapse Primary stress urinary incontinence History of breast cancer Pre-operative clearance Expected: 07/30/2024, Expires: 10/29/[address] [facility] Comment on above: Expected: 07/30/2024, Expires: Start: 07-30-2024 End: 10-29-2024 Hemoglobin A1c in Blood HEMOGLOBIN A1C Lab Routine Vaginal vault prolapse Primary stress urinary incontinence History of breast cancer Pre-operative clearance Expected: 07/30/2024, Expires: 10/29/[address] [facility] Comment on above: Expected: 07/30/2024, Expires: Start: 07-25-2024 DIABETES SCREEN DIABETES SCREEN [facility] Start: 05-21-2024 Advance Directive Discussion Advance Directive Discussion [facility] Start: 04-25-2024 End: 04-25-2024 ambulatory 04/25/2024 10:00 AM EST Visit (SP) Office Hematology/Oncology [address] [place] [address] Irais Peñaloza APRN.PRODUCTION ILLUSTRATOR [address] [place] [address] 6MTH OV* Hematology/Oncology Comment on above: 6MTH OV* Start: 01-20-2024 Covid-19 Vaccine ( season) Covid-19 Vaccine ( season) [facility] Start: 2023 RSV Vaccine (1 - 1-dose 75+ series) RSV Vaccine (1 - 1-dose 75+ series) [facility] Start: 05-21-2023 Advance Directive Discussion Advance Directive Discussion [facility] Start: 05-21-2023 Behavioral Health Screening Behavioral Health Screening [facility] Start: 01-19-2023 Covid-19 Vaccine () Covid-19 Vaccine () [facility] Start: 05-21-2022 ADVANCE DIRECTIVE DISCUSSION ADVANCE DIRECTIVE DISCUSSION [facility] Start: 05-21-2022 DEPRESSION ASSESSMENT DEPRESSION ASSESSMENT [facility] Start: 01-19-2022 Influenza vaccination INFLUENZA (#1) [facility] Start: 08-17-2021 COVID-19 VACCINE (4 - Booster for Pfizer series) COVID-19 VACCINE (4 - Booster for Pfizer series) [facility] Start: 07-18-2021 COVID-19 VACCINE (4 - Booster) COVID-19 VACCINE (4 - Booster) [facility] Start: 06-14-2021 COVID-19 VACCINE (4 - Booster for Pfizer series) COVID-19 VACCINE (4 - Booster for Pfizer series) [facility] Start: 05-21-2021 ADVANCE DIRECTIVE DISCUSSION ADVANCE DIRECTIVE DISCUSSION [facility] Start: 05-21-2021 DEPRESSION ASSESSMENT DEPRESSION ASSESSMENT [facility] Start: 02-05-2020 Colonoscopy [address] [facility] Start: 02-05-2020 COLORECTAL CANCER SCREENING COLORECTAL CANCER SCREENING [facility] Start: 2013 BONE DENSITY BONE DENSITY [facility] Start: 2013 Bone Density Screening Bone Density Screening [facility] Start: 2013 PNEUMOCOCCAL: 65+ (1 - PCV) PNEUMOCOCCAL: 65+ (1 - PCV) [facility] Start: 2013 PNEUMOVAX AGE 65 AND OVER WITH 5YR LOOKBACK (#1) PNEUMOVAX AGE 65 AND OVER WITH 5YR LOOKBACK (#1) [facility] Start: 2013 Screening for osteoporosis Bone Density Screening [facility] Start: 2008 RSV Vaccine (1 - 1-dose 60+ series) RSV Vaccine (1 - 1-dose 60+ series) [facility] Start: 1998 SHINGRIX VACCINE (1 of 2) SHINGRIX VACCINE (1 of 2) [facility] Start: 1993 COLOGUARD (FIT-DNA) COLOGUARD (FIT-DNA) [facility] Start: 1993 Colonoscopy COLONOSCOPY [facility] Start: 1993 COLORECTAL CANCER SCREENING COLORECTAL CANCER SCREENING [facility] Start: [address] COLONOGRAPHY [facility] Start: 1993 FECAL OCCULT BLOOD FECAL OCCULT BLOOD [facility] Start: 1993 Lipid 1996 panel - Serum or Plasma Lipid Screening [facility] Start: 1993 Lipid panel Lipid Screening [facility] Start: 1993 LIPID SCREEN LIPID SCREEN [facility] Start: 1993 Screening for malignant neoplasm of colon [facility] Start: 1993 SIGMOIDOSCOPY SIGMOIDOSCOPY [facility] Start: [address] [facility] Start: 1967 SHINGRIX VACCINE (1 of 2) SHINGRIX VACCINE (1 of 2) [facility] Start: 1967 Urine microalbumin profile [facility] Start: 1966 Annual PCP Team Chronic Disease Visit Annual PCP Team Chronic Disease Visit [facility] Start: 1966 Anxiety Screening Anxiety Screening [facility] Start: 1966 BP Controlled (<130/80) BP Controlled (<130/80) [facility] Start: 1966 Depression Screening Depression Screening [facility] Start: 1960 Adult depression screening assessment DEPRESSION SCREENING [facility] Start: 1954 PNEUMOCOCCAL: 65+ (1 - PCV) PNEUMOCOCCAL: 65+ (1 - PCV) [facility] Anterior colporraphy rpr cystocele w/cysto ANTERIOR COLPORRHAPHY REPAIR CYSTOCELE W/REPAIR URETHROCELE INCLUDING CYSTOURETHROSCOPY WHEN PERFORMED Vaginal vault prolapse Primary stress urinary incontinence History of breast cancer Pre-operative clearance [facility] OR End: 10-24-2022 CBC W Auto Differential panel - Blood CBC + DIFF Lab STAT Malignant neoplasm of upper-outer quadrant of left breast in female, estrogen receptor 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) Hypomagnesemia Every 3 weeks for 18 Occurrences starting 10/24/2021 until 10/24/2022 [facility] Work Phone: Comment on above: Every 3 weeks for 18 Occurrences startin g 10/24/2021 until 10/24/2022 Colpopexy vaginal extraperitoneal approach COLPOPEXY VAGINAL EXTRA-PERITONEAL Vaginal vault prolapse Primary stress urinary incontinence History of breast cancer Pre-operative clearance [facility] OR End: 10-24-2022 Comprehensive metabolic 2000 panel - Serum or Plasma COMP METABOLIC PANEL Lab STAT Malignant neoplasm of upper-outer quadrant of left breast in female, estrogen receptor 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) Hypomagnesemia Every 3 weeks for 18 Occurrences starting 10/24/2021 until 10/24/2022 [facility] Work Phone: Comment on above: Every 3 weeks for 18 Occurrences startin g 10/24/2021 until 10/24/2022 Cystourethroscopy CYSTOSCOPY Vag inal vault prolapse Primary stress urinary incontinence History of breast cancer Pre-operative clearance [facility] OR End: 10-24-2022 Magnesium [Mass/volume] in Serum or Plasma MAGNESIUM BLD Lab STAT Malignant neoplasm of upper-outer quadrant of left breast in female, estrogen receptor 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) Hypomagnesemia Every 3 weeks for 18 Occurrences starting 10/24/2021 until 10/24/2022 [facility] Work Phone: Comment on above: Every 3 weeks for 18 Occurrences startin g 10/24/2021 until 10/24/2022 Post colporrhaphy rectocele w/wo perineorrhaphy POSTERIOR COLPORRHAPHY W/ REPAIR RECTOCELE AND PERINEORRHAPHY Vaginal vault prolapse Primary stress urinary incontinence History of breast cancer Pre-operative clearance HL OR Sling operation stre ss incontinence SUSPENSION BLADDER SLING TAPE TRANSVAGINAL Vaginal vault prolapse Primary stress urinary incontinence History of breast cancer Pre-operative clearance HL OR URODYNAMICS WHI URODYNAMICS WHI Procedures Routine Vaginal vault prolapse Primary stress urinary incontinence History of breast cancer Ordered: 07/30/[address] [facility] Comment on above: Ordered: 07/30/2024 [facility] Immunizations Immunization Date Immunization Notes Care Provider Fa cili 02-07-2024 influenza, high dose seasonal, preservative-free; Translations: [Fluad PF Prefilled Syringe ] DR ODILON SERRANO DO [facility] 04-04-2023 influenza, high dose seasonal, preservative-free; Translations: [Fluad Quadrivalent PF ] DR ODILON SERRANO DO [facility] 06-01-2022 influenza, high dose seasonal, preservative-free DR ODILON SERRANO DO [facility] 06-07-2021 pneumococcal conjuga te vaccine, 13 valent; Translations: [Prevnar 13] DR ODILON SERRANO DO [facility] 04-19-2021 influenza, injectabl e, quadrivalent, contains preservative; Translations: [Fluarix PF Quadrivalent ] DR ODILON SERRANO DO [facility] 04-19-2021 SARS-CoV-2 (COVID-19 ) mRNA-1273 vaccine; Translations: [Moderna COVID-19 Vaccine] DR ODILON SERRANO DO [facility] 10-02-2020 SARS-CoV-2 mRNA (tozinameran) vaccine DR ODILON SERRANO DO [facility] Comment on above: Result Comment: 2020: [id number] 09-11-2020 SARS-CoV-2 mRNA (tozinameran) vaccine DR ODILON SERRANO DO [facility] Comment on above: Result Comment: 2020: [id number] 03-24-2020 influenza, injectabl e, quadrivalent, preservative free; Translations: [Fluarix PF Quadrivalent ] DR ODILON SERRANO DO [facility] 03-24-2020 pneumococcal polysaccharide vaccine, 23 valent; Translations: [Pneumovax 23] DR ODILON SERRANO DO [facility] Payers Date Payer Category Payer Private Health Insurance [id number] 2024 Self-pay [id number] 2018 Medicare MMO MEDICARE MMO MEDADVANTAGE O [id number] 2018-Present [phone] [place], [place] [id number] O [id number] 2018 Medicare MMO MEDICARE MMO MEDADVANTAGE O [id number] 2018-Present [phone] [place] [id number] [facility] [id number] 2018 Medicare (Managed Care) MMO [employer] DVANTAGE HMO [id number] 2018 Unknown [id number] 1948 Unknown [id number] .[id number] 1948 Unknown [id number] [id number] .2.62 1948 Unknown [id number] [id number] .2.62 1948 Unknown [id number] [id number] .2.62 1948 Unknown [id number] [id number] .2.62 1948 Unknown [id number] [id number] .2.62 1948 Unknown [id number] [id number] .2.627 1948 Unknown [id number] [id number] .2.62 1948 Unknown [id number] [id number] .2.627 Unknown [id number] [id number] .2.462 Unknown [id number] [id number] .2.462 Unknown [id number] [id number] .2.462 Unknown [id number] [id number] .2.462 Unknown [id number] [id number] .2.462 Social History Date Type Detail Facility Start: 12-29-2012 End: 08-07-2024 Tobacco smoking status ALIS Never smoked tobacco [facility] Work Phone: Start: 12-29-2012 End: 08-25-2024 Tobacco use and exposure Smokeless tobacco non-user [facility] Work Phone: Start: 08-17-2021 End: 10-27-2024 Alcohol intake Lifetime non-drinker (finding) [facility] Start: 06-09-2020 History SDOH Alcohol Frequency [address] [facility] Start: 1950 Sex Assigned At Female [facility] Start: 08-07-2021 End: 08-17-2021 Exposure to SARS-CoV-2 (event) Not sure [facility] Start: 08-01-2021 Tobacco smoking status NHIS Unknown if ever smoked [facility] Work Phone: Start: 07-18-2020 None [facility] Start: 07-18-2020 Spouse/ Significant Other [facility] Start: 07-18-2020 Non-smoker [facility] Start: 06-09-2020 End: 10-25-2022 History of Social function [facility] Start: 06-09-2020 End: 10-25-2022 Alcohol Use Disorder Identification Test - Consumption [AUDIT-C] [facility] How often to you hav e a drink containing alcohol? Never [facility] Average Number of Drinks Not on file [facility] Start: 06-18-2020 Gender identity Identifies as female gender (finding) [facility] Start: 06-18-2020 Sexual orientation Heterosexual (finding) [facility] Sexual Orientation Kendall Elana majano [facility] Start: 11-13-2018 Sex Female (finding) [facility] Medical Equipment Procedure Code Equipment Code Equipment Origin al Text Equipment Identifier Dates Insertion, vascular access port PORT,6FR POWER PORT FDA Start: 07-07-2020 Insertion, vascular access port PORT,6FR POWER PORT FDA Start: 07-07-2020 Insertion, vascular access port PORT,6FR POWER PORT FDA Start: 07-07-2020 Insertion, vascular access port PORT,6FR POWER PORT FDA Start: 07-07-2020 Functional Status Date Assessment Result Facility 01-04-2021 Are you deaf, or do you have serious difficulty hearing No 01/04/2021 4:47 PM EDT Gerri Horner RN No [facility] 01-04-2021 Are you blind, or do you have serious difficulty seeing, even when wearing glasses No 01/04/2021 4:47 PM EDT Gerri Horner, MICHEL No [facility] 01-04-2021 Do you have serious difficulty walking or climbing stairs No 01/04/2021 4:47 PM EDT Gerri Horner RN No [facility] 01-04-2021 Do you have difficul ty dressing or bathing Yes 01/04/2021 4:47 PM EDT Gerri Horner, MICHEL Yes [facility] 01-04-2021 Because of a physica l, mental, or emotional condition, do you have difficulty doing errands alone such as visiting a physician's office or shopping No 01/04/2021 4:47 PM EDT Gerri Horner RN No [facility] Mental Status Date Assessment Result Facility 01-04-2021 Because of a physica l, mental, or emotional condition, do you have serious difficulty concentrating, remembering, or making decisions No 01/04/2021 4:47 PM EDT Gerri Horner RN No [facility] Clinical Notes 08-17-2021 to 10-27-2024 Elizabeth Linton MD - 10/27/2024 3:30 PM BETYTCIrais ricks APRN.ISAÍAS - 10/24/2024 9:46 AM EDTTelephone Encounter - Nneka Arguelles RN - 09/19/2024 1:14 PM EDTPatient InstructionsLaboratoryRadiology Note Date & Type Note Facility 10-27-2024 History of Present illness Narrative Images from the original note were not included. Female Pelvic Medicine & Reconstructive Surgery Post-Op Visit Recording using SecureMedia software for draft documentation of the visit was discussed with the patient/authorized professional healthcare representative; all questions welcomed and answered. Patient/authorized professional healthcare representative agreed to proceed HPI:Inés Lieberman is a 74 year old female who presents for a 6 Week post-op check s/p Procedure(s): Sacrospinous ligament suspension of the vaginal vault/extraperitoneal colpopexy, Anterior colporrhaphy, Posterior colporrhaphy, Perineorrhaphy, and Cystoscopy. Post-op complications: no Bleeding: no Pain: no If you had pain related to your prolapse before surgery, has your pain resolved? Yes Abnormal vaginal discharge: no Pathology: n/a PFDI-20 Do you: Usually experience pressure in the lower abdomen? No (0) Usually experience heaviness or dullness in the pelvic area? No (0) Usually have a bulge or something falling out that you can see or feel in your vaginal area? No (0) Ever have to push on the vagina or around the rectum to have or complete a bowel movement? Yes, somewhat bothersome (2) Usually experience a feeling of incomplete bladder emptying? No (0) Ever have to push up on a bulge in the vaginal area with your fingers to start or complete urination? No (0) Feel you need to strain too hard to have a bowel movement? Yes, not at all bothersome (1) Feel you have not completely emptied your bowels at the end of a bowel movement? Yes, not at all bothersome (1) Usually lose stool beyond your control if your stool is well formed? Yes, not at all bothersome (1) Usually lose stool beyond your control if your stool is loose? Yes, not at all bothersome (1) Usually lose gas from the rectum beyond your control? Yes, somewhat bothersome (2) Usually have pain when you pass your stool? Yes, not at all bothersome (1) Experience a strong sense of urgency and have to escobedo to the bathroom to have a bowel movement? Yes, not at all bothersome (1) Does part of your bowel ever pass through the rectum and bulge outside during or after a bowel movement? Yes, not at all bothersome (1) Usually experience frequent urination? Yes, somewhat bothersome (2) Usually experience urine leakage associated with a feeling of urgency, that is, a strong sensation of needing to go to the bathroom? Yes, somewhat bothersome (2) Usually experience urine leakage related to coughing, sneezing or laughing? Yes, somewhat bothersome (2) Usually experience small amounts of urine leakage (that is, drops)? Yes, somewhat bothersome (2) Usually experience difficulty emptying your bladder? Yes, not at all bothersome (1) Usually experience pain or discomfort in the lower abdomen or genital region? Yes, not at all bothersome (1) Overall, how satisfied were you with your postoperative pain medication? Very satisfied With regard to your expectations before surgery, did you have the amount of pain you expected, more pain, or less pain? About the amount of pain I expected Was the preoperative teaching you had about pain expectations helpful? Yes Were the discharge instructions you received about pain medications helpful? Yes Building Operator offered:Patient accepts, visit chaperoned by RN SENSITIVE EXAM: The sensitive examination was discussed with the Patient or Patient's Authorized Canine Deputy. As applicable, any other physician, advance practice provider, medical student, or other health professional student that will be observing or involved in the sensitive examination for educational or training purposes was discussed with the Patient or Authorized Canine Deputy. The Patient or Authorized Canine Deputy has agreed to proceed with the sensitive examination. (Sensitive examination includes inspection and/or palpation of the breasts, pelvis, prostate and anorectal regions). OBJECTIVE: BP 181/79 Pulse 65 Wt 139 lb (63.1kg) General: Well appearing, alert, in no acute distress, well-hydrated, well nourished. Abdomen: Abdomen soft, non-tender Pelvic: Ext. Genitalia, No lesions or other abnormalities, Perineal incision healing well Vagina: WNL, Good vaginal support, and Surgical incisions are well healed Cervix: Absent Urethra: Normal, Supine cough stress test negative Bimanual: No tenderness, No masses Rectovaginal: No tenderness, No masses ASSESMENT: Inés Lieberman is a 74 year old female who is post-op; stable and doing well post-operative course uncomplicated PLAN: May resume normal activities. May resume intercourse. Follow up 6 months or PRN # Post-operative state (Z98.890) # Encounter for surgical aftercare following surgery on the genitourinary system (Z48.816) Elizabeth Linton MD documented in this encounter [facility] 10-27-2024 Note HNO ID: [id number] Author: ELIZABETH LINTON MD Service: ? Author Type: Physician Type: Progress Notes Filed: 10/27/2024 16:50 Note Text: Female Pelvic Medicine AND Reconstructive Surgery Post-Op Visit Recording using SecureMedia software for draft documentation of the visit was discussed with the patient/authorized professional healthcare representative; all questions welcomed and answered. Patient/authorized professional healthcare representative agreed to proceed HPI:Inés Lieberman is a 74 year old female who presents for a 6 Week post-op check s/p Procedure(s): Sacrospinous ligament suspension of the vaginal vault/extraperitoneal colpopexy, Anterior colporrhaphy, Posterior colporrhaphy, Perineorrhaphy, and Cystoscopy. Post-op complications: no Bleeding: no Pain: no If you had pain related to your prolapse before surgery, has your pain resolved? Yes Abnormal vaginal discharge: no Pathology: n/a PFDI-20 Do you: Usually experience pressure in the lower abdomen? No (0) Usually experience heaviness or dullness in the pelvic area? No (0) Usually have a bulge or something falling out that you can see or feel in your vaginal area? No (0) Ever have to push on the vagina or around the rectum to have or complete a bowel movement? Yes, somewhat bothersome (2) Usually experience a feeling of incomplete bladder emptying? No (0) Ever have to push up on a bulge in the vaginal area with your fingers to start or complete urination? No (0) Feel you need to strain too hard to have a bowel movement? Yes, not at all bothersome (1) Feel you have not completely emptied your bowels at the end of a bowel movement? Yes, not at all bothersome (1) Usually lose stool beyond your control if your stool is well formed? Yes, not at all bothersome (1) Usually lose stool beyond your control if your stool is loose? Yes, not at all bothersome (1) Usually lose gas from the rectum beyond your control? Yes, somewhat bothersome (2) Usually have pain when you pass your stool? Yes, not at all bothersome (1) Experience a strong sense of urgency and have to escobedo to the bathroom to have a bowel movement? Yes, not at all bothersome (1) Does part of your bowel ever pass through the rectum and bulge outside during or after a bowel movement? Yes, not at all bothersome (1) Usually experience frequent urination? Yes, somewhat bothersome (2) Usually experience urine leakage associated with a feeling of urgency, that is, a strong sensation of needing to go to the bathroom? Yes, somewhat bothersome (2) Usually experience urine leakage related to coughing, sneezing or laughing? Yes, somewhat bothersome (2) Usually experience small amounts of urine leakage (that is, drops)? Yes, somewhat bothersome (2) Usually experience difficulty emptying your bladder? Yes, not at all bothersome (1) Usually experience pain or discomfort in the lower abdomen or genital region? Yes, not at all bothersome (1) Overall, how satisfied were you with your postoperative pain medication? Very satisfied With regard to your expectations before surgery, did you have the amount of pain you expected, more pain, or less pain? About the amount of pain I expected Was the preoperative teaching you had about pain expectations helpful? Yes Were the discharge instructions you received about pain medications helpful? Yes Building Operator offered:Patient accepts, visit chaperoned by RN SENSITIVE EXAM: The sensitive examination was discussed with the Patient or Patient's Authorized Canine Deputy. As applicable, any other physician, advance practice provider, medical student, or other health professional student that will be observing or involved in the sensitive examination for educational or training purposes was discussed with the Patient or Authorized Canine Deputy. The Patient or Authorized Canine Deputy has agreed to proceed with the sensitive examination. (Sensitive examination includes inspection and/or palpation of the breasts, pelvis, prostate and anorectal regions). OBJECTIVE: BP 181/79 Pulse 65 Wt 139 lb (63.1kg) General: Well appearing, alert, in no acute distress, well-hydrated, well nourished. Abdomen: Abdomen soft, non-tender Pelvic: Ext. Genitalia, No lesions or other abnormalities, Perineal incision healing well Vagina: WNL, Good vaginal support, and Surgical incisions are well healed Cervix: Absent Urethra: Normal, Supine cough stress test negative Bimanual: No tenderness, No masses Rectovaginal: No tenderness, No masses ASSESMENT: Inés Lieberman is a 74 year old female who is post-op; stable and doing well post-operative course uncomplicated PLAN: May resume normal activities. May resume intercourse. Follow up 6 months or PRN # Post-operative state (Z98.890) # Encounter for surgical aftercare following surgery on the genitourinary system (Z48.816) Elizabeth Linton MD [facility] 10-24-2024 Note HNO ID: [id number] Author: IRAIS PEÑALOZA APRN.PRODUCTION ILLUSTRATOR Service: ? Author Type: Nurse Practitioner Type: Progress Notes Filed: 10/24/2024 10:30 Note Text: Chief Complaint Patient presents with: Established Patient HPI: Inés Lieberman is a 74 year old female who presents here today for follow up breast cancer. Per Dr. Gutierrez's previous note: H/o hypertension. Screening mammogram in April demonstrated a 9 cm area of segmental pleomorphic calcifications in the left breast. A subsequent left breast ultrasound revealed a 1-1/2 cm irregular mass in the left breast at the 3:00 middle depth position. There was also a lymph node with uniform cortical thickening in the left axillary tail consistent with an enlarged lymph node and was moderate suspicion for malignancy. Patient underwent ultrasound-guided core needle biopsy with clip placement on 06/09/2020. Pathology: Invasive ductal carcinoma, grade 3 nuclei. Biopsy of left axillary lymph node revealed fragments of lymph node positive for metastatic carcinoma (approximately 3 mm in greatest dimension). ER - - - - - Negative. MT - - - - - Negative. HER2 (ERBB2) IMMUNOHISTOCHEMISTRY ASSAY Interpretation: POSITIVE for HER2 (ERBB2) Expression Score: 3+ Percentage of cells with uniform intense complete membrane stainin% (reported for 2+ and 3+ scores only). Underwent right-sided internal jugular vein port placement on 07/07/2020. MRI Breasts 06/30/2020: RESULT: Bilateral background breast enhancement is mild. Current study was also evaluated with a Computer Aided Detection (CAD) system. There is 4.5 cm x 9.2 cm x 6.5 cm segmental area in the left breast lower outer aspect middle depth. This shows non-mass like enhancement. This correlates with mammography and ultrasound findings. Specifically, multiple masses with intervening non mass enhancement (NME) is demonstrated in a segmental distribution from approximately 3:00 to 6:00, correlating with the malignant calcifications seen mammographically. This is inclusive of the prior biopsy site at the 3:00 position 5 cmfn, which contains a biopsy clip. Enhancement extends to a mildly retracted left nipple, which is also enhancing asymmetrically and abnormally. No suspicious enhancement extends posteriorly to the chest wall. The skin of the left breast is thickened and edematous with mildly asymmetric enhancement, which appears somewhat nodular in areas (especially medially) on later time points. There is no suspicious mass, abnormal enhancement, distortion, or other significant abnormality in the right breast. Multiple small foci of persistent enhancement are seen and these are judged to be benign. There also are multiple oval masses in the left axilla. These show heterogeneous enhancement and rapid initial rise and delayed washout type vascular enhancement. The largest node measures 2.3 cm maximally and contains a biopsy clip. This is a biopsy proven metastatic axillary node. No abnormalities in the right axillary nodes or internal mammary nodes region. Multiple T2/STIR hyperintense lesions are scattered within the liver measuring up to 1.4 cm in size. While these most likely represent benign cysts or hemangiomas, they are incompletely characterized on the current exam. The 4.5 cm x 9.2 cm x 6.5 cm segmental area in the left breast lower outer aspect middle depth is consistent with the known carcinoma and is a known biopsy positive for malignancy. A surgical consult is recommended. This area is inclusive of the biopsy site at 3:00 5 cmfn, which contains a biopsy clip. - There is involvement of the left nipple and abnormal enhancement of thickened edematous skin of the left breast. No evidence for chest wall disease involvement. The multiple oval masses in the left axilla are consistent with a pathological lymph node and are a known biopsy positive for malignancy. A surgical consult is recommended. This includes a biopsy proven metastatic axillary node, which contains a biopsy clip. - No internal mammary adenopathy. No MRI evidence of malignancy in the right breast. Multiple indeterminate T2/STIR hyperintense liver lesions. While these most likely represent benign cysts or hemangiomas, they are incompletely characterized on the current exam. Further evaluation via dedicated abdominal CT or MRI is recommended. Previous therapy: 1) Neoadjuvant TCHP. 2) Adjuvant radiation 03/03/21 - 04/06/21. 3) Trastuzumab alone. Completed 2021. CT chest 11/04 revealed stable 3 mm nodule right lung. MRI Breasts 11/12/2020: Left Breast - Category 6 - Known cancer. No residual enhancing tissue at the site of known cancer and resolution of lymphadenopathy, representing marked response to chemotherapy. Normal right breast MRI. Underwent bilateral simple mastectomies with left sentinel lymph node biopsy on 01/03/2021. Pathology: No cancer in 2 sentinel lymph (more content not included)... [facility] 10-24-2024 History of Present illness Narrative Chief Complaint Patient presents with: Established Patient HPI: Inés Lieberman is a 74 year old female who presents here today for follow up breast cancer. Per Dr. Gutierrez's previous note: H/o hypertension. Screening mammogram in April demonstrated a 9 cm area of segmental pleomorphic calcifications in the left breast. A subsequent left breast ultrasound revealed a 1-1/2 cm irregular mass in the left breast at the 3:00 middle depth position. There was also a lymph node with uniform cortical thickening in the left axillary tail consistent with an enlarged lymph node and was moderate suspicion for malignancy. Patient underwent ultrasound-guided core needle biopsy with clip placement on 06/09/2020. Pathology: Invasive ductal carcinoma, grade 3 nuclei. Biopsy of left axillary lymph node revealed fragments of lymph node positive for metastatic carcinoma (approximately 3 mm in greatest dimension). ER - - - - - Negative. MT - - - - - Negative. HER2 (ERBB2) IMMUNOHISTOCHEMISTRY ASSAY Interpretation: POSITIVE for HER2 (ERBB2) Expression Score: 3+ Percentage of cells with uniform intense complete membrane stainin% (reported for 2+ and 3+ scores only). Underwent right-sided internal jugular vein port placement on 07/07/2020. MRI Breasts 06/30/2020: RESULT: Bilateral background breast enhancement is mild. Current study was also evaluated with a Computer Aided Detection (CAD) system. There is 4.5 cm x 9.2 cm x 6.5 cm segmental area in the left breast lower outer aspect middle depth. This shows non-mass like enhancement. This correlates with mammography and ultrasound findings. Specifically, multiple masses with intervening non mass enhancement (NME) is demonstrated in a segmental distribution from approximately 3:00 to 6:00, correlating with the malignant calcifications seen mammographically. This is inclusive of the prior biopsy site at the 3:00 position 5 cmfn, which contains a biopsy clip. Enhancement extends to a mildly retracted left nipple, which is also enhancing asymmetrically and abnormally. No suspicious enhancement extends posteriorly to the chest wall. The skin of the left breast is thickened and edematous with mildly asymmetric enhancement, which appears somewhat nodular in areas (especially medially) on later time points. There is no suspicious mass, abnormal enhancement, distortion, or other significant abnormality in the right breast. Multiple small foci of persistent enhancement are seen and these are judged to be benign. There also are multiple oval masses in the left axilla. These show heterogeneous enhancement and rapid initial rise and delayed washout type vascular enhancement. The largest node measures 2.3 cm maximally and contains a biopsy clip. This is a biopsy proven metastatic axillary node. No abnormalities in the right axillary nodes or internal mammary nodes region. Multiple T2/STIR hyperintense lesions are scattered within the liver measuring up to 1.4 cm in size. While these most likely represent benign cysts or hemangiomas, they are incompletely characterized on the current exam. The 4.5 cm x 9.2 cm x 6.5 cm segmental area in the left breast lower outer aspect middle depth is consistent with the known carcinoma and is a known biopsy positive for malignancy. A surgical consult is recommended. This area is inclusive of the biopsy site at 3:00 5 cmfn, which contains a biopsy clip. - There is involvement of the left nipple and abnormal enhancement of thickened edematous skin of the left breast. No evidence for chest wall disease involvement. The multiple oval masses in the left axilla are consistent with a pathological lymph node and are a known biopsy positive for malignancy. A surgical consult is recommended. This includes a biopsy proven metastatic axillary node, which contains a biopsy clip. - No internal mammary adenopathy. No MRI evidence of malignancy in the right breast. Multiple indeterminate T2/STIR hyperintense liver lesions. While these most likely represent benign cysts or hemangiomas, they are incompletely characterized on the current exam. Further evaluation via dedicated abdominal CT or MRI is recommended. Previous therapy: 1) Neoadjuvant TCHP. 2) Adjuvant radiation 03/03/21 - 04/06/21. 3) Trastuzumab alone. Completed 2021. CT chest 11/04 revealed stable 3 mm nodule right lung. MRI Breasts 11/12/2020: Left Breast - Category 6 - Known cancer. No residual enhancing tissue at the site of known cancer and resolution of lymphadenopathy, representing marked response to chemotherapy. Normal right breast MRI. Underwent bilateral simple mastectomies with left sentinel lymph node biopsy on 01/03/2021. Pathology: No cancer in 2 sentinel lymph nodes--1 demonstrated features consistent with therapy effect.. Right mastectomy specimen demonstrated features consistent with therapy effect. Negative for malignancy. Left mastectomy specimen revealed previous core biopsy site and features consistent with therapy effect. Negative for residual invasive ductal carcinoma. No new concerns today. Appetite:Good. Wt. down 8# since last visit. Energy level:I have energy but I can't do anything with my knee. Denies fevers or recent illness. Resp:denies cough or sob Cardiac:denies chest pain/palpitations GI:denies abd pain, n/v, moving bowels regularly :denies dysuria/hematuria Extrem:R knee pain-followed by [facility]-had MRI-participating in PT Endo:+hot flashes They still come and go. Once in awhile. they do not wake pt. at night Neuro:neuropathy to feet resolved Skin:denies rashes/lesions Heme:denies bleeding The ROS is otherwise negative. Past medical history, appointments, medications, allergies reviewed. No changes. EXAM: BP 172/75 Pulse 69 Temp 36.9 C (98.4 F) Wt 63.5 kg (139 lb 15.9 oz) SpO2 95% BMI 25.20 kg/m APPEARANCE Well appearing, alert, in no acute distress, well-hydrated, well nourished. HEART RRR with normal S1 and S2, no murmurs LUNG clear to auscultation BREAST FEMALE b/l mastectomy scars, no nodules/skin changes LYMPH NODES No cervical lymphadenopathy, No supraclavicular lymphadenopathy, and No axillary lymphadenopathy. ABDOMEN bowel sounds normoactive soft, non-tender EXTREMITIES No edema NEURO Awake, alert and oriented x 3, using wheeled walker and No involuntary motions. SKIN Skin color, texture, turgor normal, no suspicious rashes or lesions ASSESSMENT/PLAN: 1. Encounter for follow-up surveillance of breast cancer - ICD9: V67.9, V10.3, ICD10: Z08, Z85.[address] Gutierrez's previous note 06/10/21: Assessment: -In summary the patient is an otherwise healthy 70-year-old female who had a screening detected ER/MT negative, 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 breast cancer. 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 -Mammography suggested pleomorphic calcifications over a 9 cm segment in the breast. Subsequent breast MRI identified a 4.5 x 9.2 x 6.5 cm segmental area in the left breast lower outer aspect middle depth. The area was inclusive of the biopsy site at 3:00, 5 cm from the nipple. There was involvement of the nipple and abnormal enhancement of thickened edematous skin in the left breast. Multiple oval masses were appreciated in the left axilla consistent with metastases. No internal mammary adenopathy. -CTs, bone scan and MRI did not suggest metastatic disease but there was a small 3 mm lung nodule that was stable on CT chest performed post domonique-adjuvant chemotherapy. -Pathologic CR. -Again reviewed plan to continue treatment with Herceptin every 3 weeks for up to a year from when she started. -ER/MT negative, so no indication for AI therapy. -Still has moderate anemia. Plan: -Continue Herceptin every 3 weeks. -Last dose of Herceptin scheduled for 05/03. -Following that she will have repeat lab work including iron studies and B12 as well as reticulocyte count and echocardiogram followed by survivorship care plan. - No concerning findings on exam. - Completed herceptin 2021. - Continue follow up with PCP for routine care. - Follow up with [facility] re:R knee pain. - Follow up in 6 months. - Pt. aware to call office with any questions/concerns. The patient indicates understanding of these issues and agrees with the plan. All documentation from previous visit of 04/25/24-Dr. Gutierrez/myself was copied and pasted, documentation has been reviewed and edited as necessary for today's visit. Irais Peñaloza APRN.ISAÍAS documented in this encounter [facility] 09-19-2024 Telephone encounter Note Called patient verified name and States she ran out of her pain meds Asking for a refill on her oxycodone Feels pain mainly in her butt I feel like I need a few extra for the weekend Pain generally around 5-6/10 sore hard to get comfortable I informed her that this is a typical pain that patient generally feel after this type of procedure and will improve over time Using tylenol and motrin which helps slightly Is passing gas and having BM Denies bleeding or discharge Surgery 09/12/2024 Procedure(s): Sacrospinous ligament suspension of the vaginal vault/extraperitoneal colpopexy, Anterior colporrhaphy, Posterior colporrhaphy, Perineorrhaphy, and Cystoscopy Prefers pharmacy below [facility] [address] [place] [address] [phone] [facility] [phone] 1812 Nneka Arguelles RN [facility] 09-19-2024 Miscellaneous Notes Called patient verified name and States she ran out of her pain meds Asking for a refill on her oxycodone Feels pain mainly in her butt I feel like I need a few extra for the weekend Pain generally around 5-6/10 sore hard to get comfortable I informed her that this is a typical pain that patient generally feel after this type of procedure and will improve over time Using tylenol and motrin which helps slightly Is passing gas and having BM Denies bleeding or discharge Surgery 09/12/2024 Procedure(s): Sacrospinous ligament suspension of the vaginal vault/extraperitoneal colpopexy, Anterior colporrhaphy, Posterior colporrhaphy, Perineorrhaphy, and Cystoscopy Prefers pharmacy below [facility] [address] [place] [address] [phone] [facility] [phone] 1812 Nneka Arguelles RN Pt called requesting a refill. I let her know we were waiting on approval from Dr. Linton but she wanted something now. Please advise. documented in this encounter [facility] 09-19-2024 Telephone encounter Note Pt called requesting a refill. I let her know we were waiting on approval from Dr. Linton but she wanted something now. Please advise. [facility] 09-12-2024 Note HNO ID: [id number] Author: ?, ?, ? Service: Pharmacy Author Type: ? Type: Plan of Care Filed: 09/16/2024 15:14 Note Text: PHARMACY BEDSIDE DELIVERY SERVICE Patient Name: Inés Lieberman The marked outpatient medications were Filled at: [facility] and delivered to the patient's bedside to pharm p/u Medication List START taking these medications acetaminophen 500 mg tablet Commonly known as: TYLENOL EXTRA STRENGTH Take 2 tablets by mouth every 6 hours as needed for pain for up to 7 days. X docusate sodium 100 mg capsule Commonly known as: COLACE Take 1 capsule by mouth two times a day. X ibuprofen 600 mg tablet Commonly known as: MOTRIN Take 1 tablet by mouth every 6 hours as needed for pain for up to 7 days. X polyethylene glycol 3350 17 gram/dose powder Commonly known as: MIRALAX Take 17 g by mouth once daily. Dissolve dose in 4 - 8 ounces of liquid and take as directed. X CONTINUE taking these medications hydrOXYzine HCl 10 mg tablet Commonly known as: ATARAX lisinopril 10 mg tablet Commonly known as: ZESTRIL multivitamin tablet VITAMIN D3 ORAL You might also be taking other medications not listed above. If you have questions about any of your other medications, talk to the person who prescribed them or your Primary Care Provider. ASK your doctor about these medications oxyCODONE IR 5 mg immediate release tablet Commonly known as: ROXICODONE Take 1 tablet by mouth every 6 hours as needed for pain for up to 3 days. Ask about: Should I take this medication? X Betty Lyon PAGER: [phone] September 16, 2024 3:14 PM [facility] 09-12-2024 Note HNO ID: [id number] Author: ES AGUILA APRN.CRYSTAL Service: ? 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 Staffing Performed by: WINDER HAND Indications and Patient Condition Indications for airway management: anesthesia Preoxygenated: yes anesthesia circuit Patient position: sniffing Method: asleep Cricoid Pressure: No Manual In-Line Stabilization: No Difficult Mask: No Final Airway Details Final airway type: endotracheal airway Final Endotracheal Airway: ETT Cuffed: yes Devices used: Marquez Endotracheal tube insertion site: oral Blade size: #3 ETT size (mm): 7.0 Measured from: lips Measurement (cm): 22 Placement verified by: capnometry Number of attempts at approach: 1 Ventilation between attempts: none Failed airway: no Unrecognized esophageal intubation: no Airway not difficult SIGNATURE: Es Aguila APRN.WINDER HAND PATIENT NAME: Inés Lieberman DATE: September 12, 2024 TIME: 8:07 AM CSN: [id number] [facility] 08-29-2024 Telephone encounter Note Patient called in again in regard to her upcoming surgery [facility] 08-29-2024 Miscellaneous Notes Patient called in again in regard to her upcoming surgery Patient called stating she had her pre anesthesia appt on 08/25 and they mentioned that there is no confirmation for her surgery on 09/12 at [facility]. She was told to reach out to the office. documented in this encounter [facility] 08-27-2024 Telephone encounter Note Patient called stating she had her pre anesthesia appt on 08/25 and they mentioned that there is no confirmation for her surgery on 09/12 at [facility]. She was told to reach out to the office. [facility] 08-25-2024 Instructions Bartolome Lopez APRN.PRODUCTION ILLUSTRATOR - 08/25/2024 8:29 AM EDT Images from the original note were not included. [facility] PATIENT PREOPERATIVE INSTRUCTIONS Elizabeth Linton MD has scheduled you for your procedure at this surgery center: [facility]: [phone] -- [address] [facility] [address]. Please read below carefully for your personalized instructions. Dietary Restrictions: - No solid food after midnight. - You may have 12 ounces of clear liquids (water, clear juices such as apple juice or gatorade, carbonated beverages, clear tea, black coffee, jello) until 2 hours before scheduled arrival at facility. Medications: Unless instructed differently below, stay on all of your medications until your surgery. If you start any new medications after today's visit, please contact your surgeon. Pre-Surgery Med Instructions Medication Instructions hydrOXYzine HCl (ATARAX) 10 mg tablet Continue as needed lisinopril (ZESTRIL, PRINIVIL) 10 mg tablet If you normally take this medication in the morning, take the morning of surgery. multivitamin tablet Hold 7 days before surgery. Last dose 09/04/2024. cholecalciferol, vitamin D3, (VITAMIN D3 ORAL) Hold 7 days before surgery. Last dose 09/04/2024. If you start any new medications after today's visit, please contact the surgeon's office. If you are currently using a oihj-egw-czcy injectable or oral medication for diabetes or weight loss such as Dulaglutide (Trulicity), Exenatide (Byetta, Bydureon), Liraglutide (Victoza, Saxenda), Semaglutide (Ozempic, Wegovy, Rybelsus), or Tirzepatide (Mounjaro), the medicine should be stopped at least 7 days before surgery. These medicines can cause food to remain in your stomach for a very long time and increase the risks from surgery and anesthesia. Not stopping the medication for a long enough time may result in your surgery being rescheduled. Blood Thinning Medications: - Stop NSAIDS (Ibuprofen, Advil, Aleve, Motrin, Celebrex, Mobic, etc.) 7 days before surgery, as directed by your surgeon. - Stop Aspirin 7 days before surgery, as directed by your surgeon. - Stop ALL herbal and dietary supplements 7 days before surgery. - You may take Tylenol (Acetaminophen) or any of your pain medications that do not contain aspirin or NSAIDS as needed. Important Reminders: - Candy, mints, and tobacco products are NOT permitted the morning of surgery. - Hearing aids, dentures and glasses may be worn the morning of surgery. - NO jewelry, body piercings, makeup, hairpins or contacts are to be worn the day of surgery. If you develop symptoms such as a fever, cold, or flu, or have other changes to your health within TWO DAYS of scheduled surgery or the morning of surgery, please contact the surgery center above. Personal Belongings: -Please have photo ID and insurance cards. -If you do not have a copy of advance directives on file with us, please bring a copy with you on the day of surgery. - Leave ALL valuables and money at home or with family members. - Please bring high-quality footwear, such as sneakers, to the hospital for ambulating post-surgery. For Outpatient Procedures: - YOU MUST HAVE A RESPONSIBLE SPIRAL MACHINE OPERATOR TAKE YOU HOME. A SAUSAGE MAKER OR MANAGING MEMBER CANNOT BE MADE A RESPONSIBLE SPIRAL MACHINE OPERATOR. - We recommend that a responsible person stays with you overnight to take care of you. - You cannot stay in a hotel alone after outpatient surgery. You will not be permitted to have your surgery, if you do not have someone to take care of you. Arrival Time for Surgery: - The Surgery Center or hospital where you are having surgery will call the afternoon before surgery (or Sunday for Sunday surgery) with a scheduled arrival time. - If you have not heard by 4 pm, please contact the surgery center above. Please be aware that emergency situations arise, which may delay or change your surgical time. If this happens, we will notify you as soon as possible and regret any inconvenience. If you already have an Advance Directive, please fax a copy to [phone] or email to for it to be added to your chart. If you do not have an Advance Directive, you can find the appropriate form and more information at [email or web address]. We recommend that you complete the Advance Directive form found on the website and bring it with you the day of your surgery. It can be witnessed and scanned into your chart that day. Bartolome Lopez APRN.PRODUCTION ILLUSTRATOR documented in this encounter [facility] 08-25-2024 History and physical note Images from the original note were not included. [facility] HISTORY AND PHYSICAL EXAMINATION SERVICE DATE: 08/25/2024 SERVICE TIME: 9:00 AM PRIMARY CARE PHYSICIAN: Odilon Serrano DO Assessment Patient has the following medical conditions which may affect meredith-operative course: History of breast cancer Assessment: hx left breast CA, s/p bilateral mastectomy, chemo and XRT HTN (hypertension) Assessment: controlled on rx Last 14 BP Last 14 Encounter BP Readings: Date: BP: 08/25/2024 140/68 08/21/2024 196/82[patient notes being anxious about testing. denies cardiac symptoms[ 07/28/2024 185/64 04/25/2024 190/76 10/26/2023 163/76 10/25/2022 170/78 04/26/2022 169/92 01/25/2022 145/71 10/26/2021 143/72 08/17/2021 176/66[Re check[ 07/27/2021 131/75 07/04/2021 140/70 06/13/2021 144/60 06/10/2021 120/57 Anxiety Assessment: rx as needed VHD (valvular heart disease) Assessment: +murmur, 2021 echo EF 65%, trace MVR, trace-1+ TVR, trace PVR ANESTHESIA FINDINGS: Intubation History: No history of difficult intubation Significant Anesthesia Considerations: potential postop nausea/vomiting Airway History: No history of difficult airway Perez Activity Status Index: METS: Climb a flight of stairs or walk up a hill (5.50 METs) DASI Score: 5.5 Patient denies any chest pain or undue shortness of breath with the above physical activity. Clinical Frailty Scale: 3. Well, with treated comorbid disease STOP-Bang Score: Denies snoring loudly Denies feeling tired, fatigued, or sleepy during the daytime Has not been observed to stop breathing or choking/gasping during sleep Denies having high blood pressure BMI less than or equal to 35 kg/m^2 Patient 50 years old or younger Does not have a large neck Non-male patient STOP-Bang Score: 0 [id number] Score: Age: >=75 Sex: female CHF history: No Hypertension history: Yes Stroke/TIA/thromboembolism history: No Vascular disease history: No Diabetes history: No [id number] Score: 4 ARISCAT Score: Age: 51-80 Preoperative SpO2: >=96% Respiratory infection in the last month: No Preoperative anemia: No Surgical incision: peripheral Duration of surgery: >3 hrs Emergency procedure: No ARISCAT Score: 26 I - PHYSICAL EVALUATION AIRWAY Patient intubated: No. Tracheostomy tube not present Mallampati: II. TM distance: >3 FB. Neck ROM: full ROM without neurological symptoms. Mouth opening: adequate. Short neck: no. Thick neck: no Kerr present: no Lip Bite Test: I Microretrognathia/Micronagthia/Rec essed Chin: No DENTAL Dental findings: teeth intact. II - ANESTHESIA PLAN Anesthetic Plan: other Beta Thelma Monitoring Plan Post Procedure Analgesic Plan Prepared for Surgery: optimally prepared for surgery. CONSULTS: Patient does not require consults for optimization at this time Planned Anesthetic: other anesthesia choice The Following Tests/Procedures Have Been Initiated: No orders of the defined types were placed in this encounter. REASON FOR VISIT: Inés Lieberman is a 74 year old female who is scheduled for Procedure(s) with comments: COLPOPEXY VAGINAL EXTRA-PERITONEAL (N/A) - 300MIN PER ANGEL ANTERIOR COLPORRHAPHY REPAIR CYSTOCELE W/REPAIR URETHROCELE INCLUDING CYSTOURETHROSCOPY WHEN PERFORMED (N/A) POSTERIOR COLPORRHAPHY W/ REPAIR RECTOCELE AND PERINEORRHAPHY (N/A) CYSTOSCOPY (N/A) SUSPENSION BLADDER SLING TAPE TRANSVAGINAL (N/A) at the request of Dr. Elizabeth Linton for consultation. My final recommendation will be communicated back to the requesting physician by way of shared medical record or letter. Subjective The patient has the following: COVID-19 Immunization Status Current Care Gaps Covid-19 Vaccine ( season) Overdue since 01/20/2024 04/19/2021 Imm Admin: COVID-19 original vaccine, full dose, monovalent (MODERNA) 10/02/2020 Imm Admin: COVID-19 original vaccine, age 12+ yr, monovalent ([employer] - PURPLE TOP) 09/11/2020 Imm Admin: COVID-19 original vaccine, age 12+ yr, monovalent ([employer] - PURPLE [facility]) Only the first 3 history entries have been loaded, but more history exists. CHIEF COMPLAINT: Pre-op exam HPI: Inés Lieberman is a 74 year old seen for PAC due to scheduled above surgery because of vaginal prolapse. 07/28/2024, Dr. Elizabeth Linton HISTORY OF PRESENT ILLNESS: Patient is a poor historian. S/P prolapse repair at [facility], unknown year. Has had hysterectomy, open. Has midline vertical incision. Doesn't remember why she had hysterectomy. Feels recurrent bulge. Interested in surgical repair, does not want a pessary. SHALINI- leakage with cough, laugh, sneeze UUI- mostly at night, urinary frequency and urgency. Voiding every hour, has been going on for some months. Voiding 2 times a night, leakage 3 times weekly at night Urgency Hesitancy Patient can feel her prolapse and is experiencing urgency. When she does feel like she has to go she has pressure, but does not void. Has worse urgency at night and UUI, nocturnal enuresis (drops on pads). +SHALINI with sneeze. Occasional has a hard time stooling and has to bear down at times. Of note, hx of breast cancer in 2020 s/p mastectomy and chemo. She stopped herceptin in 2021. No longer on any medications. 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 Last Mammogram: Her last mammogram was 2020. She has a previous history of an abnormal mammogram with breast cancer diagnosed in 2020 LMP: No LMP recorded. Patient has had a hysterectomy.; Menopause Yes: Menstrual history: Menarche: 10; Deliveries: History of third or fourth degree laceration: No Weight of largest baby: 8 lb 14oz Sexual function Sexually active: Yes, painful at time. REVIEW OF SYSTEMS: General: No weight loss, malaise or fevers. Neurological: No history of TIA's, stroke, PAINT PREPARER tumor, impaired sensorium, hemiplegia, paraplegia or quadraplegia. No neurological symptoms or problems. Respiratory: No history of current cough or dyspnea, or pneumonia in the past 6 weeks. No history of respiratory/pulmonary symptoms or problems. Cardiovascular: Positive for: hypertension and murmur/valvular heart disease Negative for: abdominal aortic aneurysm, AICD/PPM, angina, anticoagulation therapy, arrhythmia, atrial fibrillation, CAD, chest pain, CHF, congenital heart defect, DVT/PE, hyperlipidemia, recent OR, PTCA, PVD, open heart surgery and valve surgery. GI: No history of GI symptoms or problems. No history of esophageal varices, recent ascites, or ETOH greater than 2 drinks per day. : No history of dysuria, frequency or incontinence, stones or chronic kidney disease. No difficulty urinating, nocturia > 1 time per night or hematuria. 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 Negative for: vaginal bleeding and vaginal discharge. Endocrine: No history of diabetes. Has not taken steroids within the past 30 days. No history of endocrinological symptoms or problems. Hematology: No history of bleeding or clotting disorder. Patient is not taking anti-coagulation or platelet medications. No history of hematological symptoms or problems. Oncology: +breast cancer h/o bilateral mastectomy, followed by chemo and XRT Psych: Positive for: anxiety (rx as needed). Negative for: depression and Marijuana Use. Musculoskeletal: Positive for: joint pain (right knee). Skin: Negative for lesions, rash and itching. Implanted Devices: No implanted devices. PAST MEDICAL HISTORY Diagnosis Date H/O bilateral mastectomy No reconstruction was done HTN (hypertension) Malignant neoplasm of left breast in female, estrogen receptor 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) PONV (postoperative nausea and vomiting) PAST SURGICAL HISTORY Procedure Laterality Date BREAST BIOPSY HX Left 06/09/2020 Invasive Ductal Carcinoma EXCISION AXILLARY LYMPH NODE Left 01/03/2021 2 nodes removed; #1 Features consistent with therapy effect. Negative for malignancy, #2 negative HYSTERECTOMY HX IMAGING GUIDED BIOPSY INGUINAL/AXILLARY LYMPH NODE Left 06/09/2020 metastic invasive ductal carcinoma MASTECTOMY, SIMPLE, COMPLETE Bilateral 01/03/2021 Left: IDC Right: negative FAMILY HISTORY Problem Relation Age of Onset No Known Problems Mother No Known Problems Father Social History Tobacco Use Smoking status: Never Smokeless tobacco: Never Vaping Use Vaping status: Never Used Substance Use Topics Alcohol use: Never Drug use: Never Prior to Admission medications as of 08/25/24 0855 Medication Sig Last Dose Taking hydrOXYzine HCl (ATARAX) 10 mg tablet Take 10 mg by mouth as needed. Yes lisinopril (ZESTRIL, PRINIVIL) 10 mg tablet Take 10 mg by mouth once daily. Yes multivitamin tablet Take 1 tablet by mouth twice daily. Yes cholecalciferol, vitamin D3, (VITAMIN D3 ORAL) Take 1 tablet by mouth once daily. Yes No medication comments found. ALLERGIES No Known Allergies Objective PHYSICAL EXAM: General: alert and oriented (x3) and healthy appearance. Pertinent negatives noted - not distressed. Skin: normal color, no rash or lesions. HEENT: EOM intact and pupils equal round. Pertinent negatives noted - no carotid bruit. Cardiovascular: regular rate and rhythm, normal S1 and S2, no rub, murmurs, or gallop. Respiratory: normal breath sounds, no wheezes or crackles. No chest wall deformity or tenderness. Abdomen: soft. Pertinent negatives noted - not tender. Extremities: no deformity, no edema or tenderness, no joint swelling or clubbing. Neurological: normal cognition and motor skills. Gait normal. No weakness or sensory deficit. PAIN ASSESSMENT: VITALS: BP 140/68 Pulse 71 Temp (Src) 97 (Temporal) Resp 14 Ht 5' 2.5 (1.59m) Wt 142 lb (64.4kg) SpO2 98% BMI 25.54 kg/(m^2). Diagnostic tests reviewed for today's visit: Lab Value Units Date High Low HB 11.6 g/dL 08/01/2024 15.5 11.5 HCT 35.3 % 08/01/2024 46.0 36.0 WBC 5.65 k/uL 08/01/2024 11.00 3.70 PLT 230 k/uL 08/01/2024 400 150 NA 141 mmol/L 08/01/2024 144 136 K 4.2 mmol/L 08/01/2024 5.1 3.7 GLUC 138 mg/dL 08/01/2024 99 74 BUN 17 mg/dL 08/01/2024 21 7 CREAT 0.94 mg/dL 08/01/2024 0.96 0.58 PTSEC No results within date range. INR No results within date range. APTT No results within date range. ALT No results within date range. AST No results within date range. TBILI No results within date range. TSH No results within date range. Lab Value Units Date High Low HCGQT No results within date range. UHCG No results within date range. HCG, BODY* No results within date range. Lab Value Units Date High Low ABORHD No results within date range. ABSCREEN No results within date range. Hemoglobin A1C (%) Date Value 08/01/2024 5.8 No results found for this or any previous visit (from the past 8760 hours). No results found for this or any previous visit (from the past 48656 hours). Instructions Given to Patient: Instructions located in the after visit summary. Patient given verbal and written preop instructions and voices comprehension and compliance. SIGNATURE: Bartolome Lopez APRN.CNP PATIENT NAME: Inés Lieberman DATE: August 25, 2024 TIME: 8:25 AM PAGER/CONTACT #: [facility] 08-25-2024 History and physical note Images from the original note were not included. [facility]est[facility] HISTORY AND PHYSICAL EXAMINATION SERVICE DATE: 08/25/2024 SERVICE TIME: 9:00 AM PRIMARY CARE PHYSICIAN: Odilon Serrano DO Assessment Patient has the following medical conditions which may affect meredith-operative course: History of breast cancer Assessment: hx left breast CA, s/p bilateral mastectomy, chemo and XRT HTN (hypertension) Assessment: controlled on rx Last 14 BP Last 14 Encounter BP Readings: Date: BP: 08/25/2024 140/68 08/21/2024 196/82[patient notes being anxious about testing. denies cardiac symptoms[ 07/28/2024 185/64 04/25/2024 190/76 10/26/2023 163/76 10/25/2022 170/78 04/26/2022 169/92 01/25/2022 145/71 10/26/2021 143/72 08/17/2021 176/66[Re check[ 07/27/2021 131/75 07/04/2021 140/70 06/13/2021 144/60 06/10/2021 120/57 Anxiety Assessment: rx as needed VHD (valvular heart disease) Assessment: +murmur, 2021 echo EF 65%, trace MVR, trace-1+ TVR, trace PVR ANESTHESIA FINDINGS: Intubation History: No history of difficult intubation Significant Anesthesia Considerations: potential postop nausea/vomiting Airway History: No history of difficult airway Perez Activity Status Index: METS: Climb a flight of stairs or walk up a hill (5.50 METs) DASI Score: 5.5 Patient denies any chest pain or undue shortness of breath with the above physical activity. Clinical Frailty Scale: 3. Well, with treated comorbid disease STOP-Bang Score: Denies snoring loudly Denies feeling tired, fatigued, or sleepy during the daytime Has not been observed to stop breathing or choking/gasping during sleep Denies having high blood pressure BMI less than or equal to 35 kg/m^2 Patient 50 years old or younger Does not have a large neck Non-male patient STOP-Bang Score: 0 [id number] Score: Age: >=75 Sex: female CHF history: No Hypertension history: Yes Stroke/TIA/thromboembolism history: No Vascular disease history: No Diabetes history: No [id number] Score: 4 ARISCAT Score: Age: 51-80 Preoperative SpO2: >=96% Respiratory infection in the last month: No Preoperative anemia: No Surgical incision: peripheral Duration of surgery: >3 hrs Emergency procedure: No ARISCAT Score: 26 I - PHYSICAL EVALUATION AIRWAY Patient intubated: No. Tracheostomy tube not present Mallampati: II. TM distance: >3 FB. Neck ROM: full ROM without neurological symptoms. Mouth opening: adequate. Short neck: no. Thick neck: no Kerr present: no Lip Bite Test: I Microretrognathia/Micronagthia/Rec essed Chin: No DENTAL Dental findings: teeth intact. II - ANESTHESIA PLAN Anesthetic Plan: other Beta Thelma Monitoring Plan Post Procedure Analgesic Plan Prepared for Surgery: optimally prepared for surgery. CONSULTS: Patient does not require consults for optimization at this time Planned Anesthetic: other anesthesia choice The Following Tests/Procedures Have Been Initiated: No orders of the defined types were placed in this encounter. REASON FOR VISIT: Inés Lieberman is a 74 year old female who is scheduled for Procedure(s) with comments: COLPOPEXY VAGINAL EXTRA-PERITONEAL (N/A) - 300MIN PER ANGEL ANTERIOR COLPORRHAPHY REPAIR CYSTOCELE W/REPAIR URETHROCELE INCLUDING CYSTOURETHROSCOPY WHEN PERFORMED (N/A) POSTERIOR COLPORRHAPHY W/ REPAIR RECTOCELE AND PERINEORRHAPHY (N/A) CYSTOSCOPY (N/A) SUSPENSION BLADDER SLING TAPE TRANSVAGINAL (N/A) at the request of Dr. Elizabeth Linton for consultation. My final recommendation will be communicated back to the requesting physician by way of shared medical record or letter. Subjective The patient has the following: COVID-19 Immunization Status Current Care Gaps Covid-19 Vaccine () Overdue since 01/20/2024 04/19/2021 Imm Admin: COVID-19 original vaccine, full dose, monovalent (MODERNA) 10/02/2020 Imm Admin: COVID-19 original vaccine, age 12+ yr, monovalent (PFIZER-BIONTECH - PURPLE TOP) 09/11/2020 Imm Admin: COVID-19 original vaccine, age 12+ yr, monovalent (PFIZER-BIONTECH - PURPLE TOP) Only the first 3 history entries have been loaded, but more history exists. CHIEF COMPLAINT: Pre-op exam HPI: Inés Lieberman is a 74 year old seen for PAC due to scheduled above surgery because of vaginal prolapse. 07/28/2024, Dr. Elizabeth Linton HISTORY OF PRESENT ILLNESS: Patient is a poor historian. S/P prolapse repair at [facility], unknown year. Has had hysterectomy, open. Has midline vertical incision. Doesn't remember why she had hysterectomy. Feels recurrent bulge. Interested in surgical repair, does not want a pessary. SHALINI- leakage with cough, laugh, sneeze UUI- mostly at night, urinary frequency and urgency. Voiding every hour, has been going on for some months. Voiding 2 times a night, leakage 3 times weekly at night Urgency Hesitancy Patient can feel her prolapse and is experiencing urgency. When she does feel like she has to go she has pressure, but does not void. Has worse urgency at night and UUI, nocturnal enuresis (drops on pads). +SHALINI with sneeze. Occasional has a hard time stooling and has to bear down at times. Of note, hx of breast cancer in 2020 s/p mastectomy and chemo. She stopped herceptin in 2021. No longer on any medications. 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 Last Mammogram: Her last mammogram was 2020. She has a previous history of an abnormal mammogram with breast cancer diagnosed in 2020 LMP: No LMP recorded. Patient has had a hysterectomy.; Menopause Yes: Menstrual history: Menarche: 10; Deliveries: History of third or fourth degree laceration: No Weight of largest baby: 8 lb 14oz Sexual function Sexually active: Yes, painful at time. REVIEW OF SYSTEMS: General: No weight loss, malaise or fevers. Neurological: No history of TIA's, stroke, PAINT PREPARER tumor, impaired sensorium, hemiplegia, paraplegia or quadraplegia. No neurological symptoms or problems. Respiratory: No history of current cough or dyspnea, or pneumonia in the past 6 weeks. No history of respiratory/pulmonary symptoms or problems. Cardiovascular: Positive for: hypertension and murmur/valvular heart disease Negative for: abdominal aortic aneurysm, AICD/PPM, angina, anticoagulation therapy, arrhythmia, atrial fibrillation, CAD, chest pain, CHF, congenital heart defect, DVT/PE, hyperlipidemia, recent OR, PTCA, PVD, open heart surgery and valve surgery. GI: No history of GI symptoms or problems. No history of esophageal varices, recent ascites, or ETOH greater than 2 drinks per day. : No history of dysuria, frequency or incontinence, stones or chronic kidney disease. No difficulty urinating, nocturia > 1 time per night or hematuria. 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 Negative for: vaginal bleeding and vaginal discharge. Endocrine: No history of diabetes. Has not taken steroids within the past 30 days. No history of endocrinological symptoms or problems. Hematology: No history of bleeding or clotting disorder. Patient is not taking anti-coagulation or platelet medications. No history of hematological symptoms or problems. Oncology: +breast cancer h/o bilateral mastectomy, followed by chemo and XRT Psych: Positive for: anxiety (rx as needed). Negative for: depression and Marijuana Use. Musculoskeletal: Positive for: joint pain (right knee). Skin: Negative for lesions, rash and itching. Implanted Devices: No implanted devices. PAST MEDICAL HISTORY Diagnosis Date H/O bilateral mastectomy No reconstruction was done HTN (hypertension) Malignant neoplasm of left breast in female, estrogen receptor 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) PONV (postoperative nausea and vomiting) PAST SURGICAL HISTORY Procedure Laterality Date BREAST BIOPSY HX Left 06/09/2020 Invasive Ductal Carcinoma EXCISION AXILLARY LYMPH NODE Left 01/03/2021 2 nodes removed; #1 Features consistent with therapy effect. Negative for malignancy, #2 negative HYSTERECTOMY HX IMAGING GUIDED BIOPSY INGUINAL/AXILLARY LYMPH NODE Left 06/09/2020 metastic invasive ductal carcinoma MASTECTOMY, SIMPLE, COMPLETE Bilateral 01/03/2021 Left: IDC Right: negative FAMILY HISTORY Problem Relation Age of Onset No Known Problems Mother No Known Problems Father Social History Tobacco Use Smoking status: Never Smokeless tobacco: Never Vaping Use Vaping status: Never Used Substance Use Topics Alcohol use: Never Drug use: Never Prior to Admission medications as of 08/25/24 0855 Medication Sig Last Dose Taking hydrOXYzine HCl (ATARAX) 10 mg tablet Take 10 mg by mouth as needed. Yes lisinopril (ZESTRIL, PRINIVIL) 10 mg tablet Take 10 mg by mouth once daily. Yes multivitamin tablet Take 1 tablet by mouth twice daily. Yes cholecalciferol, vitamin D3, (VITAMIN D3 ORAL) Take 1 tablet by mouth once daily. Yes No medication comments found. ALLERGIES No Known Allergies Objective PHYSICAL EXAM: General: alert and oriented (x3) and healthy appearance. Pertinent negatives noted - not distressed. Skin: normal color, no rash or lesions. HEENT: EOM intact and pupils equal round. Pertinent negatives noted - no carotid bruit. Cardiovascular: regular rate and rhythm, normal S1 and S2, no rub, murmurs, or gallop. Respiratory: normal breath sounds, no wheezes or crackles. No chest wall deformity or tenderness. Abdomen: soft. Pertinent negatives noted - not tender. Extremities: no deformity, no edema or tenderness, no joint swelling or clubbing. Neurological: normal cognition and motor skills. Gait normal. No weakness or sensory deficit. PAIN ASSESSMENT: VITALS: BP 140/68 Pulse 71 Temp (Src) 97 (Temporal) Resp 14 Ht 5' 2.5 (1.59m) Wt 142 lb (64.4kg) SpO2 98% BMI 25.54 kg/(m^2). Diagnostic tests reviewed for today's visit: Lab Value Units Date High Low HB 11.6 g/dL 08/01/2024 15.5 11.5 HCT 35.3 % 08/01/2024 46.0 36.0 WBC 5.65 k/uL 08/01/2024 11.00 3.70 PLT 230 k/uL 08/01/2024 400 150 NA 141 mmol/L 08/01/2024 144 136 K 4.2 mmol/L 08/01/2024 5.1 3.7 GLUC 138 mg/dL 08/01/2024 99 74 BUN 17 mg/dL 08/01/2024 21 7 CREAT 0.94 mg/dL 08/01/2024 0.96 0.58 PTSEC No results within date range. INR No results within date range. APTT No results within date range. ALT No results within date range. AST No results within date range. TBILI No results within date range. TSH No results within date range. Lab Value Units Date High Low HCGQT No results within date range. UHCG No results within date range. HCG, BODY* No results within date range. Lab Value Units Date High Low ABORHD No results within date range. ABSCREEN No results within date range. Hemoglobin A1C (%) Date Value 08/01/2024 5.8 No results found for this or any previous visit (from the past 8760 hours). No results found for this or any previous visit (from the past 72280 hours). Instructions Given to Patient: Instructions located in the after visit summary. Patient given verbal and written preop instructions and voices comprehension and compliance. SIGNATURE: Bartolome Lopez APRN.CNP PATIENT NAME: Inés Lieberman DATE: August 25, 2024 TIME: 8:25 AM PAGER/CONTACT #: documented in this encounter [facility] 08-21-2024 History of Present illness Narrative URODYNAMICS ID Verified by: Did you watch the urodynamics video and or read the handout sent to you via [employer]? Yes, both video and PDF If you did not watch the video or read the PDF, what are your reasons? NA URODYNAMIC PROCEDURE NOTE Cough Stress Test: Positive B/O UA: WNL UROFLOWMETRY Voided vol: 323 mL Flow time: 129 sec Q max: 13 mL/sec Q av mL/sec PVR: 420 mL CYSTOMETROGRAM Subtracted:Yes Video: No EMG: Yes First desire: 522 mL Strong desire: 549 mL Max. capacity: 569 mL Maximum filling detrusor pressure 1 cm of water Instability associated with urge: No Instability associated with leakage: No Leaks urine with valsalva /coughs: Yes Lowest Leak point pressure: 69 cm of water at 569 mL Was patient assessed for VLPP: Yes Was UPP done: No PRESSURE-FLOW VOIDING STUDY Voided: 599 mL Max Voiding Detrusor Pressure (Peak Pressure) 32cm H2O P det Q max (Max Flow) (Pressure at peak): -4 cm H2O Maximum Flow Rate: 30 mL/sec Average Flow Rate: 2 mL/sec Vaginal Packing for prolapse support: 2 swabs placed in the vagina for test and removed at the end of the procedure, Comments: patient tolerated test without issue. Dr Linton updated with results. Patient given post procedure written instructions. Able to teach back. Please use Urodynamic Graph. Dr Linotn was present and immediately available for this procedure. ASSESSMENT: Filling and Storage: Bladder sensation is normal without bladder pain, without urgency and with normal detrusor function. Bladder capacity is normal. There is incompetent urethral closure and evidence of urodynamic stress incontinence. Voiding: Overall voiding function is normal. Urine flow is intermittent with a fluctuating flow curve. Detrusor function during voiding is normal consistent with a normal postvoid residual with prolapse reduction Electromyography: Provocative maneuvers produced appropriate changes in waveforms. The EMG shows increased EMG activity with increased intraabdominal pressure. There was a decrease in the EMG activity during voiding consistent with normal function of the pelvic floor. PLAN: Assessment & Plan Urinary urgency Orders: UA DIP B/O Stress incontinence, female We discussed diagnosis of stress urinary incontinence and treatment options including: expectant management, pelvic floor physical therapy, incontinence pessary or Poise impressa, urethral bulking, or mid-urethral sling. After long discussion, she desires to think about options vs staged procedure. Pre Operative Consent/Discussion Urodynamics reviewed: SHALINI at max capacity Normal PVR with prolapse reduction We reviewed the alternatives to surgery before discussing the risks associated with surgery. We discussed the risks and benefits of each of the surgical procedures in detail. These risks include, but are not limited to, bleeding, transfusion, infection, injury to surrounding organs, development of postoperative stress or urge urinary incontinence, development of postoperative voiding dysfunction with need for prolonged bladder catheterization or self-catheterization, vaginally placed mesh complications, dyspareunia, failure of the prolapse and/or continence surgery over time, and need for additional surgery. We also reviewed her urodynamic testing which showed the presence of stress urinary incontinence. I reviewed the risks and benefits of concurrent sling placement, including complications related to mesh placement as well as postoperative voiding dysfunction and urinary retention. She expressed an understanding of this and is thinking about options. 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 Perioperative considerations: - Will accept blood products - Surgical plan: VVS, APR, cystoscopy. Patient is deciding on anti-incontinence procedure. She leaked with cough at max capacity. Discussed test is not perfect to predict leakage. Consider staged procedure. She is to let me know day of surgery. -We have moved her procedure as she recently had a cortisone injection in knee. Best data available recommends about one month post injection before proceeding with surgery. We have pushed back surgery to one month after last injection. - Patient + sexually active Elizabeth Linton MD documented in this encounter [facility] 08-21-2024 Note HNO ID: [id number] Author: ELIZABETH LINTON MD Service: ? Author Type: Physician Type: Progress Notes Filed: 08/29/2024 13:03 Note Text: URODYNAMICS ID Verified by: Did you watch the urodynamics video and or read the handout sent to you via [employer]? Yes, both video and PDF If you did not watch the video or read the PDF, what are your reasons? NA URODYNAMIC PROCEDURE NOTE Cough Stress Test: Positive B/O UA: WNL UROFLOWMETRY Voided vol: 323 mL Flow time: 129 sec Q max: 13 mL/sec Q av mL/sec PVR: 420 mL CYSTOMETROGRAM Subtracted:Yes Video: No EMG: Yes First desire: 522 mL Strong desire: 549 mL Max. capacity: 569 mL Maximum filling detrusor pressure 1 cm of water Instability associated with urge: No Instability associated with leakage: No Leaks urine with valsalva /coughs: Yes Lowest Leak point pressure: 69 cm of water at 569 mL Was patient assessed for VLPP: Yes Was UPP done: No PRESSURE-FLOW VOIDING STUDY Voided: 599 mL Max Voiding Detrusor Pressure (Peak Pressure) 32cm H2O P det Q max (Max Flow) (Pressure at peak): -4 cm H2O Maximum Flow Rate: 30 mL/sec Average Flow Rate: 2 mL/sec Vaginal Packing for prolapse support: 2 swabs placed in the vagina for test and removed at the end of the procedure, Comments: patient tolerated test without issue. Dr Linton updated with results. Patient given post procedure written instructions. Able to teach back. Please use Urodynamic Graph. Dr Linton was present and immediately available for this procedure. ASSESSMENT: Filling and Storage: Bladder sensation is normal without bladder pain, without urgency and with normal detrusor function. Bladder capacity is normal. There is incompetent urethral closure and evidence of urodynamic stress incontinence. Voiding: Overall voiding function is normal. Urine flow is intermittent with a fluctuating flow curve. Detrusor function during voiding is normal consistent with a normal postvoid residual with prolapse reduction Electromyography: Provocative maneuvers produced appropriate changes in waveforms. The EMG shows increased EMG activity with increased intraabdominal pressure. There was a decrease in the EMG activity during voiding consistent with normal function of the pelvic floor. PLAN: Assessment AND Plan Urinary urgency Orders: UA DIP B/O Stress incontinence, female We discussed diagnosis of stress urinary incontinence and treatment options including: expectant management, pelvic floor physical therapy, incontinence pessary or Poise impressa, urethral bulking, or mid-urethral sling. After long discussion, she desires to think about options vs staged procedure. Pre Operative Consent/Discussion Urodynamics reviewed: SHALINI at max capacity Normal PVR with prolapse reduction We reviewed the alternatives to surgery before discussing the risks associated with surgery. We discussed the risks and benefits of each of the surgical procedures in detail. These risks include, but are not limited to, bleeding, transfusion, infection, injury to surrounding organs, development of postoperative stress or urge urinary incontinence, development of postoperative voiding dysfunction with need for prolonged bladder catheterization or self-catheterization, vaginally placed mesh complications, dyspareunia, failure of the prolapse and/or continence surgery over time, and need for additional surgery. We also reviewed her urodynamic testing which showed the presence of stress urinary incontinence. I reviewed the risks and benefits of concurrent sling placement, including complications related to mesh placement as well as postoperative voiding dysfunction and urinary retention. She expressed an understanding of this and is thinking about options. 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 Perioperative considerations: - Will accept blood products - Surgical plan: VVS, APR, cystoscopy. Patient is deciding on anti-incontinence procedure. She leaked with cough at max capacity. Discussed test is not perfect to predict leakage. Consider staged procedure. She is to let me know day of surgery. -We have moved her procedure as she recently had a cortisone injection in knee. Best data available recommends about one month post injection before proceeding with surgery. We have pushed back surgery to one month after last injection. - Patient + sexually active Elizabeth Linton MD [facility] 08-19-2024 Telephone encounter Note Called and spoke with pt. She is advised to keep scheduled UDS appt for this week. Pt states understanding and denies any further questions or concerns at this time. Vida Merrill RN [facility] 08-19-2024 Miscellaneous Notes Called and spoke with pt. She is advised to keep scheduled UDS appt for this week. Pt states understanding and denies any further questions or concerns at this time. Vida Merrill RN Yes, it's fine to proceed with UDS as scheduled Thanks Liana Araya APRN.ISAÍAS Called Patient. Verified name and . Notified of message below from Liana Araya APRN CNP. Patient verbalized understanding. Patient asking if it was ok to have her UDS completed this week. Notified patient that should be fine to keep that appt but will route to providers to double check. Vin Nath RN August 19, 2024 9:33 AM D/W Dr. Linton. Pt needs to wait at least 1 month after injection to have surgery. Unfortunately - her case will need to be reschedule. Dr. Linton will work on getting the patient rescheduled. Please let her know. Thank you Liana Araya APRN.CNP Called Patient. Verified name and . Pt asking if a cortisone injection into her knee completed on 08-14-24 at [facility] will interfere with her procedure that was originally on 09-04-[address] Linton. Pt informed RN that her surgery was moved to 08-21-24 and her PACC is still trying to be rescheduled to accommodate pt new procedure date. Cindy Mason RN August 18, 2024 4:19 PM Inés Mio called today. Caller's (home) [phone] (cell) Reason for call: Patient had a cortisone shot and was told to check to make sure this does not interfere with any upcoming visits. Please call and advise. Nasra Revaes documented in this encounter [facility] 08-19-2024 Telephone encounter Note Yes, it's fine to proceed with UDS as scheduled Thanks Liana Araya APRN.PRODUCTION ILLUSTRATOR [facility] 08-19-2024 Telephone encounter Note Called Patient. Verified name and . Notified of message below from Liana Araya APRN CNP. Patient verbalized understanding. Patient asking if it was ok to have her UDS completed this week. Notified patient that should be fine to keep that appt but will route to providers to double check. Vin Nath RN August 19, 2024 9:[address] [facility] 08-19-2024 Telephone encounter Note D/W Dr. Linton. Pt needs to wait at least 1 month after injection to have surgery. Unfortunately - her case will need to be reschedule. Dr. Linton will work on getting the patient rescheduled. Please let her know. Thank you Liana Araya APRN.PRODUCTION ILLUSTRATOR [facility] 08-18-2024 Telephone encounter Note Spoke with pt to get PACC appt rescheduled since her uds/consent appt was changed, pt aware of new date, time & location [facility] 08-18-2024 Miscellaneous Notes Spoke with pt to get PACC appt rescheduled since her uds/consent appt was changed, pt aware of new date, time & location documented in this encounter [facility] 08-18-2024 Telephone encounter Note Called Patient. Verified name and . Pt asking if a cortisone injection into her knee completed on 08-14-24 at [facility] will interfere with her procedure that was originally on 09-04-[address] Linton. Pt informed RN that her surgery was moved to 08-21-24 and her PACC is still trying to be rescheduled to accommodate pt new procedure date. Cindy Mason RN August 18, 2024 4:[address] [facility] 08-18-2024 Telephone encounter Note Inés Lieberman called today. Caller's (home) [phone] (cell) Reason for call: Patient had a cortisone shot and was told to check to make sure this does not interfere with any upcoming visits. Please call and advise. Nasra Reaves [facility] 08-14-2024 Instructions Lashell Brooks LPN - 08/14/2024 9:22 AM EDT UROGYNECOLOGY PHYSICIAN CONTACT INFORMATION During business hours, these numbers connect to your doctor s office. During the evening and weekends, these numbers will connect you to the answering service to speak with the doctor home connect lpn. Dr. Elizabeth Linton After hours phone number: or toll free Ask the nuclear control room operator to page the 'field software engineer home connect lpn.' Surgery Scheduling Office: Call the day before surgery after 2pm for your surgery arrival time PRE-OPERATIVE CHECKLIST: PATIENT INSTRUCTIONS PRIOR TO SURGERY Our guidelines have changed, so please read these instructions carefully. Your surgery may be cancelled if you do not follow these instructions. I have been instructed not to have any solid food to eat after midnight prior to my surgery (this includes no gum, mints, smoking). I am allowed to drink small amounts (up to 12 oz) of clear liquids up until 2 hours prior to my arrival time. Clear liquids include water, fruit juices without pulp, carbonated beverages (i.e. vidhi citlali), electrolyte beverages (i.e. Gatorade), clear tea and black coffee, clear broth, popsicles and jello. (No milk). No alcohol the day before or day of surgery. MEDICATION STOPPAGE: Unless my surgeon tells me differently, I will STOP THESE MEDICATIONS 7 DAYS PRIOR TO SURGERY: (Motrin/ibuprofen/Naproxen/Aleve/A dvil), Aspirin, vitamin E, herbal medications, diet pills, and [id number] medications. Tylenol (acetaminophen) is okay. I will not wear jewelry, body piercing(s), makeup, nail jordanian, hairpins, or contacts on the day of surgery. I am to leave valuables and money at home or with family members. If I am prescribed inhalers for breathing, I will use them and bring them to the hospital. Medication(s) to be taken on the morning of surgery with a few sips of water: If I am taking any of the following blood thinning medications - Aspirin, clopidogrel (Plavix), ticagrelor (Brilinta), prasugrel (Efficient), ticlodipine (Ticlid), warfarin (Coumadin), dibigatran (Pradaxa) or rivaroxaban (Xarelto) - I will discuss whether or not I should stop them before surgery with my surgeon. Discuss medication changes with your carton forming machine helper or primary care physician as well. If I stopped taking my blood-thinning medication, I will ask the surgeon when to resume taking it. If I am an outpatient, a responsible person will drive me home and it was suggested that someone stay with me for 24 hours. I understand that a business technology professor or cabdriver is NOT a responsible caregiver. Patients with diabetes, I will not take my morning diabetes medication (pills) on the morning of surgery. If I am on insulin, someone has gone over those instructions with me for the morning of surgery. I understand if my surgery is delayed, I will notify the check in desk that I have diabetes. See the Diabetic Guidelines Before Surgery in the patient education section. If I have Obstructive Sleep Apnea and use a CPAP/BiPAP machine, I will bring my mask, tubing, and machine with me on the day of surgery. PREOP INSTRUCTIONS THE DAY OF SURGERY/CHECK IN Surgery Location Parking Check-in Location [facility] [address]. [place], [place] Parking garage next to hospital or [facility], Surgical Waiting Desk The online version of the surgical guide book can be found at: [email or web address] INFECTION PREVENTION Please notify your doctor if you have any signs of an infection (i.e. fever, severe cough, nasal congestion, pain with urination, abnormal vaginal discharge, diarrhea, etc). Your surgeon will let you know if a bowel prep is needed before your surgery. If so, please see the attached instructions. Shower the night before surgery AND the morning of surgery with Hibiclens (provided by your surgeon). If you are allergic to Hibiclens or unable to obtain the Hibiclens, please wash with antibacterial soap. Wash your body from the neck down, focusing on your abdomen, belly button and external genitalia. Do not forget to scrub any skin folds and creases. No lotions, oils, creams, or powders after your shower. Underarm deodorant is okay. No shaving (abdominal or pubic hair) or douching the day before surgery. You may be asked to apply an antiseptic solution called Chlorhexidine Gluconate (CHG) which will be provided to you on arrival to the preop area. Hand washing is extremely important in preventing infection (for both you as the patient and for the caregivers). HOSPITALIZATION Before you leave the hospital, you typically need to be able to eat/drink, urinate, and have your pain controlled with oral medication. Your surgeon or other members of your surgeon s team will discuss any other specific medical issues related to your discharge with you. Your surgeon may order intermittent compression sleeves. These are massaging leg pumps to help prevent blood clots after surgery. See Your Surgical Guide Book for more information. It is also very important that you walk as soon as possible and as frequently as possible after surgery. This will help decrease your risk of blood clots, exercise your lungs and speed up your recovery after surgery. If you are admitted to the hospital overnight, you will be given an incentive spirometer, which is a breathing machine that will help make sure that you are taking deep breaths and expanding your lungs while in the hospital. See Your Surgical Guide Book for more information. [facility] TEAM At the [facility], we have a multidisciplinary team of caregivers that includes fellows, residents, nurse practitioners, physician assistants, clinical nurse specialists, nurses, medical assistants, patient care nursing assistants, social workers, human services case manager and many others. We all have different roles and responsibilities but we are all here to help. UROGYNECOLOGY POSTOP INSTRUCTIONS ACTIVITY Your surgical recovery will be unique to you and how you heal. In the first few days after surgery, you will probably feel sluggish. As you recover, you will gradually return to normal activities. It is important to push yourself to return to normal activities as you feel fit. Listen to your body in terms of increasing your activity level as you recover. You may walk and climb stairs right after surgery. Walking and stair climbing will not hurt your surgical repair. You may resume activities like lifting/running/high impact aerobic activities/sit-up as soon as you feel strong enough. Please do not do any bike or horseback riding for 2 weeks if you have had a midurethral sling. Do not put anything in the vagina for 6 weeks after surgery unless otherwise instructed by your doctor (including tampons, douching, sexual intercourse, etc). No driving while you are taking narcotic pain medication, or until you feel that you are ready and can safely slam the brakes if needed. Avoid sitting or lying in bed for more than 2 hours at a time while you are awake to reduce your risk of blood clots. You may return to work when directed by your physician. Please contact your doctor if you need any return to work letters or medical leave paperwork to be completed. PAIN MANAGEMENT After you go home, you should take the prescribed acetaminophen (Tylenol) and ibuprofen (Motrin) as directed. These should be the first medications you use for pain. We recommend rotating the timing of these medications so that you are taking one of these medications every 3 to [address], you can help prevent pain. After the first 72 hours, you can take these medications as needed. Applying ice packs to your incisions (abdominal or vulvar/perineal) for 20 minutes as often as needed may also help. Some pain medications can cause constipation so you should take a stool softener (i.e. Colace) or laxative (i.e. Miralax) while you are on these medications (see the following section on constipation). You may have been prescribed an opioid medication, also known as a narcotic pill. These opiate medications have side effects like nausea or vomiting, constipation, and sleepiness. You should only take them if your pain is not controlled by ibuprofen and/or acetaminophen. It is important to keep this stronger pain medication safely stored, as it is at great risk of being stolen or misused by family, friends, or even strangers. Please be sure to dispose of leftover pain medication after you have recovered. You may dispose of unused narcotic medications in the trash with an unpleasant substance such as coffee grounds or cat litter. You can also check FDA.gov to assess which medications can be safely flushed down the toilet. There are locations to dispose of unused medications at three [facility] locations: [facility] pharmacy, [facility] pharmacy, and the Pharmacy at the [facility] for [facility] (inside the parking garage on the first floor). CONSTIPATION You may not have a bowel movement for 3-5 days after surgery. This is normal. To help prevent constipation after your surgery, you may receive prescriptions to take including the following: Colace (docusate sodium) 100 mg (1 capsule) two times a day Miralax (polyethylene glycol) 17 g (1 measured capful or 1 packet) once a day. If you have not had a bowel movement 3 days after surgery, you may take the Miralax two times a day. If you have any discomfort because of the need to have a bowel movement, you may add milk of magnesia or magnesium citrate (available at your local pharmacy without a prescription) at any time. Do not take milk of magnesia or magnesium citrate if you have kidney failure. If you have loose or watery stools, stop taking the medications and call your doctor s office. OTHER MEDICATIONS If you were prescribed vaginal estrogen, you should resume it in 7-10 days after surgery unless you were instructed otherwise. Please check your discharge instructions about when to resume other medications. WOUND CARE Shower daily after surgery. No tub baths until wound is completely healed. If you have any abdominal incisions, wash them daily with a mild antibacterial soap and water. Pat your incision dry with a clean towel. Wash your hands frequently, especially before touching your incision, changing any dressings, after using the restroom, and before eating. TRINH CATHETER CARE You may go home with a Trinh catheter in your bladder. You will need to follow up for a nurse visit within 3-10 days for removal. You will be called by the office to get this appointment if it is not listed below. General Principles on Catheter Care: Always wash your hands with soap and water before handling your catheter tubing or bag. It is important to empty your catheter bag before it gets too full. Keep the catheter tubing free of kinks and Trinh bag below the level of your bladder. Keep your genital region and catheter tubing clean. Instructions on Catheter Plug Use: A catheter plug is used to occlude the end of the catheter so that it can be disconnected from the drainage bag during the day. You may be sent home with catheter plugs. Your postop nurse will give you instructions on how to use the plug before going home. The Trinh catheter must be disconnected from its drainage tubing and bag. The plug can then be inserted into the open end of the catheter. The plug should fit snugly. While the plug is in place, your bladder will fill with urine. You must empty your bladder by removing the plug and draining the catheter over the toilet at least every 3 to 4 hours, or sooner if you feel an urge to urinate. After you have drained the catheter, replace the plug. The catheter should be reconnected to the drainage bag at night so that your bladder can continuously drain while you are sleeping. The plug can be washed every night before bedtime with soap and water. Store it in a clean plastic Ziploc bag when it is not in use. You can continue daytime catheter plugging until your scheduled voiding trial. WHAT TO EXPECT AT HOME Recovery from surgery is generally 4 weeks, but sometimes longer for more strenuous activity. It is normal to be very tired during this time. It is normal to have some drainage or a small amount of vaginal bleeding after surgery which may last up to 6 weeks. It is normal to have some bruising around the vaginal opening or on the buttocks if you had a vaginal surgery or around your incisions if you had an abdominal or laparoscopic surgery. If you had a laparoscopic surgery, you may experience gas pain, abdominal swelling, or shoulder pain for 24-72 hours after surgery. A warm shower, heating pad, and/or walking may help. WHEN TO CALL YOUR DOCTOR: If you cannot urinate for 4 hours or are only able to urinate small amounts. Fever (>100.4 F or 38.0 C) or chills. Incision problems such as redness, warmth, swelling, or foul-smelling drainage. Severe nausea or persistent vomiting. Bright red vaginal bleeding (soaking >1 pad/hour) Foul smelling vaginal drainage (note that some vaginal discharge is normal) Severe pain not relieved with pain medication. Pain and swelling in your legs, especially if it is only on one side and not the other. Pain with urination, cloudy urine, or foul-smelling urine. Or if you have any other problems or questions. CALL 911 OR GO TO THE EMERGENCY ROOM IF YOU HAVE: shortness of breath, difficulty breathing, or chest pain. Please DO NOT use MyChart for post-surgery concerns. documented in this encounter [facility] 08-14-2024 Note HNO ID: [id number] Author: LASHELL BROOKS LPN Service: ? Author Type: LICENSED NURSE Type: Progress Notes Filed: 08/20/2024 09:42 Note Text: DATE OF SERVICE: 08/20/2024 PROBLEM: Inés Lieberman presents for pre-op teaching. PRE-OP DIAGNOSIS: vaginal vault prolapse, primary stress urinary incontinence, and history of breast cancer SCHEDULED SURGERY AND DATE: 09-04-24 [facility] COLPOPEXY VAGINAL EXTRA-PERITONEAL, ANTERIOR COLPORRHAPHY REPAIR CYSTOCELE W/REPAIR URETHROCELE INCLUDING CYSTOURETHROSCOPY WHEN PERFORMED, POSTERIOR COLPORRHAPHY W/ REPAIR RECTOCELE AND PERINEORRHAPHY, CYSTOSCOPY, and SUSPENSION BLADDER SLING TAPE TRANSVAGINAL PRIMARY SURGEON: Dr. Elizabeth Linton NURSING PREOP ASSESSMENT: Fevers, chills, cough, or nasal congestion: No Vaginal itching, burning, discharge, or odor: No Pain with urination, frequency, urgency, cloudy or foul smelling urine: No If yes to any of the above then MD notified: Not Applicable ADVANCED CARE PLANNING: Does the patient have an advanced directive: No Does [facility] have a copy of the patient's advanced directive: No Was advanced directive given to the patient: No PATIENT LEARNING ASSESSMENT: Individual patient/family learning needs evaluated and addressed: Yes Cognitive ability: Alert and oriented Motivation to learn: Interested Factors affecting learning: None Physical limitations affecting learning: None Patient learns best by: Written Instruction - Hand-outs Verbal Instruction Method of instruction: Written instruction/Handouts Verbal instruction Instructions provided to: Patient via telephone. Written material provided prior to education appointment. Family support: Unable to assess - Family not present PRE- AND POST-OPERATIVE TEACHING Pre-operative teaching and supplemental material provided and reviewed with patient: Your Surgical Guide Book Map Written pre-op and post-op instructions Antibacterial soap: will use own Pre-operative instructions provided and reviewed with patient/family: No eating, drinking, or smoking after midnight prior to surgery unless otherwise directed No alcohol the day before surgery Medications as prescribed by anesthesia, internal medicine, surgeon, or NARCOTICS AND/OR VICE DETECTIVE Stop NSAIDs, Aspirin (ASA), vitamins, herbal supplements, herbal teas, and diet pills 7-10 days prior to surgery OK to take tylenol prn pain unless otherwise directed by physician Call surgery coordinators if any other questions about surgery date or pre-op appointments Bowel prep instructions: NPO after midnight Day of surgery instructions provided and reviewed with patient/family: Arrival time (call surgical coordinators on the office day prior to surgery for verification) No jewelry, body piercing, makeup, contacts, lotions, nail jordanian on fingers, or anything in hair on arrival to surgery Wear low healed shoes and loose fitting clothing Leave all valuables at home or with a family member Directions to [facility] and the [facility] Parking/parking validation on the day prior to surgery Admission/check in (Report to DESK J1-9 for surgery) Holding area Placement of IV Surgical positioning Family waiting area Surgical recovery room Post-operative instructions provided and reviewed with patient/family: SEE PATIENT INSTRUCTION SECTION FOR DETAILS. SYMPTOMS TO NOTIFY MD - Fever, chills, nausea, vomiting, increased or severe pain, heavy vaginal bleeding, foul smelling vaginal drainage, pain or swelling in extremities. URGENT SYMPTOMS - Call 911 or go to ER if any shortness of breath, difficulty breathing, or chest pain. HOW TO CONTACT PHYSICIAN - Physician's office phone number given to patient, if after hours patient instructed to call nuclear control room operator and ask for home connect lpn field software engineer onc resident. FROY program offered to patient: Yes Additional teaching as indicated by patient/family learning needs. PATIENT LEARNING EVALUATION AND FOLLOW UP PLAN: Patient and/or family express understanding of upcoming surgery, pre-operative preparation, the operative process, and post-operative instructions. Follow up plan: Patient instructed to call with any further issues Patient has a post-op appointment scheduled: Yes10-27-24 at 3:30pm with Dr. Linton Referral (recommentation): None Educator: Lashell Brooks LPN August 20, 2024 9:00 AM [facility] 08-14-2024 History of Present illness Narrative DATE OF SERVICE: 08/20/2024 PROBLEM: Inés Lieberman presents for pre-op teaching. PRE-OP DIAGNOSIS: vaginal vault prolapse, primary stress urinary incontinence, and history of breast cancer SCHEDULED SURGERY AND DATE: [facility]-04-24 [facility] COLPOPEXY VAGINAL EXTRA-PERITONEAL, ANTERIOR COLPORRHAPHY REPAIR CYSTOCELE W/REPAIR URETHROCELE INCLUDING CYSTOURETHROSCOPY WHEN PERFORMED, POSTERIOR COLPORRHAPHY W/ REPAIR RECTOCELE AND PERINEORRHAPHY, CYSTOSCOPY, and SUSPENSION BLADDER SLING TAPE TRANSVAGINAL PRIMARY SURGEON: Dr. Elizabeth Linton NURSING PREOP ASSESSMENT: Fevers, chills, cough, or nasal congestion: No Vaginal itching, burning, discharge, or odor: No Pain with urination, frequency, urgency, cloudy or foul smelling urine: No If yes to any of the above then MD notified: Not Applicable ADVANCED CARE PLANNING: Does the patient have an advanced directive: No Does [facility] have a copy of the patient's advanced directive: No Was advanced directive given to the patient: No PATIENT LEARNING ASSESSMENT: Individual patient/family learning needs evaluated and addressed: Yes Cognitive ability: Alert and oriented Motivation to learn: Interested Factors affecting learning: None Physical limitations affecting learning: None Patient learns best by: Written Instruction - Hand-outs Verbal Instruction Method of instruction: Written instruction/Handouts Verbal instruction Instructions provided to: Patient via telephone. Written material provided prior to education appointment. Family support: Unable to assess - Family not present PRE- AND POST-OPERATIVE TEACHING Pre-operative teaching and supplemental material provided and reviewed with patient: Your Surgical Guide Book Map Written pre-op and post-op instructions Antibacterial soap: will use own Pre-operative instructions provided and reviewed with patient/family: No eating, drinking, or smoking after midnight prior to surgery unless otherwise directed No alcohol the day before surgery Medications as prescribed by anesthesia, internal medicine, surgeon, or NARCOTICS AND/OR VICE DETECTIVE Stop NSAIDs, Aspirin (ASA), vitamins, herbal supplements, herbal teas, and diet pills 7-10 days prior to surgery OK to take tylenol prn pain unless otherwise directed by physician Call surgery coordinators if any other questions about surgery date or pre-op appointments Bowel prep instructions: NPO after midnight Day of surgery instructions provided and reviewed with patient/family: Arrival time (call surgical coordinators on the office day prior to surgery for verification) No jewelry, body piercing, makeup, contacts, lotions, nail jordanian on fingers, or anything in hair on arrival to surgery Wear low healed shoes and loose fitting clothing Leave all valuables at home or with a family member Directions to [facility] and [facility] [place] Parking/parking validation on the day prior to surgery Admission/check in (Report to DESK J1-9 for surgery) Holding area Placement of IV Surgical positioning Family waiting area Surgical recovery room Post-operative instructions provided and reviewed with patient/family: SEE PATIENT INSTRUCTION SECTION FOR DETAILS. SYMPTOMS TO NOTIFY MD - Fever, chills, nausea, vomiting, increased or severe pain, heavy vaginal bleeding, foul smelling vaginal drainage, pain or swelling in extremities. URGENT SYMPTOMS - Call 911 or go to ER if any shortness of breath, difficulty breathing, or chest pain. HOW TO CONTACT PHYSICIAN - Physician's office phone number given to patient, if after hours patient instructed to call nuclear control room operator and ask for home connect lpn field software engineer onc resident. FROY program offered to patient: Yes Additional teaching as indicated by patient/family learning needs. PATIENT LEARNING EVALUATION & FOLLOW UP PLAN: Patient and/or family express understanding of upcoming surgery, pre-operative preparation, the operative process, and post-operative instructions. Follow up plan: Patient instructed to call with any further issues Patient has a post-op appointment scheduled: Yes10-27-24 at 3:30pm with Dr. Linton Referral (recommentation): None Educator: Lashell Brooks LPN August 20, 2024 9:00 AM [facility] documented in this encounter [facility] 08-09-2024 Note . MICRO - Microbiology PROCEDURE: Urine Culture [*1] SOURCE: Urine, Clean Catch BODY SITE: COLLECTED DATE/TIME: 08/07/2024 14:30 EDT RECEIVED DATE/TIME: 08/07/2024 19:41 EDT START DATE/TIME: 08/07/2024 19:41 EDT FREE TEXT SOURCE: FINAL REPORTS Final Report [] Verified Date/Time/Personnel: 08/09/2024 07:50 EDT 10,000 - 50,000 cfu/ml Mixed growth consistent with normal urogenital jose. PRELIMINARY REPORTS Preliminary Report [] Verified Date/Time/Personnel: 08/08/2024 08:53 EDT No growth to date Preliminary Report [] Verified Date/Time/Personnel: 08/07/2024 20:59 EDT Specimen received in lab. Performing Locations *1: This test was performed at: [facility], [address] [place] [address], [facility] , [facility] 08-01-2024 Telephone encounter Note Spoke with pt & confirmed 09/04/24 surgery date at , scheduled pre/post op appts and informed pt teaching appt does not appear on [employer] [facility] 08-01-2024 Miscellaneous Notes Spoke with pt & confirmed 09/04/24 surgery date at , scheduled pre/post op appts and informed pt teaching appt does not appear on MyChart documented in this encounter [facility] 07-28-2024 History of Present illness Narrative Female Pelvic Medicine & Reconstructive Surgery Consult CHIEF COMPLAINT: Inés Lieberman is a 74 year old female who presents for consultation requested by Dr. Serrano, PCP for an opinion regarding Pelvic Organ Prolapse . HISTORY OF PRESENT ILLNESS: Patient is a poor historian. S/P prolapse repair at [facility], unknown year. Has had hysterectomy, open. Has midline vertical incision. Doesn't remember why she had hysterectomy. Feels recurrent bulge. Interested in surgical repair, does not want a pessary. SHALINI- leakage with cough, laugh, sneeze UUI- mostly at night, urinary frequency and urgency. Voiding every hour, has been going on for some months. Voiding 2 times a night, leakage 3 times weekly at night Urgency Hesitancy Patient can feel her prolapse and is experiencing urgency. When she does feel like she has to go she has pressure, but does not void. Has worse urgency at night and UUI, nocturnal enuresis (drops on pads). +SHALINI with sneeze. Occasional has a hard time stooling and has to bear down at times. Of note, hx of breast cancer in 2020 s/p mastectomy and chemo. She stopped herceptin in 2021. No longer on any medications. 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 Last Mammogram: Her last mammogram was 2020. She has a previous history of an abnormal mammogram with breast cancer diagnosed in 2020 LMP: No LMP recorded. Patient has had a hysterectomy.; Menopause Yes: Menstrual history: Menarche: 10; Deliveries: History of third or fourth degree laceration: No Weight of largest baby: 8 lb 14oz Sexual function Sexually active: Yes, painful at time. PFDI-20 Do you: Usually experience pressure in the lower abdomen? Yes, somewhat bothersome (2) Usually experience heaviness or dullness in the pelvic area? Yes, moderately bothersome (3) Usually have a bulge or something falling out that you can see or feel in your vaginal area? 4 Ever have to push on the vagina or around the rectum to have or complete a bowel movement? 2 Usually experience a feeling of incomplete bladder emptying? Yes, quite a bit bothersome (4) Ever have to push up on a bulge in the vaginal area with your fingers to start or complete urination? Yes, quite a bit bothersome (4) Feel you need to strain too hard to have a bowel movement? Yes, somewhat bothersome (2) Feel you have not completely emptied your bowels at the end of a bowel movement? Yes, somewhat bothersome (2) Usually lose stool beyond your control if your stool is well formed? Yes, somewhat bothersome (2) Usually lose stool beyond your control if your stool is loose? Yes, somewhat bothersome (2) Usually lose gas from the rectum beyond your control? Yes, somewhat bothersome (2) Usually have pain when you pass your stool? Yes, somewhat bothersome (2) Experience a strong sense of urgency and have to escobedo to the bathroom to have a bowel movement? Yes, somewhat bothersome (2) Does part of your bowel ever pass through the rectum and bulge outside during or after a bowel movement? Yes, not at all bothersome (1) Usually experience frequent urination? Yes, quite a bit bothersome (4) Usually experience urine leakage associated with a feeling of urgency, that is, a strong sensation of needing to go to the bathroom? Yes, quite a bit bothersome (4) Usually experience urine leakage related to coughing, sneezing or laughing? Yes, moderately bothersome (3) Usually experience small amounts of urine leakage (that is, drops)? Yes, moderately bothersome (3) Usually experience difficulty emptying your bladder? Yes, quite a bit bothersome (4) Usually experience pain or discomfort in the lower abdomen or genital region? Yes, moderately bothersome (3) Do you have pain associated with your prolapse (not pressure or fullness) No PAST SURGICAL HISTORY Procedure Laterality Date BREAST BIOPSY HX Left 06/09/2020 Invasive Ductal Carcinoma EXCISION AXILLARY LYMPH NODE Left 01/03/2021 2 nodes removed; #1 Features consistent with therapy effect. Negative for malignancy, #2 negative HYSTERECTOMY HX IMAGING GUIDED BIOPSY INGUINAL/AXILLARY LYMPH NODE Left 06/09/2020 metastic invasive ductal carcinoma MASTECTOMY, SIMPLE, COMPLETE Bilateral 01/03/2021 Left: IDC Right: negative PAST MEDICAL HISTORY Diagnosis Date H/O bilateral mastectomy No reconstruction was done HTN (hypertension) Malignant neoplasm of left breast in female, estrogen receptor 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) PONV (postoperative nausea and vomiting) FAMILY HISTORY Problem Relation Age of Onset No Known Problems Mother No Known Problems Father Current Outpatient Medications Medication Sig hydrOXYzine HCl (ATARAX) 10 mg tablet Take 10 mg by mouth as needed. lisinopril (ZESTRIL, PRINIVIL) 10 mg tablet Take 10 mg by mouth once daily. multivitamin tablet Take 1 tablet by mouth twice daily. cholecalciferol, vitamin D3, (VITAMIN D3 ORAL) Take 1 tablet by mouth once daily. No current facility-administered medications for this visit. ALLERGIES No Known Allergies SOCIAL HISTORY Social History Tobacco Use Smoking status: Never Smokeless tobacco: Never Vaping Use Vaping status: Never Used Substance Use Topics Alcohol use: Never Drug use: Never Occupation: retired Marital Status: Abuse History: Have you been the victim of emotional abuse? This can include being humiliated or insulted. No Have you ever been the victim of physical abuse? This can include being hit, kicked or beaten or having someone make serious threats against your life. No Have you been the victim of sexual abuse? This can include any unwanted sexual experiences. No REVIEW OF SYSTEMS General: Negative for unintentional weight loss, fever, chills, or weakness. Skin: Negative for rash or itching. Psychiatric: Negative for depression. Reports normal stress. Neurologic: new headaches Endocrine: Negative for sweating, cold intolerance or heat intolerance. Cardiovascular: Negative for recent chest pain, chest pressure or chest discomfort. Hematologic/Lymphatic: Negative for easy bruising or excessive bleeding. Respiratory: Negative for wheezing, shortness of breath or persistent cough. Gastrointestinal: Negative for persistent abdominal pain. Negative for anorexia, persistent nausea and/or vomiting. Musculoskeletal: joint pain I have confirmed and edited as necessary, the PFSH and ROS obtained by others. Elizabeth Linton MD Building Operator offered: Patient accepts, visit chaperoned by RN. SENSITIVE EXAM: The sensitive examination was discussed with the Patient or Patient's Authorized Canine Deputy. As applicable, any other physician, advance practice provider, medical student, or other health professional student that will be observing or involved in the sensitive examination for educational or training purposes was discussed with the Patient or Authorized Canine Deputy. The Patient or Authorized Canine Deputy has agreed to proceed with the sensitive examination. (Sensitive examination includes inspection and/or palpation of the breasts, pelvis, prostate and anorectal regions). OBJECTIVE: BP 185/64 Ht 5' 3 (1.60m) Wt 147 lb 11.3 oz (67.0kg) BMI 26.17 kg/(m^2). Physical Exam Constitutional: BMI - Body mass index is 26.17 kg/m . General Appearance: Well appearing, alert, in no acute distress, well-hydrated, well nourished. 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 PLAN: Assessment & Plan Vaginal vault prolapse We discussed treatment options including: observation, PFPT, pessary, or surgical options. We discussed surgical options including ekuk tissue vs mesh augmented surgical repairs (sacrocolpopexy). Patient desires VVS, APR, +/- sling pending UDS. Patient is still sexually active. Primary stress urinary incontinence We discussed diagnosis of stress urinary incontinence and treatment options including: expectant management, pelvic floor physical therapy, incontinence pessary or Poise impressa, urethral bulking, or mid-urethral sling. After long discussion, she desires sling pending UDS. History of breast cancer Last treatment 2021. Patient reports not on medications. Has seen onc recently, note pending. Medical Decision Making: Problems: Moderate: 2+ stable chronic illnesses Data: Unique test(s) ordered: 3+ Risk: High: Decision on elective major surgery w/ risk factors Medical Decision Making Level: 4 - Moderate My final recommendations will be communicated back to the requesting physician by way of shared Medical record or letter via US mail. Elizabeth Linton MD documented in this encounter [facility] 07-28-2024 Note HNO ID: [id number] Author: ELIZABETH LINTON MD Service: ? Author Type: Physician Type: Progress Notes Filed: 07/30/2024 15:19 Note Text: Female Pelvic Medicine AND Reconstructive Surgery Consult CHIEF COMPLAINT: Inés Lieberman is a 74 year old female who presents for consultation requested by Dr. Serrano, PCP for an opinion regarding Pelvic Organ Prolapse . HISTORY OF PRESENT ILLNESS: Patient is a poor historian. S/P prolapse repair at [facility], unknown year. Has had hysterectomy, open. Has midline vertical incision. Doesn't remember why she had hysterectomy. Feels recurrent bulge. Interested in surgical repair, does not want a pessary. SHALINI- leakage with cough, laugh, sneeze UUI- mostly at night, urinary frequency and urgency. Voiding every hour, has been going on for some months. Voiding 2 times a night, leakage 3 times weekly at night Urgency Hesitancy Patient can feel her prolapse and is experiencing urgency. When she does feel like she has to go she has pressure, but does not void. Has worse urgency at night and UUI, nocturnal enuresis (drops on pads). +SHALINI with sneeze. Occasional has a hard time stooling and has to bear down at times. Of note, hx of breast cancer in 2020 s/p mastectomy and chemo. She stopped herceptin in 2021. No longer on any medications. 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 Last Mammogram: Her last mammogram was 2020. She has a previous history of an abnormal mammogram with breast cancer diagnosed in 2020 LMP: No LMP recorded. Patient has had a hysterectomy.; Menopause Yes: Menstrual history: Menarche: 10; Deliveries: History of third or fourth degree laceration: No Weight of largest baby: 8 lb 14oz Sexual function Sexually active: Yes, painful at time. PFDI-20 Do you: Usually experience pressure in the lower abdomen? Yes, somewhat bothersome (2) Usually experience heaviness or dullness in the pelvic area? Yes, moderately bothersome (3) Usually have a bulge or something falling out that you can see or feel in your vaginal area? 4 Ever have to push on the vagina or around the rectum to have or complete a bowel movement? 2 Usually experience a feeling of incomplete bladder emptying? Yes, quite a bit bothersome (4) Ever have to push up on a bulge in the vaginal area with your fingers to start or complete urination? Yes, quite a bit bothersome (4) Feel you need to strain too hard to have a bowel movement? Yes, somewhat bothersome (2) Feel you have not completely emptied your bowels at the end of a bowel movement? Yes, somewhat bothersome (2) Usually lose stool beyond your control if your stool is well formed? Yes, somewhat bothersome (2) Usually lose stool beyond your control if your stool is loose? Yes, somewhat bothersome (2) Usually lose gas from the rectum beyond your control? Yes, somewhat bothersome (2) Usually have pain when you pass your stool? Yes, somewhat bothersome (2) Experience a strong sense of urgency and have to escobedo to the bathroom to have a bowel movement? Yes, somewhat bothersome (2) Does part of your bowel ever pass through the rectum and bulge outside during or after a bowel movement? Yes, not at all bothersome (1) Usually experience frequent urination? Yes, quite a bit bothersome (4) Usually experience urine leakage associated with a feeling of urgency, that is, a strong sensation of needing to go to the bathroom? Yes, quite a bit bothersome (4) Usually experience urine leakage related to coughing, sneezing or laughing? Yes, moderately bothersome (3) Usually experience small amounts of urine leakage (that is, drops)? Yes, moderately bothersome (3) Usually experience difficulty emptying your bladder? Yes, quite a bit bothersome (4) Usually experience pain or discomfort in the lower abdomen or genital region? Yes, moderately bothersome (3) Do you have pain associated with your prolapse (not pressure or fullness) No PAST SURGICAL HISTORY Procedure Laterality Date BREAST BIOPSY HX Left 06/09/2020 Invasive Ductal Carcinoma EXCISION AXILLARY LYMPH NODE Left 01/03/2021 2 nodes removed; #1 Features consistent with therapy effect. Negative for malignancy, #2 negative HYSTERECTOMY HX IMAGING GUIDED BIOPSY INGUINAL/AXILLARY LYMPH NODE Left 06/09/2020 metastic invasive ductal carcinoma MASTECTOMY, SIMPLE, COMPLETE Bilateral 01/03/2021 Left: IDC Right: negative PAST MEDICAL HISTORY Diagnosis Date H/O bilateral mastectomy No reconstruction was done HTN (hypertension) Malignant neoplasm of left breast in female, estrogen receptor 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) PONV (postoperative nausea and vomiting) FAMILY HISTORY Problem Relation Age of Onset No Known Problems Mother No Known Problems Father Current Outpatient Medications Medication Sig hydrOXYzine HCl (ATARAX) 10 mg tablet Take 10 mg by mouth as needed. lisinopril (ZESTRIL, PRINIVIL) 10 m (more content not included)... [facility] 05-29-2024 Telephone encounter Note Spoke with Hannah NAILS in Dr. Vincent office, given information ,ok for Topical Vaginal Estrogen 0.25 gm as a pre op for prolapsed uterus per Dr. Gutierrez. Hannah will pass informeation on to physician. Katerine Krishnamurthy LPN [facility] 05-29-2024 Miscellaneous Notes Spoke with Hannah NAILS in Dr. Vincent office, given information ,ok for Topical Vaginal Estrogen 0.25 gm as a pre op for prolapsed uterus per Dr. Gutierrez. Hannah will pass informeation on to physician. Katerine Krishnamurthy LPN Attempted to contact pt, and physicians office . No answer at either place. Katerine Krishnamurthy LPN Left message for nurse to contact this office. Terra Delarosa LPN Yes, that would be okay. Sukumar Gutierrez DO Dr. Karen Woods contacted office questioning if pt. Can be placed on Topical Vaginal Estrogen 0.25 gm as a pre op for prolapsed uterus? Informed Dr. Gutierrez will not return into office until 05/22/[address] Woods office [phone] and speak with her nurse. Katerine Krishnamurthy LPN documented in this encounter [facility] 05-28-2024 Telephone encounter Note Attempted to contact pt, and physicians office . No answer at either place. Katerine Krishnamurthy LPN [facility] 05-22-2024 Telephone encounter Note Left message for nurse to contact this office. Terra Delarosa LPN [facility] 05-21-2024 Telephone encounter Note Yes, that would be okay. Sukumar Gutierrez DO [facility] 05-19-[address] Karen Woods contacted office questioning if pt. Can be placed on Topical Vaginal Estrogen 0.25 gm as a pre op for prolapsed uterus? Informed Dr. Gutierrez will not return into office until 05/22/[address] Woods office [phone] and speak with her nurse. Katerine Krishnamurthy LPN [facility] 04-25-2024 Note HNO ID: [id number] Author: IRAIS PEÑALOZA APRN.PRODUCTION ILLUSTRATOR Service: ? Author Type: Nurse Practitioner Type: Progress Notes Filed: 04/25/2024 10:22 Note Text: Chief Complaint Patient presents with: Established Patient HPI: Inés Lieberman is a 73 year old female who presents here today for follow up breast cancer. Per Dr. Gutierrez's previous note: H/o hypertension. Screening mammogram in April demonstrated a 9 cm area of segmental pleomorphic calcifications in the left breast. A subsequent left breast ultrasound revealed a 1-1/2 cm irregular mass in the left breast at the 3:00 middle depth position. There was also a lymph node with uniform cortical thickening in the left axillary tail consistent with an enlarged lymph node and was moderate suspicion for malignancy. Patient underwent ultrasound-guided core needle biopsy with clip placement on 06/09/2020. Pathology: Invasive ductal carcinoma, grade 3 nuclei. Biopsy of left axillary lymph node revealed fragments of lymph node positive for metastatic carcinoma (approximately 3 mm in greatest dimension). ER - - - - - Negative. MT - - - - - Negative. HER2 (ERBB2) IMMUNOHISTOCHEMISTRY ASSAY Interpretation: POSITIVE for HER2 (ERBB2) Expression Score: 3+ Percentage of cells with uniform intense complete membrane stainin% (reported for 2+ and 3+ scores only). Underwent right-sided internal jugular vein port placement on 07/07/2020. MRI Breasts 06/30/2020: RESULT: Bilateral background breast enhancement is mild. Current study was also evaluated with a Computer Aided Detection (CAD) system. There is 4.5 cm x 9.2 cm x 6.5 cm segmental area in the left breast lower outer aspect middle depth. This shows non-mass like enhancement. This correlates with mammography and ultrasound findings. Specifically, multiple masses with intervening non mass enhancement (NME) is demonstrated in a segmental distribution from approximately 3:00 to 6:00, correlating with the malignant calcifications seen mammographically. This is inclusive of the prior biopsy site at the 3:00 position 5 cmfn, which contains a biopsy clip. Enhancement extends to a mildly retracted left nipple, which is also enhancing asymmetrically and abnormally. No suspicious enhancement extends posteriorly to the chest wall. The skin of the left breast is thickened and edematous with mildly asymmetric enhancement, which appears somewhat nodular in areas (especially medially) on later time points. There is no suspicious mass, abnormal enhancement, distortion, or other significant abnormality in the right breast. Multiple small foci of persistent enhancement are seen and these are judged to be benign. There also are multiple oval masses in the left axilla. These show heterogeneous enhancement and rapid initial rise and delayed washout type vascular enhancement. The largest node measures 2.3 cm maximally and contains a biopsy clip. This is a biopsy proven metastatic axillary node. No abnormalities in the right axillary nodes or internal mammary nodes region. Multiple T2/STIR hyperintense lesions are scattered within the liver measuring up to 1.4 cm in size. While these most likely represent benign cysts or hemangiomas, they are incompletely characterized on the current exam. The 4.5 cm x 9.2 cm x 6.5 cm segmental area in the left breast lower outer aspect middle depth is consistent with the known carcinoma and is a known biopsy positive for malignancy. A surgical consult is recommended. This area is inclusive of the biopsy site at 3:00 5 cmfn, which contains a biopsy clip. - There is involvement of the left nipple and abnormal enhancement of thickened edematous skin of the left breast. No evidence for chest wall disease involvement. The multiple oval masses in the left axilla are consistent with a pathological lymph node and are a known biopsy positive for malignancy. A surgical consult is recommended. This includes a biopsy proven metastatic axillary node, which contains a biopsy clip. - No internal mammary adenopathy. No MRI evidence of malignancy in the right breast. Multiple indeterminate T2/STIR hyperintense liver lesions. While these most likely represent benign cysts or hemangiomas, they are incompletely characterized on the current exam. Further evaluation via dedicated abdominal CT or MRI is recommended. Previous therapy: 1) Neoadjuvant TCHP. 2) Adjuvant radiation 03/03/21 - 04/06/21. 3) Trastuzumab alone. Completed 2021. CT chest 11/04 revealed stable 3 mm nodule right lung. MRI Breasts 11/12/2020: Left Breast - Category 6 - Known cancer. No residual enhancing tissue at the site of known cancer and resolution of lymphadenopathy, representing marked response to chemotherapy. Normal right breast MRI. Underwent bilateral simple mastectomies with left sentinel lymph node biopsy on 01/03/2021. Pathology: No cancer in 2 sentinel lymph (more content not included)... [facility] 04-25-2024 History of Present illness Narrative Chief Complaint Patient presents with: Established Patient HPI: Inés Lieberman is a 73 year old female who presents here today for follow up breast cancer. Per Dr. Gutierrez's previous note: H/o hypertension. Screening mammogram in April demonstrated a 9 cm area of segmental pleomorphic calcifications in the left breast. A subsequent left breast ultrasound revealed a 1-1/2 cm irregular mass in the left breast at the 3:00 middle depth position. There was also a lymph node with uniform cortical thickening in the left axillary tail consistent with an enlarged lymph node and was moderate suspicion for malignancy. Patient underwent ultrasound-guided core needle biopsy with clip placement on 06/09/2020. Pathology: Invasive ductal carcinoma, grade 3 nuclei. Biopsy of left axillary lymph node revealed fragments of lymph node positive for metastatic carcinoma (approximately 3 mm in greatest dimension). ER - - - - - Negative. MT - - - - - Negative. HER2 (ERBB2) IMMUNOHISTOCHEMISTRY ASSAY Interpretation: POSITIVE for HER2 (ERBB2) Expression Score: 3+ Percentage of cells with uniform intense complete membrane stainin% (reported for 2+ and 3+ scores only). Underwent right-sided internal jugular vein port placement on 07/07/2020. MRI Breasts 06/30/2020: RESULT: Bilateral background breast enhancement is mild. Current study was also evaluated with a Computer Aided Detection (CAD) system. There is 4.5 cm x 9.2 cm x 6.5 cm segmental area in the left breast lower outer aspect middle depth. This shows non-mass like enhancement. This correlates with mammography and ultrasound findings. Specifically, multiple masses with intervening non mass enhancement (NME) is demonstrated in a segmental distribution from approximately 3:00 to 6:00, correlating with the malignant calcifications seen mammographically. This is inclusive of the prior biopsy site at the 3:00 position 5 cmfn, which contains a biopsy clip. Enhancement extends to a mildly retracted left nipple, which is also enhancing asymmetrically and abnormally. No suspicious enhancement extends posteriorly to the chest wall. The skin of the left breast is thickened and edematous with mildly asymmetric enhancement, which appears somewhat nodular in areas (especially medially) on later time points. There is no suspicious mass, abnormal enhancement, distortion, or other significant abnormality in the right breast. Multiple small foci of persistent enhancement are seen and these are judged to be benign. There also are multiple oval masses in the left axilla. These show heterogeneous enhancement and rapid initial rise and delayed washout type vascular enhancement. The largest node measures 2.3 cm maximally and contains a biopsy clip. This is a biopsy proven metastatic axillary node. No abnormalities in the right axillary nodes or internal mammary nodes region. Multiple T2/STIR hyperintense lesions are scattered within the liver measuring up to 1.4 cm in size. While these most likely represent benign cysts or hemangiomas, they are incompletely characterized on the current exam. The 4.5 cm x 9.2 cm x 6.5 cm segmental area in the left breast lower outer aspect middle depth is consistent with the known carcinoma and is a known biopsy positive for malignancy. A surgical consult is recommended. This area is inclusive of the biopsy site at 3:00 5 cmfn, which contains a biopsy clip. - There is involvement of the left nipple and abnormal enhancement of thickened edematous skin of the left breast. No evidence for chest wall disease involvement. The multiple oval masses in the left axilla are consistent with a pathological lymph node and are a known biopsy positive for malignancy. A surgical consult is recommended. This includes a biopsy proven metastatic axillary node, which contains a biopsy clip. - No internal mammary adenopathy. No MRI evidence of malignancy in the right breast. Multiple indeterminate T2/STIR hyperintense liver lesions. While these most likely represent benign cysts or hemangiomas, they are incompletely characterized on the current exam. Further evaluation via dedicated abdominal CT or MRI is recommended. Previous therapy: 1) Neoadjuvant TCHP. 2) Adjuvant radiation 03/03/21 - 04/06/21. 3) Trastuzumab alone. Completed 2021. CT chest 11/04 revealed stable 3 mm nodule right lung. MRI Breasts 11/12/2020: Left Breast - Category 6 - Known cancer. No residual enhancing tissue at the site of known cancer and resolution of lymphadenopathy, representing marked response to chemotherapy. Normal right breast MRI. Underwent bilateral simple mastectomies with left sentinel lymph node biopsy on 01/03/2021. Pathology: No cancer in 2 sentinel lymph nodes--1 demonstrated features consistent with therapy effect.. Right mastectomy specimen demonstrated features consistent with therapy effect. Negative for malignancy. Left mastectomy specimen revealed previous core biopsy site and features consistent with therapy effect. Negative for residual invasive ductal carcinoma. No new concerns today. Appetite:Good. Wt. stable. Energy level:Good. Denies fevers or recent illness. Resp:denies cough or sob Cardiac:denies chest pain/palpitations GI:denies abd pain, n/v, moving bowels regularly :denies dysuria/hematuria Extrem:denies pain Endo:+hot flashes Come and go. Neuro:neuropathy to feet resolved Skin:denies rashes/lesions Heme:denies bleeding The ROS is otherwise negative. Past medical history, appointments, medications, allergies reviewed. No changes. EXAM: BP 190/76 Pulse 69 Temp 36.4 C (97.5 F) (Temporal) Wt 66.8 kg (147 lb 4.3 oz) SpO2 99% BMI (P) 26.09 kg/m APPEARANCE Well appearing, alert, in no acute distress, well-hydrated, well nourished. HEART RRR with normal S1 and S2, no murmurs LUNG clear to auscultation BREAST FEMALE b/l mastectomy scars, no nodule/skin changes LYMPH NODES No cervical lymphadenopathy, No supraclavicular lymphadenopathy, and No axillary lymphadenopathy. ABDOMEN bowel sounds normoactive, soft, non-tender EXTREMITIES No edema NEURO Awake, alert and oriented x 3, Normal gait, and No involuntary motions. SKIN Skin color, texture, turgor normal, no suspicious rashes or lesions ASSESSMENT/PLAN: 1. Encounter for follow-up surveillance of breast cancer - ICD9: V67.9, V10.3, ICD10: Z08, Z85.[address] Gutierrez's previous note 06/10/21: Assessment: -In summary the patient is an otherwise healthy 70-year-old female who had a screening detected ER/MT negative, 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 breast cancer. 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 -Mammography suggested pleomorphic calcifications over a 9 cm segment in the breast. Subsequent breast MRI identified a 4.5 x 9.2 x 6.5 cm segmental area in the left breast lower outer aspect middle depth. The area was inclusive of the biopsy site at 3:00, 5 cm from the nipple. There was involvement of the nipple and abnormal enhancement of thickened edematous skin in the left breast. Multiple oval masses were appreciated in the left axilla consistent with metastases. No internal mammary adenopathy. -CTs, bone scan and MRI did not suggest metastatic disease but there was a small 3 mm lung nodule that was stable on CT chest performed post domonique-adjuvant chemotherapy. -Pathologic CR. -Again reviewed plan to continue treatment with Herceptin every 3 weeks for up to a year from when she started. -ER/MT negative, so no indication for AI therapy. -Still has moderate anemia. Plan: -Continue Herceptin every 3 weeks. -Last dose of Herceptin scheduled for 05/03. -Following that she will have repeat lab work including iron studies and B12 as well as reticulocyte count and echocardiogram followed by survivorship care plan. - No concerning findings on exam. - Completed herceptin 2021. - Continue follow up with PCP for routine care. - Follow up in 6 months. - Pt. aware to call office with any questions/concerns. The sensitive examination was discussed with the Patient or Patient's Authorized Canine Deputy. As applicable, any other physician, advance practice provider, medical student, or other health professional student that will be observing or involved in the sensitive examination for educational or training purposes was discussed with the Patient or Authorized Canine Deputy. The Patient or Authorized Canine Deputy has agreed to proceed with the sensitive examination. (Sensitive examination includes inspection and/or palpation of the breasts, pelvis, prostate and anorectal regions) The patient indicates understanding of these issues and agrees with the plan. All documentation from previous visit of 10/26/23-Dr. Gutierrez/myself was copied and pasted, documentation has been reviewed and edited as necessary for today's visit. Irais Peñaloza APRN.ISAÍAS documented in this encounter [facility] 02-25-2024 Note ORIGINAL EXAMINATION: BONE DENSITOMETRY 02/25/2024 1:17 pm TECHNIQUE: A bone density dual x-ray absorptiometry (DEXA) scan was performed of the axial (e.g. hips, spine) and/or appendicular (e.g. radius) skeleton as appropriate. COMPARISON: None. HISTORY: ORDERING SYSTEM PROVIDED HISTORY: Reason for Exam: Osteoporosis Screening FINDINGS: BMD (g/cm2) Lumbar Spine: 0.831. T Score Lumbar Spine: -2.0 BMD (g/cm2) Left Femoral Neck: 0.648. T Score Left Femoral Neck: -1.8 BMD (g/cm2) Left Hip: 0.827. T Score Left Hip: -0.9 FRAX: 10 year fracture risk assessment Major osteoporotic fracture: 13% Hip fracture: 3.1% IMPRESSION: Osteopenia by WHO criteria. World Health Organization criteria: (Comparing with young normal sex matched population) - Normal: T-score at or above -1 SD (standard deviation) - Osteopenia: T-score between -1 and -2.5 SD - Osteoporosis: T-score at or below -2.5 SD The NOF recommends that FDA-approved medical therapies be considered in post-menopausal women and men age >/= 50 years with a: * Hip or vertebral fracture, or * T-score of /= 20% for major osteoporotic fractures or * >/= 3% for hip fractures All treatment decisions require clinical judgement and consideration of individual patient factors, including patient preferences, comorbidities, previous drug use, risk factors not captured in the FRAX registered model (e.g., frailty, falls, vitamin D deficiency, increased bone turnover, interval significant decline in bone density) and possible under- or over-estimation of fracture risk by FRAX. I have personally reviewed the images of this examination and agree with the resident's findings and interpretation. Interpreted by: Feliciano Ventura DO Preliminary Report By: Tomas Monterroso Electronically signed By Feliciano Ventura DO Dictated Date: 02/25/2024 1:39:04 PM Prelim Date: 02/25/2024 1:50:25 PM Sign Date: 02/25/2024 1:50:25 PM [facility] 02-09-2024 Note . MICRO - Microbiology PROCEDURE: Urine Culture [*1] SOURCE: Urine, Clean Catch BODY SITE: COLLECTED DATE/TIME: 02/07/2024 14:14 EDT RECEIVED DATE/TIME: 02/07/2024 18:56 EDT START DATE/TIME: 02/07/2024 18:57 EDT FREE TEXT SOURCE: FINAL REPORTS Final Report [] Verified Date/Time/Personnel: 02/09/2024 08:51 EDT >100,000 cfu/ml Escherichia coli PRELIMINARY REPORTS Preliminary Report [] Verified Date/Time/Personnel: 02/08/2024 12:12 EDT >100,000 cfu/ml Escherichia coli RICARDO to follow SUSCEPTIBILITY RESULTS Escherichia coli Antibiotic RICARDO Dilut RICARDO Inter Ampicillin <=8 Susceptible Ampicillin/ <=4/2 Susceptible Sulbactam Aztreonam <=4 Susceptible Cefazolin <=2 Susceptible Ceftazidime/ <=4 Susceptible Avibactam Ceftolozane/ <=2 Susceptible Tazobactam Ciprofloxacin <=0.25 Susceptible Ertapenem <=0.5 Susceptible Gentamicin <=2 Susceptible ID Panel Not Not Applicable Applicable Imipenem <=1 Susceptible Levofloxacin <=0.5 Susceptible Meropenem <=1 Susceptible Minocycline <=4 Susceptible Nitrofurantoin <=32 Susceptible Trimethoprim/ <=0.5/9.5 Susceptible Sulfa Performing Locations *1: This test was performed at: [facility], [address] [place] [address], [id number] , [facility] 10-26-2023 History of Present illness Narrative Chief Complaint Patient presents with: Established Patient HPI: Inés Lieberman is a 73 year old female who presents here today for follow up breast cancer. Per Dr. Gutierrez's previous note: H/o hypertension. Screening mammogram in April demonstrated a 9 cm area of segmental pleomorphic calcifications in the left breast. A subsequent left breast ultrasound revealed a 1-1/2 cm irregular mass in the left breast at the 3:00 middle depth position. There was also a lymph node with uniform cortical thickening in the left axillary tail consistent with an enlarged lymph node and was moderate suspicion for malignancy. Patient underwent ultrasound-guided core needle biopsy with clip placement on 06/09/2020. Pathology: Invasive ductal carcinoma, grade 3 nuclei. Biopsy of left axillary lymph node revealed fragments of lymph node positive for metastatic carcinoma (approximately 3 mm in greatest dimension). ER - - - - - Negative. MT - - - - - Negative. HER2 (ERBB2) IMMUNOHISTOCHEMISTRY ASSAY Interpretation: POSITIVE for HER2 (ERBB2) Expression Score: 3+ Percentage of cells with uniform intense complete membrane stainin% (reported for 2+ and 3+ scores only). Underwent right-sided internal jugular vein port placement on 07/07/2020. MRI Breasts 06/30/2020: RESULT: Bilateral background breast enhancement is mild. Current study was also evaluated with a Computer Aided Detection (CAD) system. There is 4.5 cm x 9.2 cm x 6.5 cm segmental area in the left breast lower outer aspect middle depth. This shows non-mass like enhancement. This correlates with mammography and ultrasound findings. Specifically, multiple masses with intervening non mass enhancement (NME) is demonstrated in a segmental distribution from approximately 3:00 to 6:00, correlating with the malignant calcifications seen mammographically. This is inclusive of the prior biopsy site at the 3:00 position 5 cmfn, which contains a biopsy clip. Enhancement extends to a mildly retracted left nipple, which is also enhancing asymmetrically and abnormally. No suspicious enhancement extends posteriorly to the chest wall. The skin of the left breast is thickened and edematous with mildly asymmetric enhancement, which appears somewhat nodular in areas (especially medially) on later time points. There is no suspicious mass, abnormal enhancement, distortion, or other significant abnormality in the right breast. Multiple small foci of persistent enhancement are seen and these are judged to be benign. There also are multiple oval masses in the left axilla. These show heterogeneous enhancement and rapid initial rise and delayed washout type vascular enhancement. The largest node measures 2.3 cm maximally and contains a biopsy clip. This is a biopsy proven metastatic axillary node. No abnormalities in the right axillary nodes or internal mammary nodes region. Multiple T2/STIR hyperintense lesions are scattered within the liver measuring up to 1.4 cm in size. While these most likely represent benign cysts or hemangiomas, they are incompletely characterized on the current exam. The 4.5 cm x 9.2 cm x 6.5 cm segmental area in the left breast lower outer aspect middle depth is consistent with the known carcinoma and is a known biopsy positive for malignancy. A surgical consult is recommended. This area is inclusive of the biopsy site at 3:00 5 cmfn, which contains a biopsy clip. - There is involvement of the left nipple and abnormal enhancement of thickened edematous skin of the left breast. No evidence for chest wall disease involvement. The multiple oval masses in the left axilla are consistent with a pathological lymph node and are a known biopsy positive for malignancy. A surgical consult is recommended. This includes a biopsy proven metastatic axillary node, which contains a biopsy clip. - No internal mammary adenopathy. No MRI evidence of malignancy in the right breast. Multiple indeterminate T2/STIR hyperintense liver lesions. While these most likely represent benign cysts or hemangiomas, they are incompletely characterized on the current exam. Further evaluation via dedicated abdominal CT or MRI is recommended. Previous therapy: 1) Neoadjuvant TCHP. 2) Adjuvant radiation 03/03/21 - 04/06/21. 3) Trastuzumab alone. Completed 2021. CT chest 11/04 revealed stable 3 mm nodule right lung. MRI Breasts 11/12/2020: Left Breast - Category 6 - Known cancer. No residual enhancing tissue at the site of known cancer and resolution of lymphadenopathy, representing marked response to chemotherapy. Normal right breast MRI. Underwent bilateral simple mastectomies with left sentinel lymph node biopsy on 01/03/2021. Pathology: No cancer in 2 sentinel lymph nodes--1 demonstrated features consistent with therapy effect.. Right mastectomy specimen demonstrated features consistent with therapy effect. Negative for malignancy. Left mastectomy specimen revealed previous core biopsy site and features consistent with therapy effect. Negative for residual invasive ductal carcinoma. No new concerns today. Appetite:Good. Energy level:It's good. Denies fevers or recent illness. Resp:denies cough or sob Cardiac:denies chest pain/palpitations GI:denies abd pain, n/v, moving bowels regularly :denies dysuria/hematuria Extrem:denies pain Endo:+hot flashes On and off. Neuro:neuropathy to feet resolved Skin:denies rashes/lesions Heme:denies bleeding The ROS is otherwise negative. Past medical history, appointments, medications, allergies reviewed. No changes. EXAM: BP 163/76 Pulse (!) 55 Temp 36.7 C (98.1 F) (Temporal) Wt 67.3 kg (148 lb 6.4 oz) SpO2 99% BMI (P) 26.29 kg/m APPEARANCE Well appearing, alert, in no acute distress, well-hydrated, well nourished. HEART RRR with normal S1 and S2, no murmurs LUNG clear to auscultation BREAST FEMALE b/l mastectomy scars, no nodule LYMPH NODES No cervical lymphadenopathy, No supraclavicular lymphadenopathy, and No axillary lymphadenopathy. ABDOMEN bowel sounds normoactive, soft, non-tender EXTREMITIES No edema NEURO Awake, alert and oriented x 3, Normal gait, and No involuntary motions. SKIN Skin color, texture, turgor normal, no suspicious rashes or lesions ASSESSMENT/PLAN: 1. Personal history of breast cancer - ICD9: V10.3, ICD10: Z85.[address] Gutierrez's previous note 06/10/21: Assessment: -In summary the patient is an otherwise healthy 70-year-old female who had a screening detected ER/MT negative, 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 breast cancer. 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 -Mammography suggested pleomorphic calcifications over a 9 cm segment in the breast. Subsequent breast MRI identified a 4.5 x 9.2 x 6.5 cm segmental area in the left breast lower outer aspect middle depth. The area was inclusive of the biopsy site at 3:00, 5 cm from the nipple. There was involvement of the nipple and abnormal enhancement of thickened edematous skin in the left breast. Multiple oval masses were appreciated in the left axilla consistent with metastases. No internal mammary adenopathy. -CTs, bone scan and MRI did not suggest metastatic disease but there was a small 3 mm lung nodule that was stable on CT chest performed post domonique-adjuvant chemotherapy. -Pathologic CR. -Again reviewed plan to continue treatment with Herceptin every 3 weeks for up to a year from when she started. -ER/MT negative, so no indication for AI therapy. -Still has moderate anemia. Plan: -Continue Herceptin every 3 weeks. -Last dose of Herceptin scheduled for 05/03. -Following that she will have repeat lab work including iron studies and B12 as well as reticulocyte count and echocardiogram followed by survivorship care plan. - No concerning findings on exam. - Completed herceptin 2021. - Follow up in 6 months. - Pt. aware to call office with any questions/concerns. The patient indicates understanding of these issues and agrees with the plan. All documentation from previous visit of 10/25 & 04/26/23-Dr. Gutierrez/myself was copied and pasted, documentation has been reviewed and edited as necessary for today's visit. Irais Peñaloza APRN.PRODUCTION ILLUSTRATOR documented in this encounter [facility] 04-26-2023 Nurse Note Est. Pt, 6 month F/u Katerine Krishnamurthy LPN documented in this encounter [facility] 04-26-2023 History of Present illness Narrative Chief Complaint Patient presents with: Established Patient HPI: Inés Lieberman is a 72 year old female who presents here today for follow up breast cancer. Per Dr. Gutierrez's previous note: H/o hypertension. Screening mammogram in April demonstrated a 9 cm area of segmental pleomorphic calcifications in the left breast. A subsequent left breast ultrasound revealed a 1-1/2 cm irregular mass in the left breast at the 3:00 middle depth position. There was also a lymph node with uniform cortical thickening in the left axillary tail consistent with an enlarged lymph node and was moderate suspicion for malignancy. Patient underwent ultrasound-guided core needle biopsy with clip placement on 06/09/2020. Pathology: Invasive ductal carcinoma, grade 3 nuclei. Biopsy of left axillary lymph node revealed fragments of lymph node positive for metastatic carcinoma (approximately 3 mm in greatest dimension). ER - - - - - Negative. MT - - - - - Negative. HER2 (ERBB2) IMMUNOHISTOCHEMISTRY ASSAY Interpretation: POSITIVE for HER2 (ERBB2) Expression Score: 3+ Percentage of cells with uniform intense complete membrane stainin% (reported for 2+ and 3+ scores only). Underwent right-sided internal jugular vein port placement on 07/07/2020. MRI Breasts 06/30/2020: RESULT: Bilateral background breast enhancement is mild. Current study was also evaluated with a Computer Aided Detection (CAD) system. There is 4.5 cm x 9.2 cm x 6.5 cm segmental area in the left breast lower outer aspect middle depth. This shows non-mass like enhancement. This correlates with mammography and ultrasound findings. Specifically, multiple masses with intervening non mass enhancement (NME) is demonstrated in a segmental distribution from approximately 3:00 to 6:00, correlating with the malignant calcifications seen mammographically. This is inclusive of the prior biopsy site at the 3:00 position 5 cmfn, which contains a biopsy clip. Enhancement extends to a mildly retracted left nipple, which is also enhancing asymmetrically and abnormally. No suspicious enhancement extends posteriorly to the chest wall. The skin of the left breast is thickened and edematous with mildly asymmetric enhancement, which appears somewhat nodular in areas (especially medially) on later time points. There is no suspicious mass, abnormal enhancement, distortion, or other significant abnormality in the right breast. Multiple small foci of persistent enhancement are seen and these are judged to be benign. There also are multiple oval masses in the left axilla. These show heterogeneous enhancement and rapid initial rise and delayed washout type vascular enhancement. The largest node measures 2.3 cm maximally and contains a biopsy clip. This is a biopsy proven metastatic axillary node. No abnormalities in the right axillary nodes or internal mammary nodes region. Multiple T2/STIR hyperintense lesions are scattered within the liver measuring up to 1.4 cm in size. While these most likely represent benign cysts or hemangiomas, they are incompletely characterized on the current exam. The 4.5 cm x 9.2 cm x 6.5 cm segmental area in the left breast lower outer aspect middle depth is consistent with the known carcinoma and is a known biopsy positive for malignancy. A surgical consult is recommended. This area is inclusive of the biopsy site at 3:00 5 cmfn, which contains a biopsy clip. - There is involvement of the left nipple and abnormal enhancement of thickened edematous skin of the left breast. No evidence for chest wall disease involvement. The multiple oval masses in the left axilla are consistent with a pathological lymph node and are a known biopsy positive for malignancy. A surgical consult is recommended. This includes a biopsy proven metastatic axillary node, which contains a biopsy clip. - No internal mammary adenopathy. No MRI evidence of malignancy in the right breast. Multiple indeterminate T2/STIR hyperintense liver lesions. While these most likely represent benign cysts or hemangiomas, they are incompletely characterized on the current exam. Further evaluation via dedicated abdominal CT or MRI is recommended. Previous therapy: 1) Neoadjuvant TCHP. 2) Adjuvant radiation 03/03/21 - 04/06/21. 3) Trastuzumab alone. Completed 2021. CT chest 11/04 revealed stable 3 mm nodule right lung. MRI Breasts 11/12/2020: Left Breast - Category 6 - Known cancer. No residual enhancing tissue at the site of known cancer and resolution of lymphadenopathy, representing marked response to chemotherapy. Normal right breast MRI. Underwent bilateral simple mastectomies with left sentinel lymph node biopsy on 01/03/2021. Pathology: No cancer in 2 sentinel lymph nodes--1 demonstrated features consistent with therapy effect.. Right mastectomy specimen demonstrated features consistent with therapy effect. Negative for malignancy. Left mastectomy specimen revealed previous core biopsy site and features consistent with therapy effect. Negative for residual invasive ductal carcinoma. No new concerns today. Appetite:Too good. Energy level:Good. Denies fevers or recent illness. Resp:denies cough or sob Cardiac:denies chest pain/palpitations GI:denies abd pain, n/v, moving bowels regularly :denies dysuria/hematuria Extrem:denies pain Endo:+hot flashes It just comes and goes. Neuro:neuropathy to feet resolved Skin:denies rashes/lesions Heme:denies bleeding The ROS is otherwise negative. Past medical history, appointments, medications, allergies reviewed. No changes. EXAM: Pulse 65 Temp 36.4 C (97.6 F) Ht (P) 160 cm (5' 2.99) Wt 69.4 kg (153 lb) BMI (P) 27.11 kg/m APPEARANCE Well appearing, alert, in no acute distress, well-hydrated, well nourished. HEART RRR with normal S1 and S2, no murmurs LUNG clear to auscultation BREAST FEMALE b/l mastectomy scars, no nodule LYMPH NODES No cervical lymphadenopathy, No supraclavicular lymphadenopathy, and No axillary lymphadenopathy. ABDOMEN bowel sounds normoactive, soft, non-tender EXTREMITIES No edema NEURO Awake, alert and oriented x 3, Normal gait, and No involuntary motions. SKIN Skin color, texture, turgor normal, no suspicious rashes or lesions ASSESSMENT/PLAN: 1. 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 2. 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 HER2-positive carcinoma of breast (HCC) - ICD9: 174.9, ICD10: C50.[address] Gutierrez's previous note 06/10/21: Assessment: -In summary the patient is an otherwise healthy 70-year-old female who had a screening detected ER/MT negative, 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 breast cancer. 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 -Mammography suggested pleomorphic calcifications over a 9 cm segment in the breast. Subsequent breast MRI identified a 4.5 x 9.2 x 6.5 cm segmental area in the left breast lower outer aspect middle depth. The area was inclusive of the biopsy site at 3:00, 5 cm from the nipple. There was involvement of the nipple and abnormal enhancement of thickened edematous skin in the left breast. Multiple oval masses were appreciated in the left axilla consistent with metastases. No internal mammary adenopathy. -CTs, bone scan and MRI did not suggest metastatic disease but there was a small 3 mm lung nodule that was stable on CT chest performed post domonique-adjuvant chemotherapy. -Pathologic CR. -Again reviewed plan to continue treatment with Herceptin every 3 weeks for up to a year from when she started. -ER/MT negative, so no indication for AI therapy. -Still has moderate anemia. Plan: -Continue Herceptin every 3 weeks. -Last dose of Herceptin scheduled for 05/03. -Following that she will have repeat lab work including iron studies and B12 as well as reticulocyte count and echocardiogram followed by survivorship care plan. - No concerning findings on exam. - Completed herceptin 2021. - Follow up in 6 months. - Pt. aware to call office with any questions/concerns. The patient indicates understanding of these issues and agrees with the plan. All documentation from previous visit of 10/25/22-Dr. Gutierrez/myself was copied and pasted, documentation has been reviewed and edited as necessary for today's visit. Irais Peñaloza APRN.ISAÍAS documented in this encounter [facility] 10-25-2022 History of Present illness Narrative Chief Complaint Patient presents with: Established Patient HPI: Inés Lieberman is a 72 year old female who presents here today for follow up breast cancer. Per Dr. Gutierrez's previous note: H/o hypertension. Screening mammogram in April demonstrated a 9 cm area of segmental pleomorphic calcifications in the left breast. A subsequent left breast ultrasound revealed a 1-1/2 cm irregular mass in the left breast at the 3:00 middle depth position. There was also a lymph node with uniform cortical thickening in the left axillary tail consistent with an enlarged lymph node and was moderate suspicion for malignancy. Patient underwent ultrasound-guided core needle biopsy with clip placement on 06/09/2020. Pathology: Invasive ductal carcinoma, grade 3 nuclei. Biopsy of left axillary lymph node revealed fragments of lymph node positive for metastatic carcinoma (approximately 3 mm in greatest dimension). ER - - - - - Negative. MT - - - - - Negative. HER2 (ERBB2) IMMUNOHISTOCHEMISTRY ASSAY Interpretation: POSITIVE for HER2 (ERBB2) Expression Score: 3+ Percentage of cells with uniform intense complete membrane stainin% (reported for 2+ and 3+ scores only). Underwent right-sided internal jugular vein port placement on 07/07/2020. MRI Breasts 06/30/2020: RESULT: Bilateral background breast enhancement is mild. Current study was also evaluated with a Computer Aided Detection (CAD) system. There is 4.5 cm x 9.2 cm x 6.5 cm segmental area in the left breast lower outer aspect middle depth. This shows non-mass like enhancement. This correlates with mammography and ultrasound findings. Specifically, multiple masses with intervening non mass enhancement (NME) is demonstrated in a segmental distribution from approximately 3:00 to 6:00, correlating with the malignant calcifications seen mammographically. This is inclusive of the prior biopsy site at the 3:00 position 5 cmfn, which contains a biopsy clip. Enhancement extends to a mildly retracted left nipple, which is also enhancing asymmetrically and abnormally. No suspicious enhancement extends posteriorly to the chest wall. The skin of the left breast is thickened and edematous with mildly asymmetric enhancement, which appears somewhat nodular in areas (especially medially) on later time points. There is no suspicious mass, abnormal enhancement, distortion, or other significant abnormality in the right breast. Multiple small foci of persistent enhancement are seen and these are judged to be benign. There also are multiple oval masses in the left axilla. These show heterogeneous enhancement and rapid initial rise and delayed washout type vascular enhancement. The largest node measures 2.3 cm maximally and contains a biopsy clip. This is a biopsy proven metastatic axillary node. No abnormalities in the right axillary nodes or internal mammary nodes region. Multiple T2/STIR hyperintense lesions are scattered within the liver measuring up to 1.4 cm in size. While these most likely represent benign cysts or hemangiomas, they are incompletely characterized on the current exam. The 4.5 cm x 9.2 cm x 6.5 cm segmental area in the left breast lower outer aspect middle depth is consistent with the known carcinoma and is a known biopsy positive for malignancy. A surgical consult is recommended. This area is inclusive of the biopsy site at 3:00 5 cmfn, which contains a biopsy clip. - There is involvement of the left nipple and abnormal enhancement of thickened edematous skin of the left breast. No evidence for chest wall disease involvement. The multiple oval masses in the left axilla are consistent with a pathological lymph node and are a known biopsy positive for malignancy. A surgical consult is recommended. This includes a biopsy proven metastatic axillary node, which contains a biopsy clip. - No internal mammary adenopathy. No MRI evidence of malignancy in the right breast. Multiple indeterminate T2/STIR hyperintense liver lesions. While these most likely represent benign cysts or hemangiomas, they are incompletely characterized on the current exam. Further evaluation via dedicated abdominal CT or MRI is recommended. Previous therapy: 1) Neoadjuvant TCHP. 2) Adjuvant radiation 03/03/21 - 04/06/21. 3) Trastuzumab alone. Completed 2021. CT chest 11/04 revealed stable 3 mm nodule right lung. MRI Breasts 11/12/2020: Left Breast - Category 6 - Known cancer. No residual enhancing tissue at the site of known cancer and resolution of lymphadenopathy, representing marked response to chemotherapy. Normal right breast MRI. Underwent bilateral simple mastectomies with left sentinel lymph node biopsy on 01/03/2021. Pathology: No cancer in 2 sentinel lymph nodes--1 demonstrated features consistent with therapy effect.. Right mastectomy specimen demonstrated features consistent with therapy effect. Negative for malignancy. Left mastectomy specimen revealed previous core biopsy site and features consistent with therapy effect. Negative for residual invasive ductal carcinoma. No new concerns today. Appetite:Good. Energy level:Good. Denies fevers or recent illness. Resp:denies cough or sob Cardiac:denies chest pain/palpitations GI:denies abd pain, n/v, moving bowels regularly :denies dysuria/hematuria Extrem:denies pain Endo:+hot flashes I still get them sometimes. My face will get flushed all at once. Neuro:neuropathy to feet resolved Skin:denies rashes/lesions Heme:denies bleeding The ROS is otherwise negative. Past medical history, appointments, medications, allergies reviewed. No changes. EXAM: BP 170/78 Pulse 67 Temp 36.9 C (98.5 F) Ht 159 cm (5' 2.6) Wt 67.6 kg (149 lb) SpO2 99% BMI 26.73 kg/m APPEARANCE Well appearing, alert, in no acute distress, well-hydrated, well nourished. HEART RRR with normal S1 and S2, no murmurs LUNG clear to auscultation BREAST FEMALE b/l mastectomy scars, no nodule LYMPH NODES No cervical lymphadenopathy, No supraclavicular lymphadenopathy, and No axillary lymphadenopathy. ABDOMEN bowel sounds normoactive, soft, non-tender EXTREMITIES No edema NEURO Awake, alert and oriented x 3, Normal gait, and No involuntary motions. SKIN Skin color, texture, turgor normal, no suspicious rashes or lesions LABS: Component Latest Ref Rng & Units 10/26/2021 01/25/2022 04/26/2022 10/24/2022 WBC 3.70 - 11.00 k/uL 3.44 (L) 4.06 5.24 4.27 RBC 3.90 - 5.20 m/uL 3.84 (L) 3.71 (L) 3.97 4.07 Hemoglobin 11.5 - 15.5 g/dL 11.0 (L) 10.8 (L) 11.7 11.7 Hematocrit 36.0 - 46.0 % 34.1 (L) 33.6 (L) 36.7 36.5 MCV 80.0 - 100.0 fL 88.8 90.6 92.4 89.7 MCH 26.0 - 34.0 pg 28.6 29.1 29.5 28.7 MCHC 30.5 - 36.0 g/dL 32.3 32.1 31.9 32.1 RDW-CV 11.5 - 15.0 % 13.9 12.6 13.1 12.9 Platelet Count 150 - 400 k/uL 174 177 197 205 MPV 9.0 - 12.7 fL 10.3 9.8 10.3 9.8 Neut% % 58.4 60.4 58.5 55.8 Abs Neut (ANC) 1.45 - 7.50 k/uL 2.01 2.45 3.07 2.38 Lymph% % 26.5 23.4 26.7 26.9 Abs Lymph 1.00 - 4.00 k/uL 0.91 (L) 0.95 (L) 1.40 1.15 [place]% % 11.6 12.3 10.9 13.1 Abs [place] <0.87 k/uL 0.40 0.50 0.57 0.56 Eosin% % 2.3 3.0 2.7 3.3 Abs Eosin <0.46 k/uL 0.08 0.12 0.14 0.14 Baso% % 0.9 0.7 0.8 0.7 Abs Baso <0.11 k/uL 0.03 0.03 0.04 0.03 Immature Gran % % 0.3 0.2 0.4 0.2 IMMATURE GRANS (ABS) <0.10 k/uL <0.03 <0.03 <0.03 <0.03 NRBC /100 WBC 0.0 0.0 0.0 0.0 Absolute nRBC <0.01 k/uL <0.01 <0.01 <0.01 <0.01 DTYPE Auto Auto Auto Auto Component Latest Ref Rng & Units 07/25/2021 04/26/2022 07/26/2022 10/24/2022 Ferritin 14.7 - 205.1 ng/mL 72.9 98.8 79.2 89.5 Component Latest Ref Rng & Units 07/25/2021 04/26/2022 07/26/2022 10/24/2022 Iron 41 - 186 ug/dL 60 86 52 80 TIBC 232 - 386 ug/dL 262 256 270 276 Transferrin Saturation 15.0 - 57.0 % 23 33.6 19.3 29.0 ASSESSMENT/PLAN: 1. 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 2. 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 HER2-positive carcinoma of breast (HCC) - ICD9: 174.9, ICD10: C50.[address] Gutierrez's previous note 06/10/21: Assessment: -In summary the patient is an otherwise healthy 70-year-old female who had a screening detected ER/MT negative, 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 breast cancer. 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 -Mammography suggested pleomorphic calcifications over a 9 cm segment in the breast. Subsequent breast MRI identified a 4.5 x 9.2 x 6.5 cm segmental area in the left breast lower outer aspect middle depth. The area was inclusive of the biopsy site at 3:00, 5 cm from the nipple. There was involvement of the nipple and abnormal enhancement of thickened edematous skin in the left breast. Multiple oval masses were appreciated in the left axilla consistent with metastases. No internal mammary adenopathy. -CTs, bone scan and MRI did not suggest metastatic disease but there was a small 3 mm lung nodule that was stable on CT chest performed post domonique-adjuvant chemotherapy. -Pathologic CR. -Again reviewed plan to continue treatment with Herceptin every 3 weeks for up to a year from when she started. -ER/MT negative, so no indication for AI therapy. -Still has moderate anemia. Plan: -Continue Herceptin every 3 weeks. -Last dose of Herceptin scheduled for 05/03. -Following that she will have repeat lab work including iron studies and B12 as well as reticulocyte count and echocardiogram followed by survivorship care plan. - No concerning findings on exam. - Completed herceptin 2021. - Reviewed labs with pt. - Follow up in 6 months. - Pt. aware to call office with any questions/concerns. The patient indicates understanding of these issues and agrees with the plan. All documentation from previous visit of 04/26/22-Dr. Gutierrez/myself was copied and pasted, documentation has been reviewed and edited as necessary for today's visit. Irais Peñaloza APRN.ISAÍAS documented in this encounter [facility] 07-24-2022 Miscellaneous Notes Spoke with patient and reviewed check out note and phone notes. Patient is scheduled correctly. Damari Prince Patient is concerned that she should have an appointment with Irais on 07/26 along with lab work as that is how it is typically scheduled. Should she have an appointment with Irais? Please advise and call patient. Thank you. documented in this encounter [facility] 04-27-2022 Miscellaneous Notes Patient notified, scheduled for labs in 3 months. OV/labs in 6 months already scheduled. Please inform pt. that her labs look good. CBC/iron studies in 3 months. OV/CBC/iron studies in 6 months. Thank you. Irais Peñaloza APRN.PRODUCTION ILLUSTRATOR documented in this encounter [facility] 04-26-2022 History of Present illness Narrative Chief Complaint Patient presents with: Established Patient: 3 month follow up HPI: Inés Lieberman is a 71 year old female who presents here today for follow up breast cancer. Per Dr. Gutierrez's previous note: H/o hypertension. Screening mammogram in April demonstrated a 9 cm area of segmental pleomorphic calcifications in the left breast. A subsequent left breast ultrasound revealed a 1-1/2 cm irregular mass in the left breast at the 3:00 middle depth position. There was also a lymph node with uniform cortical thickening in the left axillary tail consistent with an enlarged lymph node and was moderate suspicion for malignancy. Patient underwent ultrasound-guided core needle biopsy with clip placement on 06/09/2020. Pathology: Invasive ductal carcinoma, grade 3 nuclei. Biopsy of left axillary lymph node revealed fragments of lymph node positive for metastatic carcinoma (approximately 3 mm in greatest dimension). ER - - - - - Negative. MT - - - - - Negative. HER2 (ERBB2) IMMUNOHISTOCHEMISTRY ASSAY Interpretation: POSITIVE for HER2 (ERBB2) Expression Score: 3+ Percentage of cells with uniform intense complete membrane stainin% (reported for 2+ and 3+ scores only). Underwent right-sided internal jugular vein port placement on 07/07/2020. MRI Breasts 06/30/2020: RESULT: Bilateral background breast enhancement is mild. Current study was also evaluated with a Computer Aided Detection (CAD) system. There is 4.5 cm x 9.2 cm x 6.5 cm segmental area in the left breast lower outer aspect middle depth. This shows non-mass like enhancement. This correlates with mammography and ultrasound findings. Specifically, multiple masses with intervening non mass enhancement (NME) is demonstrated in a segmental distribution from approximately 3:00 to 6:00, correlating with the malignant calcifications seen mammographically. This is inclusive of the prior biopsy site at the 3:00 position 5 cmfn, which contains a biopsy clip. Enhancement extends to a mildly retracted left nipple, which is also enhancing asymmetrically and abnormally. No suspicious enhancement extends posteriorly to the chest wall. The skin of the left breast is thickened and edematous with mildly asymmetric enhancement, which appears somewhat nodular in areas (especially medially) on later time points. There is no suspicious mass, abnormal enhancement, distortion, or other significant abnormality in the right breast. Multiple small foci of persistent enhancement are seen and these are judged to be benign. There also are multiple oval masses in the left axilla. These show heterogeneous enhancement and rapid initial rise and delayed washout type vascular enhancement. The largest node measures 2.3 cm maximally and contains a biopsy clip. This is a biopsy proven metastatic axillary node. No abnormalities in the right axillary nodes or internal mammary nodes region. Multiple T2/STIR hyperintense lesions are scattered within the liver measuring up to 1.4 cm in size. While these most likely represent benign cysts or hemangiomas, they are incompletely characterized on the current exam. The 4.5 cm x 9.2 cm x 6.5 cm segmental area in the left breast lower outer aspect middle depth is consistent with the known carcinoma and is a known biopsy positive for malignancy. A surgical consult is recommended. This area is inclusive of the biopsy site at 3:00 5 cmfn, which contains a biopsy clip. - There is involvement of the left nipple and abnormal enhancement of thickened edematous skin of the left breast. No evidence for chest wall disease involvement. The multiple oval masses in the left axilla are consistent with a pathological lymph node and are a known biopsy positive for malignancy. A surgical consult is recommended. This includes a biopsy proven metastatic axillary node, which contains a biopsy clip. - No internal mammary adenopathy. No MRI evidence of malignancy in the right breast. Multiple indeterminate T2/STIR hyperintense liver lesions. While these most likely represent benign cysts or hemangiomas, they are incompletely characterized on the current exam. Further evaluation via dedicated abdominal CT or MRI is recommended. Previous therapy: 1) Neoadjuvant TCHP. 2) Adjuvant radiation 03/03/21 - 04/06/21. 3) Trastuzumab alone. Completed 2021. CT chest 11/04 revealed stable 3 mm nodule right lung. MRI Breasts 11/12/2020: Left Breast - Category 6 - Known cancer. No residual enhancing tissue at the site of known cancer and resolution of lymphadenopathy, representing marked response to chemotherapy. Normal right breast MRI. Underwent bilateral simple mastectomies with left sentinel lymph node biopsy on 01/03/2021. Pathology: No cancer in 2 sentinel lymph nodes--1 demonstrated features consistent with therapy effect.. Right mastectomy specimen demonstrated features consistent with therapy effect. Negative for malignancy. Left mastectomy specimen revealed previous core biopsy site and features consistent with therapy effect. Negative for residual invasive ductal carcinoma. No new concerns today. Appetite:Fine. We had so much at Thanksgiving. Energy level:That's good. Denies fevers or recent illness. Resp:denies cough or sob Cardiac:denies chest pain/palpitations GI:denies abd pain, n/v, moving bowels regularly :denies dysuria/hematuria Extrem:denies pain Endo:+hot flashes I still get them sometimes. My face will get a flush all at once. At night I'm throwing covers off and putting covers back. Neuro:neuropathy to feet resolved Skin:denies rashes/lesions Heme:denies bleeding The ROS is otherwise negative. Past medical history, appointments, medications, allergies reviewed. No changes. EXAM: BP 169/92 Pulse 74 Temp 36.9 C (98.5 F) Resp 16 Wt 66.9 kg (147 lb 8 oz) SpO2 100% BMI 26.13 kg/m APPEARANCE Well appearing, alert, in no acute distress, well-hydrated, well nourished. HEART RRR with normal S1 and S2, no murmurs LUNG clear to auscultation BREAST FEMALE b/l mastectomy scars, no nodule LYMPH NODES No cervical lymphadenopathy, No supraclavicular lymphadenopathy, and No axillary lymphadenopathy. ABDOMEN bowel sounds normoactive, soft, non-tender EXTREMITIES No edema NEURO Awake, alert and oriented x 3, Normal gait, and No involuntary motions. SKIN Skin color, texture, turgor normal, no suspicious rashes or lesions LABS: Pending ASSESSMENT/PLAN: 1. 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 2. 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 HER2-positive carcinoma of breast (HCC) - ICD9: 174.9, ICD10: C50.[address] Gutierrez's previous note 06/10/21: Assessment: -In summary the patient is an otherwise healthy 70-year-old female who had a screening detected ER/MT negative, 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 breast cancer. 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 -Mammography suggested pleomorphic calcifications over a 9 cm segment in the breast. Subsequent breast MRI identified a 4.5 x 9.2 x 6.5 cm segmental area in the left breast lower outer aspect middle depth. The area was inclusive of the biopsy site at 3:00, 5 cm from the nipple. There was involvement of the nipple and abnormal enhancement of thickened edematous skin in the left breast. Multiple oval masses were appreciated in the left axilla consistent with metastases. No internal mammary adenopathy. -CTs, bone scan and MRI did not suggest metastatic disease but there was a small 3 mm lung nodule that was stable on CT chest performed post domonique-adjuvant chemotherapy. -Pathologic CR. -Again reviewed plan to continue treatment with Herceptin every 3 weeks for up to a year from when she started. -ER/MT negative, so no indication for AI therapy. -Still has moderate anemia. Plan: -Continue Herceptin every 3 weeks. -Last dose of Herceptin scheduled for 05/03. -Following that she will have repeat lab work including iron studies and B12 as well as reticulocyte count and echocardiogram followed by survivorship care plan. - No concerning findings on exam. - Completed herceptin one year ago. - Labs pending. - Follow up in 6 months with CBC/iron studies-pending today's labs. - Pt. aware to call office with any questions/concerns. The patient indicates understanding of these issues and agrees with the plan. All documentation from previous visit of 01/25/22-Dr. Gutierrez/myself was copied and pasted, documentation has been reviewed and edited as necessary for today's visit. Irais Peñaloza APRN.ISAÍAS documented in this encounter [facility] 10-26-2021 Miscellaneous Notes Appointment notes updated. Terra Delarosa LPN Cancel CMP next visit. CBC only with next OV. Thank you. Irais Peñaloza APRN.ISAÍAS documented in this encounter [facility] 10-26-2021 History of Present illness Narrative Chief Complaint Patient presents with: Established Patient HPI: Inés Lieberman is a 71 year old female who presents here today for follow up breast cancer. Per Dr. Gutierrez's previous note: H/o hypertension. Screening mammogram in April demonstrated a 9 cm area of segmental pleomorphic calcifications in the left breast. A subsequent left breast ultrasound revealed a 1-1/2 cm irregular mass in the left breast at the 3:00 middle depth position. There was also a lymph node with uniform cortical thickening in the left axillary tail consistent with an enlarged lymph node and was moderate suspicion for malignancy. Patient underwent ultrasound-guided core needle biopsy with clip placement on 06/09/2020. Pathology: Invasive ductal carcinoma, grade 3 nuclei. Biopsy of left axillary lymph node revealed fragments of lymph node positive for metastatic carcinoma (approximately 3 mm in greatest dimension). ER - - - - - Negative. MT - - - - - Negative. HER2 (ERBB2) IMMUNOHISTOCHEMISTRY ASSAY Interpretation: POSITIVE for HER2 (ERBB2) Expression Score: 3+ Percentage of cells with uniform intense complete membrane stainin% (reported for 2+ and 3+ scores only). Underwent right-sided internal jugular vein port placement on 07/07/2020. MRI Breasts 06/30/2020: RESULT: Bilateral background breast enhancement is mild. Current study was also evaluated with a Computer Aided Detection (CAD) system. There is 4.5 cm x 9.2 cm x 6.5 cm segmental area in the left breast lower outer aspect middle depth. This shows non-mass like enhancement. This correlates with mammography and ultrasound findings. Specifically, multiple masses with intervening non mass enhancement (NME) is demonstrated in a segmental distribution from approximately 3:00 to 6:00, correlating with the malignant calcifications seen mammographically. This is inclusive of the prior biopsy site at the 3:00 position 5 cmfn, which contains a biopsy clip. Enhancement extends to a mildly retracted left nipple, which is also enhancing asymmetrically and abnormally. No suspicious enhancement extends posteriorly to the chest wall. The skin of the left breast is thickened and edematous with mildly asymmetric enhancement, which appears somewhat nodular in areas (especially medially) on later time points. There is no suspicious mass, abnormal enhancement, distortion, or other significant abnormality in the right breast. Multiple small foci of persistent enhancement are seen and these are judged to be benign. There also are multiple oval masses in the left axilla. These show heterogeneous enhancement and rapid initial rise and delayed washout type vascular enhancement. The largest node measures 2.3 cm maximally and contains a biopsy clip. This is a biopsy proven metastatic axillary node. No abnormalities in the right axillary nodes or internal mammary nodes region. Multiple T2/STIR hyperintense lesions are scattered within the liver measuring up to 1.4 cm in size. While these most likely represent benign cysts or hemangiomas, they are incompletely characterized on the current exam. The 4.5 cm x 9.2 cm x 6.5 cm segmental area in the left breast lower outer aspect middle depth is consistent with the known carcinoma and is a known biopsy positive for malignancy. A surgical consult is recommended. This area is inclusive of the biopsy site at 3:00 5 cmfn, which contains a biopsy clip. - There is involvement of the left nipple and abnormal enhancement of thickened edematous skin of the left breast. No evidence for chest wall disease involvement. The multiple oval masses in the left axilla are consistent with a pathological lymph node and are a known biopsy positive for malignancy. A surgical consult is recommended. This includes a biopsy proven metastatic axillary node, which contains a biopsy clip. - No internal mammary adenopathy. No MRI evidence of malignancy in the right breast. Multiple indeterminate T2/STIR hyperintense liver lesions. While these most likely represent benign cysts or hemangiomas, they are incompletely characterized on the current exam. Further evaluation via dedicated abdominal CT or MRI is recommended. Previous therapy: 1) Neoadjuvant TCHP. 2) Adjuvant radiation 03/03/21 - 04/06/21. 3) Trastuzumab alone. CT chest 11/04 revealed stable 3 mm nodule right lung. MRI Breasts 11/12/2020: Left Breast - Category 6 - Known cancer. No residual enhancing tissue at the site of known cancer and resolution of lymphadenopathy, representing marked response to chemotherapy. Normal right breast MRI. Underwent bilateral simple mastectomies with left sentinel lymph node biopsy on 01/03/2021. Pathology: No cancer in 2 sentinel lymph nodes--1 demonstrated features consistent with therapy effect.. Right mastectomy specimen demonstrated features consistent with therapy effect. Negative for malignancy. Left mastectomy specimen revealed previous core biopsy site and features consistent with therapy effect. Negative for residual invasive ductal carcinoma. No new concerns today. LUE ROM improved. She found exercises on line to do and tries to do them most days. Appetite:Too good. Energy level:Good-I have a lot more energy than I used to. Denies fevers or recent illness. Resp:denies cough or sob Cardiac:denies chest pain/palpitations GI:denies abd pain, n/v, moving bowels regularly :denies dysuria/hematuria Extrem:denies pain Endo:+hot flashes They are mostly at night. Neuro:neuropathy to feet resolved Skin:denies rashes/lesions Heme:denies bleeding The ROS is otherwise negative. Past medical history, appointments, medications, allergies reviewed. No changes. EXAM: BP 143/72 Pulse 64 Temp 36.4 C (97.6 F) Wt 65.5 kg (144 lb 8 oz) SpO2 98% BMI 25.60 kg/m APPEARANCE Well appearing, alert, in no acute distress, well-hydrated, well nourished. HEART RRR with normal S1 and S2, no murmurs LUNG clear to auscultation BREAST FEMALE b/l mastectomy scars, L chest radiation changes LYMPH NODES No cervical lymphadenopathy, No supraclavicular lymphadenopathy and No axillary lymphadenopathy. ABDOMEN bowel sounds normoactive, soft, non-tender, non-distended, without organomegaly or palpable masses EXTREMITIES No edema NEURO Awake, alert and oriented x 3, Normal gait and No involuntary motions. SKIN Skin color, texture, turgor normal, no suspicious rashes or lesions LABS: Component Latest Ref Rng & Units 07/04/2021 07/25/2021 10/26/2021 WBC 3.70 - 11.00 k/uL 4.28 4.66 3.44 (L) RBC 3.90 - 5.20 m/uL 3.37 (L) 3.80 (L) 3.84 (L) Hemoglobin 11.5 - 15.5 g/dL 9.7 (L) 11.0 (L) 11.0 (L) Hematocrit 36.0 - 46.0 % 30.3 (L) 34.5 (L) 34.1 (L) MCV 80.0 - 100.0 fL 89.9 90.8 88.8 MCH 26.0 - 34.0 pg 28.8 28.9 28.6 MCHC 30.5 - 36.0 g/dL 32.0 31.9 32.3 RDW-CV 11.5 - 15.0 % 13.0 13.2 13.9 Platelet Count 150 - 400 k/uL 166 194 174 MPV 9.0 - 12.7 fL 9.9 10.2 10.3 Neut% % 63.1 62.7 58.4 Abs Neut (ANC) 1.45 - 7.50 k/uL 2.69 2.92 2.01 Lymph% % 23.4 21.5 26.5 Abs Lymph 1.00 - 4.00 k/uL 1.00 1.00 0.91 (L) [place]% % 10.7 12.4 11.6 Abs [place] <0.87 k/uL 0.46 0.58 0.40 Eosin% % 2.1 2.6 2.3 Abs Eosin <0.46 k/uL 0.09 0.12 0.08 Baso% % 0.7 0.6 0.9 Abs Baso <0.11 k/uL 0.03 0.03 0.03 Immature Gran % % 0.2 0.3 IMMATURE GRANS (ABS) <0.10 k/uL <0.03 <0.03 NRBC /100 WBC 0.0 0.0 Absolute nRBC <0.01 k/uL <0.01 <0.01 <0.01 DTYPE Auto Auto Nucleated Reds 0 /100 WBC 0.0 Diff Type Auto Diff CMP/Mag: Pending ASSESSMENT/PLAN: 1. Malignant neoplasm of upper-outer quadrant of left breast in female, estrogen receptor 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) - ICD9: 174.4, V86.1, ICD10: C50.412, Z17.1 (primary diagnosis) 2. 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 HER2-positive carcinoma of breast (HCC) - ICD9: 174.9, ICD10: C50.919 cT3 cN1 MX ER/MT negative, 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 infiltrating ductal carcinoma of the left breast. Per Dr. Gutierrez's previous note 06/10/21: Assessment: -In summary the patient is an otherwise healthy 70-year-old female who had a screening detected ER/MT negative, 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 breast cancer. 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 -Mammography suggested pleomorphic calcifications over a 9 cm segment in the breast. Subsequent breast MRI identified a 4.5 x 9.2 x 6.5 cm segmental area in the left breast lower outer aspect middle depth. The area was inclusive of the biopsy site at 3:00, 5 cm from the nipple. There was involvement of the nipple and abnormal enhancement of thickened edematous skin in the left breast. Multiple oval masses were appreciated in the left axilla consistent with metastases. No internal mammary adenopathy. -CTs, bone scan and MRI did not suggest metastatic disease but there was a small 3 mm lung nodule that was stable on CT chest performed post domonique-adjuvant chemotherapy. -Pathologic CR. -Again reviewed plan to continue treatment with Herceptin every 3 weeks for up to a year from when she started. -ER/MT negative, so no indication for AI therapy. -Still has moderate anemia. Plan: -Continue Herceptin every 3 weeks. -Last dose of Herceptin scheduled for 05/03. -Following that she will have repeat lab work including iron studies and B12 as well as reticulocyte count and echocardiogram followed by survivorship care plan. - No concerning findings on exam. - Reviewed CBC with pt. - CMP pending. - Follow up in 3 months with CBC/CMP. - Pt. aware to call office with any questions/concerns. The patient indicates understanding of these issues and agrees with the plan. All documentation from previous visit of 07/27/21-Dr. Gutierrez/myself was copied and pasted, documentation has been reviewed and edited as necessary for today's visit. Irais Peñaloza APRN.CNP documented in this encounter [facility] 08-17-2021 History of Present illness Narrative Images from the original note were not included. JOURDAN Romero, [place] [address] Date of Visit: 08/17/2021 Patient Name: Inés Lieberman Date of : 1950 Established / Survivorship Visit Breast Surgeon: Suzi Latham MD Medical Oncologist: Sukumar Gutierrez DO / Irais SOLIMAN Radiation Oncologist: Wilman Baptiste MD SUBJECTIVE Chief Complaint: Patient presents with: New Patient: with 6 month exam HPI Inés Lieberman is a 71 year old female who is here today for a 6 month clinical breast exam and a Survivorship visit. Her daughter, Pamela, is present with her in the exam room today. She is an established [facility] patient and was last seen here 01/21/2021. She denies palpable breast lumps or masses, nodules along scar lines, enlarged lymph nodes, pain, skin changes, erythema or nipple discharge. She does, however, endorse tenderness in the LEFT axilla and along scar line. [facility] ONCOLOGY TREATMENT SUMMARY Patient Name Inés Lieberman Date of 1950 CARE TEAM General/Breast Surgeon Suzi Latham M.D. Medical Oncologist Sukumar Gutierrez MD Radiation Oncologist Wilman Baptiste MD Plastic Surgeon N/A Primary Care Odilon Serrano DO [employer]isher Operator Yadira Calvert [phone] Lorie Peña [phone] BACKGROUND INFORMATION Family History None Genetic Testing/Result N/A Other Health Concerns HTN Genomic Testing/Result N/A SITE OF DISEASE: Left Breast Breast Biopsy Date 06/09/2020 Clinical Tumor Stage IIIA - T3, N1, M0 Definitive Breast Surgery Date: 01/03/2021- Left breast mastectomy with sentinel lymph node biopsy and right prophylactic mastectomy -no reconstruction Histology Infiltrating Ductal Tumor Negative for residual tumor Lymph Nodes Removed: 2 Positive: 0 Margins Negative Pathological Stage [id number] ER Status Negative MT Status Negative Her-2-niko Status Amplified by IHC TREATMENT PLAN & SUMMARY CHEMOTHERAPY: Neoadjuvant TCHP Treatment Period Start Date: 07/12/2020 End Date: 10/25/2020 Treatment Regimen Carboplatin, Taxotere, Herceptin, Perjeta x 6 cycles-No perjeta cycle 5 and 6 One year Herceptin completed 05/03/2021 ENDOCRINE THERAPY: Not indicated RADIATION THERAPY: Yes Treatment Site Left chest wall, IM, SCV and axillary lymph nodes Treatment Dates 03/03/2021 - 04/06/2021 Nursing Notes: Cheyenne Carroll MA 08/17/2021 10:01 AM Signed Patient is here for new survivorship with 6 month clinical breast exam. Patient has a history of left breast cancer. Underwent left mastectomy with sentinel lymph node biopsy and right prophylactic. Patient reports that she has some soreness in her shoulder blade and neck from doing her arm exercises. She unsure if she pulled something. Patient also reports that the site where her lymph nodes were removed is still sore as well. Cheyenne Carroll MA No question data found. REVIEW OF SYSTEMS: Complete 10 system ROS done and negative except as stated above in the HPI. Current Outpatient Medications Medication Sig Dispense Refill lisinopril (ZESTRIL, PRINIVIL) 10 mg tablet Take 10 mg by mouth once daily. multivitamin tablet Take 1 tablet by mouth twice daily. cholecalciferol, vitamin D3, (VITAMIN D3 ORAL) Take 1 tablet by mouth once daily. Current Facility-Administered Medications Medication Dose Route Frequency Provider Last Rate Last Admin perflutren lipid microspheres 1.3 mL in NaCl (PF) 0.9% 10 mL injection (DEFINITY) INTRAVENOUS DIRECTED PRN Sukumar Gutierrez, DO sodium chloride 0.9 % (flush) 10 mL (BD POSIFLUSH) 10 mL INTRAVENOUS DIRECTED PRN Sukumar Gutierrez, DO perflutren lipid microspheres 1.3 mL in NaCl (PF) 0.9% 10 mL injection (DEFINITY) INTRAVENOUS DIRECTED PRN Sukumar Gutierrez, DO sodium chloride 0.9 % (flush) 10 mL (BD POSIFLUSH) 10 mL INTRAVENOUS DIRECTED PRN Sukumar Gutierrez, DO perflutren lipid microspheres 1.3 mL in NaCl (PF) 0.9% 10 mL injection (DEFINITY) INTRAVENOUS DIRECTED PRN Sukumar Gutierrez DO sodium chloride 0.9 % (flush) 10 mL (BD POSIFLUSH) 10 mL INTRAVENOUS DIRECTED PRN Sukumar Gutierrez DO I have performed the physical exam on 08/17/2021 - all new findings noted below. PAST MEDICAL HISTORY Diagnosis Date H/O bilateral mastectomy No reconstruction was done HTN (hypertension) Malignant neoplasm of left breast in female, estrogen receptor 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) PONV (postoperative nausea and vomiting) PAST SURGICAL HISTORY Procedure Laterality Date BREAST BIOPSY HX Left 06/09/2020 Invasive Ductal Carcinoma EXCISION AXILLARY LYMPH NODE Left 01/03/2021 2 nodes removed; #1 Features consistent with therapy effect. Negative for malignancy, #2 negative HYSTERECTOMY HX IMAGING GUIDED BIOPSY INGUINAL/AXILLARY LYMPH NODE Left 06/09/2020 metastic invasive ductal carcinoma MASTECTOMY, SIMPLE, COMPLETE Bilateral 01/03/2021 Left: IDC Right: negative Social History Tobacco Use Smoking status: Never Smoker Smokeless tobacco: Never Used Vaping Use Vaping Use: Never used Substance Use Topics Alcohol use: Never Drug use: Never FAMILY HISTORY Problem Relation Age of Onset No Known Problems Mother No Known Problems Father The ROS, medical, surgical, family, and social history were reviewed by Elizabeth Roberts APRN.PRODUCTION ILLUSTRATOR ALLERGIES No Known Allergies Current Outpatient Medications Medication Sig lisinopril (ZESTRIL, PRINIVIL) 10 mg tablet Take 10 mg by mouth once daily. multivitamin tablet Take 1 tablet by mouth twice daily. cholecalciferol, vitamin D3, (VITAMIN D3 ORAL) Take 1 tablet by mouth once daily. Current Facility-Administered Medications Medication Dose Route Frequency perflutren lipid microspheres 1.3 mL in NaCl (PF) 0.9% 10 mL injection (DEFINITY) INTRAVENOUS DIRECTED PRN sodium chloride 0.9 % (flush) 10 mL (BD POSIFLUSH) 10 mL INTRAVENOUS DIRECTED PRN perflutren lipid microspheres 1.3 mL in NaCl (PF) 0.9% 10 mL injection (DEFINITY) INTRAVENOUS DIRECTED PRN sodium chloride 0.9 % (flush) 10 mL (BD POSIFLUSH) 10 mL INTRAVENOUS DIRECTED PRN perflutren lipid microspheres 1.3 mL in NaCl (PF) 0.9% 10 mL injection (DEFINITY) INTRAVENOUS DIRECTED PRN sodium chloride 0.9 % (flush) 10 mL (BD POSIFLUSH) 10 mL INTRAVENOUS DIRECTED PRN OBJECTIVE BP 176/66 (BP Site: Right Arm, BP Position: Sitting, BP Cuff Size: Regular Adult) Pulse 67 Ht 160 cm (5' 3) Wt 65.3 kg (144 lb) BMI 25.51 kg/m BMI 25.51 kg/(m^2) Physical Exam BREAST EXAM: On visual inspection (seated, with hands on hips and with hands above head), the breasts are surgically absent bilaterally. NAC surgically absent bilaterally. No reconstruction. RIGHT Skin changes: mastectomy scar noted Axillary adenopathy: No Supraclavicular adenopathy: No Palpable masses: mastectomy scar line is soft with no palpable nodules Tenderness: No LEFT Skin changes: mastectomy and axillary scars noted, residual hyperpigmentation present secondary to radiotherapy Axillary adenopathy: No Supraclavicular adenopathy: No Palpable masses: scar line is soft with no palpable nodules noted Tenderness: yes Survivorship Review of Systems: Multiple copies of her Oncology Treatment Summary / Survivorship Care Plan were provided and discussed in detail. Opportunity provided to ask questions. Literature provided: [employer] Answers About Survivorship, [employer]'s Guideline on Follow-Up Care for Breast Cancer, [facility] Survivorship Program information. Inés, her daughter, Pamela and I reviewed her Oncology Treatment Summary in detail. We discussed breast screening as it pertains to her daughter Pamela who has a history of LCIS and the recommended screening guidelines for Inés's granddaughter. Patient identified the following survivorship concerns related to her recent cancer diagnosis and treatment: Cardiac Toxicity: New shortness of breath or chest pain: No New chest pain since your cancer diagnosis or treatment? No Emotional Health: Little interest or pleasure in doing things? Feeling of hopeless since your cancer diagnosis, treatment? No Unable to stop or control worrying, feeling nervous or on the edge since your cancer diagnosis, treatment? No Difficulty coping with your cancer diagnosis, treatment and/or late effects? No Fear of cancer returning affecting your daily life since your cancer diagnosis, treatment? No Cognitive Function: New trouble multitasking or paying attention since your cancer diagnosis or treatment? No New trouble remembering things since your cancer diagnosis or treatment? No Slowed or trouble thinking since your cancer diagnosis or treatment? No Fatigue/Sleep: Persistent fatigue despite a good night's sleep since your cancer diagnosis or treatment? No Fatigue interfering with your usual activities since cancer diagnosis or treatment? No Problems falling asleep, staying asleep or waking too early since your cancer diagnosis or treatment? Yes - pre-existing to cancer diagnosis, multifactorial Lymphedema: Persistent swelling, fatigue, heaviness, fullness on same side as your treatment? No Pain: New pain since your cancer diagnosis or treatment? No Endocrine: New hot flashes or night sweats since your cancer diagnosis or treatment? Yes Other menopause related symptoms (ex: vaginal dryness, incontinence)? No Sexual Function: Concerns regarding your sexual function, sexual activity, sexual relationships or sex life since your cancer diagnosis or treatment? No Healthy Lifestyle: Have you had unintentional weight loss or gain since your cancer diagnosis or treatment? No Had decreased appetite or weight changes since your cancer diagnosis or treatment? No Had any chewing or swallowing difficulties since your cancer diagnosis or treatment? No Do you use any tobacco products (cigarettes, e-cigarettes, chewing tobacco, etc)? No Do you drink more than 2 alcoholic drinks per day? Have you or anyone else been concerned over your alcohol use? No Preventative Health: Have you seen your primary care provider within the last year? Yes Have you received your flu vaccine this flu season (January through July)? Yes Are you up to date on your other vaccines? Yes (pneumonia, flu, Covid) Are you up to date on your wellness screenings (ex. Cholesterol, blood pressure) and cancer screening tests (ex: colonoscopy, mammogram)? Yes General Health Overall, the patient feels her health is Good. Any other concerns related to your cancer diagnosis and treatment? No ASSESSMENT/PLAN: 1. Malignant neoplasm of upper-outer quadrant of left breast in female, estrogen receptor 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) - ICD9: 174.4, V86.1, ICD10: C50.412, Z17.1 (primary diagnosis) 2. H/O bilateral mastectomy - ICD9: V45.71, ICD10: Z90.13 Inés Lieberman is a 71 year old female who is here today for a 6 month clinical exam and Survivorship visit. Overall, she is doing well. Physical exam demonstrates bilateral mastectomy and LEFT axillary scars which are well healed. There is residual hyperpigmentation noted across the LEFT chest wall. She will maintain vigilant breast awareness and continue monthly self breast exams. She will contact us with any concerns. She is clinically stable and has no evidence of disease. We discussed that it is very reasonable for her to continue surveillance in the [place] area with Dr. Gutierrez and Irais SOLIMAN. Dr. Latham remains available for any surgical needs. Portions of this note including HPI, ROS, impression/plan, and examination may have been copied forward as to provide important historical information essential in contributing to medical decision making. Documentation has been reviewed and edited as necessary to support clinical decision making for today's visit 08/17/2021. Follow up: Return for follow up with Irais SOLIMAN as previously scheduled. I spent a total of 70 minutes on the date of the service which included preparing to see the patient, [id number] patient care, completing clinical documentation, obtaining and/or reviewing separately obtained history, performing a medically appropriate examination and counseling and educating the patient/family/caregiver. Elizabeth Roberts APRN.CNP I verified the registered medical transcriptionist/nurse documentation in the medical record, and made appropriate changes. I personally performed a history,physical exam and medical decision making. Elizabeth SOLIMAN, OCN documented in this encounter [facility] 08-17-2021 Nurse Note Patient is here for new survivorship with 6 month clinical breast exam. Patient has a history of left breast cancer. Underwent left mastectomy with sentinel lymph node biopsy and right prophylactic. Patient reports that she has some soreness in her shoulder blade and neck from doing her arm exercises. She unsure if she pulled something. Patient also reports that the site where her lymph nodes were removed is still sore as well. Cheyenne Carroll MA documented in this encounter [facility] Evaluation + Plan note Future Appointments Appointment Date:03/12/2024 01:30:00 PM Scheduled Provider:ODILON SERRANO DO Location:[facility] Appointment Type:PC OV Appointment Date:08/07/2024 02:00:00 PM Scheduled Provider:ODILON SERRANO DO Location:[facility] Appointment Type: Wellness Medicare Future Scheduled TestsFerritin 02/07/24Folate Level 02/07/24Phosphorus Level 02/07/24Vitamin B12 Level 02/07/24Complete Blood Count 02/07/24Lipid Profile 02/07/24epatitis C Antibody IgG 02/07/24Iron Studies 02/07/24PTH, Intact 02/07/24Vitamin D Level 02/07/24Complete Metabolic Panel 02/07/24BD Bone Density DEXA Axial Skeleton Adult (21 yrs or older) 02/07/[address] [facility] Evaluation + Plan note Future Appointments Appointment Date:03/12/2024 01:30:00 PM Scheduled Provider:ODILON SERRANO DO Location:[facility] Appointment Type:PC OV Appointment Date:08/07/2024 02:00:00 PM Scheduled Provider:ODILON SERRANO DO Location:[facility] Appointment Type:[facility] Medicare Future Scheduled TestsFerritin 02/07/24Folate Level 02/07/24Phosphorus Level 02/07/24Lipid Profile 02/07/24Iron Studies 02/07/24Complete Metabolic Panel 02/07/[address] [facility] Evaluation + Plan note Future Appointments Appointment Date:02/10/2025 03:00:00 PM Scheduled Provider:ODILON SERRANO DO Location:[facility] Appointment Type:PC Wellness Medicare Future Scheduled TestsFerritin 11/14/24Folate Level 11/14/24Phosphorus Level 11/14/24Lipid Profile 11/14/24Iron Studies 11/14/24Complete Metabolic Panel 11/14/24XR Chest 2 Views (PA & Lateral) 08/07/[address] [facility] Evaluation note Diagnosis Malignant neoplasm of upper-outer quadrant of left breast in female, estrogen receptor 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)- Primary H/O bilateral mastectomy Acquired absence of breast and nipple [facility] Diagnosis Onset Date Resolution Status Encounter for infusaport central venous catheter remov [facility] Work Phone: Evaluation note* Diagnosis Malignant neoplasm of upper-outer quadrant of left breast in female, estrogen receptor 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)- Primary Hypomagnesemia Disorders of magnesium metabolism 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) Secondary and unspecified malignant neoplasm of lymph nodes of axilla and upper limb HER2-positive carcinoma of breast (HCC) [facility] [place] [facility]* Diagnosis Malignant neoplasm of upper-outer quadrant of left female breast, unspecified estrogen receptor status (HCC)- Primary [facility] [place] noteNo assessment information availableWTri[facility] Work Phone: Evaluation note* Diagnosis Malignant neoplasm of upper-outer quadrant of left breast in female, estrogen receptor 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)- Primary 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) Secondary and unspecified malignant neoplasm of lymph nodes of axilla and upper limb Malignant neoplasm of overlapping sites of left breast in female, estrogen receptor 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)- Primary Malignant neoplasm of upper-outer quadrant of left breast in female, 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 Secondary and unspecified malignant neoplasm of lymph nodes of axilla and upper limb Malignant neoplasm of overlapping sites of left breast in female, estrogen receptor 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) Malignant neoplasm of overlapping sites of left breast in female, estrogen receptor 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)- Primary Encounter for follow-up surveillance of breast cancer- Primary Unspecified follow-up examination Malignant neoplasm of upper-outer quadrant of left breast in female, estrogen receptor 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) 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 Secondary and unspecified malignant neoplasm of lymph nodes of axilla and upper limb Malignant neoplasm of overlapping sites of left breast in female, estrogen receptor 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) Malignant neoplasm of overlapping sites of left breast in female, estrogen receptor 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)- Primary Vaginal vault prolapse- Primary Unspecified prolapse of vaginal riggins Primary stress urinary incontinence History of breast cancer Personal history of malignant neoplasm of breast Pre-operative clearance Preoperative examination, unspecified documented in this encounter [facility] note* Diagnosis Left breast mass- Primary Lump or mass in breast Malignant neoplasm of upper-outer quadrant of left breast in female, estrogen receptor 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)- Primary 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) Secondary and unspecified malignant neoplasm of lymph nodes of axilla and upper limb Malignant neoplasm of overlapping sites of left breast in female, estrogen receptor 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)- Primary Malignant neoplasm of upper-outer quadrant of left breast in female, 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 Secondary and unspecified malignant neoplasm of lymph nodes of axilla and upper limb Malignant neoplasm of overlapping sites of left breast in female, estrogen receptor 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) Malignant neoplasm of overlapping sites of left breast in female, estrogen receptor 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)- Primary Vaginal vault prolapse- Primary Unspecified prolapse of vaginal riggins [facility] [place] [facility]* Diagnosis Left breast mass- Primary Lump or mass in breast Malignant neoplasm of upper-outer quadrant of left breast in female, estrogen receptor 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)- Primary 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) Secondary and unspecified malignant neoplasm of lymph nodes of axilla and upper limb Malignant neoplasm of overlapping sites of left breast in female, estrogen receptor 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)- Primary Malignant neoplasm of upper-outer quadrant of left breast in female, 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 Secondary and unspecified malignant neoplasm of lymph nodes of axilla and upper limb Malignant neoplasm of overlapping sites of left breast in female, estrogen receptor 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) Malignant neoplasm of overlapping sites of left breast in female, estrogen receptor 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)- Primary Educational circumstance- Primary Educational circumstances- Primary Educational circumstance Vaginal vault prolapse Unspecified prolapse of vaginal riggins Primary stress urinary incontinence History of breast cancer Personal history of malignant neoplasm of breast Pre-operative clearance Preoperative examination, unspecified documented in this encounter [facility] note* Diagnosis Left breast mass- Primary Lump or mass in breast Malignant neoplasm of upper-outer quadrant of left breast in female, estrogen receptor 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)- Primary 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) Secondary and unspecified malignant neoplasm of lymph nodes of axilla and upper limb Malignant neoplasm of overlapping sites of left breast in female, estrogen receptor 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)- Primary Malignant neoplasm of upper-outer quadrant of left breast in female, 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 Secondary and unspecified malignant neoplasm of lymph nodes of axilla and upper limb Malignant neoplasm of overlapping sites of left breast in female, estrogen receptor 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) Malignant neoplasm of overlapping sites of left breast in female, estrogen receptor 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)- Primary Educational circumstances- Primary Educational circumstance Vaginal vault prolapse Unspecified prolapse of vaginal riggins Primary stress urinary incontinence History of breast cancer Personal history of malignant neoplasm of breast Pre-operative clearance Preoperative examination, unspecified documented in this encounter [facility] note* Diagnosis Left breast mass- Primary Lump or mass in breast Malignant neoplasm of upper-outer quadrant of left breast in female, estrogen receptor 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)- Primary 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) Secondary and unspecified malignant neoplasm of lymph nodes of axilla and upper limb Malignant neoplasm of overlapping sites of left breast in female, estrogen receptor 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)- Primary Malignant neoplasm of upper-outer quadrant of left breast in female, 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 Secondary and unspecified malignant neoplasm of lymph nodes of axilla and upper limb Malignant neoplasm of overlapping sites of left breast in female, estrogen receptor 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) Malignant neoplasm of overlapping sites of left breast in female, estrogen receptor 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)- Primary Pre-operative examination- Primary Preoperative examination, unspecified History of breast cancer Personal history of malignant neoplasm of breast Primary hypertension Unspecified essential hypertension Anxiety Anxiety state, unspecified VHD (valvular heart disease) Endocarditis, valve unspecified, unspecified cause * Assessment & Plan Note - Bartolome Lopez APRN.CNP - 08/25/2024 9:00 AM EDT Associated Problem(s): VHD (valvular heart disease) Assessment: +murmur, 2021 echo EF 65%, trace MVR, trace-1+ TVR, trace PVR * Assessment & Plan Note - Bartolome Lopez APRN.CNP - 08/25/2024 8:49 AM EDT Associated Problem(s): Anxiety Assessment: rx as needed * Assessment & Plan Note - Bartolome Lopez APRN.CNP - 08/25/2024 8:49 AM EDT Associated Problem(s): HTN (hypertension) Assessment: controlled on rx Last 14 BP Last 14 Encounter BP Readings: Date: BP: 08/25/2024 140/68 08/21/2024 196/82[patient notes being anxious about testing. denies cardiac symptoms[ 07/28/2024 185/64 04/25/2024 190/76 10/26/2023 163/76 10/25/2022 170/78 04/26/2022 169/92 01/25/2022 145/71 10/26/2021 143/72 08/17/2021 176/66[Re check[ 07/27/2021 131/75 07/04/2021 140/70 06/13/2021 144/60 06/10/2021 120/57 * Assessment & Plan Note - Bartolome Lopez APRN.CNP - 08/25/2024 8:49 AM EDT Associated Problem(s): History of breast cancer Assessment: hx left breast CA, s/p bilateral mastectomy, chemo and XRT documented in this encounter [facility] note* Diagnosis Left breast mass- Primary Lump or mass in breast Malignant neoplasm of upper-outer quadrant of left breast in female, estrogen receptor 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)- Primary 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) Secondary and unspecified malignant neoplasm of lymph nodes of axilla and upper limb Malignant neoplasm of overlapping sites of left breast in female, estrogen receptor 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)- Primary Malignant neoplasm of upper-outer quadrant of left breast in female, 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 Secondary and unspecified malignant neoplasm of lymph nodes of axilla and upper limb Malignant neoplasm of overlapping sites of left breast in female, estrogen receptor 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) Malignant neoplasm of overlapping sites of left breast in female, estrogen receptor 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)- Primary Urinary urgency- Primary Urgency of urination Stress incontinence, female Female stress incontinence Pre-operative examination- Primary Preoperative examination, unspecified History of breast cancer Personal history of malignant neoplasm of breast Primary hypertension Unspecified essential hypertension Anxiety Anxiety state, unspecified VHD (valvular heart disease) Endocarditis, valve unspecified, unspecified cause Vaginal vault prolapse Unspecified prolapse of vaginal riggins Primary stress urinary incontinence History of breast cancer Personal history of malignant neoplasm of breast Pre-operative clearance Preoperative examination, unspecified documented in this encounter [facility] note* Diagnosis Left breast mass- Primary Lump or mass in breast Malignant neoplasm of upper-outer quadrant of left breast in female, estrogen receptor 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)- Primary 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) Secondary and unspecified malignant neoplasm of lymph nodes of axilla and upper limb Malignant neoplasm of overlapping sites of left breast in female, estrogen receptor 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)- Primary Malignant neoplasm of upper-outer quadrant of left breast in female, 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 Secondary and unspecified malignant neoplasm of lymph nodes of axilla and upper limb Malignant neoplasm of overlapping sites of left breast in female, estrogen receptor 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) Malignant neoplasm of overlapping sites of left breast in female, estrogen receptor 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)- Primary Pre-operative examination- Primary Preoperative examination, unspecified History of breast cancer Personal history of malignant neoplasm of breast Primary hypertension Unspecified essential hypertension Anxiety Anxiety state, unspecified VHD (valvular heart disease) Endocarditis, valve unspecified, unspecified cause Post-op pain Other acute postoperative pain [facility] [place] [facility]* Diagnosis Left breast mass- Primary Lump or mass in breast Malignant neoplasm of upper-outer quadrant of left breast in female, estrogen receptor 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)- Primary 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) Secondary and unspecified malignant neoplasm of lymph nodes of axilla and upper limb Malignant neoplasm of overlapping sites of left breast in female, estrogen receptor 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)- Primary Malignant neoplasm of upper-outer quadrant of left breast in female, 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 Secondary and unspecified malignant neoplasm of lymph nodes of axilla and upper limb Malignant neoplasm of overlapping sites of left breast in female, estrogen receptor 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) Malignant neoplasm of overlapping sites of left breast in female, estrogen receptor 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)- Primary Pre-operative examination- Primary Preoperative examination, unspecified History of breast cancer Personal history of malignant neoplasm of breast Primary hypertension Unspecified essential hypertension Anxiety Anxiety state, unspecified VHD (valvular heart disease) Endocarditis, valve unspecified, unspecified cause Vaginal vault prolapse Unspecified prolapse of vaginal riggins Encounter for follow-up surveillance of breast cancer- Primary Unspecified follow-up examination documented in this encounter [facility] note* Diagnosis Left breast mass- Primary Lump or mass in breast Malignant neoplasm of upper-outer quadrant of left breast in female, estrogen receptor 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)- Primary 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) Secondary and unspecified malignant neoplasm of lymph nodes of axilla and upper limb Malignant neoplasm of overlapping sites of left breast in female, estrogen receptor 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)- Primary Malignant neoplasm of upper-outer quadrant of left breast in female, 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 Secondary and unspecified malignant neoplasm of lymph nodes of axilla and upper limb Malignant neoplasm of overlapping sites of left breast in female, estrogen receptor 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) Malignant neoplasm of overlapping sites of left breast in female, estrogen receptor 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)- Primary Pre-operative examination- Primary Preoperative examination, unspecified History of breast cancer Personal history of malignant neoplasm of breast Primary hypertension Unspecified essential hypertension Anxiety Anxiety state, unspecified VHD (valvular heart disease) Endocarditis, valve unspecified, unspecified cause Vaginal vault prolapse Unspecified prolapse of vaginal riggins Post-operative state- Primary Other postprocedural status Encounter for surgical aftercare following surgery on the genitourinary system documented in this encounter [facility] course Narrative No data available for this section [facility] Hospital Discharge instructions No data available for this section [facility] Progress note No data available for this section [facility] Reason for referral (narrative)No reason for referral information availableWTriHealth [facility] Work Phone: Summary Purpose Family History No Family History Records Found Relationship Condition Age at Onset Recorded Date/T juan mother Hypertension Unknown father Hypertension Unknown Advance Directives No Advanced Directives Records FoundDocuments on File Type Date Recorded Patient Canine Deputy Expl anation Advance Directive(s) 01/03/2021 7:01 AM Advance Directive Response Recorded Date/ Time Living Will Yes July 18, 021 10:17pm Power of Supervisor Drilling And Shooting Yes July 18, 2020 10:17pm Chief Complaint and Reason for Visit Chief Complaint OSTEOPOROSIS PORT REMOVAL Reason for Visit Encounter for infusa port central venous catheter removal Chief Complaint Admit Date RIGHT LOWER September 19, 2024 2:57pm Reason for Referral Specialty Diagnoses / Procedures Referred By Deep t Referred To Contact Diagnoses Malignant neoplasm of upper-outer quadrant of left female breast, unspecified estrogen receptor status (HCC) Procedures BREAST PROSTHESIS, MASTECTOMY Sukumar Cisneros, DO [address] [place] [address] Referral ID Status Reason Start Date Expiration Date V isits Requested Visits Authorized [id number] Closed PCP Requested Referral 04/06/2022 07/05/2022 1 1 Specialty Diagnoses / Procedures Referred By Contac t Referred To Contact Diagnoses Malignant neoplasm of upper-outer quadrant of left female breast, unspecified estrogen receptor status (HCC) Procedures BREAST PROSTHESIS, SILICONE Sukumar Gutierrez, DO [address] [place] [address] Referral ID Status Reason Start Date Expiration Date V isits Requested Visits Authorized [id number] Closed PCP Requested Referral 04/06/2022 07/05/2022 1 1 Additional Source Comments INFORMATION SOURCE (unrecogn ized section and content) DATE CREATED AUTHOR 01/22/2021 [facility] DATE CREATED AUTHOR AUTHOR'S ORGANIZ ATION 04/09/2023 [facility] DATE CREATED AUTHOR AUTHOR'S ORGANIZ ATION 09/18/2024 [facility] DATE CREATED AUTHOR AUTHOR'S ORGANIZ ATION 10/25/2024 [facility] DATE CREATED AUTHOR AUTHOR'S ORGANIZ ATION 10/28/2024 [facility] DATE CREATED AUTHOR AUTHOR'S ORGANIZ ATION 11/21/2024 [facility] DATE CREATED AUTHOR AUTHOR'S ORGANIZ ATION 11/27/[address] [facility] Source Comments (unrecognize d section and content) In the event this informatio n is protected by the Federal Confidentiality of Alcohol and Drug Abuse Patient Records regulations: The Federal rules restrict any use of the information to criminally investigate or prosecute any alcohol or drug abuse patient.[facility] the event this information is protected by the Federal Confidentiality of Alcohol and Drug Abuse Patient Records regulations: The Federal rules restrict any use of the information to criminally investigate or prosecute any alcohol or drug abuse patient.[facility] the event this information is protected by the Federal Confidentiality of Alcohol and Drug Abuse Patient Records regulations: The Federal rules restrict any use of the information to criminally investigate or prosecute any alcohol or drug abuse patient.[facility] Hospital[facility] the event this information is protected by the Federal Confidentiality of Alcohol and Drug Abuse Patient Records regulations: The Federal rules restrict any use of the information to criminally investigate or prosecute any alcohol or drug abuse patient.[facility] the event this information is protected by the Federal Confidentiality of Alcohol and Drug Abuse Patient Records regulations: The Federal rules restrict any use of the information to criminally investigate or prosecute any alcohol or drug abuse patient.[facility] Hospital[facility] the event this information is protected by the Federal Confidentiality of Alcohol and Drug Abuse Patient Records regulations: The Federal rules restrict any use of the information to criminally investigate or prosecute any alcohol or drug abuse patient.[facility] the event this information is protected by the Federal Confidentiality of Alcohol and Drug Abuse Patient Records regulations: The Federal rules restrict any use of the information to criminally investigate or prosecute any alcohol or drug abuse patient.[facility] Hospital[facility] the event this information is protected by the Federal Confidentiality of Alcohol and Drug Abuse Patient Records regulations: The Federal rules restrict any use of the information to criminally investigate or prosecute any alcohol or drug abuse patient.[facility] Hospital[facility] the event this information is protected by the Federal Confidentiality of Alcohol and Drug Abuse Patient Records regulations: The Federal rules restrict any use of the information to criminally investigate or prosecute any alcohol or drug abuse patient.[facility] Hospital[facility] the event this information is protected by the Federal Confidentiality of Alcohol and Drug Abuse Patient Records regulations: The Federal rules restrict any use of the information to criminally investigate or prosecute any alcohol or drug abuse patient.[facility] HospitalIn the event this information is protected by the Federal Confidentiality of Alcohol and Drug Abuse Patient Records regulations: The Federal rules restrict any use of the information to criminally investigate or prosecute any alcohol or drug abuse patient.[facility] Hospital[facility] the event this information is protected by the Federal Confidentiality of Alcohol and Drug Abuse Patient Records regulations: The Federal rules restrict any use of the information to criminally investigate or prosecute any alcohol or drug abuse patient.[facility] HospitalIn the event this information is protected by the Federal Confidentiality of Alcohol and Drug Abuse Patient Records regulations: The Federal rules restrict any use of the information to criminally investigate or prosecute any alcohol or drug abuse patient.[facility] Hospital[facility] the event this information is protected by the Federal Confidentiality of Alcohol and Drug Abuse Patient Records regulations: The Federal rules restrict any use of the information to criminally investigate or prosecute any alcohol or drug abuse patient.[facility] Hospital[facility] the event this information is protected by the Federal Confidentiality of Alcohol and Drug Abuse Patient Records regulations: The Federal rules restrict any use of the information to criminally investigate or prosecute any alcohol or drug abuse patient.[facility] Hospital[facility] the event this information is protected by the Federal Confidentiality of Alcohol and Drug Abuse Patient Records regulations: The Federal rules restrict any use of the information to criminally investigate or prosecute any alcohol or drug abuse patient.[facility] Hospital[facility] the event this information is protected by the Federal Confidentiality of Alcohol and Drug Abuse Patient Records regulations: The Federal rules restrict any use of the information to criminally investigate or prosecute any alcohol or drug abuse patient.[facility] HospitalIn the event this information is protected by the Federal Confidentiality of Alcohol and Drug Abuse Patient Records regulations: The Federal rules restrict any use of the information to criminally investigate or prosecute any alcohol or drug abuse patient.[facility] HospitalIn the event this information is protected by the Federal Confidentiality of Alcohol and Drug Abuse Patient Records regulations: The Federal rules restrict any use of the information to criminally investigate or prosecute any alcohol or drug abuse patient.[facility] HospitalIn the event this information is protected by the Federal Confidentiality of Alcohol and Drug Abuse Patient Records regulations: The Federal rules restrict any use of the information to criminally investigate or prosecute any alcohol or drug abuse patient.[facility] HospitalIn the event this information is protected by the Federal Confidentiality of Alcohol and Drug Abuse Patient Records regulations: The Federal rules restrict any use of the information to criminally investigate or prosecute any alcohol or drug abuse patient.[facility] Hospital[facility] the event this information is protected by the Federal Confidentiality of Alcohol and Drug Abuse Patient Records regulations: The Federal rules restrict any use of the information to criminally investigate or prosecute any alcohol or drug abuse patient.[facility] HospitalIn the event this information is protected by the Federal Confidentiality of Alcohol and Drug Abuse Patient Records regulations: The Federal rules restrict any use of the information to criminally investigate or prosecute any alcohol or drug abuse patient.[facility] HospitalIn the event this information is protected by the Federal Confidentiality of Alcohol and Drug Abuse Patient Records regulations: The Federal rules restrict any use of the information to criminally investigate or prosecute any alcohol or drug abuse patient.[facility] HospitalIn the event this information is protected by the Federal Confidentiality of Alcohol and Drug Abuse Patient Records regulations: The Federal rules restrict any use of the information to criminally investigate or prosecute any alcohol or drug abuse patient.[facility] HospitalIn the event this information is protected by the Federal Confidentiality of Alcohol and Drug Abuse Patient Records regulations: The Federal rules restrict any use of the information to criminally investigate or prosecute any alcohol or drug abuse patient.[facility] Reason for Visit (unrecogniz ed section and content) Reason Comments New Patient with 6 month exam Reason Comments Established Patient Reason Comments Appointment Reason Comments Results Reason Comments Established Patient 3 month follow up Reason Comments Question Reason Comments medication question Reason Comments Consult Prolapse Reason Comments Future Appointment Reason Comments Appointment Rescheduled Reason Comments Patient Question Reason Onset Date Comments Pre-Op Teaching 08/14/2024 Reason Comments Consult Reason Comments Procedure UDS Specialty Diagnoses / Procedures Referred By Contac t Referred To Contact [facility] Diagnoses Vaginal vault prolapse Primary stress urinary incontinence History of breast cancer Procedures URODYNAMICS WHI COMPLX CYSTOMETRO W/VOID PRESS&URETHRAL PROFILE Elizabeth Linton MD [address] [place] [address] Phone: tel: fax: [facility] [address] [place] [address] Referral ID Status Reason Start Date Expiration Date V isits Requested Visits Authorized [id number] Closed Auto-Generate d Referral 07/30/2024 07/30/2025 1 1 Reason Comments Surgery Question Reason Onset Date Comments Refill Request 09/16/2024 Reason Comments Post-Op Visit Care Teams (unrecognized sec tion and content) Emergency Service Worker Relationship Specialty Start Date End Date Odilon Serrano DO [address] [place] [address] PCP - General Family Practice 06/30/20 Odilon Serrano DO [address] [place] [address] Family Practice 06/09/20 Lucy Chan, RN Specialty Senior Project Leader/Team Lead Oncology 06/18/20 Wilman Baptiste MD, [address] [place] [address] Physician Radiation Oncology 11/16/20 Rosaline Ojeda N [address] [place] [phone] Nurse Practitioner Cardiology 12/10/20 Elizabeth Roberts, MARINE DRILLER.PRODUCTION ILLUSTRATOR [address] [place] [address] Nurse Practitioner Hematology/Oncology 08/17/21 Emergency Service Worker Relationship Specialty Start Date End Date Odilon Serrano DO [address] [place] [address] (Work) PCP - General [facility] Practice 06/30/20 Odilon Serrano DO [address] [place] [address] (Work) [facility] Practice 06/09/20 Lucy Chan, RN Specialty Senior Project Leader/Team Lead Oncology 06/18/20 Wilman Baptiste MD, [address] [place] [address] Physician Radiation Oncology 11/16/20 Rosaline Ojeda N [address] [place] [phone] Nurse Practitioner Cardiology 12/10/20 Elizabeth Roberts, MARINE DRILLER.PRODUCTION ILLUSTRATOR [address] [place] [address] Nurse Practitioner Hematology/Oncology 08/17/21 Emergency Service Worker Relationship Specialty Start Date End Date Odilon Serrano [address] [place] [address] PCP - General Family Practice 06/30/20 Odilon Serrano [address] [place] [address] (Work) Family Practice 06/09/20 Lucy Chan RN Specialty Senior Project Leader/Team Lead Oncology 06/18/20 Wilman Baptiste MD, [address] [place] [address] Physician Radiation Oncology 11/16/20 Rosaline Ojeda [address] [place] [phone] Nurse Practitioner Cardiology 12/10/20 Elizabeth Roberts, MARINE DRILLER.PRODUCTION ILLUSTRATOR [address] [place] [address] Nurse Practitioner Hematology/Oncology 08/17/21 Emergency Service Worker Relationship Specialty Start Date End Date Odilon Serrano [address] [place] [address] (Work) PCP - General Family Practice 06/30/20 Odilon Serrano [address] [place] [address] Family Practice 06/09/20 Lucy Chan RN Specialty Senior Project Leader/Team Lead Oncology 06/18/20 Wilman Baptiste MD, [address] [place] [address] Physician Radiation Oncology 11/16/20 Rosaline Ojeda [address] [place] [phone] Nurse Practitioner Cardiology 12/10/20 Elizabeth Roberts, MARINE DRILLER.PRODUCTION ILLUSTRATOR [address] [place] [address] Nurse Practitioner Hematology/Oncology 08/17/21 Emergency Service Worker Relationship Specialty Start Date End Date Odilon Serrano [address] [address] PCP - General Family Medicine 06/30/[address] [address] (Work) Family Medicine 06/09/20 Lucy Chan, RN Specialty Senior Project Leader/Team Lead Oncology 06/18/20 Wilman Baptiste MD, MD [address] [place] [address] Physician Radiation Oncology 11/16/20 Rosaline Ojeda CNP Nurse Practitioner Cardiology 12/10/20 Elizabeth Roberts, MARINE DRILLER.PRODUCTION ILLUSTRATOR [address] [place] [address] Nurse Practitioner Hematology/Oncology 08/17/21 Emergency Service Worker Relationship Specialty Start Date End Date KishoreOdilon [address] [address] PCP - General Family Medicine 06/30/20 Odilon Serrano [address] [address] (Work) Family Medicine 06/09/20 Lucy Chan RN Specialty Senior Project Leader/Team Lead Oncology 06/18/20 Wilman Baptiste MD, MD [place] [address] Physician Radiation Oncology 11/16/20 Rosaline Ojeda, PRODUCTION ILLUSTRATOR [address] [place] [address] Nurse Practitioner Cardiology 12/10/20 Elizabeth Roberts, MARINE DRILLER.PRODUCTION ILLUSTRATOR [address] [place] [address] Nurse Practitioner Hematology/Oncology 08/17/21 Emergency Service Worker Relationship Specialty Start Date End Date Kishore Odilon, [address] [address] (Work) PCP - General Family Medicine 06/30/[address] [address] (Work) Family Medicine 06/09/20 Lucy Chan RN Specialty Senior Project Leader/Team Lead Oncology 06/18/20 Wilman Baptiste MD, [address] [place] [address] Physician Radiation Oncology 11/16/20 Rosaline Ojeda, PRODUCTION ILLUSTRATOR [address] [place] [address] Nurse Practitioner Cardiology 12/10/20 Elizabeth Roberts, MARINE DRILLER.PRODUCTION ILLUSTRATOR [address] [place] [address] Nurse Practitioner Hematology/Oncology 08/17/21 Emergency Service Worker Relationship Specialty Start Date End Date Odilon Serrano [address] [address] (Work) PCP - General Family Medicine 06/30/20 Odilon Serrano, [address] [address] Family Medicine 06/09/20 Lucy Chan RN Specialty Senior Project Leader/Team Lead Oncology 06/18/20 Wilman Baptiste MD, [address] [place] [address] Physician Radiation Oncology 11/16/20 Rosaline Ojeda, PRODUCTION ILLUSTRATOR [address] [place] [address] Nurse Practitioner Cardiology 12/10/20 Elizabeth Roberts, MARINE DRILLER.PRODUCTION ILLUSTRATOR [address] [place] [address] Nurse Practitioner Hematology/Oncology 08/17/21 Emergency Service Worker Relationship Specialty Start Date End Date Odilon Serrano DO [address] [place] [address] (Work) PCP - General Family Medicine 06/30/20 Odilon Serrano DO [address] [place] [address] (Work) Family Medicine 06/09/20 Lucy Chan, RN Specialty Senior Project Leader/Team Lead Oncology 06/18/20 Wilman Baptiste MD, [address] [place] [address] Physician Radiation Oncology 11/16/20 Rosaline Ojeda, PRODUCTION ILLUSTRATOR [address] [place] [address] Nurse Practitioner Cardiology 12/10/20 Elizabeth Roberts, MARINE DRILLER.PRODUCTION ILLUSTRATOR [address] [place] [address] Nurse Practitioner Hematology/Oncology 08/17/21 Emergency Service Worker Relationship Specialty Start Date End Date Odilon Serrano DO [address] [place] [address] PCP - General Family Medicine 06/30/20 Odilon Serrano DO [address] [place] [address] Family Medicine 06/09/20 Lucy Chan RN Specialty Senior Project Leader/Team Lead Oncology 06/18/20 Wilman Baptiste MD, MD [address] [place] [address] Physician Radiation Oncology 11/16/20 Rosaline Ojeda CNP [address] [place] [address] Nurse Practitioner Cardiology 12/10/20 Elizabeth Roberts APRN.PRODUCTION ILLUSTRATOR [address] [place] [address] Nurse Practitioner Hematology/Oncology 08/17/21 Emergency Service Worker Relationship Specialty Start Date End Date Odilon Serrano DO [address] [place] [address] PCP - General Family Medicine 06/30/20 Odilon Serrano DO [address] [place] [address] Family Medicine 06/09/20 Lucy Chan RN Specialty Senior Project Leader/Team Lead Oncology 06/18/20 Wimlan Baptiste MD [address] [place] [address] Physician Radiation Oncology 11/16/20 Rosaline Ojeda CNP [address] [place] [address] Nurse Practitioner Cardiology 12/10/20 Elizabeth Roberts APRN.PRODUCTION ILLUSTRATOR [address] [place] [address] Nurse Practitioner Hematology/Oncology 08/17/21 Emergency Service Worker Relationship Specialty Start Date End Date Odilon Serrano DO [address] [place] [address] PCP - General Family Medicine 06/30/20 Odilon Serrano DO [address] [place] [address] Family Medicine 06/09/20 Lucy Chan RN Specialty Senior Project Leader/Team Lead Oncology 06/18/20 Wilman Baptiste MD [address] [place] [address] Physician Radiation Oncology 11/16/20 Rosaline Ojeda CNP [address] [place] [address] Nurse Practitioner Cardiology 12/10/20 Elizabeth Roberts APRN.CNP [address] [place] [address] Nurse Practitioner Hematology/Oncology 08/17/21 Emergency Service Worker Relationship Specialty Start Date End Date Odilon Serrano DO [address] [place] [address] PCP - General Family Medicine 06/30/20 Odilon Serrano DO [address] [place] [address] Family Medicine 06/09/20 Lucy Chan RN Specialty Senior Project Leader/Team Lead Oncology 06/18/20 Wilman Baptiste MD [address] [place] [address] Physician Radiation Oncology 11/16/20 Rosaline Ojeda CNP [address] [place] [address] Nurse Practitioner Cardiology 12/10/20 Elizabeth Roberts APRN.PRODUCTION ILLUSTRATOR [address] [place] [address] Nurse Practitioner Hematology/Oncology 08/17/21 Emergency Service Worker Relationship Specialty Start Date End Date Odilon Serrano DO [address] [place] [address] PCP - General Family Medicine 06/30/20 Odilon Serrano DO [address] [place] [address] Family Medicine 06/09/20 Lucy Chan, MICHEL Specialty Senior Project Leader/Team Lead Oncology 06/18/20 Wilman Baptiste MD [address] [place] [address] Physician Radiation Oncology 11/16/20 Rosaline Ojeda CNP [address] [place] [address] Nurse Practitioner Cardiology 12/10/20 Elizabeth Roberts APRN.ISAÍAS [address] [place] [address] Nurse Practitioner Hematology/Oncology 08/17/21 Emergency Service Worker Relationship Specialty Start Date End Date Odilon Serrano DO [address] [place] [address] PCP - General Family Medicine 06/30/20 Odilon Serrano DO [address] [place] [address] Family Medicine 06/09/20 Lucy Chan RN Specialty Senior Project Leader/Team Lead Oncology 06/18/20 Wilman Baptiste MD [address] [place] [address] Physician Radiation Oncology 11/16/20 Rosaline Ojeda CNP [address] [place] [address] Nurse Practitioner Cardiology 12/10/20 Elizabeth Roberts APRN.CNP [address] [place] [address] Nurse Practitioner Hematology/Oncology 08/17/21 Emergency Service Worker Relationship Specialty Start Date End Date Odilon Serrano DO [address] [place] [address] PCP - General Family Medicine 06/30/20 Odilon Serrano DO [address] [place] [address] Family Medicine 06/09/20 Lucy Chan RN Specialty Senior Project Leader/Team Lead Oncology 06/18/20 Wilman Baptiste MD [address] [place] [address] Physician Radiation Oncology 11/16/20 Rosaline Ojeda CNP [address] [place] [address] Nurse Practitioner Cardiology 12/10/20 Elizabeth Roberts APRN.ISAÍAS [address] [place] [address] Nurse Practitioner Hematology/Oncology 08/17/21 Emergency Service Worker Relationship Specialty Start Date End Date Odilon Serrano DO [address] [place] [address] PCP - General Family Medicine 06/30/20 Odilon Serrano DO [address] [place] [address] Family Medicine 06/09/20 Lucy Chan RN Specialty Senior Project Leader/Team Lead Oncology 06/18/20 Wilman Baptiste MD [address] [place] [address] Physician Radiation Oncology 11/16/20 Rosaline Ojeda CNP [address] [place] [address] Nurse Practitioner Cardiology 12/10/20 Elizabeth Roberts APRN.ISAÍAS [address] [place] [address] Nurse Practitioner Hematology/Oncology 08/17/21 Emergency Service Worker Relationship Specialty Start Date End Date Odilon Serrano DO [address] [place] [address] PCP - General Family Medicine 06/30/20 Odilon Serrano DO [address] [place] [address] Family Medicine 06/09/20 Lucy Chan RN Specialty Senior Project Leader/Team Lead Oncology 06/18/20 Wilman Baptiste MD [address] [place] [address] Physician Radiation Oncology 11/16/20 Rosaline Ojeda CNP [address] [place] [address] Nurse Practitioner Cardiology 12/10/20 Elizabeth Roberts APRN.ISAÍAS [address] [place] [address] Nurse Practitioner Hematology/Oncology 08/17/21 Emergency Service Worker Relationship Specialty Start Date End Date Odilon Serrano DO [address] [place] [address] PCP - General Family Medicine 06/30/20 Odilon Serrano DO [address] [place] [address] Family Medicine 06/09/20 Lucy Chan RN Specialty Senior Project Leader/Team Lead Oncology 06/18/20 Wilman Baptiste MD [address] [place] [address] Physician Radiation Oncology 11/16/20 Rosaline Ojeda CNP [address] [place] [address] Nurse Practitioner Cardiology 12/10/20 Elizabeth Roberts APRN.ISAÍAS [address] [place] [address] Nurse Practitioner Hematology/Oncology 08/17/21 Emergency Service Worker Relationship Specialty Start Date End Date Odilon Serrano DO [address] [place] [address] PCP - General Family Medicine 06/30/20 Odilon Serrano DO [address] [place] [address] Family Medicine 06/09/20 Lucy Chan RN Specialty Senior Project Leader/Team Lead Oncology 06/18/20 Wilman Baptiste MD [address] [place] [address] Physician Radiation Oncology 11/16/20 Rosaline Ojeda CNP [address] [place] [address] Nurse Practitioner Cardiology 12/10/20 Elizabeth Roberts APRN.CNP [address] [place] [address] Nurse Practitioner Hematology/Oncology 08/17/21 Emergency Service Worker Relationship Specialty Start Date End Date Odilon Serrano DO [address] [place] [address] PCP - General Family Medicine 06/30/20 Odilon Serrano DO [address] [place] [address] Family Medicine 06/09/20 Lucy Chan, RN Specialty Senior Project Leader/Team Lead Oncology 06/18/20 Wilman Baptiste MD [address] [place] [address] Physician Radiation Oncology 11/16/20 Rosaline Ojeda CNP [address] [place] [address] Nurse Practitioner Cardiology 12/10/20 Elizabeth Roberts APRN.ISAÍAS [address] [address] Nurse Practitioner Hematology/Oncology 08/17/21 Team Status: Active Member Role Status Dates Dr. Odilon Serrano DO Primary Care Provider Active Team Status: Inactive Member Role Status Dates Dr. Odilon Serrano DO Primary Care Provider Active Start: September 19, 2024 End: September 19, 2024 DOE Darling Attending Provider Active Start: September 19, 2024 End: September 19, 2024 DOE Darling Referring Provider Active Start: September 19, 2024 End: September 19, 2024 Emergency Service Worker Relationship Specialty Start Date End Date Odilon Serrano DO [address] [place] [address] PCP - General Family Medicine 06/30/20 Odilon Serrano DO [address] [place] [address] Family Medicine 06/09/20 Lucy Chan, MICHEL Specialty Senior Project Leader/Team Lead Oncology 06/18/20 Wilman Baptiste MD [address] [place] [address] Physician Radiation Oncology 11/16/20 Rosaline Ojeda CNP [address] [place] [address] Nurse Practitioner Cardiology 12/10/20 Elizabeth Roberts APRN.ISAÍAS [address] [place] [address] Nurse Practitioner Hematology/Oncology 08/17/21 Goals (unrecognized section and content) Goals may be documented in a n alternate sectionGoals may be documented in an alternate sectionGoals may be documented in an alternate section No data available for this section No data available for this sectionGoals may be documented in an alternate section No data available for this section No data available for this section FOR RECORDS PERTAINING TO PATIENTS WHO ARE OR HAVE BEEN ENROLLED IN A CHEMICAL DEPENDENCY/SUBSTANCEABUSE PROGRAM, SOME INFORMATION MAY BE OMITTED. This clinical summary was aggregated from multiple sources. Caution should be exercised in using it in the provision of clinical care. This summary normalizes information from multiple sources, and as a consequence, information in this document may materially change the coding, format and clinical context of patient data. In addition, data may be omitted in some cases. CLINICAL DECISIONS SHOULD BE BASED ON THE PRIMARY CLINICAL RECORDS. [employer] [facility] provides no warranty or guarantee of the accuracy or completeness of information in this document.
--- OUTSIDE RECORDS SUMMARY | 2024-12-01 05:23 | XMS RPT_ITS | CCD ---
Author Organization [facility] CliniSymi Care Team Providers Care 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 Name Role Phone Odilon Serrano DO Unavailable Lucy Chan RN Unavailable Unavailable Odilon Serrano DO Primary Care Provider [phone] Emile MONCADA MD, Daesung Unavailable Fish Rosaline N Unavailable Roberts ASSISTANT FILM EDITOR.ISAÍAS, Elizabeth Unavailable [phone] Dr. Odilon Serrano Primary Care Provider [phone] Dr. Odilon Serrano Referring Provider [phone] Karie Rojas Attending Provider Odilon Serrano DO Unavailable Dustin PEARSON, Lucy Unavailable Unavailable Odilon Serrano DO Primary Care Provider [phone] Emile MONCADA MD, Daesung Unavailable Fish ISAÍAS Rosaline N Unavailable Roberts ASSISTANT FILM EDITOR.ISAÍAS, Elizabeth Unavailable [phone] Odilon Serrano DO Unavailable Dustin PEARSON, Lucy Unavailable Unavailable Odilon Serrano DO Primary Care Provider [phone] Emile MONCADA MD, Daesung Unavailable Fish ISAÍAS Rosaline N Unavailable Roberts ASSISTANT FILM EDITOR.ISAÍAS Elizabeth Unavailable [phone] DR ODILON SERRANO DO Attending Unavailable DR ODILON SERRANO DO Primary Care Unavailable Lucy Chan RN Unavailable Unavailable Odilon Serrano DO Primary Care Provider [phone] Wilman Baptiste MD Unavailable DR ODILON SERRANO DO Primary Care Physician Roberts ASSISTANT FILM EDITOR.FORK OPERATOR, Elizabeth Unavailable SHAILA, ELIZABETH JAYDA Admitting Unavailable SHAILA, ELIZABETH MONTELONGO Attending Unavailable ROMAR, ODILON Primary Care Unavailable Fish ISAÍAS, Rosaline N Unavailable Marydel ASSISTANT FILM EDITOR.FORK OPERATOR, Elizabeth Unavailable Kishore DO, Dr. Donald Primary Care Provider [phone] Tana Martinez Attending Provider [phone] Tana Martinez Referring Provider ROMAR, ODILON Primary Care Unavailable IRAIS PEÑALOZA [...] Unavailable ROMAR, ODILON Primary Care Unavailable SHAILA, LEIZABETH MONTELONGO Attending Unavailable ROMAR DO, DR DONALD [...] DO, DR DONALD Primary Care Unavailable MARKO ASSISTANT FILM EDITOR-FORK OPERATOR, ROSEMARY Attending Unavai lable RomOdilon dunlap Referring [...] mg/day, # 100 tab(s), 1 Refill(s), Pharmacy: [facility], 157.6, cm, 11/14/24 8:56:00 EDT, [...] Thiazide Diuretic, Angiotensin Converting Enzyme Inhibitor Start: Lisinopril-Lamoure chlorothiazide 20-12.5 mg tablet Active 1 {tbl} [...] med., # 100 tab(s), 0 Refill(s), Pharmacy: [facility], 157.6, cm, 11/14/24 8:56:00 EDT, [...] med., # 100 tab(s), 0 Refill(s), Pharmacy: [facility], 158.8, cm, 08/02/23 14:00:00 EDT, [...] qDay, # 100 tab(s), 0 Refill(s), Pharmacy: [facility], 157.6, cm, 08/12/24 11:01:00 EDT, Height, kg, 08/12/24 11:01:00 EDT, Dosing Weight Start Date: 09/11/24 Stop Date: 12/20/24 Status: Ordered Quantity: 100.0 Unit: tab(s) Repeat number: 1 Start: 02-07-2024 End: 08-25-2024 lisinopril 5 mg oral tablet Dose : 5 mg = 1 tab(s), Oral, qDay, # 100 tab(s), 1 Refill(s), Pharmacy: [facility], 159.5, cm, 02/07/24 13:29:00 EDT, [...] day(s), # 22 gram(s), 0 Refill(s), Pharmacy: [facility], 157.6, cm, 11/14/24 8:56:00 EDT, [...] 10 mL injection (DEFINITY) polyethylene glycol 3350 30685 mg powder for oral solution (1 source) [...] Daily, # 90 tab(s), 3 Refill(s), Pharmacy: [facility], 158.3, cm, 03/12/24 13:32:00 EDT, [...] Daily, # 90 tab(s), 1 Refill(s), Pharmacy: [facility], 159.4, cm, 03/24/20 13:42:00 EST, [...] above: Lymph node positive for metastatic carcinoma, 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, 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 Cancer of breast (17 [...] 8:30:16 AM Ordering Provider: ODILON SERRANO Normal [facility]ORY[facility]dered By: Myrna Salas on 11-14-2024 Albumin DL <= 20 mg/L (U) [Mass/Vol] 8.6 mg/L Invalid Interpretation Code AO ADM SS Albumin/Creatinine DL <= 20 mg/L (U) [Mass ratio] 12 mg/G Normal 0 - 30 mg/G AO Chemistry S Creatinine (U) [Mass/Vol] 68.8 mg/dL Invalid Interpretation Code AO ADM SS MALBRon 11-14-2024 U Creatinine 68.8 mg/dL Normal [facility] Comment on above: Performed By: #### M ALBR #### [address] [place], [place] [address] U Microalb 8.6 mg/L Normal [facility] Comment on above: Performed By: #### M ALBR #### [address] [address] U Ratio Alb/Cre 12 mg/G Normal 0-30 [facility] Comment on above: Performed By: #### M ALBR #### [address] [place], [place] [address] 12 Lead EKGon 11-11-2024 12 Lead EKG [facility] Cardiovascular Services [address] [place] [address] 12 Lead EKG 11/11/24 1102 MR#: [id number] Acct: [id number] Name: INÉS LIEBERMAN Rep #: [id number] : 1950 74 From: Joseph Gaines MD Attending Dr: Dr. Sarthak Browning, DO Status: PRE SDC Ordering Dr: Sarthak Browning DO Date: 11/11/24 [place] [facility] [place] F C Admitted: Test Reason : PRE OP Blood Pressure : */* mmHG Vent. Rate : 78 BPM Atrial Rate : 78 BPM P-R Int : 98 ms QRS Dur : 82 ms QT Int : 376 ms P-R-T Axes : 25 58 26 degrees QTcB Int : 428 ms Sinus rhythm with short DC Left ventricular hypertrophy with repolarization abnormality Abnormal ECG Confirmed by YENNY MONCADA, JOSEPH ([id number]), editor producer SUZI MAIN ([id number]) on 11/12/2024 11:01:37 AM Referred By: Sarthak Browning Confirmed By: JOSEPH GAINES MD 11/12/24 1101 Date Joseph Gaines MD CC: Dr. Odilon Serrano DO; Dr. Sarthak Browning DO Signed Normal [place] Albumin, Serumon 11-11-2024 Albumin [Mass/Vol] 4.3 g/dL Normal 3.4-4.8 [facility] Comment on above: Performed By: #### M 100.651, L100.0100, L500.2500, L501.1800 #### [facility] [address] [place], [address] Basic Metabolic Profile (BMP )on 11-11-2024 BUN/CRE 28.5 RATIO High 10-20 [place] Comment on above: Performed By: #### M 100.651, L100.0100, L500.2500, L501.1800 #### [facility] [address] [place], [address] Calcium [Mass/Vol] 9.3 mg/dL Normal 7.6-11.0 [facility] Comment on above: Performed By: #### M 100.651, L100.0100, L500.2500, L501.1800 #### [facility] [address] [place], [address] Chloride [Moles/Vol] 105 mmol/L Normal 98-108 [facility] Comment on above: Performed By: #### M 100.651, L100.0100, L500.2500, L501.1800 #### [facility] [address] [place], [address] CO2 [Moles/Vol] 24.7 mmol/L Normal 21.0-32.0 [facility] Comment on above: Performed By: #### M 100.651, L100.0100, L500.2500, L501.1800 #### [facility] [address] [place], [address] Creatinine [Mass/Vol] 0.87 mg/dL Normal 0.70-1.20 [facility] Comment on above: Performed By: #### M 100.651, L100.0100, L500.2500, L501.1800 #### [facility] [address] [place], [address] GAP 11 Normal 5-15 [facility] Comment on above: Performed By: #### M 100.651, L100.0100, L500.2500, L501.1800 #### [facility] [address] [place], [address] GFR/1.73 sq M.predicted among non-blacks MDRD (S/P/Bld) [Vol rate/Area] 69 mL/min/{1.73_m2} Normal >60 [facility] Comment on above: Result Comment: mL/m in/1.73m2 CKD-EPI Creatinine Equation (2020) Performed By: #### M 100.651, L100.0100, L500.2500, L501.1800 #### [facility] [address] [place], [address] Glucose [Mass/Vol] 99 mg/dL Normal 70-99 [facility] Comment on above: Performed By: #### M 100.651, L100.0100, L500.2500, L501.1800 #### [facility] [address] [place], [address] Potassium [Moles/Vol] 3.8 mmol/L Normal 3.3-5.1 [facility] Comment on above: Performed By: #### M 100.651, L100.0100, L500.2500, L501.1800 #### [facility] [address] [place], [address] Sodium [Moles/Vol] 140 mmol/L Normal 133-145 [facility] Comment on above: Performed By: #### M 100.651, L100.0100, L500.2500, L501.1800 #### [facility] [address] [place], [address] Urea nitrogen [Mass/Vol] 25 mg/dL High 4-19 [facility] Comment on above: Performed By: #### M 100.651, L100.0100, L500.2500, L501.1800 #### [facility] [address] [place], [address] CBC W/Diff, Automatedon 06-2 -2024 Absolute Lymph 1.36 X10 3/uL Normal 0.83-4.51 [facility] Comment on above: Performed By: #### M 100.651, L100.0100, L500.2500, L501.1800 #### [facility] [address] [place], [address] Absolute Neut 3.9 X10 3/uL Normal 2.0-7.7 [place] Comment on above: Performed By: #### M 100.651, L100.0100, L500.2500, L501.1800 #### [facility] [address] [place], [address] Basophils/100 WBC (Bld) 0.8 % Normal 0-1 [facility] Comment on above: Performed By: #### M 100.651, L100.0100, L500.2500, L501.1800 #### [facility] [address] [place], [address] Eosinophils/100 WBC (Bld) 1.8 % Normal 0-5 [facility] Comment on above: Performed By: #### M 100.651, L100.0100, L500.2500, L501.1800 #### [facility] [address] [place], [address] Erythrocyte distribution width (RBC) [Ratio] 12.7 % Normal 11.6-14.6 [facility] Comment on above: Performed By: #### M 100.651, L100.0100, L500.2500, L501.1800 #### [facility] [address] [place], [address] Hematocrit (Bld) [Volume fraction] 35.3 % Low 37-47 [facility] Comment on above: Performed By: #### M 100.651, L100.0100, L500.2500, L501.1800 #### [facility] [address] [place], [address] Hemoglobin (Bld) [Mass/Vol] 11.4 g/dL Low 12.0-15.0 [place] Comment on above: Performed By: #### M 100.651, L100.0100, L500.2500, L501.1800 #### [facility] [address] [place], [address] IG% 0.300 Normal 0.0-0.9 [facility] Comment on above: Result Comment: IG% - Immature Granulocytes (promyelocytes, myelocytes and metamyelocytes) > 1% indicates that a LEFT SHIFT is Present. Performed By: #### M 100.651, L100.0100, L500.2500, L501.1800 #### [facility] [address] [place], [address] Lymphocytes/100 WBC (Bld) 22.7 % Normal 19-41 [facility] Comment on above: Performed By: #### M 100.651, L100.0100, L500.2500, L501.1800 #### [facility] [address] [place], [address] MCH (RBC) [Entitic mass] 28.5 pg Normal 27.0-32.0 [facility] Comment on above: Performed By: #### M 100.651, L100.0100, L500.2500, L501.1800 #### [facility] [address] [place], [address] MCHC (RBC) [Mass/Vol] 32.3 g/dL Normal 32-36 [facility] Comment on above: Performed By: #### M 100.651, L100.0100, L500.2500, L501.1800 #### [facility] [address] [place], [address] MCV (RBC) [Entitic vol] 88.3 fL Normal 81-99 [facility] Comment on above: Performed By: #### M 100.651, L100.0100, L500.2500, L501.1800 #### [facility] [address] [place], [address] Monocytes/100 WBC (Bld) 9.9 % Normal 0-10 [facility] Comment on above: Performed By: #### M 100.651, L100.0100, L500.2500, L501.1800 #### [facility] [address] [place], [address] Neutrophils/100 WBC (Bld) 64.5 % Normal 47-70 [facility] Comment on above: Performed By: #### M 100.651, L100.0100, L500.2500, L501.1800 #### [facility] [address] [place], [address] Nucleated RBC (Bld) [#/Vol] 0 10*3/uL Normal 0-5 [facility] Comment on above: Performed By: #### M 100.651, L100.0100, L500.2500, L501.1800 #### [facility] [address] [place], [address] Platelet mean volume (Bld) [Entitic vol] 10.6 fL Normal 6.2-12.0 [facility] Comment on above: Performed By: #### M 100.651, L100.0100, L500.2500, L501.1800 #### [facility] [address] [place], [address] Platelets (Bld) [#/Vol] 241 10*3/uL Normal 150-450 [facility] Comment on above: Performed By: #### M 100.651, L100.0100, L500.2500, L501.1800 #### [facility] [address] [place], [address] RBC (Bld) [#/Vol] 4.00 10*6/uL Low 4.2-5.4 [facility] Comment on above: Performed By: #### M 100.651, L100.0100, L500.2500, L501.1800 #### [facility] [address] [place], [address] RDW SD 41.2 fl Normal 35.1-43.9 [place] Comment on above: Performed By: #### M 100.651, L100.0100, L500.2500, L501.1800 #### [facility] [address] [place], [address] WBC (Bld) [#/Vol] 6.0 10*3/uL Normal 4.4-11.0 [facility] Comment on above: Performed By: #### M 100.651, L100.0100, L500.2500, L501.1800 #### [facility] [address] [place], [address] MR/PAT.HAWKon 11-11-2024 MR/PAT.HAWK [facility] Medical Records Department [address] [place] [address] PAT - Anesthesia 11/11/24 1618 MR#: [id number] Acct: [id number] Name: INÉS LIEBERMAN Rep #: [id number] : 1950 74 From: Evangelista Guzmán MD PCP: Dr. Odilon Serrano, DO Status:PRE SDC Y Race: C [place] [facility]Assessment Diagnosis/Proposed Procedure Planned Operative Procedure(s): R) ROBOTIC ASSISTED RIGHT TOTAL KNEE ARTHROPLASTY, ERAS Anesthesia History Anesthesia History - on site property manager: Anesthesia History - on site property manager Hx Hospitalization Yes: 4-11/10/24 11:13 Any Problems [...] take am of surgery PONV PONV - on site property manager: PONV - on site property manager Female Yes 11/10/24 11:13 HX of Motion [...] 11/02/20 11:27 Respiratory Assessment Respiratory Assessment - on site property manager: Respiratory Tract Infection Hx - on site property manager Hx Respiratory Tract Infection No 11/10/24 11:13 STOP Sleep Apnea STOP Sleep Apnea - on site property manager: STOP Sleep Apnea - on site property manager Hx Hypertension Yes: ON MED 11/10/24 11:13 [...] Tobacco Use History Tobacco Use History - on site property manager: Tobacco Use History - on site property manager Tobacco Use Smoking Status Never smoker 11/10/24 11:13 Hx Tobacco Use No 11/10/24 11:13 Years Smoking Packs Smoked per Day Smoking Cessation Date was within the last 15 years Hx Smoking Cessation Date Hx Smoking Cessation Counseling Hematologic Medial History Hematologic Hx - on site property manager: 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 Normal [place] MRSA/SAID NASAL SCREENon MRSA+SAID SCRN Reason for Exam: PRE OP MRSA MRSA Negative S. AUREUS S. aureus PositiveA Normal [place] Comment on above: Performed By: #### M 100.651, L100.0100, L500.2500, L501.1800 #### [facility] [address] [place], [place], [address] Magnesiumon 11-11-2024 Magnesium [Mass/Vol] 2.2 mg/dL Normal 1.5-2.2 [facility] Comment on above: Performed By: #### L 501.5200 #### [facility] [address] [place], [address] CNOVon 10-27-2024 CNOV Office Visit (JAYCEEDOLOMITE ) INÉS LIEBERMAN ([id number]) 1950 F Date Time Provider Department 10/27/24 3:30 PM ELIZABETH LINTON During your visit today, we recorded the following information about you: Pulse Blood pressure Weight 65/minute 181/79 63 kg Elizabeth Linton MD 10/27/2024 4:50 PM Signed Female Pelvic Medicine AND Reconstructive Surgery Post-Op Visit Recording using eduPad software for draft documentation of the visit was discussed with the patient/authorized field marketing representative; all questions welcomed and answered. Patient/authorized field marketing representative agreed to proceed HPI:Inés Lieberman is [...] you received about pain medications helpful? Yes Research Engineer Marine Equipment offered:Patient accepts, visit chaperoned by RN SENSITIVE EXAM: The sensitive examination was discussed with the Patient or Patient's Authorized Air Chipper. As applicable, any other physician, advance practice provider, medical student, or other health professional student that will be observing or involved in the sensitive examination for educational or training purposes was discussed with the Patient or Authorized Air Chipper. The Patient or Authorized Air Chipper has agreed to proceed with the sensitive [...] Follow u (more content not included)... Normal [facility] CNOVSPon 10-24-2024 CNOVSP Visit (SP) Office (NORY) INÉS LIEBERMAN ([id number]) 1950 F Date Time Provider Department 10/24/24 10:00 AM IRAIS PEÑALOZA During your visit today, we recorded the following information about you: Temperature Pulse Blood pressure Weight 98.4 degrees 69/minute 172/75 63.5 kg Irais Peñaloza APRN.FORK OPERATOR 10/24/2024 10:30 AM Signed Chief Complaint Patient [...] ER - - - - - Negative. DC - - - - - Negative. HER2 [...] at the (more content not included)... Normal [facility] Venous Duplex US, Unilateral on 09-19-2024 Venous Duplex US, Unilateral [facility] [address] [place] [address] Venous Duplex US, Unilateral 09/19/24 1515 MR#: [id number] Acct: [id number] Name: INÉS LIEBERMAN Rep #: [id number] : 1950 74 From: Alessandro Mak MD Attending Dr: DOE Dowinng Status: REG CL I Ordering Dr: Tana [...] Serrano, Date Dictated: 09/19/241514 Date Transcribed: 09/19/241834 Supply Chain Development Manager: Signed Normal [place] Venous duplex ultrasound rep ortOrdered By: Alessandro Mak on 09-19-2024 US Vein [facility] Cardi[facility] Services [address] [place] [address] Venous Duplex US, Unilateral 09/19/241514 MR#: [id number] Acct: [id number] Name: INÉS LIEBERMAN Rep #:[id number] : 1950 74 From: Alessandro Mak MD [...] Date Dictated: 09/19/24 1515 Date Transcribed: 09/19/241834 Supply Chain Development Manager: Signed [place] Other Phone: ANES POSTPROC EVALon 025 ANES POSTPROC EVAL HNO ID: [id number] Author: STEFANY GARCIA MD Service: Anesthesiology Author Type: Anesthesiologist Type: Anesthesia Postprocedure Evaluation Filed: 09/12/2024 14:23 Note Text: POST ANESTHESIA EVALUATION NOTE : 1950 Procedure Summary Date: 09/12/24 Room / Location: [place] OR / [place] OR Anesthesia Start: 0752 [...] September 12, 2024 TIME: 2:23 PM CSN: [id number] [facility] ANES PRE-OPon 09-12-2024 ANES PRE-OP HNO ID: [id number] Author: STEFANY GARCIA MD Service: Anesthesiology Author [...] BLADDER SLING TAPE TRANSVAGINAL (Vagina ) Location: [place] OR / [place] OR Surgeons: Elizabeth Linton MD Estimated body [...] and consent discussed: yes. Patient / Responsible Libertarian agrees to proceed: yes Patient / Surrogate [...] September 12, 2024 TIME: 6:45 AM CSN: [id number] [facility] HISTORY PHYSICALon HISTORY PHYSICAL HNO ID: [id number] Author: ELIZABETH LINTON MD Service: Urogynecology Author Type: Physician Type: H&P Filed: 09/12/2024 07:46 Note Text: UPDATED HISTORY AND PHYSICAL EXAMINATION SERVICE DATE: 09/12/2024 SERVICE TIME: 744 Participation of a fellow, resident, medical student, or advanced practice provider student in performing the sensitive examination was discussed with the patient or authorized field marketing representative. The patient or authorized field marketing representative has agreed to proceed with the [...] DATE: September 12, 2024 TIME: 7:46 AM [facility] OPERATIVE NOon 09-12-2024 OPERATIVE NO HNO ID: [id number] Author: ELIZABETH LINTON MD Service: Urogynecology Author Type: Physician Type: Operative Report Filed: 09/12/2024 10:08 Note Text: OPERATIVE / PROCEDURE NOTE LOG ID: [id number] Surgery/Procedure Date: 09/12/2024 Incision/Procedure Start Time: 8:16 AM Incision Close/Procedure End Time: 9:34 AM Surgeon(s)/Proceduralis t(s) and Lunch Counter Manager(s): Surgeons and Role: * Elizabeth Linton MD - Primary Registered Nurse Shell Sorter: Nasra Wilkerson RN Procedure(s): Sacrospinous ligament suspension [...] was comp (more content not included)... [facility] INÉS LIEBERMAN ([id number]) 1950 F Date Time Provider Department 08/27/24 ELIZABETH LINTON During your visit today, we recorded the following information about you: Odilia Velasco 08/27/2024 11:43 AM Signed Patient called stating she had her pre anesthesia appt on 08/25 and they mentioned that there is no confirmation for her surgery on 09/12 at [facility]. She was told to reach out to the office. Odilia Velasco 08/29/2024 11:00 AM Signed Patient called in again in regard to her upcoming surgery Allergies As of Date: 08/27/2024 (No Known Allergies) Date Reviewed: 08/25/2024 Reviewed by: Bartolome Lopez APRN.[facility] - Fully Assessed Reason for Visit: [...] Encounter Status:Closed by ANGEL VELASCO on 09/01/24 [facility] HISTORY PHYSICALon HISTORY PHYSICAL HNO ID: [id number] Author: BARTOLOME LOPEZ APRN.FORK OPERATOR Service: ? Author Type: Nurse Practitioner Type: [...] large neck Non-male patient STOP-Bang Score: 0 [id number] Score: Age: >=75 Sex: female CHF history: No Hypertension history: Yes Stroke/TIA/thromboembol ism history: No Vascular disease history: No Diabetes history: No [id number] Score: 4 ARISCAT Score: Age: 51-80 Preoperative [...] a poor historian. S/P prolapse repair at [facility], unknown year. Has had hysterectomy, open. Has midline vertical incision. Doesn't remember why she had hysterectomy. Feels recurrent bulge. Interested in surgical repair, does not want a pessary. SHALINI- leakage with cough, laugh, sneeze UUI- mostly at night, urinary frequency and urgency. Voiding every hour, has been going on for so (more content not included)... Normal [facility] UA DIP B/Oon 08-21-2024 Bilirubin Ql (U) Negative Neg [facility] Color/Appearance Clear/Yellow comment: [facility] Glucose Ql (U) Negative Neg mg/dL [facility] Hemoglobin Ql (U) Negative Neg [facility] Interpretation and review of laboratory results Abnormal [facility] Ketones Ql (U) Negative Neg [facility] Leukocytes Negative Neg [facility] Nitrite Ql (U) Negative Neg [facility] pH (U) 5 [pH] 4.5 - 8.0 [facility] Protein.monoclonal (U) [Mass/Vol] Negative Neg mg/dL [facility] Specific [place], Ur 1 Abnormal 1.005 - 1.030 [facility] Urobilinogen, Urine Normal Normal ( <1.1) [facility] Fredrick 08-18-2024 [facility] Telephone (HIOB) INÉS LIEBERMAN ([id number]) 1950 F Date Time Provider Department 08/18/24 ELIZABETH LINTON During your visit today, we recorded the following information about you: Nasra Doe 08/18/2024 3:36 PM Signed Inés Lieberman called today. Caller's (home) [phone] (cell) Reason for call: Patient had a cortisone shot and was told to check to make sure this does not interfere with any upcoming visits. Please call and advise. Cindy Law RN 08/18/2024 4:20 PM Signed Called Patient. Verified name and . Pt asking if a cortisone injection into her knee completed on 08-14-24 at [facility] will interfere with her procedure that was originally on 09-04-[address] Linton. Pt informed RN that her surgery was moved to 08-21-24 and her PACC is still trying to be rescheduled to accommodate pt new procedure date. Cindy Mason RN August 18, 2024 4:19 PM Liana Araya APRN.ISAÍAS 08/19/2024 9:19 AM Signed D/W Dr. Lniton. Pt needs to wait at least 1 [...] route to providers to double check. Vin aNth RN August 19, 2024 9:33 AM Liana Araya APRN.FORK OPERATOR 08/19/2024 10:49 AM Signed Yes, it's fine [...] Fully Assessed Reason for Visit: Patient Question [3287] Primary Visit Diagnosis:Educational circumstance [Z55.9] Prescriptions as [...] Encounter Status:Closed by NASRA DOE on 08/19/24 [facility] SOF[facility] Telephone (WHQ) MIOIÉNS WATKINS ([id number]) 1950 F Date Time Provider Department 08/18/24 [...] Status:Closed by LENORA BORJA on 08/18/24 Normal [facility] XR KNEE THREE VIEWS RIGHTon 08-12-2024 [...] 08/12/2024 11:39:49 AM Ordering Provider: JANNETTE Van [facility] Basic metabolic 2000 panelon 08-01-2024 Anion gap [Moles/Vol] 9 mmol/L Normal 8-15 [facility] Comment on above: Order Comment: Speci men Type: BLOOD SPECIMENOrdering Facility: [facility] Address: [address] [place] [address] Performed By: #### 2 4321-2 ####[facility] LABCLIA [id number] [place] [address] [place] Calcium [Mass/Vol] 9.7 mg/dL Normal 8.5-10.2 [facility] Comment on above: Order Comment: Speci men Type: BLOOD SPECIMENOrdering Facility: [facility] Address: [address] [place] [address] Performed By: #### 2 4321-2 ####[facility] LABCLIA [id number] [place] [address] [place] Chloride [Moles/Vol] 104 mmol/L Normal 98-107 [facility] Comment on above: Order Comment: Speci men Type: BLOOD SPECIMENOrdering Facility: [facility] Address: [address] [place] [address] Performed By: #### 2 4321-2 ####[facility] LABCLIA [id number] [place] [id number] [place] CO2 [Moles/Vol] 28 mmol/L Normal 22-30 [facility] Comment on above: Order Comment: Speci men Type: BLOOD SPECIMENOrdering Facility: [facility] Address: [address] [place] [address] Performed By: #### 2 4321-2 ####[facility] LABIA [id number] [address] [address] [place] Creatinine [Mass/Vol] 0.94 mg/dL Normal 0.58-0.96 [facility] Comment on above: Order Comment: Cielo sanches Type: BLOOD SPECIMENOrdering Facility: [facility] Address: [address] [place] [address] Performed By: #### 2 4321-2 ####[facility] LABIA [id number] [address] [address] [place] Creatinine and Glomerular filtration rate.predicted panel (S/P/Bld) 63 mL/min/1.73m??? Normal >=60 [facility] Comment on above: Order Comment: Cielo sanches Type: BLOOD SPECIMENOrdering Facility: [facility] Address: [address] [place] [address] Result Comment: Leesa mated Glomerular Filtration Rate [...] actual GFR. Performed By: #### 2 4321-2 ####[facility] LABIA [id number] [address] [address] [place] Glucose [Mass/Vol] 138 mg/dL High 74-99 [facility] Comment on above: Order Comment: Novai men Type: BLOOD SPECIMENOrdering Facility: [facility] Address: [address] [place] [address] Result Comment: The [place] Diabetes Association (ADA) provides guidance for cutoff [...] Standards of Medical Care in Diabetes 2016, [place] Diabetes Association. Diabetes Care. 2016.39(Suppl 1). Performed By: #### 2 4321-2 ####[facility] LABCLIA [id number] [place] [address] [place] Potassium [Moles/Vol] 4.2 mmol/L Normal 3.7-5.1 [facility] Comment on above: Order Comment: Cielo sanches Type: BLOOD SPECIMENOrdering Facility: [facility] Address: [address] [place] [address] Performed By: #### 2 4321-2 ####[facility] [id number] [place] [address] [place] Sodium [Moles/Vol] 141 mmol/L Normal 136-144 [facility] Comment on above: Order Comment: Cielo sanches Type: BLOOD SPECIMENOrdering Facility: [facility] Address: [address] [place] [address] Performed By: #### 2 4321-2 ####[facility] LABIA [id number] [place] [address] [place] Urea nitrogen [Mass/Vol] 17 mg/dL Normal 7-21 [facility] Comment on above: Order Comment: Cielo sanches Type: BLOOD SPECIMENOrdering Facility: [facility] Address: [address] [place] [address] Performed By: #### 2 4321-2 ####[facility] LABIA [id number] [place] [id number] [place] CBC W Auto Differential pane l (Bld)on 08-01-2024 Basophils (Bld) [#/Vol] 0.03 10*3/uL Normal <0.11 [facility] Comment on above: Order Comment: Speci men Type: BLOOD SPECIMEN Ordering Facility: [facility] Address: [address] [place] [address] Performed By: #### 5 7021-8 #### [facility] CLIA [id number] [address] [place] [address] [place] Basophils/100 WBC (Bld) 0.5 % Normal [facility] Comment on above: Order Comment: Speci men Type: BLOOD SPECIMEN Ordering Facility: [facility] Address: [address] [place] [address] Performed By: #### 5 7021-8 #### [facility] CLIA [id number] [address] [place] [address] [place] Differential cell count method Nom (Bld) Auto Normal [facility] Comment on above: Order Comment: Speci men Type: BLOOD SPECIMEN Ordering Facility: [facility] Address: [address] [place] [address] Performed By: #### 5 7021-8 #### [facility] CLIA [id number] [address] [place] [address] [place] Eosinophils (Bld) [#/Vol] 0.08 10*3/uL Normal <0.46 [facility] Comment on above: Order Comment: Speci men Type: BLOOD SPECIMEN Ordering Facility: [facility] Address: [address] [place] [address] Performed By: #### 5 7021-8 #### [facility] CLIA [id number] [address] [place] [address] [place] Eosinophils/100 WBC (Bld) 1.4 % Normal [facility] Comment on above: Order Comment: Speci men Type: BLOOD SPECIMEN Ordering Facility: [facility] Address: [address] [place] [address] Performed By: #### 5 7021-8 #### [facility]AREIA [id number] [address] [place] [address] [place] Erythrocyte distribution width (RBC) [Ratio] 12.9 % Normal 11.5-15.0 [facility] Comment on above: Order Comment: Speci men Type: BLOOD SPECIMEN Ordering Facility: [facility] Address: [address] [place] [address] Performed By: #### 5 7021-8 #### [facility] CLIA [id number] [address] [place] [address] [place] Hematocrit (Bld) [Volume fraction] 35.3 % Low 36.0-46.0 [facility] Comment on above: Order Comment: Speci men Type: BLOOD SPECIMEN Ordering Facility: [facility] Address: [address] [place] [address] Performed By: #### 5 7021-8 #### [facility] CLIA [id number] [address] [place] [address] [place] Hemoglobin (Bld) [Mass/Vol] 11.6 g/dL Normal 11.5-15.5 [facility] Comment on above: Order Comment: Speci men Type: BLOOD SPECIMEN Ordering Facility: [facility] Address: [address] [place] [address] Performed By: #### 5 7021-8 #### [facility] CLIA [id number] [address] [place] [address] [place] Immature granulocytes (Bld) [#/Vol] 10*3/uL Normal <0.10 [facility] Comment on above: Order Comment: Speci men Type: BLOOD SPECIMEN Ordering Facility: [facility] Address: [address] [place] [address] Performed By: #### 5 7021-8 #### [facility] CLIA [id number] [address] [place] [address] [place] Immature granulocytes/100 WBC (Bld) 0.2 % Normal [facility] Comment on above: Order Comment: Speci men Type: BLOOD SPECIMEN Ordering Facility: [facility] Address: [address] [place] [address] Performed By: #### 5 7021-8 #### [facility] CLIA [id number] [address] [place] [address] [place] Lymphocytes (Bld) [#/Vol] 1.17 10*3/uL Normal 1.00-4.00 [facility] Comment on above: Order Comment: Speci men Type: BLOOD SPECIMEN Ordering Facility: [facility] Address: [address] [place] [address] Performed By: #### 5 7021-8 #### [facility] CLIA [id number] [address] [place] [address] [place] Lymphocytes/100 WBC (Bld) 20.7 % Normal [facility] Comment on above: Order Comment: Speci men Type: BLOOD SPECIMEN Ordering Facility: [facility] Address: [address] [place] [address] Performed By: #### 5 7021-8 #### [facility] CLIA [id number] [address] [place] [address] [place] MCH (RBC) [Entitic mass] 29.1 pg Normal 26.0-34.0 [facility] Comment on above: Order Comment: Speci men Type: BLOOD SPECIMEN Ordering Facility: [facility] Address: [address] [place] [address] Performed By: #### 5 7021-8 #### [facility] CLIA [id number] [address] [place] [address] [place] MCHC (RBC) [Mass/Vol] 32.9 g/dL Normal 30.5-36.0 [facility] Comment on above: Order Comment: Speci men Type: BLOOD SPECIMEN Ordering Facility: [facility] Address: [address] [place] [address] Performed By: #### 5 7021-8 #### [facility] CLIA [id number] [address] [place] [address] [place] MCV (RBC) [Entitic vol] 88.7 fL Normal 80.0-100.0 [facility] Comment on above: Order Comment: Speci men Type: BLOOD SPECIMEN Ordering Facility: [facility] Address: [address] [place] [address] Performed By: #### 5 7021-8 #### [facility] CLIA [id number] [address] [place] [address] [place] Monocytes (Bld) [#/Vol] 0.41 10*3/uL Normal <0.87 [facility] Comment on above: Order Comment: Speci men Type: BLOOD SPECIMEN Ordering Facility: [facility] Address: [address] [place] [address] Performed By: #### 5 7021-8 #### [facility] CLIA [id number] [address] [place] [address] [place] Monocytes/100 WBC (Bld) 7.3 % Normal [facility] Comment on above: Order Comment: Speci men Type: BLOOD SPECIMEN Ordering Facility: [facility] Address: [address] [place] [address] Performed By: #### 5 7021-8 #### [facility] CLIA [id number] [address] [place] [address] [place] Neutrophils (Bld) [#/Vol] 3.95 10*3/uL Normal 1.45-7.50 [facility] Comment on above: Order Comment: Speci men Type: BLOOD SPECIMEN Ordering Facility: [facility] Address: [address] [place] [address] Performed By: #### 5 7021-8 #### [facility] CLIA [id number] [address] [place] [address] [place] Neutrophils/100 WBC (Bld) 69.9 % Normal [facility] Comment on above: Order Comment: Speci men Type: BLOOD SPECIMEN Ordering Facility: [facility] Address: [address] [place] [address] Performed By: #### 5 7021-8 #### [facility] CLIA [id number] [address] [place] [address] [place] Nucleated RBC (Bld) [#/Vol] 10*3/uL Normal <0.01 [facility] Comment on above: Order Comment: Speci men Type: BLOOD SPECIMEN Ordering Facility: [facility] Address: [address] [place] [address] Performed By: #### 5 7021-8 #### [facility] CLIA [id number] [address] [place] [address] [place] Nucleated RBC/100 WBC (Bld) [Ratio] 0.0 /100 WBC Normal [facility] Comment on above: Order Comment: Speci men Type: BLOOD SPECIMEN Ordering Facility: [facility] Address: [address] [place] [address] Performed By: #### 5 7021-8 #### [facility] CLIA [id number] [address] [place] [address] [place] Platelet mean volume (Bld) [Entitic vol] 10.1 fL Normal 9.0-12.7 [facility] Comment on above: Order Comment: Speci men Type: BLOOD SPECIMEN Ordering Facility: [facility] Address: [address] [place] [address] Performed By: #### 5 7021-8 #### [facility] CLIA [id number] [address] [place] [address] [place] Platelets (Bld) [#/Vol] 230 10*3/uL Normal 150-400 [facility] Comment on above: Order Comment: Speci men Type: BLOOD SPECIMEN Ordering Facility: [facility] Address: [address] [place] [address] Performed By: #### 5 7021-8 #### [facility] [id number] [address] [place] [address] [place] RBC (Bld) [#/Vol] 3.98 10*6/uL Normal 3.90-5.20 [facility] Comment on above: Order Comment: Speci men Type: BLOOD SPECIMEN Ordering Facility: [facility] Address: [address] [place] [address] Performed By: #### 5 7021-8 #### [facility] [id number] [address] [place] [address] [place] WBC (Bld) [#/Vol] 5.65 10*3/uL Normal 3.70-11.00 [facility] Comment on above: Order Comment: Speci men Type: BLOOD SPECIMEN Ordering Facility: [facility] Address: [address] [place] [address] Performed By: #### 5 7021-8 #### [facility] [id number] [address] [place] [address] OF [facility] Fredrick 08-01-2024 [facility] Telephone ([facility]) INÉS LIEBERMAN ([id number]) 1950 F Date Time Provider Department 08/01/24 ELIZABETH LINTON [facility] During your visit today, we recorded the [...] Status:Closed by LENORA BORJA on 08/01/24 Normal [facility] HbA1c (Bld)on 08-01-2024 Average glucose Estimated from glycated hemoglobin (Bld) [Mass/Vol] 120 mg/dL Normal [facility] Comment on above: Order Comment: Cielo sanches Type: BLOOD SPECIMENOrdering Facility: [facility] Address: [address] [place] [address] Result Comment: eAG: (Estimated average glucose) is a calculated value from HgbA1c and is field marketing representative of the average blood glucose level in the last 2-3 month period. Performed By: #### 5 5454-3 ####[facility] LABCLIA [id number] [place] [address] [place] HbA1c (Bld) [Mass fraction] 5.8 % High 4.3-5.6 [facility] Comment on above: Order Comment: Cielo sanches Type: BLOOD SPECIMENOrdering Facility: [facility] Address: [address] [place] [address] Result Comment: [place] Diabetes Association guidelines indicate that patients with HgbA1c in the range 5.7-6.4% are at increased risk for development of diabetes, and intervention by lifestyle modification may be beneficial. HgbA1c greater or equal to 6.5% is considered diagnostic of diabetes. Performed By: #### 5 5454-3 ####[facility] LABLITA [id number] [place] [address] [place] XR KNEE THREE [...] 08/01/2024 4:55:29 PM Ordering Provider: RO[facility] ZHU [facility]2024 [facility] Office Visit (RAKESH ) INÉS LIEBERMAN ([id number]) 1950 F Date Time Provider Department 07/28/24 [...] a poor historian. S/P prolapse repair at [facility], unknown year. Has [...] on any medications. 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 Last Mammogram: [...] FAMILY HISTOR (more content not included)... Normal [facility] Fredrick 05-19-2024 [facility] Telephone ([facility]) INÉS LIEBERMAN ([id number]) 1950 F Date Time Provider Department 05/19/24 [...] office until 05/22/[address] Woods office [phone] and speak with her nurse. JAQUI Dutta [...] will pass informeation on to physician. Katerine rKishnamurthy LPN Allergies As of Date: 05/19/2024 (No Known Allergies) Date Reviewed: 04/25/2024 Reviewed by: Irais Peñaloza APRN.FORK OPERATOR - Fully Assessed Reason for Visit: medication [...] Encounter Status:Closed by KATERINE KRISHNAMURTHY on 05/29/24 [facility] CNOVSPon 04-25-2024 CNOVSP Visit (SP) Office (NORY) MIOINÉS ([id number]) 1950 F Date Time Provider Department 04/25/24 [...] ER - - - - - Negative. DC - - - - - Negative. HER2 [...] at the (more content not included)... Normal [facility] BD BONE DENSITY DEXA AXIAL S [facility] 02-25-2024 BD BONE DENSITY DEXA AXIAL [place] [...] 02/25/2024 1:50:25 PM Ordering Provider: ODILON SERRANO [facility] Urine Cultureon 02-24-2024 [facility] Mixed Gram Positive Organisms [place] Count 1000-10,000 MIXC Mixed contaminants. Submit a new specimen if indicated. Normal [facility] Comment on above: Performed By: #### L 506.0250, L3890.6300, L503.6550, M100.2200, L506.1000, L503.0105, L503.6150, L501.2300, L100.0500, L500.4100, L509.1000, L500.4050 ####[facility] [address] [place], [address] CBC-Complete Blood Cnt No Di ffon 02-22-2024 Erythrocyte distribution width (RBC) [Ratio] 13.3 % Normal 11.6-14.6 [facility] Comment on above: Performed By: #### L 506.0250, L3890.6300, L503.6550, M100.2200, L506.1000, L503.0105, L503.6150, L501.2300, L100.0500, L500.4100, L509.1000, L500.4050 #### [facility] [address] [place], [address] Hematocrit (Bld) [Volume fraction] 35.8 % Low 37-47 [facility] Comment on above: Performed By: #### L 506.0250, L3890.6300, L503.6550, M100.2200, L506.1000, L503.0105, L503.6150, L501.2300, L100.0500, L500.4100, L509.1000, L500.4050 #### [facility] [address] [facility] [place], [address] ( Hemoglobin (Bld) [Mass/Vol] 11.2 g/dL Low 12.0-15.0 [facility] Comment on above: Performed By: #### L 506.0250, L3890.6300, L503.6550, M100.2200, L506.1000, L503.0105, L503.6150, L501.2300, L100.0500, L500.4100, L509.1000, L500.4050 #### [facility] [address] [facility] [place], [address] MCH (RBC) [Entitic mass] 28.2 pg Normal 27.0-32.0 [facility] Comment on above: Performed By: #### L 506.0250, L3890.6300, L503.6550, M100.2200, L506.1000, L503.0105, L503.6150, L501.2300, L100.0500, L500.4100, L509.1000, L500.4050 #### [facility] [address] [facility] [place], [address] MCHC (RBC) [Mass/Vol] 31.3 g/dL Low 32-36 [facility] Comment on above: Performed By: #### L 506.0250, L3890.6300, L503.6550, M100.2200, L506.1000, L503.0105, L503.6150, L501.2300, L100.0500, L500.4100, L509.1000, L500.4050 #### [facility] [address] [place], [address] MCV (RBC) [Entitic vol] 90.2 fL Normal 81-99 [facility] Comment on above: Performed By: #### L 506.0250, L3890.6300, L503.6550, M100.2200, L506.1000, L503.0105, L503.6150, L501.2300, L100.0500, L500.4100, L509.1000, L500.4050 #### [facility] [address] [place], [place], [id number] Platelet mean volume (Bld) [Entitic vol] 10.8 fL Normal 6.2-12.0 [facility] Comment on above: Performed By: #### L 506.0250, L3890.6300, L503.6550, M100.2200, L506.1000, L503.0105, L503.6150, L501.2300, L100.0500, L500.4100, L509.1000, L500.4050 #### [facility] [address] [place], [address] Platelets (Bld) [#/Vol] 228 10*3/uL Normal 150-450 [facility] Comment on above: Performed By: #### L 506.0250, L3890.6300, L503.6550, M100.2200, L506.1000, L503.0105, L503.6150, L501.2300, L100.0500, L500.4100, L509.1000, L500.4050 #### [facility] [address] [place], [place], [id number] ([address]) RBC (Bld) [#/Vol] 3.97 10*6/uL Low 4.2-5.4 [facility] Comment on above: Performed By: #### L 506.0250, L3890.6300, L503.6550, M100.2200, L506.1000, L503.0105, L503.6150, L501.2300, L100.0500, L500.4100, L509.1000, L500.4050 #### [facility] [address] [place], [place], [id number] RDW SD 44.4 fl High 35.1-43.9 [facility] Comment on above: Performed By: #### L 506.0250, L3890.6300, L503.6550, M100.2200, L506.1000, L503.0105, L503.6150, L501.2300, L100.0500, L500.4100, L509.1000, L500.4050 #### [facility] [address] [place], [place], [phone] WBC (Bld) [#/Vol] 5.2 10*3/uL Normal 4.4-11.0 [facility] Comment on above: Performed By: #### L 506.0250, L3890.6300, L503.6550, M100.2200, L506.1000, L503.0105, L503.6150, L501.2300, L100.0500, L500.4100, L509.1000, L500.4050 #### [facility] [address] [place], [place], [id number] Comprehensive Metabolic Prof gaon 02-22-2024 Albumin [Mass/Vol] 3.8 g/dL Normal 3.2-5.0 [facility] Comment on above: Order Comment: N Performed By: #### L 506.0250, L3890.6300, L503.6550, M100.2200, L506.1000, L503.0105, L503.6150, L501.2300, L100.0500, L500.4100, L509.1000, L500.4050 ####[facility] [address] [place], [place], [id number] Albumin/Globulin [Mass ratio] 1.1 {ratio} Normal 0.9-2.4 [facility] Comment on above: Order Comment: N Performed By: #### L 506.0250, L3890.6300, L503.6550, M100.2200, L506.1000, L503.0105, L503.6150, L501.2300, L100.0500, L500.4100, L509.1000, L500.4050 ####[facility] [address] [place], [place], [id number] ALK P 119 U/L High 45-117 [facility] Comment on above: Order Comment: N Performed By: #### L 506.0250, L3890.6300, L503.6550, M100.2200, L506.1000, L503.0105, L503.6150, L501.2300, L100.0500, L500.4100, L509.1000, L500.4050 ####[facility] [id number] [place], [place], [id number] ALT [Catalytic activity/Vol] 19 U/L Normal 13-56 [facility] Comment on above: Order Comment: N Performed By: #### L 506.0250, L3890.6300, L503.6550, M100.2200, L506.1000, L503.0105, L503.6150, L501.2300, L100.0500, L500.4100, L509.1000, L500.4050 ####[facility] [address] [place], [place], [id number] AST [Catalytic activity/Vol] 24 U/L Normal 15-37 [facility] Comment on above: Order Comment: N Performed By: #### L 506.0250, L3890.6300, L503.6550, M100.2200, L506.1000, L503.0105, L503.6150, L501.2300, L100.0500, L500.4100, L509.1000, L500.4050 ####[facility] [address] [place], [place], [phone](374) Bilirubin [Mass/Vol] 0.50 mg/dL Normal 0.20-1.00 [facility] Comment on above: Order Comment: N Result Comment: For patients on eltrombopag therapy, use of Dimension [place] TBIL is not recommended. Performed By: #### L 506.0250, L3890.6300, L503.6550, M100.2200, L506.1000, L503.0105, L503.6150, L501.2300, L100.0500, L500.4100, L509.1000, L500.4050 ####[facility] [address] [place], [place], [id number](551) BUN/CRE 21.4 RATIO High 10-20 [facility] Comment on above: Order Comment: N Performed By: #### L 506.0250, L3890.6300, L503.6550, M100.2200, L506.1000, L503.0105, L503.6150, L501.2300, L100.0500, L500.4100, L509.1000, L500.4050 ####[facility] [address] [place], [place], [phone] CA,Total 9.2 mg/dL Normal 8.5-10.1 [facility] Comment on above: Order Comment: N Performed By: #### L 506.0250, L3890.6300, L503.6550, M100.2200, L506.1000, L503.0105, L503.6150, L501.2300, L100.0500, L500.4100, L509.1000, L500.4050 ####[place] [address] [place], [address] Chloride [Moles/Vol] 107 mmol/L Normal 98-107 [facility] Comment on above: Order Comment: N Performed By: #### L 506.0250, L3890.6300, L503.6550, M100.2200, L506.1000, L503.0105, L503.6150, L501.2300, L100.0500, L500.4100, L509.1000, L500.4050 ####[place] [address] [place], [address] CO2 [Moles/Vol] 29.0 mmol/L Normal 21.0-32.0 [facility] Comment on above: Order Comment: N Performed By: #### L 506.0250, L3890.6300, L503.6550, M100.2200, L506.1000, L503.0105, L503.6150, L501.2300, L100.0500, L500.4100, L509.1000, L500.4050 ####[place] [address] [place], [address] Creatinine [Mass/Vol] 0.84 mg/dL Normal 0.55-1.02 [facility] Comment on above: Order Comment: N Result Comment: The validity of the calculated GFR GFRAA in patients over 70 years has not been determined. Clinical correlation is essential. Performed By: #### L 506.0250, L3890.6300, L503.6550, M100.2200, L506.1000, L503.0105, L503.6150, L501.2300, L100.0500, L500.4100, L509.1000, L500.4050 ####[place] [address] [place], [address] EST GFR - AA 85 mL/min Normal >60 [facility] Comment on above: Order Comment: N Result Comment: Afri can Brazilian GFR Calc Performed By: #### L 506.0250, L3890.6300, L503.6550, M100.2200, L506.1000, L503.0105, L503.6150, L501.2300, L100.0500, L500.4100, L509.1000, L500.4050 ####[place] [address] [place], [place], [id number] GAP 3 Low 5-15 [facility] Comment on above: Order Comment: N Performed By: #### L 506.0250, L3890.6300, L503.6550, M100.2200, L506.1000, L503.0105, L503.6150, L501.2300, L100.0500, L500.4100, L509.1000, L500.4050 ####[place] [address] [place], [address] GFR/1.73 sq M.predicted among non-blacks MDRD (S/P/Bld) [Vol rate/Area] 70 mL/min/{1.73_m2} Normal >60 [facility] Comment on above: Order Comment: N Result Comment: Non- GFR Calc Performed By: #### L 506.0250, L3890.6300, L503.6550, M100.2200, L506.1000, L503.0105, L503.6150, L501.2300, L100.0500, L500.4100, L509.1000, L500.4050 ####[place] [address] [place], [place], [id number] Globulin (S) [Mass/Vol] 3.4 g/dL Normal 2.2-4.2 [facility] Comment on above: Order Comment: N Performed By: #### L 506.0250, L3890.6300, L503.6550, M100.2200, L506.1000, L503.0105, L503.6150, L501.2300, L100.0500, L500.4100, L509.1000, L500.4050 ####[place] [address] [place], [address] Glucose [Mass/Vol] 94 mg/dL Normal 74-106 [facility] Comment on above: Order Comment: N Performed By: #### L 506.0250, L3890.6300, L503.6550, M100.2200, L506.1000, L503.0105, L503.6150, L501.2300, L100.0500, L500.4100, L509.1000, L500.4050 ####[place] [address] [place], [address] Potassium [Moles/Vol] 4.2 mmol/L Normal 3.5-5.1 [facility] Comment on above: Order Comment: N Performed By: #### L 506.0250, L3890.6300, L503.6550, M100.2200, L506.1000, L503.0105, L503.6150, L501.2300, L100.0500, L500.4100, L509.1000, L500.4050 ####[place] [address] [place], [address] Sodium [Moles/Vol] 140 mmol/L Normal 136-145 [facility] Comment on above: Order Comment: N Performed By: #### L 506.0250, L3890.6300, L503.6550, M100.2200, L506.1000, L503.0105, L503.6150, L501.2300, L100.0500, L500.4100, L509.1000, L500.4050 ####[place] [address] [place], [address] T PROT 7.2 g/dL Normal 6.4-8.2 [facility] Comment on above: Order Comment: N Performed By: #### L 506.0250, L3890.6300, L503.6550, M100.2200, L506.1000, L503.0105, L503.6150, L501.2300, L100.0500, L500.4100, L509.1000, L500.4050 ####[place] [address] [place], [place], [phone] Urea nitrogen [Mass/Vol] 18 mg/dL Normal 7-18 [facility] Comment on above: Order Comment: N Performed By: #### L 506.0250, L3890.6300, L503.6550, M100.2200, L506.1000, L503.0105, L503.6150, L501.2300, L100.0500, L500.4100, L509.1000, L500.4050 ####[place] [address] [facility] [address] [place], [place], [id number] Ferritinon 02-22-2024 Ferritin [Mass/Vol] 80 ng/mL Normal 8-252 [facility] Comment on above: Order Comment: N Performed By: #### L 506.0250, L3890.6300, L503.6550, M100.2200, L506.1000, L503.0105, L503.6150, L501.2300, L100.0500, L500.4100, L509.1000, L500.4050 ####[place] [address] [place], [place], [address] Folates, (Folic Acid)on FOLATES 19.20 ng/mL Normal 3.1-55.4 [facility] Comment on above: Order Comment: N Performed By: #### L 506.0250, L3890.6300, L503.6550, M100.2200, L506.1000, L503.0105, L503.6150, L501.2300, L100.0500, L500.4100, L509.1000, L500.4050 ####[place] [address] [place], [place], [id number] Hepatitis C Antibodyon 02-21 Hepatitis C AB Non-Reactive Normal Nonreactive [facility] Comment on above: Result Comment: Non Reactive: < 0.8 Equivocal: >/= 0.8 to < 1.0 Reactive: >/= 1.[address] [facility] requires that a reactive/equivocal HCV antibody result be sent out for confirmation. HCV Quant by PCR testing. Performed By: #### L 506.0250, L3890.6300, L503.6550, M100.2200, L506.1000, L503.0105, L503.6150, L501.2300, L100.0500, L500.4100, L509.1000, L500.4050 ####[place] [address] [place], [address] Ironon 02-22-2024 Iron [Mass/Vol] 64 ug/dL Normal 50-170 [facility] Comment on above: Order Comment: N Performed By: #### L 506.0250, L3890.6300, L503.6550, M100.2200, L506.1000, L503.0105, L503.6150, L501.2300, L100.0500, L500.4100, L509.1000, L500.4050 ####[place] [address] [place], [place], [id number] Lipid Profileon 02-22-2024 Cholesterol [Mass/Vol] 207 mg/dL High 200 [facility] Comment on above: Order Comment: N Result Comment: <200 mg/dL Desirable 200-240 mg/dL Borderline >240 mg/dL High Risk Performed By: #### L 506.0250, L3890.6300, L503.6550, M100.2200, L506.1000, L503.0105, L503.6150, L501.2300, L100.0500, L500.4100, L509.1000, L500.4050 ####[place] [address] [place], [address] Cholesterol in HDL [Mass/Vol] 67 mg/dL Normal [facility] Comment on above: Order Comment: N Result Comment: The drugs N-Acetylcysteine and Metamizole may falsely depress this assay. Reference Range HDL <40 mg/dL Low HDL Cholesterol HDL >or= 60 mg/dL High HDL Cholesterol Performed By: #### L 506.0250, L3890.6300, L503.6550, M100.2200, L506.1000, L503.0105, L503.6150, L501.2300, L100.0500, L500.4100, L509.1000, L500.4050 ####[place] [address] [place], [address] Cholesterol in LDL [Mass/Vol] 130 mg/dL Normal 0-130 [facility] Comment on above: Order Comment: N Performed By: #### L 506.0250, L3890.6300, L503.6550, M100.2200, L506.1000, L503.0105, L503.6150, L501.2300, L100.0500, L500.4100, L509.1000, L500.4050 ####[place] [address] [place], [address] Cholesterol in VLDL [Mass/Vol] 10 mg/dL Normal 5-40 [facility] Comment on above: Order Comment: N Performed By: #### L 506.0250, L3890.6300, L503.6550, M100.2200, L506.1000, L503.0105, L503.6150, L501.2300, L100.0500, L500.4100, L509.1000, L500.4050 ####[place] [address] [place], [address] Triglyceride [Mass/Vol] 48 mg/dL Normal [facility] Comment on above: Order Comment: N Result Comment: The drugs N-Acetylcysteine and Metamizole may falsely depress this assay. Serum Triglycerides Reference Interval Normal <150 mg/dL Borderline high 150 - 199 mg/dL High 200 - 499 mg/dL Very High > or = 500 mg/dL Performed By: #### L 506.0250, L3890.6300, L503.6550, M100.2200, L506.1000, L503.0105, L503.6150, L501.2300, L100.0500, L500.4100, L509.1000, L500.4050 ####[place] [address] [place], [address] PTHINon 02-22-2024 PTH 62.9 pg/mL Normal 18.4-80.1 [facility] Comment on above: Performed By: #### L 506.0250, L3890.6300, L503.6550, M100.2200, L506.1000, L503.0105, L503.6150, L501.2300, L100.0500, L500.4100, L509.1000, L500.4050 #### [facility] [address] [place], [address] Phosphoruson 02-22-2024 Phosphate [Mass/Vol] 2.9 mg/dL Normal 2.5-4.9 [facility] Comment on above: Order Comment: N Performed By: #### L 506.0250, L3890.6300, L503.6550, M100.2200, L506.1000, L503.0105, L503.6150, L501.2300, L100.0500, L500.4100, L509.1000, L500.4050 ####[place] [address] [place], [address] Vitamin B12on 02-22-2024 Cobalamin (Vitamin B12) [Mass/Vol] 694 pg/mL Normal 211-911 [facility] Comment on above: Performed By: #### L 506.0250, L3890.6300, L503.6550, M100.2200, L506.1000, L503.0105, L503.6150, L501.2300, L100.0500, L500.4100, L509.1000, L500.4050 ####[place] [address] [place], [place], [id number] Vitamin D,25 Hydroxyon 02-21 Vitamin D 25-OH 37.8 ng/mL Normal [facility] Comment on above: Result Comment: Anca min D 25(OH) Status Range Deficiency <20 ng/mL (50nmol/L) Insufficiency 20 - 30 ng/mL (50 - 75 nmol/L) Sufficiency 30 - 100 ng/mL (75 - 250 nmol/L) Toxicity >100 ng/mL (>250 nmol/L) Performed By: #### L 506.0250, L3890.6300, L503.6550, M100.2200, L506.1000, L503.0105, L503.6150, L501.2300, L100.0500, L500.4100, L509.1000, L500.4050 ####[facility] [address] [place], [address] AMOXICILLIN+CLAVULANATE:SUSC :PT:ISOLATE:ORDQN:MICon 02-07-2024 Amoxicillin+Clavulan ate RICARDO [Susc] >100,000 cfu/ml Escherichia coli [facility] Work Phone: Amoxicillin+Clavulanate RICARDO [Susc]on 02-07-2024 Escherichia coli Escherichia coli [facility] Work Phone: .Auto Diffon 04-04-2023 Basophil, Absolute 0.1 10 3/mcL Normal 0.0-0.2 [facility] ([place]) Comment on above: Performed By: #### A DIFF, CBC, ANEU, BMP, GFR #### [facility] [address], [place] [address] Basophils/100 WBC (Bld) 0.9 % Normal 0.0-2.5 [facility] ([place]) Comment on above: Performed By: #### A DIFF, CBC, ANEU, BMP, GFR #### [address] [address] Eosinophil, Absolute 0.2 10 3/mcL Normal 0.0-0.4 [facility] ([place]) Comment on above: Performed By: #### A DIFF, CBC, ANEU, BMP, GFR #### [address] [address] Eosinophils/100 WBC (Bld) 3.5 % Normal 0.0-7.0 [facility] ([place]) Comment on above: Performed By: #### A DIFF, CBC, ANEU, BMP, GFR #### [address] [address] Lymphocyte, Absolute 1.5 10 3/mcL Normal 0.8-3.9 [facility] ([place]) Comment on above: Performed By: #### A DIFF, CBC, ANEU, BMP, GFR #### [address] [address] Lymphocytes/100 WBC (Bld) 26.2 % Normal 10.0-50.0 [facility] ([place]) Comment on above: Performed By: #### A DIFF, CBC, ANEU, BMP, GFR #### [address] [address] Monocyte, Absolute 0.7 10 3/mcL Normal 0.2-1.0 [facility] ([place]) Comment on above: Performed By: #### A DIFF, CBC, ANEU, BMP, GFR #### [address] [address] Monocytes/100 WBC (Bld) 13.0 % Normal 1.7-13.0 [facility] ([place]) Comment on above: Performed By: #### A DIFF, CBC, ANEU, BMP, GFR #### [address] [address] Neutrophils/100 WBC (Bld) 56.4 % Normal 37.0-80.0 [facility] ([place]) Comment on above: Performed By: #### A DIFF, CBC, ANEU, BMP, GFR #### [address] [address] .GFRon 04-04-2023 GFR 73 ml/min/1.73sqm Normal [facility] ([place]) Comment on above: Result Comment: GFR Population [...] A DIFF, CBC, ANEU, BMP, GFR #### [address] [address] GFR Non- 60 ml/min/1.73sqm Normal [facility] ([place]) Comment on above: Result Comment: GFR Population [...] A DIFF, CBC, ANEU, BMP, GFR #### [address] [address] .NEUABSon 11-15-2023 Neutrophil, Absolute 3.1 10 3/mcL Normal 2.9-6.2 [facility] ([place]) Comment on above: Performed By: #### A DIFF, CBC, ANEU, BMP, GFR #### [address] [address] BMPon 04-04-2023 BUN/Creatinine Ratio 23 ratio Normal 7-27 [facility] ([place]) Comment on above: Performed By: #### A DIFF, CBC, ANEU, BMP, GFR #### [address] [address] Calcium [Mass/Vol] 8.9 mg/dL Normal 8.4-10.2 [facility] ([place]) Comment on above: Performed By: #### A DIFF, CBC, ANEU, BMP, GFR #### [address] [address] Chloride [Moles/Vol] 105 mmol/L Normal 98-107 [facility] ([place]) Comment on above: Performed By: #### A DIFF, CBC, ANEU, BMP, GFR #### [address] [address] CO2 [Moles/Vol] 29 mmol/L Normal 23-31 [facility] ([place]) Comment on above: Performed By: #### A DIFF, CBC, ANEU, BMP, GFR #### [address] [address] Creatinine [Mass/Vol] 0.91 mg/dL Normal 0.55-1.02 [facility] ([place]) Comment on above: Performed By: #### A DIFF, CBC, ANEU, BMP, GFR #### [address] [address] Electrolyte Balance 7.0 mEq/L Normal 4.0-15.0 [facility] ([place]) Comment on above: Performed By: #### A DIFF, CBC, ANEU, BMP, GFR #### [address] [address] Glucose [Mass/Vol] 115 mg/dL High 83-110 [facility] ([place]) Comment on above: Performed By: #### A DIFF, CBC, ANEU, BMP, GFR #### [address] [address] Potassium [Moles/Vol] 4.3 mmol/L Normal 3.5-5.1 [facility] ([place]) Comment on above: Performed By: #### A DIFF, CBC, ANEU, BMP, GFR #### [place] [id number] Sodium [Moles/Vol] 141 mmol/L Normal 136-145 [facility] ([place]) Comment on above: Performed By: #### A DIFF, CBC, ANEU, BMP, GFR #### [place] [address] Urea nitrogen [Mass/Vol] 21 mg/dL High 7-18 [facility] ([place]) Comment on above: Performed By: #### A DIFF, CBC, ANEU, BMP, GFR #### [place] [id number] CBCon 04-04-2023 Erythrocyte distribution width (RBC) [Ratio] 13.4 % Normal 11.5-14.5 [facility] ([place]) Comment on above: Performed By: #### A DIFF, CBC, ANEU, BMP, GFR #### [place] [id number] Hematocrit (Bld) [Volume fraction] 34.8 % Low 37.0-47.0 [facility] ([place]) Comment on above: Performed By: #### A DIFF, CBC, ANEU, BMP, GFR #### [place] [address] Hgb 11.6 G/dL Low 12.0-16.0 [facility] ([place]) Comment on above: Performed By: #### A DIFF, CBC, ANEU, BMP, GFR #### [place] [id number] MCH (RBC) [Entitic mass] 28.5 pg Normal 27.0-31.2 [facility] ([place]) Comment on above: Performed By: #### A DIFF, CBC, ANEU, BMP, GFR #### [address] [address] MCHC 33.2 G/dL Normal 33.0-37.0 [facility] ([place]) Comment on above: Performed By: #### A DIFF, CBC, ANEU, BMP, GFR #### [address] [address] MCV (RBC) [Entitic vol] 85.9 fL Normal 80.0-94.0 [facility] ([place]) Comment on above: Performed By: #### A DIFF, CBC, ANEU, BMP, GFR #### [address] [address] Platelet 223 10 3/mcL Normal 130-400 [facility] ([place]) Comment on above: Performed By: #### A DIFF, CBC, ANEU, BMP, GFR #### [address] [address] Platelet mean volume (Bld) [Entitic vol] 8.4 fL Normal 7.4-10.4 [facility] ([place]) Comment on above: Performed By: #### A DIFF, CBC, ANEU, BMP, GFR #### [address] [address] RBC 4.05 10 6/mcL Low 4.20-5.40 [facility] ([place]) Comment on above: Performed By: #### A DIFF, CBC, ANEU, BMP, GFR #### [address] [address] WBC 5.6 10 3/mcL Normal 4.6-10.8 [facility] ([place]) Comment on above: Performed By: #### A DIFF, CBC, ANEU, BMP, GFR #### [address] [address] Basophil percentageon 2021 Chloride [Moles/Vol] 106 mmol/L 98-107 [facility] Work Phone: [phone] Glucose [Mass/Vol] 86 mg/dL 74-106 [facility] Work Phone: Potassium [Moles/Vol] 4.0 mmol/L 3.5-5.1 [facility] Work Phone: Sodium [Moles/Vol] 140 mmol/L 136-145 [facility] Work Phone: Laboratory - Chemistry and C hemistry - challengeon 10-03-2021 CO2 [Moles/Vol] 30.0 mmol/L 21.0-32.0 [facility] Work Phone: Urea nitrogen/Creatinine [Mass ratio] 28.5 mg/mg 10-20 [facility] Work Phone: No Panel Informationon 10-03 Estimated GFR (MDRD) Amer 71 mL/min >60 [facility] Work Phone: Comment on above: GFR Calc Estimated GFR (MDRD) Non-Af Amer 59 mL/min >60 [facility] Work Phone: Comment on above: Non- GFR Calc Serum or plasma calcium marta urement (mass/volume)on 10-03-2021 Calcium [Mass/Vol] 9.4 mg/dL 8.5-10.1 [facility] Work Phone: Serum or plasma creatinine m easurement (mass/volume)on 10-03-2021 Creatinine [Mass/Vol] 0.98 mg/dL 0.55-1.02 [facility] Work Phone: Comment on above: The validity of the calculated GFR & GFRAA in patients over 70 years has not been determined. Clinical correlation is essential. Serum or plasma urea nitroge n measurement (mass/volume)on 10-03-2021 Urea nitrogen [Mass/Vol] 28 mg/dL 7-18 [facility] Work Phone: Thin prep Papanicolaou smear with manual screeningon 10-03-2021 Thin prep Papanicolaou smear with manual screening 4 5-15 [facility] Work Phone: MRI BREAST WO/W IVCON BILon 06-30-2020 MRI BREAST WO/W IVCON JERICA Final Report DATE OF EXAM: Jun 30 2020 8:39AM AKM [id number] - MRI BREAST WO/W IVCON JERICA / PROCEDURE REASON: multiple diagnoses Physician Interpretation #[id number] - MRI BREAST WO/W IVCON JERICA SCREENING [...] biopsy, 05/26/2020 ultrasound, and 05/26/2020 mammogram - [facility]. Interpretation of this MRI was [...] Attending Technologist(s): RT Randee (R) (MR), [facility] Thermospray Operator(s): Kong Candelaria (R) (MR), [facility] MRI BI-RADS: 6 Known biopsy proven malignancy Multiple national specialty organizations have released breast cancer screening guidelines for women at average ris (more content not included)... Normal [facility] DIAGNOSTIC LTon 06-09-19 21 [facility] DIAGNOSTIC LT Final Report SEE BOTTOM OF REPORT FOR ADDENDED TEXT DATE OF EXAM: Jun 09 2020 10:45AM AAW 0621 - [facility] DIAGNOSTIC LT / PROCEDURE REASON: Left breast mass Physician Interpretation FINAL REPORT #[id number] - [facility] US BIOPSY BREAST LT #[id number] - [facility] DIAGNOSTIC LT ULTRASOUND GUIDED BIOPSY LEFT [...] undergo the procedure. Dr. Cole and a soil technologist were present throughout the entire procedure. Audible Time Out Time: 1007 Procedure Start Time: 1008 Procedure Stop Time: 1012 Dr. Cole performed the entire procedure without an store administrative assistant. PROCEDURE: Correlation is made to exams dated: 05/26/2020 ultrasound, 05/26/2020 mammogram - [facility], and 04/22/2020 mammogram. An ultrasound [...] a retracted left nipple. Shahana vinson/vielka:06/16/2020 08:59:53 Thermospray Operator(s): Kong Aquino(R)(M), [facility]; Delfina Hairston RT, [facility] Multiple national specialty organizations have released breast cancer screening guidelines for women at average risk for developing breast cancer - guidelines that are based on both evidence and opinion, yet differ on when to start and how often to screen for breast cancer. With representation from Breast Imaging, Internal Medicine, Women's Health, Family Medicine, and Medical/Surgical Oncology, the [facility] has carefully reviewed the data and [...] their providers when to stop screening mammograms. Supply Chain Development Manager: Vielka Transcribe Date/Time: Jun 09 2020 9:31A Dictated by : SHAHANA COLE MD This examination was interpreted and the report reviewed and electronically signed by: SHAHANA COLE MD on Jun 09 2020 1:50PM EST This document has been addended by: SHAHANA COLE MD on Jun 16 (more content not included)... Normal [facility] US BIOPSY AXILLA LTon [facility] US BIOPSY AXILLA LT Final Report SEE BOTTOM OF REPORT FOR ADDENDED TEXT DATE OF EXAM: Jun 09 2020 10:42AM AAW 0601 - [facility] US BIOPSY AXILLA LT / PROCEDURE REASON: Left breast mass Physician Interpretation FINAL REPORT #[id number] - [facility] US BIOPSY AXILLA LT #[id number] - [facility] US CLIP PLCMT LT ULTRASOUND GUIDED [...] undergo the procedure. Dr. Cole and a soil technologist were present throughout the entire procedure. Audible Time Out Time: 1007 Procedure Start Time: 1015 Procedure Stop Time: 1019 Dr. Cole performed the entire procedure without an store administrative assistant. PROCEDURE: Correlation is made to exams dated: 05/26/2020 mammogram and 05/26/2020 ultrasound - [facility]. An ultrasound guided biopsy using real-time [...] a retracted left nipple. Shahana vinson/vielka:06/16/2020 09:00:57 Thermospray Operator(s): Delfina Hairston RT, [facility] Multiple national specialty organizations have released breast cancer screening guidelines for women at average risk for developing breast cancer - guidelines that are based on both evidence and opinion, yet differ on when to start and how often to screen for breast cancer. With representation from Breast Imaging, Internal Medicine, Women's Health, Family Medicine, and Medical/Surgical Oncology, the [facility] has carefully reviewed the data and [...] their providers when to stop screening mammograms. Supply Chain Development Manager: Vielka Transcribe Date/Time: Jun 09 2020 9:31A Dictated by : SHAHANA COLE MD This examination was interpreted and the report reviewed and electronically signed by: SHAHANA COLE MD on Jun 09 2020 1:54PM EST This document has been addended by: SHAHANA COLE MD on Jun 16 2020 9:00AM EST Normal [facility] US BIOPSY BREAST LTon [facility] US BIOPSY BREAST LT Final Report SEE BOTTOM OF REPORT FOR ADDENDED TEXT DATE OF EXAM: Jun 09 2020 10:41AM AAW 0597 - [facility] US BIOPSY BREAST LT / PROCEDURE REASON: Left breast mass Physician Interpretation FINAL REPORT #[id number] - [facility] US BIOPSY BREAST LT #[id number] - [facility] DIAGNOSTIC LT ULTRASOUND GUIDED BIOPSY LEFT [...] undergo the procedure. Dr. Cole and a soil technologist were present throughout the entire procedure. Audible Time Out Time: 1007 Procedure Start Time: 1008 Procedure Stop Time: 1012 Dr. Cole performed the entire procedure without an store administrative assistant. PROCEDURE: Correlation is made to exams dated: 05/26/2020 ultrasound, 05/26/2020 mammogram - [facility], and 04/22/2020 mammogram. An ultrasound [...] a retracted left nipple. Shahana vinson/vielka:06/16/2020 08:59:53 Thermospray Operator(s): Kong Aquino(R)(M), [facility]; Delfina Hairston RT, [facility] Multiple national specialty organizations have released breast cancer screening guidelines for women at average risk for developing breast cancer - guidelines that are based on both evidence and opinion, yet differ on when to start and how often to screen for breast cancer. With representation from Breast Imaging, Internal Medicine, Women's Health, Family Medicine, and Medical/Surgical Oncology, the [facility] has carefully reviewed the data and [...] their providers when to stop screening mammograms. Supply Chain Development Manager: Vielka Transcribe Date/Time: Jun 09 2020 9:31A Dictated by : SHAHANA COLE MD This examination was interpreted and the report reviewed and electronically signed by: SHAHANA COLE MD on Jun 09 2020 1:50PM EST This document has been addended by: SHAHANA COLE MD on May (more content not included)... Normal [facility] LTon 06-09 [facility] LT Final Report SEE BOTTOM OF REPORT FOR ADDENDED TEXT DATE OF EXAM: Jun 09 2020 10:42AM AAW 0603 - [facility] US CLIP [facility] LT / PROCEDURE REASON: Left breast mass Physician Interpretation FINAL REPORT #[id number] - [facility] US BIOPSY AXILLA LT #[id number] - [facility] US CLIP [facility] LT ULTRASOUND GUIDED BIOPSY LEFT BREAST WITH [...] undergo the procedure. Dr. Cole and a soil technologist were present throughout the entire procedure. Audible Time Out Time: 1007 Procedure Start Time: 1015 Procedure Stop Time: 1019 Dr. Cole performed the entire procedure without an store administrative assistant. PROCEDURE: Correlation is made to exams dated: 05/26/2020 mammogram and 05/26/2020 ultrasound - [facility]. An ultrasound guided biopsy using [...] a retracted left nipple. Shahana vinson/vielka:06/16/2020 09:00:57 Thermospray Operator(s): Delfina Hairston RT, [facility] Multiple national specialty organizations have released breast cancer screening guidelines for women at average risk for developing breast cancer - guidelines that are based on both evidence and opinion, yet differ on when to start and how often to screen for breast cancer. With representation from Breast Imaging, Internal Medicine, Women's Health, Family Medicine, and Medical/Surgical Oncology, the [facility] has carefully reviewed the data and [...] their providers when to stop screening mammograms. Supply Chain Development Manager: Vielka Transcribe Date/Time: Jun 09 2020 9:31A Dictated by : SHAHANA COLE MD This examination was interpreted and the report reviewed and electronically signed by: SHAHANA COLE MD on Jun 09 2020 1:54PM EST This document has been addended by: SHAHANA COLE MD on Jun 16 2020 9:00AM EST Normal [facility] DIAGNOSTIC LTon 05-26-19 21 [facility] DIAGNOSTIC LT Final Report DATE OF EXAM: May 26 2020 3:55PM AAW 0621 - [facility] DIAGNOSTIC LT / PROCEDURE REASON: Abnormal mammogram Physician Interpretation #[id number] - [facility] DIAGNOSTIC LT #[id number] - NEGRITA US BREAST LTD LT UNILATERAL [...] Health, Family Medicine, and Medical/Surgical Oncology, the [facility] has carefully reviewed the data and [...] their providers when to stop screening mammograms. Thermospray Operator(s): Zora Gaytan, [facility], [facility]; Elizabeth Michele, RT(R)(M), [facility] OVERALL STUDY BIRADS: 5 Highly suggestive of malignancy - Appropriate action should be taken Supply Chain Development Manager: Vielka Transcribe Date/Time: May 26 2020 3:24P Dictated by : WILLIAM PETERS MD This examination was interpreted and the report reviewed and electronically signed by: WILLIAM PETERS MD on May 26 2020 5:01PM EST Normal [facility] InterValve BREAST LTD LTon 05-26 [employer] BREAST LTD LT Final Report DATE OF EXAM: May 26 2020 4:35PM AAW 0593 - [employer] BREAST LTD LT / PROCEDURE REASON: Abnormal mammogram Physician Interpretation #[id number] - [facility] DIAGNOSTIC LT #[id number] - [facility] GELI BREAST LTD LT UNILATERAL LEFT DIGITAL DIAGNOSTIC [...] Health, Family Medicine, and Medical/Surgical Oncology, the [facility] has carefully reviewed the data and [...] their providers when to stop screening mammograms. Thermospray Operator(s): Zora Gaytan RDMS, [facility]; RT Bhaskar(R)(M), [facility] OVERALL STUDY BIRADS: 5 Highly suggestive of malignancy - Appropriate action should be taken Supply Chain Development Manager: Vielka Transcribe Date/Time: May 26 2020 3:24P Dictated by : WILLIAM PETERS MD This examination was interpreted and the report reviewed and electronically signed by: WILLIAM PETERS MD on May 26 2020 5:01PM EST Normal [facility] Vital Signs Date Time Vital Sign Value Performing Clinician Facility 10-27-2024 15:-0400 Body mass index (BMI) [Ratio] 25.02 kg/m2 Elizabeth Linton MD Work Phone: [facility] 10-27-2024 15:0 Body weight 63.05 kg Elizabeth Linton MD Work Phone: [facility] 10-27-2024 15:27-0400 Diastolic blood pressure 79 mm[Hg] Elizabeth Linton MD Work Phone: [facility] 10-27-2024 15:27-0400 Heart rate 65 /min Elizabeth Linton MD Work Phone: [facility] 10-27-2024 15:27-0400 Systolic blood pressure 181 mm[Hg] Elizabeth Linton MD Work Phone: [facility] 10-24-2024 10:03-0400 Body mass index (BMI) [Ratio] 25.2 kg/m2 Irais Peñaloza ASSISTANT FILM EDITOR.FORK OPERATOR Work Phone: [facility] 10-24-2024 10:03-0400 Body temperature 98.4 [degF] Irais Peñaloza ASSISTANT FILM EDITOR.FORK OPERATOR Work Phone: [facility] 10-24-2024 10:03-0400 Body weight 63.5 kg Irais Peñaloza ASSISTANT FILM EDITOR.FORK OPERATOR Work Phone: [facility] 10-24-2024 10:03-0400 Diastolic blood pressure 75 mm[Hg] Irais Peñaloza ASSISTANT FILM EDITOR.FORK OPERATOR Work Phone: [facility] 10-24-2024 10:03-0400 Heart rate 69 /min Irais Peñaloza ASSISTANT FILM EDITOR.FORK OPERATOR Work Phone: [facility] 10-24-2024 10:03-0400 SaO2% (BldA) [Mass fraction] 95 % Irais Peñaloza ASSISTANT FILM EDITOR.FORK OPERATOR Work Phone: [facility] 10-24-2024 10:03-0400 Systolic blood pressure 172 mm[Hg] Irais Peñaloza ASSISTANT FILM EDITOR.FORK OPERATOR Work Phone: [facility] 08-25-2024 07:58-0400 Body height 158.8 cm Pac 1 Work Phone: [facility] 08-25-2024 07:58-0400 Body mass index (BMI) [Ratio] 25.56 kg/m2 Located [facility] 1 Work Phone: [facility] 08-25-2024 07:58-0400 Body temperature 97 [degF] Pacc 1 Work Phone: [facility] 08-25-2024 07:58-0400 Body weight 64.41 kg Pacc 1 Work Phone: [facility] 08-25-2024 07:58-0400 Diastolic blood pressure 68 mm[Hg] Pacc 1 Work Phone: [facility] 08-25-2024 07:58-0400 Heart rate 71 /min Pacc 1 Work Phone: [facility] 08-25-2024 07:58-0400 Respiratory rate 14 /min Pacc 1 Work Phone: [facility] 08-25-2024 07:58-0400 SaO2% (BldA) [Mass fraction] 98 % Pacc 1 Work Phone: [facility] 08-25-2024 07:58-0400 Systolic blood pressure 140 mm[Hg] Pacc 1 Work Phone: [facility] 08-21-2024 14:16-0400 Body height 157.5 cm Elizabeth Linton MD Work Phone: [facility] 08-21-2024 14:16-0400 Body mass index (BMI) [Ratio] 26.45 kg/m2 Elizabeth Linton MD Work Phone: [facility] 08-21-2024 14:16-0400 Body weight 65.6 kg Elizabeth Linton MD Work Phone: [facility] 08-21-2024 14:16-0400 Diastolic blood pressure 82 mm[Hg] Elizabeth Linton MD Work Phone: [facility] Comment on above: patient notes being anxious about testin g. denies cardiac symptoms 08-21-2024 14:16-0400 Systolic blood pressure 196 mm[Hg] Elizabeth Linton MD Work Phone: [facility] Comment on above: patient notes being anxious about testin g. denies cardiac symptoms 07-28-2024 14:03-0400 Body height 160 cm Elizabeth Linton MD Work Phone: [facility] 07-28-2024 14:03-0400 Body mass index (BMI) [Ratio] 26.17 kg/m2 Elizabeth Linton MD Work Phone: [facility] 07-28-2024 14:03-0400 Body weight 67 kg Elizabeth Linton MD Work Phone: [facility] 07-28-2024 14:03-0400 Diastolic blood pressure 64 mm[Hg] Elizabeth Linton MD Work Phone: [facility] 07-28-2024 14:03-0400 Systolic blood pressure 185 mm[Hg] Elizabeth Linton MD Work Phone: [facility] 04-25-2024 09:46-0500 Body mass index (BMI) [Ratio] 26.42 kg/m2 Irais Peñaloza ASSISTANT FILM EDITOR.FORK OPERATOR Work Phone: [facility] 04-25-2024 09:46-0500 Body temperature 97.5 [degF] Irais Peñaloza ASSISTANT FILM EDITOR.FORK OPERATOR Work Phone: [facility] 04-25-2024 09:46-0500 Body weight 66.8 kg Irais Peñaloza ASSISTANT FILM EDITOR.FORK OPERATOR Work Phone: [facility] 04-25-2024 09:46-0500 Diastolic blood pressure 76 mm[Hg] Irais Peñaloza ASSISTANT FILM EDITOR.FORK OPERATOR Work Phone: [facility] 04-25-2024 09:46-0500 Heart rate 69 /min Irais Peñaloza ASSISTANT FILM EDITOR.FORK OPERATOR Work Phone: [facility] 04-25-2024 09:46-0500 SaO2% (BldA) [Mass fraction] 99 % Irais Peñaloza ASSISTANT FILM EDITOR.FORK OPERATOR Work Phone: [facility] 04-25-2024 09:46-0500 Systolic blood pressure 190 mm[Hg] Irais Peñaloza ASSISTANT FILM EDITOR.FORK OPERATOR Work Phone: [facility] 10-26-2023 10:37-0400 Body mass index (BMI) [Ratio] 26.63 kg/m2 [place] Peñaloza ASSISTANT FILM EDITOR.FORK OPERATOR Work Phone: [facility] 10-26-2023 10:37-0400 Body temperature 98.1 [degF] Irais Peñaloza ASSISTANT FILM EDITOR.FORK OPERATOR Work Phone: [facility] 10-26-2023 10:37-0400 Body weight 67.31 kg [place] Peñaloza ASSISTANT FILM EDITOR.FORK OPERATOR Work Phone: [facility] 10-26-2023 10:37-0400 Diastolic blood pressure 76 mm[Hg] [place] Peñaloza ASSISTANT FILM EDITOR.FORK OPERATOR Work Phone: [facility] 10-26-2023 10:37-0400 Heart rate 55 /min Irais Peñaloza ASSISTANT FILM EDITOR.FORK OPERATOR Work Phone: [facility] 10-26-2023 10:37-0400 SaO2% (BldA) [Mass fraction] 99 % [place] Peñaloza ASSISTANT FILM EDITOR.FORK OPERATOR Work Phone: [facility] 10-26-2023 10:37-0400 Systolic blood pressure 163 mm[Hg] [place] Peñaloza ASSISTANT FILM EDITOR.FORK OPERATOR Work Phone: [facility] 04-26-2023 11:05-0500 Body temperature 97.59 [degF] [place] Peñaloza ASSISTANT FILM EDITOR.FORK OPERATOR Work Phone: [facility] 04-26-2023 11:05-0500 Body weight 69.4 kg [place] Peñaloza ASSISTANT FILM EDITOR.FORK OPERATOR Work Phone: [facility] 04-26-2023 11:05-0500 Heart rate 65 /min Irais Peñaloza ASSISTANT FILM EDITOR.FORK OPERATOR Work Phone: [facility] 10-25-2022 10:48-0400 Body height 159 cm [place] Peñaloza ASSISTANT FILM EDITOR.FORK OPERATOR Work Phone: [facility] 10-25-2022 10:48-0400 Body temperature 98.49 [degF] Irais Peñaloza ASSISTANT FILM EDITOR.FORK OPERATOR Work Phone: [facility] 10-25-2022 10:48-0400 Body weight 67.59 kg Irais Peñaloza ASSISTANT FILM EDITOR.FORK OPERATOR Work Phone: [facility] 10-25-2022 10:48-0400 Diastolic blood pressure 78 mm[Hg] [place] Peñaloza ASSISTANT FILM EDITOR.FORK OPERATOR Work Phone: [facility] 10-25-2022 10:48-0400 Heart rate 67 /min Irais Peñaloza ASSISTANT FILM EDITOR.FORK OPERATOR Work Phone: [facility] 10-25-2022 10:48-0400 SaO2% (BldA) [Mass fraction] 99 % [place] Peñaloza ASSISTANT FILM EDITOR.FORK OPERATOR Work Phone: [facility] 10-25-2022 10:48-0400 Systolic blood pressure 170 mm[Hg] Irais Peñaloza ASSISTANT FILM EDITOR.FORK OPERATOR Work Phone: [facility] 04-26-2022 10:22-0500 Body temperature 98.49 [degF] Irais Peñaloza ASSISTANT FILM EDITOR.FORK OPERATOR Work Phone: [facility] 04-26-2022 10:22-0500 Body weight 66.91 kg Irais Peñaloza ASSISTANT FILM EDITOR.FORK OPERATOR Work Phone: [facility] 04-26-2022 10:22-0500 Diastolic blood pressure 92 mm[Hg] Irais Peñaloza ASSISTANT FILM EDITOR.FORK OPERATOR Work Phone: [facility] 04-26-2022 10:22-0500 Heart rate 74 /min [place] Peñaloza ASSISTANT FILM EDITOR.FORK OPERATOR Work Phone: [facility] 04-26-2022 10:22-0500 Respiratory rate 16 /min Irais Peñaloza ASSISTANT FILM EDITOR.FORK OPERATOR Work Phone: [facility] 04-26-2022 10:22-0500 SaO2% (BldA) [Mass fraction] 100 % Irais Peñaloza ASSISTANT FILM EDITOR.FORK OPERATOR Work Phone: [facility] 04-26-2022 10:22-0500 Systolic blood pressure 169 mm[Hg] Irais Peñaloza ASSISTANT FILM EDITOR.FORK OPERATOR Work Phone: [facility] 10-26-2021 10:25-0400 Body temperature 97.59 [degF] Irais Peñaloza ASSISTANT FILM EDITOR.FORK OPERATOR Work Phone: [facility] 10-26-2021 10:25-0400 Body weight 65.55 kg [place] Peñaloza ASSISTANT FILM EDITOR.FORK OPERATOR Work Phone: [facility] 10-26-2021 10:25-0400 Diastolic blood pressure 72 mm[Hg] [place] Peñaloza ASSISTANT FILM EDITOR.FORK OPERATOR Work Phone: [facility] 10-26-2021 10:25-0400 Heart rate 64 /min Irais Peñaloza ASSISTANT FILM EDITOR.FORK OPERATOR Work Phone: [facility] 10-26-2021 10:25-0400 SaO2% (BldA) [Mass fraction] 98 % [place] Peñaloza ASSISTANT FILM EDITOR.FORK OPERATOR Work Phone: [facility] 10-26-2021 10:25-0400 Systolic blood pressure 143 mm[Hg] Irais Peñaloza ASSISTANT FILM EDITOR.FORK OPERATOR Work Phone: [facility] 08-17-2021 10:45-0400 Diastolic blood pressure 66 mm[Hg] Elizabeth Roberts ASSISTANT FILM EDITOR.FORK OPERATOR Work Phone: [facility] 08-17-2021 10:45-0400 Systolic blood pressure 176 mm[Hg] Elizabeth Roberts ASSISTANT FILM EDITOR.FORK OPERATOR Work Phone: [facility] 08-17-2021 09:54-0400 Body height 160 cm Elizabeth Roberts ASSISTANT FILM EDITOR.FORK OPERATOR Work Phone: [facility] 08-17-2021 09:54-0400 Body weight 65.32 kg Elizabeth Roberts ASSISTANT FILM EDITOR.FORK OPERATOR Work Phone: [facility] 08-17-2021 09:54-0400 Heart rate 67 /min Elizabeth Roberts ASSISTANT FILM EDITOR.FORK OPERATOR Work Phone: [facility] Encounters Encounter Date Encounter Type Care Provider Facility Start: 12-01-2024 ambulatory Odilon Serrano Facility:[facility] Start: 11-27-2024 ambulatory Sarthak Louie ty:[place] Start: 11-27-2024 Encounter for other preprocedural examination Sarthak Browning [place] Start: 11-17-2024 ambulatory Odilon Serrano Facility:[facility] Start: 11-14-2024 End: 11-18-[address] ODILON SERRANO DO [facility] Start: 11-14-2024 End: 11-18-[address] ODILON SERRANO DO [facility] Start: 11-14-2024 End: 11-14-[address] ODILON SERRANO DO [facility] Start: 11-14-2024 End: 11-14-[address] ODILON SERRANO DO [facility] Start: 10-27-2024 End: 10-27-2024 Patient encounter procedure Elizabeth Linton MD Work Phone: Urogynecology Comment on above: Post-operative state (Primary Dx); Encounter for surgical aftercare following surgery on the genitourinary system Start: 10-27-2024 End: 10-27-2024 ambulatory ODILON SERRANO Facility[facility] Start: 10-24-2024 End: 10-24-2024 Follow-up encounter Irais Peñaloza APRN.CNP Work Phone: Hematology/Oncology Comment on above: Encounter for follow -up surveillance of breast cancer (Primary Dx) Start: 10-24-2024 End: 10-24-2024 Patient encounter procedure Irais Peñaloza APRN.FORK OPERATOR Work Phone: Hematology/Oncology Start: 10-24-2024 End: 10-24-2024 ambulatory ODILON SERRANO Facility:[facility] Start: 09-19-2024 End: 09-19-[address] Odilon Serrano DO Work Phone: [place] Work Phone: Start: 09-19-2024 End: 09-19-2024 Patient encounter procedure Tana AZAR -Cardiovascular Services Work Phone: Start: 09-19-2024 End: 09-19-2024 ambulatory [facility] Facility:[place] Start: 09-16-2024 End: 09-20-2024 Refill Elizabeth Linton MD Work Phone: Medical Records Comment on above: Refill Request Start: 09-12-2024 ambulatory ELIZABETH LINTON Facility:[facility] Start: 09-12-2024 Encounter for other preprocedural examination ELIZABETH LINTON [facility] Start: 08-27-2024 End: 09-01-2024 Telephone encounter Elizabeth Linton MD Work Phone: Urogynecology Comment on above: Surgery Question Start: 08-25-2024 End: 08-25-2024 Admission to establishment [place] [id number] Work Phone: Pre Anesthesia Start: 08-25-2024 End: 08-25-2024 [facility] Facility:[facility] Start: 08-25-2024 End: 08-25-2024 Anesthesia consultation [place] [id number] Work Phone: Pre Anesthesia Comment on above: Pre-operative examin ation (Primary Dx); History of breast cancer; Primary hypertension; Anxiety; VHD (valvular heart disease) Start: 08-25-2024 End: 08-25-2024 Preprocedural examination done [place] [id number] Work Phone: [facility] Start: 08-21-2024 End: 08-21-2024 ambulatory Elizabeth Linton MD Work Phone: Urogynecology Comment on above: Procedure (UDS ) Start: 08-21-2024 End: 08-21-2024 Patient encounter procedure Elizabeth Linton MD Work Phone: Urogynecology Start: 08-20-2024 End: 08-20-2024 ambulatory Nurse Quarryman Work Phone: Gynecology Comment on above: Educational circumst ances (Primary Dx) Start: 08-20-2024 End: 08-20-2024 Telemedicine consultation with patient Nurse Quarryman Work Phone: Gynecology Start: 08-18-2024 End: 08-19-2024 Telephone encounter Elizabeth Linton MD Work Phone: [facility] Comment on above: Appointment Reschedu led Patient Question Start: 08-12-2024 End: 08-12-2024 Emergency department patient visit DR ODILON SERRANO DO Facility:[facility] Start: 08-08-[address] ODILON SERRANO DO Facili ty:[facility] Start: 08-07-2024 End: 08-11-[address] ODILON SERRANO DO Facility[place] Start: 08-04-2024 End: 08-04-2024 ambulatory ODILON SERRANO Facility:[facility] Start: 08-01-2024 End: 08-01-2024 ambulatory ELIZABETH LINTON Facility:[facility] Start: 08-01-2024 Encounter for other preprocedural examination ODILON SERRANO [facility] Start: 08-01-2024 End: 08-01-2024 Telephone encounter Elizabeth Linton MD Work Phone: [facility] Comment on above: Future Appointment Start: 08-01-2024 End: 08-01-[address] ODILON SERRANO DO Facility[facility] Start: 07-30-2024 End: 07-30-2024 Orders Only [...] Preoperative state Elizabeth Linton MD Work Phone: [facility] Start: 07-28-2024 End: 07-28-2024 ambulatory ODILON SERRANO [facility] Start: 05-19-2024 End: 05-29-2024 Telephone encounter Sukumar Gutierrez DO Work Phone: Hematology/Oncology Comment on above: medication question Start: 04-25-2024 End: 04-25-2024 ambulatory IRAIS PEÑALOZA Facility:[facility] Start: 04-25-2024 End: 04-25-2024 Follow-up encounter Irais Peñaloza APRN.FORK OPERATOR Work Phone: Hematology/Oncology Comment on above: Encounter for follow -up surveillance of breast cancer (Primary Dx); Malignant neoplasm of upper-outer quadrant of left breast in female, estrogen receptor 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); 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 Start: 02-22-2024 End: 02-22-2024 ambulatory Odilon Serrano Facility:[place] Start: 02-07-2024 End: 02-11-[address] ODILON SERRANO DO Facility[facility] Start: 02-07-2024 End: 02-11-[address] ODILON SERRANO DO [facility] Start: 10-26-2023 End: 10-26-2023 ambulatory Irais Peñaloza ASSISTANT FILM EDITOR.FORK OPERATOR Work Phone: Hematology/Oncology Comment on above: Personal history of breast cancer (Primary Dx) Start: 10-26-2023 End: 10-26-2023 Patient encounter procedure Irais Peñaloza ASSISTANT FILM EDITOR.FORK OPERATOR Work Phone: Hematology/Oncology Start: 04-26-2023 End: 04-26-2023 ambulatory Irais Peñaloza ASSISTANT FILM EDITOR.FORK OPERATOR Work Phone: Hematology/Oncology Comment on above: Malignant neoplasm o f upper-outer quadrant of left breast in female, estrogen receptor 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) (Primary Dx); 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); HER2-positive carcinoma of breast (HCC) Start: 04-26-2023 End: 04-26-2023 Patient encounter procedure [place] Peñaloza ASSISTANT FILM EDITOR.FORK OPERATOR Work Phone: [facility] Start: 04-04-2023 End: 04-05-[address] ODILON SERRANO Facility:[facility] Start: 10-25-2022 End: 10-25-2022 ambulatory Irais Peñaloza ASSISTANT FILM EDITOR.FORK OPERATOR Work Phone: Hematology/Oncology Comment on above: Malignant neoplasm o f upper-outer quadrant of left breast in female, estrogen receptor 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) (Primary Dx); 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); HER2-positive carcinoma of breast (HCC) Start: 10-25-2022 End: 10-25-2022 Patient encounter procedure Irais Peñaloza ASSISTANT FILM EDITOR.FORK OPERATOR Work Phone: [facility] Start: 07-24-2022 Telephone encounter [place] Carp enter ASSISTANT FILM EDITOR.FORK OPERATOR Work Phone: Hematology/Oncology Comment on above: Question Start: 04-27-2022 Telephone encounter Irais Carp enter ASSISTANT FILM EDITOR.FORK OPERATOR Work Phone: Hematology/Oncology Comment on above: Results Start: 04-26-2022 End: 04-26-2022 ambulatory Irais Peñaloza ASSISTANT FILM EDITOR.FORK OPERATOR Work Phone: Hematology/Oncology Comment on above: Malignant neoplasm o f upper-outer quadrant of left breast in female, estrogen receptor 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) (Primary Dx); 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); HER2-positive carcinoma of breast (HCC) Start: 04-26-2022 End: 04-26-2022 Patient encounter procedure Irais Peñaloza APRN.FORK OPERATOR Work Phone: [facility] Start: 04-06-2022 Transcribe Orders Lisa Talley MA Patient Services Comment on above: Malignant neoplasm o f upper-outer quadrant of left female breast, unspecified estrogen receptor status (HCC) (Primary Dx) Start: 10-26-2021 Telephone encounter Irais christensen APRN.FORK OPERATOR Work Phone: Hematology/Oncology Comment on above: Appointment Start: 10-26-2021 End: 10-26-2021 ambulatory Irais Peñaloza ASSISTANT FILM EDITOR.FORK OPERATOR Work Phone: Hematology/Oncology Comment on above: Malignant neoplasm o f upper-outer quadrant of left breast in female, estrogen receptor 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) (Primary Dx); 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 Odilon Serrano Work Phone: [place] Start: 08-17-2021 End: 08-17-2021 Patient encounter procedure Elizabeth Roberts ASSISTANT FILM EDITOR.FORK OPERATOR Work Phone: [facility] Comment on above: Malignant neoplasm o f upper-outer quadrant of left breast in female, estrogen receptor 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) (Primary Dx); H/O bilateral mastectomy Start: 08-01-2021 End: 08-01-[address] Odilon Serrano Work Phone: [place] Start: 06-29-2021 End: 06-29-[address] Odilon Serrano Work Phone: [place] Procedures Date Procedure Procedure Detail Performing Clinician Start: 08-21-2024 Urnls dip stick/tabl et rgnt auto w/o microscopy Elizabeth Linton MD Work Phone: Start: 08-15-2021 History of bilateral mastectomy H/O bilateral mastectomy Elizabeth Roberts ASSISTANT FILM EDITOR.FORK OPERATOR Work Phone: Start: 06-29-2021 Dual energy X-ray [...] clip placement Start: 02-04-2019 Colonoscopy Elizabeth herrera ASSISTANT FILM EDITOR.FORK OPERATOR Work Phone: H/O: hysterectomy Hx of hysterectomy Dr. Odilon Serrano Work Phone: History of bilateral mastectomy H/O bilateral mastectomy Elizabeth Roberts ASSISTANT FILM EDITOR.FORK OPERATOR Work Phone: Hysterectomy DR ODILON Duggan O Hysterectomy DR ODILON Duggan O Comment on above: unsure of the year Plan of Treatment Date Care Activity Detail Author Start: 08-02-2027 Diabetes Screening Diabetes Screening [facility] Start: 04-27-2025 End: 04-27-2025 Follow-up encounter 04/27/2025 1:00 PM EST Visit (SP) Office Hematology/Oncology [address] [place] [address] Irais Peñaloza APRN.FORK OPERATOR [address] [place] [address] Follow up in 6 months Hematology/Oncology Comment on above: Follow up in 6 months Start: 01-25-2025 DIABETES SCREEN DIABETES SCREEN [facility] Start: 01-25-2025 Diabetes Screening Diabetes Screening [facility] Start: 10-27-2024 End: 10-27-2024 Patient encounter procedure 10/27/2024 3:30 PM EDT Office Visit Urogynecology [address] [place] [address] Elizabeth Linton MD [address] [place] [address] POST OP 6-8 WEEKS Urogynecology Comment on above: POST OP 6-8 WEEKS Start: 10-26-2024 DIABETES SCREEN DIABETES SCREEN [facility] Start: 10-24-2024 End: 10-24-2024 Follow-up encounter 10/24/2024 10:00 AM EDT Visit (SP) Office Hematology/Oncology [address] [place] [address] Irais Peñaloza APRN.FORK OPERATOR [address] [place] [address] 6 mo follow up Hematology/Oncology Comment on above: 6 mo follow up Start: 09-12-2024 End: 09-12-2024 Admission to same day surgery center 09/12/2024 7:30 AM EDT - 09/12/2024 10:45 AM EDT Surgery [facility] Surgery [address] [place] [address] Elizabeth Linton MD [address] [place] [address] COLPOPEXY VAGINAL EXTRA-PERITONEAL [facility] Surgery Comment on above: COLPOPEXY VAGINAL EXTRA-PERITONEAL [...] Start: 09-12-2024 Subsequent hospital visit by physician [facility] Surgery Comment on above: 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], Primary stress urinary incontinence [N39.3], History of breast cancer [Z85.3], Pre-operative clearance [Z01.818] Start: 09-04-2024 End: 09-04-2024 Admission to same day surgery center 09/04/2024 1:35 PM EDT - 09/04/2024 7:05 PM EDT Surgery [facility] [address] [place] [address] Elizabeth Linton MD [address] [place] [address] COLPOPEXY VAGINAL EXTRA-PERITONEAL [facility] Comment on above: COLPOPEXY VAGINAL [...] physician 09/04/2024 1:35 PM EDT Hospital Encounter [facility] [address] [place] [address] Elizabeth Linton MD [address] [place], [place] [id number] 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], Primary stress urinary incontinence [N39.3], History of breast cancer [Z85.3], Pre-operative clearance [Z01.818] [facility] Comment on above: 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], Primary stress urinary incontinence [N39.3], History of breast cancer [Z85.3], Pre-operative clearance [Z01.818] Start: 08-25-2024 End: 08-25-2024 Anesthesia consultation 08/25/2024 8:00 AM EDT PAT Pre Anesthesia [address] [place] [address] 1, P[facility] [place] [address] [place] [address] PRE OP Pre Anesthesia Comment on above: PRE OP Start: 08-22-2024 End: 08-22-2024 Admission to same day surgery center 08/22/2024 2:30 PM EDT Procedure Urogynecology [address] [facility] [address] [place] [address] Elizabeth Linton MD [address] [place], [place] [id number] PRE OP/SURGERY CONSENT Urogynecology Comment on above: PRE OP/SURGERY CONSENT Start: 08-22-2024 End: 08-22-2024 Anesthesia consultation 08/22/2024 1:00 PM EDT PAT Pre Anesthesia [address] [facility] [address] [place] [address] 1, [facility] [address] [place] [address] PRE OP Pre Anesthesia Comment on above: PRE OP Start: 08-21-2024 End: 08-21-2024 ambulatory 08/21/2024 2:30 PM EDT Procedure Urogynecology [address] [address] Elizabeth Linton MD [address] [place], [place] [id number] *appt confirmed Urogynecology Comment on above: *appt confirmed Start: 08-20-2024 End: 08-20-2024 ambulatory Gynecology Comment on above: 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 Educational circumst ances (Primary Dx) Start: 08-04-2024 End: 08-04-2024 Patient encounter procedure 08/04/2024 9:30 AM EDT Office [place] [address] SURGERY [employer] [facility] Comment on above: SURGERY Start: 08-01-2024 End: 08-01-2024 ambulatory 08/01/2024 3:30 PM EDT Results Only Tejas Valverde [facility] [address] [place] [address] [address] [facility] Start: 07-30-2024 End: 10-29-2024 Basic metabolic 2000 panel - Serum or Plasma BASIC METABOLIC PANEL Lab Routine Vaginal vault prolapse Primary stress urinary incontinence History of breast cancer Pre-operative clearance Expected: 07/30/2024, Expires: 10/29/2024 [facility] Work Phone: Comment on above: Expected: 07/30/2024, Expires: Start: 07-30-2024 End: 10-29-2024 CBC W Auto Differential panel - Blood COMPLETE BLOOD COUNT AND DIFFERENTIAL Lab Routine Vaginal vault prolapse Primary stress urinary incontinence History of breast cancer Pre-operative clearance Expected: 07/30/2024, Expires: 10/29/2024 [facility] Comment on above: Expected: 07/30/2024, Expires: Start: 07-30-2024 End: 10-29-2024 Hemoglobin A1c in Blood HEMOGLOBIN A1C Lab Routine Vaginal vault prolapse Primary stress urinary incontinence History of breast cancer Pre-operative clearance Expected: 07/30/2024, Expires: 10/29/2024 [facility] Comment on above: Expected: 07/30/2024, Expires: Start: 07-25-2024 DIABETES SCREEN DIABETES SCREEN [facility] Start: 05-21-2024 Advance Directive Discussion Advance Directive Discussion [facility] Start: 04-25-2024 End: 04-25-2024 ambulatory 04/25/2024 10:00 AM EST Visit (SP) Office Hematology/Oncology [address] [place] [address] Irais Peñaloza APRN.FORK OPERATOR [address] [place] [address] 6MTH OV* Hematology/Oncology Comment on above: 6MTH OV* Start: 01-20-2024 Covid-19 Vaccine ( season) Covid-19 Vaccine ( season) [facility] Start: 2023 RSV Vaccine (1 - 1-dose 75+ series) RSV Vaccine (1 - 1-dose 75+ series) [facility] Start: 05-21-2023 Advance Directive Discussion Advance Directive Discussion [facility] Start: 05-21-2023 Behavioral Health Screening Behavioral Health Screening [facility] Start: 01-19-2023 Covid-19 Vaccine () Covid-19 Vaccine () [facility] Start: 05-21-2022 ADVANCE DIRECTIVE DISCUSSION ADVANCE DIRECTIVE DISCUSSION [facility] Start: 05-21-2022 DEPRESSION ASSESSMENT DEPRESSION ASSESSMENT [facility] Start: 01-19-2022 Influenza vaccination INFLUENZA (#1) [facility] Start: 08-17-2021 COVID-19 VACCINE (4 - Booster for Pfizer series) COVID-19 VACCINE (4 - Booster for Pfizer series) [facility] Start: 07-18-2021 COVID-19 VACCINE (4 - Booster) COVID-19 VACCINE (4 - Booster) [facility] Start: 06-14-2021 COVID-19 VACCINE (4 - Booster for Pfizer series) COVID-19 VACCINE (4 - Booster for Pfizer series) [facility] Start: 05-21-2021 ADVANCE DIRECTIVE DISCUSSION ADVANCE DIRECTIVE DISCUSSION [facility] Start: 05-21-2021 DEPRESSION ASSESSMENT DEPRESSION ASSESSMENT [facility] Start: 02-05-2020 Colonoscopy COLONOSCOPY [facility] Start: 02-05-2020 COLORECTAL CANCER SCREENING COLORECTAL CANCER SCREENING [facility] Start: 2013 BONE DENSITY BONE DENSITY [facility] Start: 2013 Bone Density Screening Bone Density Screening [facility] Start: 2013 PNEUMOCOCCAL: 65+ (1 - PCV) PNEUMOCOCCAL: 65+ (1 - PCV) [facility] Start: 2013 PNEUMOVAX AGE 65 AND OVER WITH 5YR LOOKBACK (#1) PNEUMOVAX AGE 65 AND OVER WITH 5YR LOOKBACK (#1) [facility] Start: 2013 Screening for osteoporosis Bone Density Screening [facility] Start: 2008 RSV Vaccine (1 - 1-dose 60+ series) RSV Vaccine (1 - 1-dose 60+ series) [facility] Start: 1998 SHINGRIX VACCINE (1 of 2) SHINGRIX VACCINE (1 of 2) [facility] Start: 1993 COLOGUARD (FIT-DNA) COLOGUARD (FIT-DNA) [facility] Start: 1993 Colonoscopy COLONOSCOPY [facility] Start: 1993 COLORECTAL CANCER SCREENING COLORECTAL CANCER SCREENING [facility] Start: [address] COLONOGRAPHY [facility] Start: 1993 FECAL OCCULT BLOOD FECAL OCCULT BLOOD [facility] Start: 1993 Lipid 1996 panel - Serum or Plasma Lipid Screening [facility] Start: 1993 Lipid panel Lipid Screening [facility] Start: 1993 LIPID SCREEN LIPID SCREEN [facility] Start: 1993 Screening for malignant neoplasm of colon [facility] Start: 1993 SIGMOIDOSCOPY SIGMOIDOSCOPY [facility] Start: 1988 Mammography [facility] Start: 1967 SHINGRIX VACCINE (1 of 2) SHINGRIX VACCINE (1 of 2) [facility] Start: 1967 Urine microalbumin profile [facility] Start: 1966 Annual PCP Team Chronic Disease Visit Annual PCP Team Chronic Disease Visit [facility] Start: 1966 Anxiety Screening Anxiety Screening [facility] Start: 1966 BP Controlled (<130/80) BP Controlled (<130/80) [facility] Start: 1966 Depression Screening Depression Screening [facility] Start: 1960 Adult depression screening assessment DEPRESSION SCREENING [facility] Start: 1954 PNEUMOCOCCAL: 65+ (1 - PCV) PNEUMOCOCCAL: 65+ (1 - PCV) [facility] Anterior colporraphy rpr cystocele w/cysto ANTERIOR [...] for 18 Occurrences starting 10/24/2021 until 10/24/2022 [facility] Work Phone: Comment on above: Every 3 [...] for 18 Occurrences starting 10/24/2021 until 10/24/2022 [facility] Work Phone: Comment on above: Every 3 [...] for 18 Occurrences starting 10/24/2021 until 10/24/2022 [facility] Work Phone: Comment on above: Every 3 [...] incontinence History of breast cancer Ordered: 07/30/2024 [facility] Comment on above: Ordered: 07/30/2024 [facility] Immunizations Immunization Date Immunization Notes Care Provider Fa cili 02-07-2024 influenza, high dose seasonal, preservative-free; Translations: [Fluad PF Prefilled Syringe ] DR ODILON SERRANO DO [facility] 04-04-2023 influenza, high dose seasonal, preservative-free; Translations: [Fluad Quadrivalent PF ] DR ODILON SERRANO DO [facility] 06-01-2022 influenza, high dose seasonal, preservative-free DR ODILON SERRANO DO [facility] 06-07-2021 pneumococcal conjuga te vaccine, 13 valent; Translations: [Prevnar 13] DR ODILON SERRANO DO [facility] 04-19-2021 influenza, injectabl e, quadrivalent, contains preservative; Translations: [Fluarix PF Quadrivalent ] DR ODILON SERRANO DO [facility] 04-19-2021 SARS-CoV-2 (COVID-19 ) mRNA-1273 vaccine; Translations: [Moderna COVID-19 Vaccine] DR ODILON SERRANO DO [facility] 10-02-2020 SARS-CoV-2 mRNA (tozinameran) vaccine DR ODILON SERRANO DO [facility] Comment on above: Result Comment: 2020: TPV70 09-11-2020 SARS-CoV-2 mRNA (tozinameran) vaccine DR ODILON SERRANO DO [facility] Comment on above: Result Comment: 2020: TPV70 03-24-2020 influenza, injectabl e, quadrivalent, preservative free; Translations: [Fluarix PF Quadrivalent ] DR ODILON SERRANO DO [facility] 03-24-2020 pneumococcal polysaccharide vaccine, 23 valent; Translations: [Pneumovax 23] DR ODILON SERRANO DO [facility] Payers Date Payer Category Payer Private Health Insurance [id number] 2024 Self-pay [id number] 2018 Medicare MMO MEDICARE MMO MEDADVANTAGE O [id number] 2018-Present [phone] [place], [place] [address] O [id number] 2018 Medicare MMO MEDICARE MMO MEDADVANTAGE O [id number] 2018-Present [phone] [place] [id number] [facility] [id number] 2018 Medicare (Managed Care) MMO [employer]ES DVANTAGE HMO [id number] 2018 Unknown [id number] 1948 Unknown [id number] .2.627 1948 Unknown [id number] [id number] .2.62 1948 Unknown [id number] [id number] .2.62 1948 Unknown [id number] [id number] .2.62 1948 Unknown [id number] [id number] .2.62 1948 Unknown [id number] [id number] .2.62 1948 Unknown [id number] [id number] .2.627 1948 Unknown [id number] [id number] .2.62 1948 Unknown [id number] [id number] .2.627 Unknown [id number] [id number] .2.462 Unknown [id number] [id number] .2.462 Unknown [id number] [id number] .2.462 Unknown [id number] [id number] .2.462 Unknown [id number] [id number] .2.462 Social History Date Type Detail Facility Start: 12-29-2012 End: 08-07-2024 Tobacco smoking status PRIS Never smoked tobacco [facility] Work Phone: Start: 12-29-2012 End: 08-25-2024 Tobacco use and exposure Smokeless tobacco non-user [facility] Work Phone: Start: 08-17-2021 End: 10-27-2024 Alcohol intake Lifetime non-drinker (finding) [facility] Start: 06-09-2020 History SDOH Alcohol Frequency 1 [facility] Start: 1950 Sex Assigned At Female [facility] Start: 08-07-2021 End: 08-17-2021 Exposure to SARS-CoV-2 (event) Not sure [facility] Start: 08-01-2021 Tobacco smoking status NHIS Unknown if ever smoked [facility] Work Phone: Start: 07-18-2020 None [facility] Start: 07-18-2020 Spouse/ Significant Other [facility] Start: 07-18-2020 Non-smoker [facility] Start: 06-09-2020 End: 10-25-2022 History of Social function [facility] Start: 06-09-2020 End: 10-25-2022 Alcohol Use Disorder Identification Test - Consumption [AUDIT-C] [facility] How often to you hav e a drink containing alcohol? Never [facility] Average Number of Drinks Not on file [facility] Start: 06-18-2020 Gender identity Identifies as female gender (finding) [facility] Start: 06-18-2020 Sexual orientation Heterosexual (finding) [facility] Sexual Orientation Kendall Elana majano [facility] Start: 11-13-2018 Sex Female (finding) [facility] Medical Equipment Procedure Code Equipment Code [...] 4:47 PM EDT Gerri Horner RN No [facility] 01-04-2021 Are you blind, or do you have serious difficulty seeing, even when wearing glasses No 01/04/2021 4:47 PM EDT Gerri Horner, MICHEL No [facility] 01-04-2021 Do you have serious difficulty walking or climbing stairs No 01/04/2021 4:47 PM EDT Gerri Horner RN No [facility] 01-04-2021 Do you have difficul ty dressing or bathing Yes 01/04/2021 4:47 PM EDT Gerri Horner, MICHEL Yes [facility] 01-04-2021 Because of a physica l, mental, or emotional condition, do you have difficulty doing errands alone such as visiting a physician's office or shopping No 01/04/2021 4:47 PM EDT Gerri Horner RN No [facility] Mental Status Date Assessment Result Facility 01-04-2021 Because of a physica l, mental, or emotional condition, do you have serious difficulty concentrating, remembering, or making decisions No 01/04/2021 4:47 PM EDT Gerri Horner RN No [facility] Clinical Notes 08-17-2021 to 10-27-2024 Elizabeth Linton MD - 10/27/2024 3:30 PM BETYTCIrais ricks APRN.ISAÍAS - 10/24/2024 9:46 AM EDTTelephone Encounter - Nneka Arguelles RN - 09/19/2024 1:14 PM EDTPatient InstructionsLaboratoryRadiology Note Date & Type Note Facility 10-27-2024 History of Present illness Narrative Images from the original note were not included. Female Pelvic Medicine & Reconstructive Surgery Post-Op Visit Recording using eduPad software for draft documentation of the visit was discussed with the patient/authorized field marketing representative; all questions welcomed and answered. Patient/authorized field marketing representative agreed to proceed HPI:Inés Lieberman is [...] you received about pain medications helpful? Yes Research [employer] Equipment offered:Patient accepts, visit chaperoned by RN SENSITIVE EXAM: The sensitive examination was discussed with the Patient or Patient's Authorized Air Chipper. As applicable, any other physician, advance practice provider, medical student, or other health professional student that will be observing or involved in the sensitive examination for educational or training purposes was discussed with the Patient or Authorized Air Chipper. The Patient or Authorized Air Chipper has agreed to proceed with the sensitive [...] Elizabeth Linton MD documented in this encounter [facility] 10-27-2024 Note HNO ID: [id number] Author: ELIZABETH LINTON MD Service: ? Author Type: Physician Type: Progress Notes Filed: 10/27/2024 16:50 Note Text: Female Pelvic Medicine AND Reconstructive Surgery Post-Op Visit Recording using eduPad software for draft documentation of the visit was discussed with the patient/authorized field marketing representative; all questions welcomed and answered. Patient/authorized field marketing representative agreed to proceed HPI:Inés Lieberman is [...] you received about pain medications helpful? Yes [employer] Equipment offered:Patient accepts, visit chaperoned by RN SENSITIVE EXAM: The sensitive examination was discussed with the Patient or Patient's Authorized Air Chipper. As applicable, any other physician, advance practice provider, medical student, or other health professional student that will be observing or involved in the sensitive examination for educational or training purposes was discussed with the Patient or Authorized Air Chipper. The Patient or Authorized Air Chipper has agreed to proceed with the sensitive [...] the genitourinary system (Z48.816) Elizabeth Linton MD [facility] 10-24-2024 Note HNO ID: [id number] Author: IRAIS PEÑALOZA APRN.FORK OPERATOR Service: ? Author Type: Nurse Practitioner Type: [...] ER - - - - - Negative. DC - - - - - Negative. HER2 [...] 2 sentinel lymph (more content not included)... [facility] 10-24-2024 History of Present illness Narrative [...] ER - - - - - Negative. DC - - - - - Negative. HER2 [...] 70-year-old female who had a screening detected 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, 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 breast cancer. 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 -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, so no indication for AI therapy. [...] Irais Peñaloza APRN.ISAÍAS documented in this encounter [facility] 09-19-2024 Telephone encounter Note Called patient [...] colporrhaphy, Perineorrhaphy, and Cystoscopy Prefers pharmacy below [facility] [address] [place] [address] [phone] [facility] [phone] Nneka Arguelles RN [facility] 09-19-2024 Miscellaneous Notes Called patient verified [...] colporrhaphy, Perineorrhaphy, and Cystoscopy Prefers pharmacy below [facility] [address] [place] [phone] [facility] [phone] Nneka Arguelles RN Pt called requesting a refill. I let her know we were waiting on approval from Dr. Linton but she wanted something now. Please advise. documented in this encounter [facility] 09-19-2024 Telephone encounter Note Pt called requesting a refill. I let her know we were waiting on approval from Dr. Linton but she wanted something now. Please advise. [facility] 09-12-2024 Note HNO ID: [id number] Author: ?, ?, ? Service: Pharmacy Author Type: ? Type: Plan of Care Filed: 09/16/2024 15:14 Note Text: PHARMACY BEDSIDE DELIVERY SERVICE Patient Name: Inés Lieberman The marked outpatient medications were Filled at: [facility] and delivered to the patient's bedside to [...] PAGER: [phone] September 16, 2024 3:14 PM [facility] 09-12-2024 Note HNO ID: [id number] Author: ES AGUILA APRN.CRYSTAL Service: ? 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 and patient Staffing Performed by: BOUFFANT CURTAIN MACHINE TENDER Indications and Patient Condition Indications for airway [...] no Airway not difficult SIGNATURE: Es Aguila APRN.BOUFFANT CURTAIN MACHINE TENDER PATIENT NAME: Inés Lieberman DATE: September 12, 2024 TIME: 8:07 AM CSN: [id number] [facility] 08-29-2024 Telephone encounter Note Patient called in again in regard to her upcoming surgery [facility] 08-29-2024 Miscellaneous Notes Patient called in again in regard to her upcoming surgery Patient called stating she had her pre anesthesia appt on 08/25 and they mentioned that there is no confirmation for her surgery on 09/12 at [facility]. She was told to reach out to the office. documented in this encounter [facility] 08-27-2024 Telephone encounter Note Patient called stating she had her pre anesthesia appt on 08/25 and they mentioned that there is no confirmation for her surgery on 09/12 at [facility]. She was told to reach out to the office. [facility] 08-25-2024 Instructions Bartolome Lopez APRN.FORK OPERATOR - 08/25/2024 8:29 AM EDT Images from the original note were not included. [facility] Pre[facility]Anesthesia [facility] PATIENT PREOPERATIVE INSTRUCTIONS Elizabeth Linton MD has scheduled you for your procedure at this surgery center: [facility]: [phone] -- [address] [facility] [address]. Please read below carefully for your personalized [...] office. If you are currently using a [id number] injectable or oral medication for diabetes or [...] Procedures: - YOU MUST HAVE A RESPONSIBLE WOOD BARKER TAKE YOU HOME. A BRIDGE ENGINEER OR ULTIMATE HOOPS TRAINER CANNOT BE MADE A RESPONSIBLE WOOD BARKER. - We recommend that a responsible person [...] Advance Directive, please fax a copy to [phone] or email to for it to be [...] into your chart that day. Bartolome Lopez APRN.FORK OPERATOR documented in this encounter [facility] 08-25-2024 History and physical note Images [...] large neck Non-male patient STOP-Bang Score: 0 [id number] Score: Age: >=75 Sex: female CHF history: No Hypertension history: Yes Stroke/TIA/thromboembolism history: No Vascular disease history: No Diabetes history: No [id number] Score: 4 ARISCAT Score: Age: 51-80 Preoperative [...] COVID-19 original vaccine, age 12+ yr, monovalent ([employer] - PURPLE TOP) 09/11/2020 Imm Admin: COVID-19 original vaccine, age 12+ yr, monovalent ([employer] - [facility]) Only the first 3 history entries have been loaded, but more history exists. CHIEF COMPLAINT: Pre-op exam HPI: Inés Lieberman is a 74 year old seen for PAC due to scheduled above surgery because of vaginal prolapse. 07/28/2024, Dr. Elizabeth Linton HISTORY OF PRESENT ILLNESS: Patient is a poor historian. S/P prolapse repair at [facility], unknown year. Has [...] on any medications. 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 Last Mammogram: [...] fevers. Neurological: No history of TIA's, stroke, WEBSPHERE COMMERCE DEVELOPER tumor, impaired sensorium, hemiplegia, paraplegia or quadraplegia. [...] CHF, congenital heart defect, DVT/PE, hyperlipidemia, recent [place], PTCA, PVD, open heart surgery and valve surgery. GI: No history of GI symptoms or problems. No history of esophageal varices, recent ascites, or ETOH greater than 2 drinks per day. : No history of dysuria, frequency or incontinence, stones or chronic kidney disease. No difficulty urinating, nocturia > 1 time per night or hematuria. SALESPERSON BOOKS: See HPI. Negative for: vaginal bleeding and [...] or any previous visit (from the past 00597 hours). Instructions Given to Patient: Instructions located in the after visit summary. Patient given verbal and written preop instructions and voices comprehension and compliance. SIGNATURE: Bartolome Lopez APRN.CNP PATIENT NAME: Inés Lieberman DATE: August 25, 2024 TIME: 8:25 AM PAGER/CONTACT #: [facility] 08-25-2024 History and physical note Images from the original note were not included. [facility] HISTORY [...] large neck Non-male patient STOP-Bang Score: 0 [id number] Score: Age: >=75 Sex: female CHF history: No Hypertension history: Yes Stroke/TIA/thromboembolism history: No Vascular disease history: No Diabetes history: No [id number] Score: 4 ARISCAT Score: Age: 51-80 Preoperative [...] a poor historian. S/P prolapse repair at [facility], unknown year. Has [...] on any medications. 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 Last Mammogram: [...] fevers. Neurological: No history of TIA's, stroke, WEBSPHERE COMMERCE DEVELOPER tumor, impaired sensorium, hemiplegia, paraplegia or quadraplegia. [...] CHF, congenital heart defect, DVT/PE, hyperlipidemia, recent [place], PTCA, PVD, open heart surgery and valve surgery. GI: No history of GI symptoms or problems. No history of esophageal varices, recent ascites, or ETOH greater than 2 drinks per day. : No history of dysuria, frequency or incontinence, stones or chronic kidney disease. No difficulty urinating, nocturia > 1 time per night or hematuria. SALESPERSON BOOKS: See HPI. Negative for: vaginal bleeding and [...] or any previous visit (from the past 42752 hours). Instructions Given to Patient: Instructions located in the after visit summary. Patient given verbal and written preop instructions and voices comprehension and compliance. SIGNATURE: Bartolome Lopez APRN.CNP PATIENT NAME: Inés Lieberman DATE: August 25, 2024 TIME: 8:25 AM PAGER/CONTACT #: documented in this encounter [facility] 08-21-2024 History of Present illness Narrative URODYNAMICS ID Verified by: Did you watch the urodynamics video and or read the handout sent to you via [employer]? Yes, both video and PDF If you [...] is thinking about options. 07/28/2024 AMB URO SALESPERSON BOOKS POP Q Aa 3 Ba 3 C [...] Elizabeth Linton MD documented in this encounter [facility] 08-21-2024 Note HNO ID: [id number] Author: ELIZABETH LINTON MD Service: ? Author Type: Physician Type: Progress Notes Filed: 08/29/2024 13:03 Note Text: URODYNAMICS ID Verified by: Did you watch the urodynamics video and or read the handout sent to you via [employer]? Yes, both video and PDF If you [...] is thinking about options. 07/28/2024 AMB URO SALESPERSON BOOKS POP Q Aa 3 Ba 3 C [...] Patient + sexually active Elizabeth Linton MD [facility] 08-19-2024 Telephone encounter Note Called and spoke with pt. She is advised to keep scheduled UDS appt for this week. Pt states understanding and denies any further questions or concerns at this time. Vida Merrill RN [facility] 08-19-2024 Miscellaneous Notes Called and spoke [...] into her knee completed on 08-14-24 at [facility] will interfere with her procedure that was originally on 09-04-[address] Linton. Pt informed RN that her surgery was moved to 08-21-24 and her PACC is still trying to be rescheduled to accommodate pt new procedure date. Cindy Mason RN August 18, 2024 4:19 PM Inés Mio called today. Caller's (home) [phone] (cell) Reason for call: Patient had a cortisone shot and was told to check to make sure this does not interfere with any upcoming visits. Please call and advise. Nasra Reaves documented in this encounter [facility] 08-19-2024 Telephone encounter Note Yes, it's fine to proceed with UDS as scheduled Thanks Liana Araya APRN.FORK OPERATOR [facility] 08-19-2024 Telephone encounter Note Called Patient. Verified name and . Notified of message below from iLana Araya APRN CNP. Patient verbalized understanding. Patient asking if it was ok to have her UDS completed this week. Notified patient that should be fine to keep that appt but will route to providers to double check. Vin Nath RN August 19, 2024 9:33 AM [facility] 08-19-2024 Telephone encounter Note D/W Dr. Linton. Pt needs to wait at least 1 month after injection to have surgery. Unfortunately - her case will need to be reschedule. Dr. Linton will work on getting the patient rescheduled. Please let her know. Thank you Liana Araya APRN.FORK OPERATOR [facility] 08-18-2024 Telephone encounter Note Spoke with pt to get PACC appt rescheduled since her uds/consent appt was changed, pt aware of new date, time & location [facility] 08-18-2024 Miscellaneous Notes Spoke with pt to get PACC appt rescheduled since her uds/consent appt was changed, pt aware of new date, time & location documented in this encounter [facility] 08-18-2024 Telephone encounter Note Called Patient. Verified name and . Pt asking if a cortisone injection into her knee completed on 08-14-24 at [facility] will interfere with her procedure that was originally on 09-04-[address] Linton. Pt informed RN that her surgery was moved to 08-21-24 and her PACC is still trying to be rescheduled to accommodate pt new procedure date. Cindy Mason RN August 18, 2024 4:19 PM [facility] 08-18-2024 Telephone encounter Note Inés Lieberman called today. Caller's (home) [phone] (cell) Reason for call: Patient had a cortisone shot and was told to check to make sure this does not interfere with any upcoming visits. Please call and advise. Nasra Reaves [facility] 08-14-2024 Instructions Lashell Brooks LPN - 08/14/2024 9:22 AM EDT UROGYNECOLOGY PHYSICIAN CONTACT INFORMATION During business hours, these numbers connect to your doctor s office. During the evening and weekends, these numbers will connect you to the answering service to speak with the doctor supervisor erection shop. Dr. Elizabeth Linton After hours phone number: or toll free Ask the shuttle car operator to page the 'form carpenter supervisor erection shop.' Surgery Scheduling Office: Call the day before [...] vitamin E, herbal medications, diet pills, and sxid-vgk-gnvzokb medications. Tylenol (acetaminophen) is okay. I will not wear jewelry, body piercing(s), makeup, nail tuvaluan, hairpins, or contacts on the day of [...] my surgeon. Discuss medication changes with your grain packer or primary care physician as well. If I stopped taking my blood-thinning medication, I will ask the surgeon when to resume taking it. If I am an outpatient, a responsible person will drive me home and it was suggested that someone stay with me for 24 hours. I understand that a business assistant or cabdriver is NOT a responsible caregiver. [...] SURGERY/CHECK IN Surgery Location Parking Check-in Location [facility] [address] [place], [place] Parking garage next to hospital or [facility], Surgical Waiting Desk The online version of the surgical guide book can be found at: [email or web address] INFECTION PREVENTION Please notify your doctor [...] Your Surgical Guide Book for more information. [facility] TEAM At the [facility], we have a multidisciplinary team of caregivers that includes fellows, residents, nurse practitioners, physician assistants, clinical nurse specialists, nurses, medical assistants, patient care nursing assistants, social workers, therapeutic case manager and many others. We all [...] to dispose of unused medications at three [facility] locations: [facility] pharmacy, [facility] pharmacy, and the Pharmacy at the [facility] for [facility] (inside the parking garage on the [...] for post-surgery concerns. documented in this encounter [facility] 08-14-2024 Note HNO ID: [id number] Author: LASHELL BROOKS LPN Service: ? Author Type: LICENSED NURSE Type: Progress Notes Filed: 08/20/2024 09:42 Note Text: DATE OF SERVICE: 08/20/2024 PROBLEM: Inés Lieberman presents for pre-op teaching. PRE-OP DIAGNOSIS: vaginal vault prolapse, primary stress urinary incontinence, and history of breast cancer SCHEDULED SURGERY AND DATE: 09-04-24 [place] COLPOPEXY VAGINAL EXTRA-PERITONEAL, ANTERIOR COLPORRHAPHY REPAIR CYSTOCELE [...] patient have an advanced directive: No Does [facility] have a copy of the patient's [...] prescribed by anesthesia, internal medicine, surgeon, or LINK TRAINER MECHANIC Stop NSAIDs, Aspirin (ASA), vitamins, herbal supplements, [...] jewelry, body piercing, makeup, contacts, lotions, nail tuvaluan on fingers, or anything in hair on arrival to surgery Wear low healed shoes and loose fitting clothing Leave all valuables at home or with a family member Directions to [facility] and the [facility] [...] if after hours patient instructed to call shuttle car operator and ask for supervisor erection shop form carpenter onc resident. FROY program offered to patient: [...] August 20, 2024 9:00 AM [facility] [place] [facility] 08-14-2024 History of Present illness Narrative DATE OF SERVICE: 08/20/2024 PROBLEM: Inés Lieberman presents for pre-op teaching. PRE-OP DIAGNOSIS: vaginal vault prolapse, primary stress urinary incontinence, and history of breast cancer SCHEDULED SURGERY AND DATE: 09-04-24 [place] COLPOPEXY VAGINAL EXTRA-PERITONEAL, ANTERIOR COLPORRHAPHY REPAIR CYSTOCELE [...] patient have an advanced directive: No Does [facility] have a copy of the patient's [...] prescribed by anesthesia, internal medicine, surgeon, or LINK TRAINER MECHANIC Stop NSAIDs, Aspirin (ASA), vitamins, herbal supplements, [...] jewelry, body piercing, makeup, contacts, lotions, nail tuvaluan on fingers, or anything in hair on arrival to surgery Wear low healed shoes and loose fitting clothing Leave all valuables at home or with a family member Directions to [facility] and [facility] Parking/parking validation on the day [...] if after hours patient instructed to call shuttle car operator and ask for supervisor erection shop form carpenter onc resident. FROY program offered to patient: [...] August 20, 2024 9:00 AM [facility] [place] documented in this encounter [facility] 08-09-2024 Note . MICRO - Microbiology [...] Locations *1: This test was performed at: [facility], [address] [place] [address], [facility] , [facility] 08-01-2024 Telephone encounter Note Spoke with pt & confirmed 09/04/24 surgery date at , scheduled pre/post op appts and informed pt teaching appt does not appear on [employer] [facility] 08-01-2024 Miscellaneous Notes Spoke with pt & confirmed 09/04/24 surgery date at , scheduled pre/post op appts and informed pt teaching appt does not appear on MyChart documented in this encounter [facility] 07-28-2024 History of Present illness Narrative Female Pelvic Medicine & Reconstructive Surgery Consult CHIEF COMPLAINT: Inés Lieberman is a 74 year old female who presents for consultation requested by Dr. Serrano, PCP for an opinion regarding Pelvic Organ Prolapse . HISTORY OF PRESENT ILLNESS: Patient is a poor historian. S/P prolapse repair at [facility], unknown year. Has [...] on any medications. 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 Last Mammogram: [...] ROS obtained by others. Elizabeth Linton MD Research Engineer Marine Equipment offered: Patient accepts, visit chaperoned by RN. SENSITIVE EXAM: The sensitive examination was discussed with the Patient or Patient's Authorized Air Chipper. As applicable, any other physician, advance practice provider, medical student, or other health professional student that will be observing or involved in the sensitive examination for educational or training purposes was discussed with the Patient or Authorized Air Chipper. The Patient or Authorized Air Chipper has agreed to proceed with the sensitive [...] POP-Q: Prolapse Noted: Yes 07/28/2024 AMB URO SALESPERSON BOOKS POP Q Aa 3 Ba 3 C [...] surgical options. We discussed surgical options including sioux tissue vs mesh augmented surgical repairs (sacrocolpopexy). [...] Elizabeth Linton MD documented in this encounter [facility] 07-28-2024 Note HNO ID: [id number] Author: ELIZABETH LINTON MD Service: ? Author [...] a poor historian. S/P prolapse repair at [facility], unknown year. Has [...] on any medications. 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 Last Mammogram: [...] PRINIVIL) 10 m (more content not included)... [facility] 05-29-2024 Telephone encounter Note Spoke with Hannah NAILS in Dr. Vincent office, given information ,ok for Topical Vaginal Estrogen 0.25 gm as a pre op for prolapsed uterus per Dr. Gutierrez. Hannah will pass informeation on to physician. Katerine Krishnamurthy LPN [facility] 05-29-2024 Miscellaneous Notes Spoke with Hannah [...] office until 05/22/[address] Woods office [phone] and speak with her nurse. Katerine Krishnamurthy LPN documented in this encounter [facility] 05-28-2024 Telephone encounter Note Attempted to contact pt, and physicians office . No answer at either place. Katerine Krishnamurthy LPN [facility] 05-22-2024 Telephone encounter Note Left message for nurse to contact this office. Terra Delarosa LPN [facility] 05-21-2024 Telephone encounter Note Yes, that would be okay. Sukumar Gutierrez DO [facility] 05-19-[address] Karen Woods contacted office questioning if pt. Can be placed on Topical Vaginal Estrogen 0.25 gm as a pre op for prolapsed uterus? Informed Dr. Gutierrez will not return into office until 05/22/[address] Woods office [phone] and speak with her nurse. Katerine Krishnamurthy LPN [facility] 04-25-2024 Note HNO ID: [id number] Author: IRAIS PEÑALOZA APRN.FORK OPERATOR Service: ? Author Type: Nurse Practitioner Type: [...] ER - - - - - Negative. DC - - - - - Negative. HER2 [...] 2 sentinel lymph (more content not included)... [facility] 04-25-2024 History of Present illness Narrative [...] ER - - - - - Negative. DC - - - - - Negative. HER2 [...] 70-year-old female who had a screening detected 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, 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 breast cancer. 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 -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, so no indication for AI therapy. [...] discussed with the Patient or Patient's Authorized Air Chipper. As applicable, any other physician, advance practice provider, medical student, or other health professional student that will be observing or involved in the sensitive examination for educational or training purposes was discussed with the Patient or Authorized Air Chipper. The Patient or Authorized Air Chipper has agreed to proceed with the sensitive [...] Irais Peñaloza APRN.ISAÍAS documented in this encounter [facility] 02-25-2024 Note ORIGINAL EXAMINATION: BONE DENSITOMETRY [...] Date: 02/25/2024 1:50:25 PM [facility]ing [facility] 02-09-2024 Note . MICRO - Microbiology [...] Locations *1: This test was performed at: [facility], [address] [place] [address], [id number] , [facility] 10-26-2023 History of Present illness Narrative Chief [...] ER - - - - - Negative. DC - - - - - Negative. HER2 [...] 70-year-old female who had a screening detected 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, 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 breast cancer. 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 -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, so no indication for AI therapy. [...] as necessary for today's visit. Irais Peñaloza APRN.FORK OPERATOR documented in this encounter [facility] 04-26-2023 Nurse Note Est. Pt, 6 month F/u Katerine Krishnamurthy LPN documented in this encounter [facility] 04-26-2023 History of Present illness Narrative [...] ER - - - - - Negative. DC - - - - - Negative. 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 2. 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 HER2-positive carcinoma of breast (HCC) - ICD9: 174.9, ICD10: C50.[address] Gutierrez's previous note 06/10/21: Assessment: -In summary the patient is an otherwise healthy 70-year-old female who had a screening detected 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, 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 breast cancer. 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 -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, so no indication for AI therapy. [...] Irais Peñaloza APRN.ISAÍAS documented in this encounter [facility] 10-25-2022 History of Present illness Narrative [...] ER - - - - - Negative. DC - - - - - Negative. HER2 [...] k/uL 0.91 (L) 0.95 (L) 1.40 1.15 [place]% % 11.6 12.3 10.9 13.1 Abs [place] <0.87 k/uL 0.40 0.50 0.57 0.56 Eosin% [...] C50.412, Z17.1 (primary diagnosis) cT3 cN1 MX 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, 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 infiltrating ductal carcinoma of the left breast. 2. 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 HER2-positive carcinoma of breast (HCC) - ICD9: 174.9, ICD10: C50.[address] Gutierrez's previous note 06/10/21: Assessment: -In summary the patient is an otherwise healthy 70-year-old female who had a screening detected 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, 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 breast cancer. 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 -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, so no indication for AI therapy. [...] Irais Peñaloza APRN.ISAÍAS documented in this encounter [facility] 07-24-2022 Miscellaneous Notes Spoke with patient [...] patient. Thank you. documented in this encounter [facility] 04-27-2022 Miscellaneous Notes Patient notified, scheduled for labs in 3 months. OV/labs in 6 months already scheduled. Please inform pt. that her labs look good. CBC/iron studies in 3 months. OV/CBC/iron studies in 6 months. Thank you. Irais Peñaloza APRN.FORK OPERATOR documented in this encounter [facility] 04-26-2022 History of Present illness Narrative [...] ER - - - - - Negative. DC - - - - - Negative. 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 2. 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 HER2-positive carcinoma of breast (HCC) - ICD9: 174.9, ICD10: C50.[address] Gutierrez's previous note 06/10/21: Assessment: -In summary the patient is an otherwise healthy 70-year-old female who had a screening detected 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, 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 breast cancer. 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 -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, so no indication for AI therapy. [...] Irais Peñaloza APRN.ISAÍAS documented in this encounter [facility] 10-26-2021 Miscellaneous Notes Appointment notes updated. Terra Delarosa LPN Cancel CMP next visit. CBC only with next OV. Thank you. Irais Peñaloza APRN.ISAÍAS documented in this encounter [facility] 10-26-2021 History of Present illness Narrative [...] ER - - - - - Negative. DC - - - - - Negative. HER2 [...] - 4.00 k/uL 1.00 1.00 0.91 (L) [place]% % 10.7 12.4 11.6 Abs [place] <0.87 k/uL 0.46 0.58 0.40 Eosin% % [...] ICD9: 174.9, ICD10: C50.919 cT3 cN1 MX 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, 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 infiltrating ductal carcinoma of the left breast. Per Dr. Gutierrez's previous note 06/10/21: Assessment: -In summary the patient is an otherwise healthy 70-year-old female who had a screening detected 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, 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 breast cancer. 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 -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, so no indication for AI therapy. [...] Irais Peñaloza APRN.CNP documented in this encounter [facility] 08-17-2021 History of Present illness Narrative Images from the original note were not included. JOURDAN Romero, [place] [address] Date of Visit: 08/17/2021 Patient Name: Inés [...] exam room today. She is an established [facility] patient and was last seen here 01/21/2021. She denies palpable breast lumps or masses, nodules along scar lines, enlarged lymph nodes, pain, skin changes, erythema or nipple discharge. She does, however, endorse tenderness in the LEFT axilla and along scar line. [facility] SUMMARY Patient Name Inés Lieberman Date of 1950 CARE TEAM General/Breast Surgeon Suzi Latham M.D. Medical Oncologist Sukumar Gutierrez MD Radiation Oncologist Wilman Baptiste MD Plastic Surgeon N/A Primary Care Odilon Serrano DO Record Tester Yadira Calvert [phone] Lorie Peña [phone] BACKGROUND INFORMATION Family History None Genetic Testing/Result [...] Negative Pathological Stage [id number] ER Status Negative DC Status Negative Her-2-niko Status Amplified by IHC [...] social history were reviewed by Elizabeth Roberts APRN.FORK OPERATOR ALLERGIES No Known Allergies Current Outpatient Medications [...] Guideline on Follow-Up Care for Breast Cancer, [facility] Survivorship Program information. Inés, her daughter, [...] for her to continue surveillance in the [place] area with Dr. Gutierrez and Irais SOLIMAN. [...] which included preparing to see the patient, [id number] patient care, completing clinical documentation, obtaining and/or reviewing separately obtained history, performing a medically appropriate examination and counseling and educating the patient/family/caregiver. Elizabeth Roberts APRN.CNP I verified the certified medical assistant/nurse documentation in the medical record, and made appropriate changes. I personally performed a history,physical exam and medical decision making. Elizabeth SOLIMAN, OCN documented in this encounter [facility] 08-17-2021 Nurse Note Patient is here [...] Cheyenne Carroll MA documented in this encounter [facility] Evaluation + Plan note Future Appointments Appointment Date:03/12/2024 01:30:00 PM Scheduled Provider:ODILON SERRANO DO Location:[facility] Appointment Type:PC OV Appointment Date:08/07/2024 02:00:00 PM Scheduled Provider:ODILON SERRANO DO Location:[facility] Appointment Type: Wellness Medicare Future Scheduled TestsFerritin 02/07/24Folate Level 02/07/24Phosphorus Level 02/07/24Vitamin B12 Level 02/07/24Complete Blood Count 02/07/24Lipid Profile 02/07/24epatitis C Antibody IgG 02/07/24Iron Studies 02/07/24PTH, Intact 02/07/24Vitamin D Level 02/07/24Complete Metabolic Panel 02/07/24BD Bone Density DEXA Axial Skeleton Adult (21 yrs or older) 02/07/24 [facility] Evaluation + Plan note Future Appointments Appointment Date:03/12/2024 01:30:00 PM Scheduled Provider:ODILON SERRANO DO Location:[facility] Appointment Type:PC OV Appointment Date:08/07/2024 02:00:00 PM Scheduled Provider:ODILON SERRANO DO Location:[facility] Appointment Type:[facility] [employer] Future Scheduled TestsFerritin 02/07/24Folate Level 02/07/24Phosphorus Level 02/07/24Lipid Profile 02/07/24Iron Studies 02/07/24Complete Metabolic Panel 02/07/24 [facility] Evaluation + Plan note Future Appointments Appointment Date:02/10/2025 03:00:00 PM Scheduled Provider:ODILON SERRANO DO Location:[facility] Appointment Type:[facility] Wellness Medicare Future Scheduled TestsFerritin 11/14/24Folate Level 11/14/24Phosphorus Level 11/14/24Lipid Profile 11/14/24Iron Studies 11/14/24Complete Metabolic Panel 11/14/24XR Chest 2 Views (PA & Lateral) 08/07/24 [facility] Evaluation note Diagnosis Malignant neoplasm of upper-outer quadrant of left breast in female, estrogen receptor 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)- Primary H/O bilateral mastectomy Acquired absence of breast and nipple [facility] Diagnosis Onset Date Resolution Status Encounter for infusaport central venous catheter remov [facility] Work Phone: Evaluation note* Diagnosis Malignant neoplasm of upper-outer quadrant of left breast in female, estrogen receptor 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)- Primary Hypomagnesemia Disorders of magnesium metabolism [facility] Diagnosis Malignant neoplasm of upper-outer quadrant of left breast in female, estrogen receptor 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)- Primary 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) Secondary and unspecified malignant neoplasm of lymph nodes of axilla and upper limb HER2-positive carcinoma of breast (HCC) [facility] [place] [facility]* Diagnosis Malignant neoplasm of upper-outer quadrant of left female breast, unspecified estrogen receptor status (HCC)- Primary [facility] [place] noteNo assessment information [facility]WMer[facility] Work Phone: Evaluation note* Diagnosis Malignant neoplasm of upper-outer quadrant of left breast in female, estrogen receptor 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)- Primary 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) Secondary and unspecified malignant neoplasm of lymph nodes of axilla and upper limb HER2-positive carcinoma of breast (HCC) [facility] [place] [facility]* Diagnosis Malignant neoplasm of upper-outer quadrant of left breast in female, estrogen receptor 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)- Primary 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) Secondary and unspecified malignant neoplasm of lymph nodes of axilla and upper limb HER2-positive carcinoma of breast (HCC) [facility] [place] [facility]* Diagnosis Malignant neoplasm of upper-outer quadrant of left breast in female, estrogen receptor 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)- Primary 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) Secondary and unspecified malignant neoplasm of lymph nodes of axilla and upper limb HER2-positive carcinoma of breast (HCC) [facility] [place] [facility]* Diagnosis Personal history of breast cancer- Primary Personal history of malignant neoplasm of breast [facility] [place] [facility]* Diagnosis Left [...] of breast (HCC) [facility] [place] [facility]* Diagnosis Left [...] Preoperative examination, unspecified documented in this encounter [facility] note* Diagnosis Left breast mass- Primary Lump [...] of vaginal riggins [facility] [place] [facility]* Diagnosis Left [...] Preoperative examination, unspecified documented in this encounter [facility] note* Diagnosis Left breast mass- Primary Lump [...] Preoperative examination, unspecified documented in this encounter [facility] note* Diagnosis Left breast mass- Primary Lump [...] chemo and XRT documented in this encounter [facility] note* Diagnosis Left breast mass- Primary Lump [...] Preoperative examination, unspecified documented in this encounter [facility] note* Diagnosis Left breast mass- Primary Lump [...] acute postoperative pain [facility] [place] [facility]* Diagnosis Left [...] Unspecified follow-up examination documented in this encounter [facility] note* Diagnosis Left breast mass- Primary Lump [...] the genitourinary system documented in this encounter [facility] course Narrative No data available for this section [facility] Hospital Discharge instructions No data available for this section [facility] Progress note No data available for this section [facility] Reason for referral (narrative)No reason for referral information availableWMer[facility] Work Phone: Summary Purpose Family History No Family History Records Found Relationship Condition Age at Onset Recorded Date/T juan mother Hypertension Unknown father Hypertension Unknown Advance Directives No Advanced Directives Records FoundDocuments on File Type Date Recorded 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 Advance Directive(s) 01/03/2021 7:01 AM Advance Directive Response Recorded Date/ Time Living Will Yes July 18, 021 10:17pm Power of Internal Communications Writer Yes July 18, 2020 10:17pm Chief Complaint [...] Sukumar Cisneros, DO [address] [place] [address] Referral ID Status Reason Start Date Expiration Date V isits Requested Visits Authorized [id number] Closed PCP Requested Referral 04/06/2022 07/05/2022 1 1 Specialty Diagnoses / Procedures Referred By Contac t Referred To Contact Diagnoses Malignant neoplasm of upper-outer quadrant of left female breast, unspecified estrogen receptor status (HCC) Procedures BREAST PROSTHESIS, SILICONE Sukumar Gutierrez, DO [address] [place] [address] Referral ID Status Reason Start Date Expiration Date V isits Requested Visits Authorized [id number] Closed PCP Requested Referral 04/06/2022 07/05/2022 1 1 Additional Source Comments INFORMATION SOURCE (unrecogn ized section and content) DATE CREATED AUTHOR 01/22/2021 [facility] DATE CREATED AUTHOR AUTHOR'S ORGANIZ ATION 04/09/2023 [facility] DATE CREATED AUTHOR AUTHOR'S ORGANIZ ATION 09/18/2024 [facility] DATE CREATED AUTHOR AUTHOR'S ORGANIZ ATION 10/25/2024 [facility] DATE CREATED AUTHOR AUTHOR'S ORGANIZ ATION 10/28/2024 [facility] DATE CREATED AUTHOR AUTHOR'S ORGANIZ ATION 11/21/2024 [facility] DATE CREATED AUTHOR AUTHOR'S ORGANIZ ATION 11/27/2024 [facility] Source Comments (unrecognize d section and content) In the event this informatio n is protected by the Federal Confidentiality of Alcohol and Drug Abuse Patient Records regulations: The Federal rules restrict any use of the information to criminally investigate or prosecute any alcohol or drug abuse patient.[facility] the event this information is protected by the Federal Confidentiality of Alcohol and Drug Abuse Patient Records regulations: The Federal rules restrict any use of the information to criminally investigate or prosecute any alcohol or drug abuse patient.[facility] the event this information is protected by the Federal Confidentiality of Alcohol and Drug Abuse Patient Records regulations: The Federal rules restrict any use of the information to criminally investigate or prosecute any alcohol or drug abuse patient.[facility] HospitalIn the event this information is protected by the Federal Confidentiality of Alcohol and Drug Abuse Patient Records regulations: The Federal rules restrict any use of the information to criminally investigate or prosecute any alcohol or drug abuse patient.[facility] HospitalIn the event this information is protected by the Federal Confidentiality of Alcohol and Drug Abuse Patient Records regulations: The Federal rules restrict any use of the information to criminally investigate or prosecute any alcohol or drug abuse patient.[facility] HospitalIn the event this information is protected by the Federal Confidentiality of Alcohol and Drug Abuse Patient Records regulations: The Federal rules restrict any use of the information to criminally investigate or prosecute any alcohol or drug abuse patient.[facility] HospitalIn the event this information is protected by the Federal Confidentiality of Alcohol and Drug Abuse Patient Records regulations: The Federal rules restrict any use of the information to criminally investigate or prosecute any alcohol or drug abuse patient.[facility] the event this information is protected by the Federal Confidentiality of Alcohol and Drug Abuse Patient Records regulations: The Federal rules restrict any use of the information to criminally investigate or prosecute any alcohol or drug abuse patient.[facility] HospitalIn the event this information is protected by the Federal Confidentiality of Alcohol and Drug Abuse Patient Records regulations: The Federal rules restrict any use of the information to criminally investigate or prosecute any alcohol or drug abuse patient.[facility] HospitalIn the event this information is protected by the Federal Confidentiality of Alcohol and Drug Abuse Patient Records regulations: The Federal rules restrict any use of the information to criminally investigate or prosecute any alcohol or drug abuse patient.[facility] Hospital[facility] the event this information is protected by the Federal Confidentiality of Alcohol and Drug Abuse Patient Records regulations: The Federal rules restrict any use of the information to criminally investigate or prosecute any alcohol or drug abuse patient.[facility] HospitalIn the event this information is protected by the Federal Confidentiality of Alcohol and Drug Abuse Patient Records regulations: The Federal rules restrict any use of the information to criminally investigate or prosecute any alcohol or drug abuse patient.[facility] Hospital[facility] the event this information is protected by the Federal Confidentiality of Alcohol and Drug Abuse Patient Records regulations: The Federal rules restrict any use of the information to criminally investigate or prosecute any alcohol or drug abuse patient.[facility] HospitalIn the event this information is protected by the Federal Confidentiality of Alcohol and Drug Abuse Patient Records regulations: The Federal rules restrict any use of the information to criminally investigate or prosecute any alcohol or drug abuse patient.[facility] HospitalIn the event this information is protected by the Federal Confidentiality of Alcohol and Drug Abuse Patient Records regulations: The Federal rules restrict any use of the information to criminally investigate or prosecute any alcohol or drug abuse patient.[facility] HospitalIn the event this information is protected by the Federal Confidentiality of Alcohol and Drug Abuse Patient Records regulations: The Federal rules restrict any use of the information to criminally investigate or prosecute any alcohol or drug abuse patient.[facility] HospitalIn the event this information is protected by the Federal Confidentiality of Alcohol and Drug Abuse Patient Records regulations: The Federal rules restrict any use of the information to criminally investigate or prosecute any alcohol or drug abuse patient.[facility] HospitalIn the event this information is protected by the Federal Confidentiality of Alcohol and Drug Abuse Patient Records regulations: The Federal rules restrict any use of the information to criminally investigate or prosecute any alcohol or drug abuse patient.[facility] HospitalIn the event this information is protected by the Federal Confidentiality of Alcohol and Drug Abuse Patient Records regulations: The Federal rules restrict any use of the information to criminally investigate or prosecute any alcohol or drug abuse patient.[facility] HospitalIn the event this information is protected by the Federal Confidentiality of Alcohol and Drug Abuse Patient Records regulations: The Federal rules restrict any use of the information to criminally investigate or prosecute any alcohol or drug abuse patient.[facility] HospitalIn the event this information is protected by the Federal Confidentiality of Alcohol and Drug Abuse Patient Records regulations: The Federal rules restrict any use of the information to criminally investigate or prosecute any alcohol or drug abuse patient.[facility] HospitalIn the event this information is protected by the Federal Confidentiality of Alcohol and Drug Abuse Patient Records regulations: The Federal rules restrict any use of the information to criminally investigate or prosecute any alcohol or drug abuse patient.[facility] HospitalIn the event this information is protected by the Federal Confidentiality of Alcohol and Drug Abuse Patient Records regulations: The Federal rules restrict any use of the information to criminally investigate or prosecute any alcohol or drug abuse patient.[facility] HospitalIn the event this information is protected by the Federal Confidentiality of Alcohol and Drug Abuse Patient Records regulations: The Federal rules restrict any use of the information to criminally investigate or prosecute any alcohol or drug abuse patient.[facility] HospitalIn the event this information is protected by the Federal Confidentiality of Alcohol and Drug Abuse Patient Records regulations: The Federal rules restrict any use of the information to criminally investigate or prosecute any alcohol or drug abuse patient.[facility]In the event this information is protected by the Federal Confidentiality of Alcohol and Drug Abuse Patient Records regulations: The Federal rules restrict any use of the information to criminally investigate or prosecute any alcohol or drug abuse patient.[facility] Reason for Visit (unrecogniz ed section [...] Referred By Contac t Referred To Contact [facility] Diagnoses Vaginal vault prolapse Primary stress urinary incontinence History of breast cancer Procedures URODYNAMICS WHI COMPLX CYSTOMETRO W/VOID PRESS&URETHRAL PROFILE Elizabeth Linton MD [address] [place] [address] Phone: tel: fax: [facility] [address] [place] [address] Referral ID Status Reason Start Date Expiration Date V isits Requested Visits Authorized [id number] Closed Auto-Generate d Referral 07/30/2024 07/30/2025 1 1 Reason Comments Surgery Question Reason Onset Date Comments Refill Request 09/16/2024 Reason Comments Post-Op Visit Care Teams (unrecognized sec tion and content) 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 Relationship Specialty Start Date End Date Odilon Serrano DO [address] [place] [address] PCP - General Family Practice 06/30/20 Odilon Serrano DO [address] [place] [address] Family Practice 06/09/20 Lucy Chan, RN Specialty Senior User Experience Architect Oncology 06/18/20 Wilman Baptiste MD, [address] [place] [address] Physician Radiation Oncology 11/16/20 Rosaline Ojeda N [address] [place] [phone] Nurse Practitioner Cardiology 12/10/20 Elizabeth Roberts, ASSISTANT FILM EDITOR.FORK OPERATOR [address] [place] [address] Nurse Practitioner Hematology/Oncology 08/17/21 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 Relationship Specialty Start Date End Date Odilon Serrano DO [address] [place] [address] (Work) PCP - General [facility] Practice 06/30/20 Odilon Serrano DO [address] [place] [address] (Work) [facility] Practice 06/09/20 Lucy Chan, RN Specialty Senior User Experience Architect Oncology 06/18/20 Wilman Baptiste MD, [address] [place] [address] Physician Radiation Oncology 11/16/20 Rosaline Ojeda N [address] [place] [phone] Nurse Practitioner Cardiology 12/10/20 Elizabeth Roberts, ASSISTANT FILM EDITOR.FORK OPERATOR [address] [place] [address] Nurse Practitioner Hematology/Oncology 08/17/21 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 Relationship Specialty Start Date End Date Odilon Serrano [address] [place] [address] PCP - General Family Practice 06/30/20 Odilon Serrano [address] [place] [address] (Work) Family Practice 06/09/20 Lucy Chan RN Specialty Senior User Experience Architect Oncology 06/18/20 Wilman Baptiste MD, [address] [place] [address] Physician Radiation Oncology 11/16/20 Rosaline Ojeda [address] [place] [phone] Nurse Practitioner Cardiology 12/10/20 Elizabeth Roberts, ASSISTANT FILM EDITOR.FORK OPERATOR [address] [place] [address] Nurse Practitioner Hematology/Oncology 08/17/21 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 Relationship Specialty Start Date End Date Odilon Serrano [address] [place] [address] (Work) PCP - General Family Practice 06/30/20 Odilon Serrano [address] [place] [address] Family Practice 06/09/20 Lucy Chan RN Specialty Senior User Experience Architect Oncology 06/18/20 Wilman Baptiste MD, [address] [place] [address] Physician Radiation Oncology 11/16/20 Rosaline Ojeda [address] [place] [phone] Nurse Practitioner Cardiology 12/10/20 Elizabeth Roberts, ASSISTANT FILM EDITOR.FORK OPERATOR [address] [place] [address] Nurse Practitioner Hematology/Oncology 08/17/21 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 Relationship Specialty Start Date End Date Odilon Serrano [address] [address] PCP - General Family Medicine 06/30/[address] [address] (Work) Family Medicine 06/09/20 Lucy Chan, RN Specialty Senior User Experience Architect Oncology 06/18/20 Wilman Baptiste MD, MD [address] [place] [address] Physician Radiation Oncology 11/16/20 Rosaline Ojeda CNP Nurse Practitioner Cardiology 12/10/20 Elizabeth Roberts, ASSISTANT FILM EDITOR.FORK OPERATOR [address] [place] [address] Nurse Practitioner Hematology/Oncology 08/17/21 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 Relationship Specialty Start Date End Date KishoreOdilon [address] [address] PCP - General Family Medicine 06/30/20 Odilon Serrano [address] [address] (Work) Family Medicine 06/09/20 Lucy Chan RN Specialty Senior User Experience Architect Oncology 06/18/20 Wilman Baptiste MD, MD [place] [address] Physician Radiation Oncology 11/16/20 Rosaline Ojeda, FORK OPERATOR [address] [place] [address] Nurse Practitioner Cardiology 12/10/20 Elizabeth Roberts, ASSISTANT FILM EDITOR.FORK OPERATOR [address] [place] [address] Nurse Practitioner Hematology/Oncology 08/17/21 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 Relationship Specialty Start Date End Date Kishore Odilon, [address] [address] (Work) PCP - General Family Medicine 06/30/[address] [address] (Work) Family Medicine 06/09/20 Lucy Chan RN Specialty Senior User Experience Architect Oncology 06/18/20 Wilman Baptiste MD, [address] [place] [address] Physician Radiation Oncology 11/16/20 Rosaline Ojeda, FORK OPERATOR [address] [place] [address] Nurse Practitioner Cardiology 12/10/20 Elizabeth Roberts, ASSISTANT FILM EDITOR.FORK OPERATOR [address] [place] [address] Nurse Practitioner Hematology/Oncology 08/17/21 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 Relationship Specialty Start Date End Date Odilon Serrano [address] [address] (Work) PCP - General Family Medicine 06/30/20 Odilon Serrano, [address] [address] Family Medicine 06/09/20 Lucy Chan RN Specialty Senior User Experience Architect Oncology 06/18/20 Wilman Baptiste MD, [address] [place] [address] Physician Radiation Oncology 11/16/20 Rosaline Ojeda, FORK OPERATOR [address] [place] [address] Nurse Practitioner Cardiology 12/10/20 Elizabeth Roberts, ASSISTANT FILM EDITOR.FORK OPERATOR [address] [place] [address] Nurse Practitioner Hematology/Oncology 08/17/21 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 Relationship Specialty Start Date End Date Odilon Serrano DO [address] [place] [address] (Work) PCP - General Family Medicine 06/30/20 Odilon Serrano DO [address] [place] [address] (Work) Family Medicine 06/09/20 Lucy Chan, RN Specialty Senior User Experience Architect Oncology 06/18/20 Wilman Baptiste MD, [address] [place] [address] Physician Radiation Oncology 11/16/20 Rosaline Ojeda, FORK OPERATOR [address] [place] [address] Nurse Practitioner Cardiology 12/10/20 Elizabeth Roberts, ASSISTANT FILM EDITOR.FORK OPERATOR [address] [place] [address] Nurse Practitioner Hematology/Oncology 08/17/21 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 Relationship Specialty Start Date End Date Odilon Serrano DO [address] [place] [address] PCP - General Family Medicine 06/30/20 Odilon Serrano DO [address] [place] [address] Family Medicine 06/09/20 Lucy Chan RN Specialty Senior User Experience Architect Oncology 06/18/20 Wilman Baptiste MD, MD [address] [place] [address] Physician Radiation Oncology 11/16/20 Rosaline Ojeda CNP [address] [place] [address] Nurse Practitioner Cardiology 12/10/20 Elizabeth Roberts APRN.FORK OPERATOR [address] [place] [address] Nurse Practitioner Hematology/Oncology 08/17/21 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 Relationship Specialty Start Date End Date Odilon Serrano DO [address] [place] [address] PCP - General Family Medicine 06/30/20 Odilon Serrano DO [address] [place] [address] Family Medicine 06/09/20 Lucy Chan RN Specialty Senior User Experience Architect Oncology 06/18/20 Wilman Baptiste MD [address] [place] [address] Physician Radiation Oncology 11/16/20 Rosaline Ojeda CNP [address] [place] [address] Nurse Practitioner Cardiology 12/10/20 Elizabeth Roberts APRN.FORK OPERATOR [address] [place] [address] Nurse Practitioner Hematology/Oncology 08/17/21 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 Relationship Specialty Start Date End Date Odilon Serrano DO [address] [place] [address] PCP - General Family Medicine 06/30/20 Odilon Serrano DO [address] [place] [address] Family Medicine 06/09/20 Lucy Chan RN Specialty Senior User Experience Architect Oncology 06/18/20 Wilman Baptiste MD [address] [place] [address] Physician Radiation Oncology 11/16/20 Rosaline Ojeda CNP [address] [place] [address] Nurse Practitioner Cardiology 12/10/20 Elizabeth Roberts APRN.CNP [address] [place] [address] Nurse Practitioner Hematology/Oncology 08/17/21 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 Relationship Specialty Start Date End Date Odilon Serrano DO [address] [place] [address] PCP - General Family Medicine 06/30/20 Odilon Serrano DO [address] [place] [address] Family Medicine 06/09/20 Lucy Chan RN Specialty Senior User Experience Architect Oncology 06/18/20 Wilman Baptiste MD [address] [place] [address] Physician Radiation Oncology 11/16/20 Rosaline Ojeda CNP [address] [place] [address] Nurse Practitioner Cardiology 12/10/20 Elizabeth Roberts APRN.FORK OPERATOR [address] [place] [address] Nurse Practitioner Hematology/Oncology 08/17/21 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 Relationship Specialty Start Date End Date Odilon Serrano DO [address] [place] [address] PCP - General Family Medicine 06/30/20 Odilon Serrano DO [address] [place] [address] Family Medicine 06/09/20 Lucy Chan, MICHEL Specialty Senior User Experience Architect Oncology 06/18/20 Wilman Baptiste MD [address] [place] [address] Physician Radiation Oncology 11/16/20 Rosaline Ojeda CNP [address] [place] [address] Nurse Practitioner Cardiology 12/10/20 Elizabeth Roberts APRN.ISAÍAS [address] [place] [address] Nurse Practitioner Hematology/Oncology 08/17/21 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 Relationship Specialty Start Date End Date Odilon Serrano DO [address] [place] [id number] PCP - General Family Medicine 06/30/20 Odilon Serrano DO [address] [place] [id number] Family Medicine 06/09/20 Lucy Chan RN Specialty Senior User Experience Architect Oncology 06/18/20 Wilman Baptiste MD [address] [place] [address] Physician Radiation Oncology 11/16/20 Rosaline Ojeda CNP [address] [place] [address] Nurse Practitioner Cardiology 12/10/20 Elizabeth Roberts APRN.CNP [address] [place] [address] Nurse Practitioner Hematology/Oncology 08/17/21 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 Relationship Specialty Start Date End Date Odilon Serrano DO [address] [place] [id number] PCP - General Family Medicine 06/30/20 Odilon Serrano DO [address] [place] [address] Family Medicine 06/09/20 Lucy Chan RN Specialty Senior User Experience Architect Oncology 06/18/20 Wilman Baptiste MD [address] [place] [address] Physician Radiation Oncology 11/16/20 Rosaline Ojeda CNP [address] [place] [address] Nurse Practitioner Cardiology 12/10/20 Elizabeth Roberts APRN.ISAÍAS [address] [place] [address] Nurse Practitioner Hematology/Oncology 08/17/21 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 Relationship Specialty Start Date End Date Odilon Serrano DO [address] [place] [id number] PCP - General Family Medicine 06/30/20 Odilon Serrano DO [address] [place] [address] [phone] Family Medicine 06/09/20 Lucy Chan RN Specialty Senior User Experience Architect Oncology 06/18/20 Wilman Baptiste MD [address] [place] [address] Physician Radiation Oncology 11/16/20 Rosaline Ojeda CNP [address] [place] [address] Nurse Practitioner Cardiology 12/10/20 Elizabeth Roberts APRN.ISAÍAS [address] [place] [address] Nurse Practitioner Hematology/Oncology 08/17/21 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 Relationship Specialty Start Date End Date Odilon Serrano DO [address] [place] [id number] PCP - General Family Medicine 06/30/20 Odilon Serrano DO [address] [place] [address] Family Medicine 06/09/20 Lucy Chan RN Specialty Senior User Experience Architect Oncology 06/18/20 Wilman Baptiste MD [address] [place] [address] Physician Radiation Oncology 11/16/20 Rosaline Ojeda CNP [address] [place] [address] Nurse Practitioner Cardiology 12/10/20 Elizabeth Roberts APRN.ISAÍAS [address] [place] [address] Nurse Practitioner Hematology/Oncology 08/17/21 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 Relationship Specialty Start Date End Date Odilon Serrano DO [address] [place] [id number] PCP - General Family Medicine 06/30/20 Odilon Serrano DO [address] [place] [address] Family Medicine 06/09/20 Lucy Chan RN Specialty Senior User Experience Architect Oncology 06/18/20 Wilman Baptiste MD [address] [place] [address] Physician Radiation Oncology 11/16/20 Rosaline Ojeda CNP [address] [place] [address] Nurse Practitioner Cardiology 12/10/20 Elizabeth Roberts APRN.ISAÍAS [address] [place] [address] Nurse Practitioner Hematology/Oncology 08/17/21 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 Relationship Specialty Start Date End Date Odilon Serrano DO [address] [place] [address] PCP - General Family Medicine 06/30/20 Odilon Serrano DO [address] [place] [address] Family Medicine 06/09/20 Lucy Chan RN Specialty Senior User Experience Architect Oncology 06/18/20 Wilman Baptiste MD [address] [place] [address] Physician Radiation Oncology 11/16/20 Rosaline Ojeda CNP [address] [place] [address] Nurse Practitioner Cardiology 12/10/20 Elizabeth Roberts APRN.CNP [address] [place] [address] Nurse Practitioner Hematology/Oncology 08/17/21 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 Relationship Specialty Start Date End Date Odilon Serrano DO [address] [place] [address] PCP - General Family Medicine 06/30/20 Odilon Serrano DO [address] [place] [address] Family Medicine 06/09/20 Lucy Chan, RN Specialty Senior User Experience Architect Oncology 06/18/20 Wilman Baptiste MD [address] [place] [address] Physician Radiation Oncology 11/16/20 Rosaline Ojeda CNP [address] [place] [address] Nurse Practitioner Cardiology 12/10/20 Elizabeth Roberts APRN.ISAÍAS [address] [address] Nurse Practitioner Hematology/Oncology 08/17/21 Team Status: Active [...] September 19, 2024 End: September 19, 2024 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 Relationship Specialty Start Date End Date Odilon Serrano DO [address] [place] [address] PCP - General Family Medicine 06/30/20 Odilon Serrano DO [address] [place] [address] Family Medicine 06/09/20 Lucy Chan, MICHEL Specialty Senior User Experience Architect Oncology 06/18/20 Wilman Baptiste MD [address] [place] [address] Physician Radiation Oncology 11/16/20 Rosaline Ojeda CNP [address] [place] [address] Nurse Practitioner Cardiology 12/10/20 Elizabeth Roberts APRN.ISAÍAS [address] [place] [address] Nurse Practitioner Hematology/Oncology 08/17/21 Goals (unrecognized section [...] BE BASED ON THE PRIMARY CLINICAL RECORDS. [employer] [facility]. provides no warranty or guarantee of the accuracy or completeness of information in this document.
[2024-12-01] MEDS: Magnesium 1 GM over 15 mins IV (06:12)
[2024-12-01] MEDS: LR 1,000 ML - BOLUS PREOP 999 ML IV (06:12)
--- NOTE | 2024-12-01 06:55 | PCM.PRE.AN2 ---
ASA Classification* ASA Classification ASA Classification: 3 Assessment & Plan Anesthesia* Anesthesia Assessment Anesthesia Assessment: Discussed sedation and/or anesthesia options, risks, benefits, and alternatives with patient/parents/legal guardian/POA. Questions invited. The patient/parents/legal guardian/POA seems to understand and agrees to proceed with anesthesia plan. Reviewed the physical assessment, medical history, allergy history and patient home medications list prior to surgery/procedure/anesthetic and documented any changes. Performed airway and anesthesia risk assessments. Procedural Plan Add'l anesthesia plan details: We discussed the risks of epidural hematoma, infection, injury to nerves, allergic reaction. Additionally with the adductor canal block with ultrasound guidance we discussed the risk of nerve injury bleeding, infection, lack of efficacy. Anesthesia Type Anesthesia Type: Spinal (plan for spinal with sedation in addition to right adductor canal block with ultrasound guidance. I discussed the risks of failure of the spinal, possibility of conversion to general anesthesia. ) and Block Anesthesia Focused Assessment* Temperature: 97.5 F Pulse Rate: 62 Blood Pressure: 181/72 Respiratory Rate: 18 Pulse Ox: 100 Oxygen Delivery Method: Room Air Airway Assessment Mouth opens: >3 cm Mallampati Score: II Teeth Condition: Intact Neck Range of motion (ROM): Full ROM Labs Anesthesia Preop lab: CBC WBC 6.0 K/mm3 (4.4-11.0) 11/11/24 11:18 11/11/24 RBC 4.00 M/mm3 (4.2-5.4) L 11/11/24 11:18 11/11/24 Hgb 11.4 g/dL (12.0-15.0) L 11/11/24 11:18 11/11/24 Hct 35.3 % (37-47) L 11/11/24 11:18 11/11/24 Plt Count 241 K/mm3 (150-450) 11/11/24 11:18 11/11/24 CHEMISTRY Potassium 3.8 mmol/L (3.3-5.1) 11/11/24 11:18 11/11/24 Sodium 140 mmol/L (133-145) 11/11/24 11:18 11/11/24 Magnesium 2.2 mg/dL (1.5-2.2) 11/11/24 11:18 11/11/24 Phosphorus 2.9 mg/dL (2.5-4.9) 02/22/24 10:32 02/22/24 BUN 25 mg/dL (4-19) H 11/11/24 11:18 11/11/24 Creatinine 0.87 mg/dL (0.70-1.20) 11/11/24 11:18 11/11/24 Glucose 99 mg/dL (70-99) 11/11/24 11:18 11/11/24 POC Glucose 95 mg/dL (74-106) 12/01/24 06:20 12/01/24 COAG PT 13.7 SECONDS (11.7-14.9) 07/18/20 18:15 07/18/20 Pre-Assessment Diagnosis/Proposed Procedure Planned Operative Procedure(s): R) ROBOTIC ASSISTED RIGHT TOTAL KNEE ARTHROPLASTY, ERAS Anesthesia History Anesthesia History - cook helper meat: Anesthesia History - cook helper meat Hx Hospitalization Yes: -11/10/24 11:13 Any Problems With Anesthesia No 11/10/24 11:13 Cholinesterase deficiency No 11/10/24 11:13 You/Your Family Experience No 11/10/24 11:13 fever (hyperthermia) with Relationship Recent Exposure to Contagious No 12/01/24 06:21 Disease Does patient have nerve No 11/10/24 11:13 stimulator Patient instructed to have device shut off --Does patient have Pacemaker No 12/01/24 06:21 or ICD? When Was Last Pacemaker Check QUESTION #4 FULL TEXT: You/Your Family Experience fever (hyperthermia) with Anesthesia Last Oral Intake Last Oral intake: Last Oral Intake NPO since 03:30 12/01/24 06:21 Meds taken in AM with sips of No 12/01/24 06:21 water? 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 - cook helper meat: PONV - cook helper meat Female Yes 11/10/24 11:13 HX of Motion Sickness No 11/10/24 11:13 HX of N/V After Surgery No 11/10/24 11:13 Non-Smoker Yes 11/10/24 11:13 Duration of Surgery greater Yes 11/10/24 11:13 than 60 minutes Number of Risk Factors 3 11/10/24 11:13 PONV Score Moderate Risk 11/10/24 11:13 Height & Weight Height & Weight: Anesthesia: Height & Weight Height 5 ft 3 in 12/01/24 06:21 Weight: 63 kg 12/01/24 06:21 Body Mass Index (BMI) 24.5 12/01/24 06:21 Respiratory Assessment Respiratory Assessment - cook helper meat: Respiratory Tract Infection Hx - cook helper meat Hx Respiratory Tract Infection No 11/10/24 11:13 STOP Sleep Apnea STOP Sleep Apnea - cook helper meat: STOP Sleep Apnea - cook helper meat Hx Hypertension Yes: ON MED 11/10/24 11:13 Hx Sleep Apnea No 11/10/24 11:13 CPAP BIPAP Do you snore loudly (louder No 11/10/24 11:13 than talking or can be heard Do you often feel tired/ No 11/10/24 11:13 fatigued/ sleepy during daytime? Has anyone observed you stop No 11/10/24 11:13 breathing during sleep? STOP Results Negative 11/10/24 11:13 QUESTION #5 FULL TEXT : Do you snore loudly (louder than talking or can be heard through closed doors)? 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 Specify any problems Hx of Preganancy in last 3 No 11/10/24 11:13 Months Nurse Filling Out Transfusion JZOLLINGE 11/10/24 11:13 & Questions: Date: 11/10/24 11/10/24 11:13 Time: 11:11/10/24 11:13 Patient unable to answer at this time (ie. confused, unrespo /Reproduction History /Reproductive History - cook helper meat: /Reproductive Hx- cook helper meat Hx Now Gestational Age (in weeks): EDC: Hx Hx Para Hx Section SAB No 11/10/24 11:13 Active Medications Active Medications: Current Medications Generic Name Dose Route Start Last Admin Trade Name Silvana PRN Reason Stop Dose Admin Acetaminophen 1,000 mg 12/01/24 07:30 Acetaminophen 500 Mg Tablet PO 12/01/24 07:31 PREOP ONE Celecoxib 400 mg 12/01/24 07:30 Celecoxib 200 Mg Capsule PO 12/01/24 07:31 PREOP ONE Sodium Chloride 77.9 ml/ 0 ml 12/01/24 07:30 Ropivacaine 200 mg/ OPERA.SITE 12/01/24 07:31 Epinephrine HCl 0.6 mg/ INTRAOP ONE Ketorolac Tromethamine 30 mg/ Morphine Sulfate 5 mg Dexamethasone Sodium Phosphate 10 mg 12/01/24 07:30 Dexamethasone 10 Mg/Ml Vial IV 12/01/24 07:31 INTRAOP ONE Gabapentin 600 mg 12/01/24 07:30 Gabapentin 600 Mg Tablet PO 12/01/24 07:31 PREOP ONE Magnesium Sulfate 1 gm/ 102 mls @ 408 mls/hr 12/01/24 10:15 12/01/24 06:12 Dextrose IV 12/01/24 10:29 408 mls/hr INTRAOP ONE Administration Lactated Ringer's 1,000 mls @ 999 mls/hr 12/01/24 07:30 12/01/24 06:12 IV 12/01/24 08:30 999 mls/hr .Q1H1M ARMANI Administration Cefazolin Sodium 2 gm/ Sodium 110 mls @ 150 mls/hr 12/01/24 07:30 Chloride IV 12/01/24 08:13 INTRAOP ONE Tranexamic Acid 1,000 mg/ 110 mls @ 660 mls/hr 12/01/24 07:30 Sodium Chloride IV 12/01/24 07:39 INTRAOP ONE Tranexamic Acid 1,000 mg/ 110 mls @ 660 mls/hr 12/01/24 07:30 Sodium Chloride IV 12/01/24 07:39 INTRAOP ONE Lactated Ringer's 1,000 mls @ 999 mls/hr 12/01/24 07:30 IV 12/01/24 08:30 .Q1H1M ARMANI Lactated Ringer's 1,000 mls @ 125 mls/hr 12/01/24 07:30 IV 12/01/24 15:29 .Q8H ARMANI Lactated Ringer's 1,000 mls @ 75 mls/hr 12/01/24 07:30 IV 12/01/24 20:49 .[id number] ARMANI Insulin Human Lispro 1 - 6 unit 12/01/24 07:30 Insulin Lispro 100 Unit/Ml Insuln.Pen SC 12/01/24 18:00 Q4H PRN PRN BG>/= 180, SEE PROTOCOL Protocol PFSH Medical History Loss of hearing Wears glasses Anxiety Non-smoker Hx of echocardiogram Breast cancer, left Microcalcification of left breast on mammogram Abnormal mammogram of left breast Systolic murmur Osteoporosis Osteoarthritis Eustachian tube disorder Stool guaiac positive Hypertension Home Medications ?Medication ?Instructions ?Recorded ?Last Taken ?Type lisinopril 20 1 tab PO DAILY 01/08/19 11/29/24 History mg-hydrochlorothiazide 12.5 mg tablet multivitamin 1 tab PO DAILY 01/08/19 Unknown History cholecalciferol (vitamin D3) 50 50 mcg PO DAILY 05/07/20 11/30/24 History mcg (2,000 unit) capsule acetaminophen 500 mg tablet 1,000 mg PO Q6H PRN pain 11/10/24 11/30/24 History (Tylenol Extra Strength) hydroxyzine HCl 50 mg tablet 50 mg PO TID PRN PRN anxiety 11/10/24 Unknown History ibuprofen 600 mg tablet 600 mg PO Q6H PRN PRN pain 11/10/24 Unknown History meloxicam 15 mg tablet 15 mg PO DAILY 11/10/24 11/28/24 History Allergy/AdvReac Type Severity Reaction Status Date / Time No Known Allergies Allergy Verified 12/01/24 06:09 Family History Mother Hypertension Father Hypertension Surgical History (Updated 11/10/24 @ 11:13 by Es Willard) History of total mastectomy History of prolapse of bladder Hx of colonoscopy Hx of hysterectomy Social History Smoking Status: Never smoker second hand exposure: No alcohol intake: never substance use type: does not use caffeine: Yes what type of physical activity do you participate in: aerobics frequency: daily Review of Systems (Anesthesia) ROS Narrative System reviewed and no additional complaints, except as documented. Physical Exam Const alert and oriented x3 Skin Rashes: no rashes Neuro oriented x3 and moves all extremities
--- NOTE | 2024-12-01 06:55 | PCM.PRE.AN2 ---
ASA Classification* ASA Classification ASA Classification: 3 Assessment & Plan Anesthesia* Anesthesia Assessment Anesthesia Assessment: Discussed sedation and/or anesthesia options, risks, benefits, and alternatives with patient/parents/legal guardian/POA. Questions invited. The patient/parents/legal guardian/POA seems to understand and agrees to proceed with anesthesia plan. Reviewed the physical assessment, medical history, allergy history and patient home medications list prior to surgery/procedure/anesthetic and documented any changes. Performed airway and anesthesia risk assessments. Procedural Plan Add'l anesthesia plan details: We discussed the risks of epidural hematoma, infection, injury to nerves, allergic reaction. Additionally with the adductor canal block with ultrasound guidance we discussed the risk of nerve injury bleeding, infection, lack of efficacy. Anesthesia Type Anesthesia Type: Spinal (plan for spinal with sedation in addition to right adductor canal block with ultrasound guidance. I discussed the risks of failure of the spinal, possibility of conversion to general anesthesia. ) and Block Anesthesia Focused Assessment* Temperature: 97.5 F Pulse Rate: 62 Blood Pressure: 181/72 Respiratory Rate: 18 Pulse Ox: 100 Oxygen Delivery Method: Room Air Airway Assessment Mouth opens: >3 cm Mallampati Score: II Teeth Condition: Intact Neck Range of motion (ROM): Full ROM Labs Anesthesia Preop lab: CBC WBC 6.0 K/mm3 (4.4-11.0) 11/11/24 11:18 11/11/24 RBC 4.00 M/mm3 (4.2-5.4) L 11/11/24 11:18 11/11/24 Hgb 11.4 g/dL (12.0-15.0) L 11/11/24 11:18 11/11/24 Hct 35.3 % (37-47) L 11/11/24 11:18 11/11/24 Plt Count 241 K/mm3 (150-450) 11/11/24 11:18 11/11/24 CHEMISTRY Potassium 3.8 mmol/L (3.3-5.1) 11/11/24 11:18 11/11/24 Sodium 140 mmol/L (133-145) 11/11/24 11:18 11/11/24 Magnesium 2.2 mg/dL (1.5-2.2) 11/11/24 11:18 11/11/24 Phosphorus 2.9 mg/dL (2.5-4.9) 02/22/24 10:32 02/22/24 BUN 25 mg/dL (4-19) H 11/11/24 11:18 11/11/24 Creatinine 0.87 mg/dL (0.70-1.20) 11/11/24 11:18 11/11/24 Glucose 99 mg/dL (70-99) 11/11/24 11:18 11/11/24 POC Glucose 95 mg/dL (74-106) 12/01/24 06:20 12/01/24 COAG PT 13.7 SECONDS (11.7-14.9) 07/18/20 18:15 07/18/20 Pre-Assessment Diagnosis/Proposed Procedure Planned Operative Procedure(s): R) ROBOTIC ASSISTED RIGHT TOTAL KNEE ARTHROPLASTY, ERAS Anesthesia History 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 When Was Last Pacemaker Check QUESTION #4 FULL TEXT: You/Your Family Experience fever (hyperthermia) with Anesthesia Last Oral Intake Last Oral intake: Last Oral Intake NPO since 03:30 12/01/24 06:21 Meds taken in AM with sips of No 12/01/24 06:21 water? 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 - clinical research scientist: PONV - clinical research scientist Female Yes 11/10/24 11:13 HX of Motion Sickness No 11/10/24 11:13 HX of N/V After Surgery No 11/10/24 11:13 Non-Smoker Yes 11/10/24 11:13 Duration of Surgery greater Yes 11/10/24 11:13 than 60 minutes Number of Risk Factors 3 11/10/24 11:13 PONV Score Moderate Risk 11/10/24 11:13 Height & Weight Height & Weight: Anesthesia: Height & Weight Height 5 ft 3 in 12/01/24 06:21 Weight: 63 kg 12/01/24 06:21 Body Mass Index (BMI) 24.5 12/01/24 06:21 Respiratory Assessment Respiratory Assessment - clinical research scientist: Respiratory Tract Infection Hx - clinical research scientist Hx Respiratory Tract Infection No 11/10/24 11:13 STOP Sleep Apnea STOP Sleep Apnea - clinical research scientist: STOP Sleep Apnea - clinical research scientist Hx Hypertension Yes: ON MED 11/10/24 11:13 Hx Sleep Apnea No 11/10/24 11:13 CPAP BIPAP Do you snore loudly (louder No 11/10/24 11:13 than talking or can be heard Do you often feel tired/ No 11/10/24 11:13 fatigued/ sleepy during daytime? Has anyone observed you stop No 11/10/24 11:13 breathing during sleep? STOP Results Negative 11/10/24 11:13 QUESTION #5 FULL TEXT : Do you snore loudly (louder than talking or can be heard through closed doors)? 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 Specify any problems Hx of Preganancy in last 3 No 11/10/24 11:13 Months Nurse Filling Out Transfusion JZOLLINGE 11/10/24 11:13 & Questions: Date: 11/10/24 11/10/24 11:13 Time: 11:11/10/24 11:13 Patient unable to answer at this time (ie. confused, unrespo /Reproduction History /Reproductive History - clinical research scientist: /Reproductive Hx- clinical research scientist Hx Now Gestational Age (in weeks): EDC: Hx Hx Para Hx Section SAB No 11/10/24 11:13 Active Medications Active Medications: Current Medications Generic Name Dose Route Start Last Admin Trade Name Silvana PRN Reason Stop Dose Admin Acetaminophen 1,000 mg 12/01/24 07:30 Acetaminophen 500 Mg Tablet PO 12/01/24 07:31 PREOP ONE Celecoxib 400 mg 12/01/24 07:30 Celecoxib 200 Mg Capsule PO 12/01/24 07:31 PREOP ONE Sodium Chloride 77.9 ml/ 0 ml 12/01/24 07:30 Ropivacaine 200 mg/ OPERA.SITE 12/01/24 07:31 Epinephrine HCl 0.6 mg/ INTRAOP ONE Ketorolac Tromethamine 30 mg/ Morphine Sulfate 5 mg Dexamethasone Sodium Phosphate 10 mg 12/01/24 07:30 Dexamethasone 10 Mg/Ml Vial IV 12/01/24 07:31 INTRAOP ONE Gabapentin 600 mg 12/01/24 07:30 Gabapentin 600 Mg Tablet PO 12/01/24 07:31 PREOP ONE Magnesium Sulfate 1 gm/ 102 mls @ 408 mls/hr 12/01/24 10:15 12/01/24 06:12 Dextrose IV 12/01/24 10:29 408 mls/hr INTRAOP ONE Administration Lactated Ringer's 1,000 mls @ 999 mls/hr 12/01/24 07:30 12/01/24 06:12 IV 12/01/24 08:30 999 mls/hr .Q1H1M ARMANI Administration Cefazolin Sodium 2 gm/ Sodium 110 mls @ 150 mls/hr 12/01/24 07:30 Chloride IV 12/01/24 08:13 INTRAOP ONE Tranexamic Acid 1,000 mg/ 110 mls @ 660 mls/hr 12/01/24 07:30 Sodium Chloride IV 12/01/24 07:39 INTRAOP ONE Tranexamic Acid 1,000 mg/ 110 mls @ 660 mls/hr 12/01/24 07:30 Sodium Chloride IV 12/01/24 07:39 INTRAOP ONE Lactated Ringer's 1,000 mls @ 999 mls/hr 12/01/24 07:30 IV 12/01/24 08:30 .Q1H1M ARMANI Lactated Ringer's 1,000 mls @ 125 mls/hr 12/01/24 07:30 IV 12/01/24 15:29 .Q8H ARMANI Lactated Ringer's 1,000 mls @ 75 mls/hr 12/01/24 07:30 IV 12/01/24 20:49 .[id number] ARMANI Insulin Human Lispro 1 - 6 unit 12/01/24 07:30 Insulin Lispro 100 Unit/Ml Insuln.Pen SC 12/01/24 18:00 Q4H PRN PRN BG>/= 180, SEE PROTOCOL Protocol PFSH Medical History Loss of hearing Wears glasses Anxiety Non-smoker Hx of echocardiogram Breast cancer, left Microcalcification of left breast on mammogram Abnormal mammogram of left breast Systolic murmur Osteoporosis Osteoarthritis Eustachian tube disorder Stool guaiac positive Hypertension Home Medications ?Medication ?Instructions ?Recorded ?Last Taken ?Type lisinopril 20 1 tab PO DAILY 01/08/19 11/29/24 History mg-hydrochlorothiazide 12.5 mg tablet multivitamin 1 tab PO DAILY 01/08/19 Unknown History cholecalciferol (vitamin D3) 50 50 mcg PO DAILY 05/07/20 11/30/24 History mcg (2,000 unit) capsule acetaminophen 500 mg tablet 1,000 mg PO Q6H PRN pain 11/10/24 11/30/24 History (Tylenol Extra Strength) hydroxyzine HCl 50 mg tablet 50 mg PO TID PRN PRN anxiety 11/10/24 Unknown History ibuprofen 600 mg tablet 600 mg PO Q6H PRN PRN pain 11/10/24 Unknown History meloxicam 15 mg tablet 15 mg PO DAILY 11/10/24 11/28/24 History Allergy/AdvReac Type Severity Reaction Status Date / Time No Known Allergies Allergy Verified 12/01/24 06:09 Family History Mother Hypertension Father Hypertension Surgical History (Updated 11/10/24 @ 11:13 by Es Willard) History of total mastectomy History of prolapse of bladder Hx of colonoscopy Hx of hysterectomy Social History Smoking Status: Never smoker second hand exposure: No alcohol intake: never substance use type: does not use caffeine: Yes what type of physical activity do you participate in: aerobics frequency: daily Review of Systems (Anesthesia) ROS Narrative System reviewed and no additional complaints, except as documented. Physical Exam Const alert and oriented x3 Skin Rashes: no rashes Neuro oriented x3 and moves all extremities
[2024-12-01] MEDS: JPS (Morphine 10mg/ml) OPERA.SITE (08:53)
[2024-12-01] MEDS: LR 1,000 ML - BOLUS POSTOP 999 ML IV (09:30)
--- NOTE | 2024-12-01 09:34 | RAD_ITS ---
PROCEDURE: KNEE 1 OR 2 VIEWS 12/01/2024 REASON FOR EXAM: POST OP TECHNIQUE: KNEE 1 OR 2 VIEWS COMPARISON: Right knee study dated 12/11/2018 FINDINGS: Two views of the right knee demonstrate normal mineralization of the osseous structures. There are no acute fractures or dislocations. Radiopaque hardware involving the distal femur and proximal tibia appears to be an intact, in satisfactory position, without evidence of fracture. There is a subtle lucency along the superior and anterior aspect of the prosthesis involving the distal femur on the lateral view as well as anterior to the knee joint on the lateral view. Subcutaneous air is seen within the soft tissues. Surgical brandin overlie the knee. 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 RAD/Knee 1 or 2 Views IMPRESSION: Postoperative changes right knee. Prosthesis appears to be in satisfactory position without evidence of fracture. Subcutaneous air is noted as well as surgical brandin. Reading Location: [id number]
--- NOTE | 2024-12-01 09:34 | RAD_ITS ---
PROCEDURE: KNEE 1 OR 2 VIEWS 12/01/2024 REASON FOR EXAM: POST OP TECHNIQUE: KNEE 1 OR 2 VIEWS COMPARISON: Right knee study dated 12/11/2018 FINDINGS: Two views of the right knee demonstrate normal mineralization of the osseous structures. There are no acute fractures or dislocations. Radiopaque hardware involving the distal femur and proximal tibia appears to be an intact, in satisfactory position, without evidence of fracture. There is a subtle lucency along the superior and anterior aspect of the prosthesis involving the distal femur on the lateral view as well as anterior to the knee joint on the lateral view. Subcutaneous air is seen within the soft tissues. Surgical brandin overlie the knee. 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 RAD/Knee 1 or 2 Views IMPRESSION: Postoperative changes right knee. Prosthesis appears to be in satisfactory position without evidence of fracture. Subcutaneous air is noted as well as surgical brandin. Reading Location: [id number]
--- NOTE | 2024-12-01 09:35 | PCM.OPRPT ---
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: Yes Seaman Officer: Claudette Cedillo Tasks completed by assistant front end manager: Opening & closing, Implanting device, Hemostasis: Electrocautery and Retracting Additional food and beverage assistant?: No Type of Anesthesia: Spinal RN Documented Start/Stop Times: Operation Date: 12/01/24 07:30 Case Time Into Pre-Op 12/01/24 05:42 Out of Pre-Op 12/01/24 07:30 Anesthesia Start 12/01/24 07:49 Into Room 12/01/24 07:49 Procedure Start 12/01/24 08:06 Procedure End 12/01/24 09:22 Anesthesia End 12/01/24 09:29 Out of Room 12/01/24 09:29 Procedure Start Time: 08:06 Procedure Stop Time: 09:22 Select all DRAINS/GRAFTS/IMPLANTS that apply: Implanted device Implanted device details: [employer] Interactive press-fit CR femur size #2, press-fit tibia size #2, 11 mm CS polyethylene Estimated Blood Loss: 30 cc Specimen collected: No Description of surgery: Description of procedure: Patient was identified in the preoperative holding area by name, medical record number, and date of . Informed set was confirmed with the patient. The operative knee was marked with a surgical marker. At time of his procedure, patient brought to the operative suite and positioned supine a standard operating table. Anesthesia then administered a spinal anesthetic. She was then repositioned in the supine position with all bony prominences well-padded. We then placed a well-padded pneumatic tourniquet on the right upper thigh. The right upper extremity was brought across patient's chest throughout the procedure. We then prepped and draped the left lower extremity in a normal, sterile orthopedic fashion. We performed a timeout with all parties in attendance in agreement with the side, site, operation be performed. No concerns were voiced and would like to proceed with surgery. 2 g Ancef was administered prior to the incision by anesthesia staff as well as 1 g IV TXA. First exsanguinated the right lower extremity with a Esmarch bandage. Tourniquet was inflated to 250 mmHg which remained elevated for approximately 45 minutes. Esmarch was removed. I planned a standard midline approach to the right knee approximately 15 cm in length. Skin was sharply incised with a 10 blade scalpel developing full-thickness layers down to the retinaculum. Layers were developed identifying the VMO. I then planned a standard medial parapatellar arthrotomy performed in flexion. The anterior horn of the medial meniscus was released. Hoffa's fat pad was then released. I then everted the patella in extension and brought the knee into 90 degrees of flexion. The anterior horn of the lateral meniscus was then released. The ACL was split in its mid substance with a 10 blade. The patella demonstrated minimal chondromalacia and was left [place] without resurfacing. We then brought the knee back into extension with subluxation of the patella. I then placed pins in the metaphyseal distal femur medial to lateral for the Juan Carlos arrays. In similar fashion, I made a 2 cm incision approximately a handsbreadth distal to the tibial tubercle along the medial aspect of the tibia, drilling 2 bicortical pins for the tibial array. The knee was brought into flexion. The patella was subluxed laterally but not everted. Medial lateral retractors were placed. We then utilized the [employer] software to confirm our planned surgical procedure and oriented with the patient's osseous anatomy. All checks with the [employer] system were confirmed. Patient had a significant fixed varus deformity after performing stress examination utilizing the [employer] software. We elected to place the tibial baseplate in approximately 2 degrees of varus to allow for appropriate balancing. Sawblade was then brought in. I first started with the tibial cut, ensuring protection of the MCL and patellar tendon. A tibial wafer was then excised. I then proceeded to make the posterior femoral, anterior, anterior chamfer cuts with the same blade. Ligaments were protected with Intermedics retractors. Sawblade was then exchanged to perform the distal femoral and posterior chamfer cuts. The robot was then removed from the surgical field. Remaining loose bone and meniscus was excised carefully. Posterior osteophytes were removed from the distal femur with a curved osteotome and rongeur. Trial components were then placed. Balance was excellent in both extension and 90 degrees flexion. No mid flexion instability was apparent. Tracking was excellent. We then marked for tibial baseplate. Distal femoral pegs were drilled. Tibial keel was punched. Trials were removed. Periarticular block was administered. The wound was copiously irrigated with normal saline solution. Tourniquet was deflated. Hemostasis was excellent. An additional 1 g TXA was administered IV. Tibial press-fit component was impacted with excellent pullout strength. I then impacted the femoral component which was also well-fixed. An 11 mm polyethylene was placed and impacted per feed mill lab technician recommendations. Final components. Very well-balanced with excellent range of motion. There was no significant remaining flexion contracture. A 3-minute dilute sterile Betadine soak was performed. The wound was copiously irrigated with normal saline solution. Capsule was closed watertight with #1 strata fix barbed suture. Deeper bursal layer was reapproximated with 0 Vicryl suture. Dermis was reapproximated buried interrupted 2-0 Vicryl suture. Skin was finally reapproximated brandin. Patient tolerated the procedure well without apparent complication. She was safely awakened in the operative suite, transferred to his hospital bed and subsequently to PACU in stable condition. Need for skilled food and beverage assistant: Claudette Cedillo PA-C was critical to the outcome of the case. During the course of the procedure the physician food and beverage assistant played a vital role. Her intimate knowledge of my steps in the procedure aided in safe and expedient completion of the procedure. The PA played a vital role in positioning particularly in obtaining the appropriate positioning. The PA was also vital in the retraction of soft tissues during the exposure and projecting vital structures. The PA was also vital and protecting soft tissues during times of bony cuts. She also played a vital role in closure with my direct supervision. The PA was also important during reduction and dislocation of the joint and trials intraoperatively. Post Operative Plan: Plan for same-day discharge after meeting same-day surgery criteria. Physical therapy to see the patient prior to discharge. Outpatient physical therapy to start 12/03/2024. Weightbearing: Range of motion and weightbearing as tolerated right lower extremity. Antibiotics: Additional dose of Ancef prior to discharge DVT Prophylaxis: Multimodal with aspirin 81 mg twice daily starting postoperative day #1, SCDs, NIKO hose and early mobilization. Trinh: None Dressing: Maintain silver dressing x5 days X-Rays: 2-week x-rays in the office. Follow-up: 2 weeks in office for staple removal Surgical Findings: 1 x 2 cm osteochondral lesion medial femoral condyle with significant erosion. Stable right knee following final implantation with good patellofemoral tracking. Complications Complications: No Admit VTE Documentation VTE Present on Admission: No VTE Mechan Device Prophylaxis: SCD's and Thigh High NIKO Hose VTE Pharm Prophylaxis ordered?: Yes
--- NOTE | 2024-12-01 09:35 | PCM.OPRPT ---
Operative Report (Standard) Operative Information Date of Procedure: 12/01/24 Pre-Operative Diagnosis: Right knee osteoarthritis Post-Operative Diagnosis: Right knee osteoarthritis Surgery/Procedure Performed: Robotic arm assisted right total knee arthroplasty residential roofer helper: Yes Spring Assembler: Claudette Cedillo Tasks completed by special education educational assistant: Opening & closing, Implanting device, Hemostasis: Electrocautery and Retracting Additional lead assistant manager?: No Type of Anesthesia: Spinal RN Documented Start/Stop Times: Operation Date: 12/01/24 07:30 Case Time Into Pre-Op 12/01/24 05:42 Out of Pre-Op 12/01/24 07:30 Anesthesia Start 12/01/24 07:49 Into Room 12/01/24 07:49 Procedure Start 12/01/24 08:06 Procedure End 12/01/24 09:22 Anesthesia End 12/01/24 09:29 Out of Room 12/01/24 09:29 Procedure Start Time: 08:06 Procedure Stop Time: 09:22 Select all DRAINS/GRAFTS/IMPLANTS that apply: Implanted device Implanted device details: Full [employer]rottle [employer] press-fit CR femur size #2, press-fit tibia size #2, 11 mm CS polyethylene Estimated Blood Loss: 30 cc Specimen collected: No Description of surgery: Description of procedure: Patient was identified in the preoperative holding area by name, medical record number, and date of . Informed set was confirmed with the patient. The operative knee was marked with a surgical marker. At time of his procedure, patient brought to the operative suite and positioned supine a standard operating table. Anesthesia then administered a spinal anesthetic. She was then repositioned in the supine position with all bony prominences well-padded. We then placed a well-padded pneumatic tourniquet on the right upper thigh. The right upper extremity was brought across patient's chest throughout the procedure. We then prepped and draped the left lower extremity in a normal, sterile orthopedic fashion. We performed a timeout with all parties in attendance in agreement with the side, site, operation be performed. No concerns were voiced and would like to proceed with surgery. 2 g Ancef was administered prior to the incision by anesthesia staff as well as 1 g IV TXA. First exsanguinated the right lower extremity with a Esmarch bandage. Tourniquet was inflated to 250 mmHg which remained elevated for approximately 45 minutes. Esmarch was removed. I planned a standard midline approach to the right knee approximately 15 cm in length. Skin was sharply incised with a 10 blade scalpel developing full-thickness layers down to the retinaculum. Layers were developed identifying the VMO. I then planned a standard medial parapatellar arthrotomy performed in flexion. The anterior horn of the medial meniscus was released. Hoffa's fat pad was then released. I then everted the patella in extension and brought the knee into 90 degrees of flexion. The anterior horn of the lateral meniscus was then released. The ACL was split in its mid substance with a 10 blade. The patella demonstrated minimal chondromalacia and was left [place] without resurfacing. We then brought the knee back into extension with subluxation of the patella. I then placed pins in the metaphyseal distal femur medial to lateral for the Juan Carlos arrays. In similar fashion, I made a 2 cm incision approximately a handsbreadth distal to the tibial tubercle along the medial aspect of the tibia, drilling 2 bicortical pins for the tibial array. The knee was brought into flexion. The patella was subluxed laterally but not everted. Medial lateral retractors were placed. We then utilized the [employer] software to confirm our planned surgical procedure and oriented with the patient's osseous anatomy. All checks with the [employer] system were confirmed. Patient had a significant fixed varus deformity after performing stress examination utilizing the [employer] software. We elected to place the tibial baseplate in approximately 2 degrees of varus to allow for appropriate balancing. Sawblade was then brought in. I first started with the tibial cut, ensuring protection of the MCL and patellar tendon. A tibial wafer was then excised. I then proceeded to make the posterior femoral, anterior, anterior chamfer cuts with the same blade. Ligaments were protected with Inter[employer] retractors. Sawblade was then exchanged to perform the distal femoral and posterior chamfer cuts. The robot was then removed from the surgical field. Remaining loose bone and meniscus was excised carefully. Posterior osteophytes were removed from the distal femur with a curved osteotome and rongeur. Trial components were then placed. Balance was excellent in both extension and 90 degrees flexion. No mid flexion instability was apparent. Tracking was excellent. We then marked for tibial baseplate. Distal femoral pegs were drilled. Tibial keel was punched. Trials were removed. Periarticular block was administered. The wound was copiously irrigated with normal saline solution. Tourniquet was deflated. Hemostasis was excellent. An additional 1 g TXA was administered IV. Tibial press-fit component was impacted with excellent pullout strength. I then impacted the femoral component which was also well-fixed. An 11 mm polyethylene was placed and impacted per cra officer recommendations. Final components. Very well-balanced with excellent range of motion. There was no significant remaining flexion contracture. A 3-minute dilute sterile Betadine soak was performed. The wound was copiously irrigated with normal saline solution. Capsule was closed watertight with #1 strata fix barbed suture. Deeper bursal layer was reapproximated with 0 Vicryl suture. Dermis was reapproximated buried interrupted 2-0 Vicryl suture. Skin was finally reapproximated brandin. Patient tolerated the procedure well without apparent complication. She was safely awakened in the operative suite, transferred to his hospital bed and subsequently to PACU in stable condition. Need for skilled lead assistant manager: Claudette Cedillo PA-C was critical to the outcome of the case. During the course of the procedure the physician lead assistant manager played a vital role. Her intimate knowledge of my steps in the procedure aided in safe and expedient completion of the procedure. The PA played a vital role in positioning particularly in obtaining the appropriate positioning. The PA was also vital in the retraction of soft tissues during the exposure and projecting vital structures. The PA was also vital and protecting soft tissues during times of bony cuts. She also played a vital role in closure with my direct supervision. The PA was also important during reduction and dislocation of the joint and trials intraoperatively. Post Operative Plan: Plan for same-day discharge after meeting same-day surgery criteria. Physical therapy to see the patient prior to discharge. Outpatient physical therapy to start 12/03/2024. Weightbearing: Range of motion and weightbearing as tolerated right lower extremity. Antibiotics: Additional dose of Ancef prior to discharge DVT Prophylaxis: Multimodal with aspirin 81 mg twice daily starting postoperative day #1, SCDs, NIKO hose and early mobilization. Trinh: None Dressing: Maintain silver dressing x5 days X-Rays: 2-week x-rays in the office. Follow-up: 2 weeks in office for staple removal Surgical Findings: 1 x 2 cm osteochondral lesion medial femoral condyle with significant erosion. Stable right knee following final implantation with good patellofemoral tracking. Complications Complications: No Admit VTE Documentation VTE Present on Admission: No VTE Mechan Device Prophylaxis: SCD's and Thigh High NIKO Hose VTE Pharm Prophylaxis ordered?: Yes
--- NOTE | 2024-12-01 09:36 | PCM.POST.ANE ---
Anesthesia: Postop Eval I Current Vital Signs Temperature: 97.9 F Pulse Rate: 64 Blood Pressure: 119/63 Respiratory Rate: 14 Pulse Ox: 98 Oxygen Delivery Method: Room Air Assessment Airway patent: Yes Spontaneous unlabored respirations: Yes Mental status: Awake and Calm nausea: Yes Vomiting: Yes Anesthesia Complication: No Fluid Hydration Crystalloid volume administer (ml): 1,100 Total IV fluid infused: 1,100 Progress Note Anesthesia document: Postop Eval 1 completed: Yes
--- NOTE | 2024-12-01 10:33 | POSTOPAN2_ITS ---
Anesthesia Postop Eval I Sum Postop Eval Completion status Anesthesia document: Postop Eval 1 completed: Yes Anesthesia Postop Eval I Summary Anesthesia Postop Eval I Summary: Anesthesia Postop Eval I: Assessment Summary Airway patent Yes 12/01/24 09:37 ENTRY LEVEL TRUCK DRIVER.[email or web address] Spontaneous unlabored Yes 12/01/24 09:37 ENTRY LEVEL TRUCK DRIVER.GDOTT respirations Mental status Awake,Calm 12/01/24 09:37 ENTRY LEVEL TRUCK DRIVER.GDOTT nausea Yes 12/01/24 09:37 ENTRY LEVEL TRUCK DRIVER.GDOTT Vomiting Yes 12/01/24 09:37 ENTRY LEVEL TRUCK DRIVER.GDOTT Anesthesia Postop Eval I: Fluid Summary Crystalloid volume administer 1,100 12/01/24 09:37 ENTRY LEVEL TRUCK DRIVER.GDOTT (ml) Colloids volume administered ( ml) Blood Product volume administered (ml) Total IV fluid infused 1,100 12/01/24 09:37 ENTRY LEVEL TRUCK DRIVER.GDOTT Anesthesia Postop Eval I: Summary Notes Anesthesia Complication No 12/01/24 09:37 ENTRY LEVEL TRUCK DRIVER.GDOTT Anesthesia Complication Comment: Post-operative progress note Anesthesia: Postop Eval II Evaluation Mental status: Awake and Calm Pain Level: 4 nausea: No Vomiting: No Complications Anesthesia Complication: No
--- NOTE | 2024-12-01 10:33 | POSTOPAN2_ITS ---
Anesthesia Postop Eval I Sum Postop Eval Completion status Anesthesia document: Postop Eval 1 completed: Yes Anesthesia Postop Eval I Summary Anesthesia Postop Eval I Summary: Anesthesia Postop Eval I: Assessment Summary Airway patent Yes 12/01/24 09:37 MEDICAL OFFICE ADMINISTRATOR.[email or web address] Spontaneous unlabored Yes 12/01/24 09:37 MEDICAL OFFICE ADMINISTRATOR.GDOTT respirations Mental status Awake,Calm 12/01/24 09:37 MEDICAL OFFICE ADMINISTRATOR.GDOTT nausea Yes 12/01/24 09:37 MEDICAL OFFICE ADMINISTRATOR.GDOTT Vomiting Yes 12/01/24 09:37 MEDICAL OFFICE ADMINISTRATOR.GDOTT Anesthesia Postop Eval I: Fluid Summary Crystalloid volume administer 1,100 12/01/24 09:37 MEDICAL OFFICE ADMINISTRATOR.GDOTT (ml) Colloids volume administered ( ml) Blood Product volume administered (ml) Total IV fluid infused 1,100 12/01/24 09:37 MEDICAL OFFICE ADMINISTRATOR.GDOTT Anesthesia Postop Eval I: Summary Notes Anesthesia Complication No 12/01/24 09:37 MEDICAL OFFICE ADMINISTRATOR.GDOTT Anesthesia Complication Comment: Post-operative progress note Anesthesia: Postop Eval II Evaluation Mental status: Awake and Calm Pain Level: 4 nausea: No Vomiting: No Complications Anesthesia Complication: No
--- NOTE | 2024-12-01 10:33 | PCM.POSTANE2 ---
Anesthesia Postop Eval I Sum Postop Eval Completion status Anesthesia document: Postop Eval 1 completed: Yes Anesthesia Postop Eval I Summary Anesthesia Postop Eval I Summary: Anesthesia Postop Eval I: Assessment Summary Airway patent Yes 12/01/24 09:37 VACCINE SPECIALIST.[email or web address] Spontaneous unlabored Yes 12/01/24 09:37 VACCINE SPECIALIST.GDOTT respirations Mental status Awake,Calm 12/01/24 09:37 VACCINE SPECIALIST.GDOTT nausea Yes 12/01/24 09:37 VACCINE SPECIALIST.GDOTT Vomiting Yes 12/01/24 09:37 VACCINE SPECIALIST.GDOTT Anesthesia Postop Eval I: Fluid Summary Crystalloid volume administer 1,100 12/01/24 09:37 VACCINE SPECIALIST.GDOTT (ml) Colloids volume administered ( ml) Blood Product volume administered (ml) Total IV fluid infused 1,100 12/01/24 09:37 VACCINE SPECIALIST.GDOTT Anesthesia Postop Eval I: Summary Notes Anesthesia Complication No 12/01/24 09:37 VACCINE SPECIALIST.GDOTT Anesthesia Complication Comment: Post-operative progress note Anesthesia: Postop Eval II Evaluation Mental status: Awake and Calm Pain Level: 4 nausea: No Vomiting: No Complications Anesthesia Complication: No
--- NOTE | 2024-12-01 10:33 | PCM.POSTANE2 ---
Anesthesia Postop Eval I Sum Postop Eval Completion status Anesthesia document: Postop Eval 1 completed: Yes Anesthesia Postop Eval I Summary Anesthesia Postop Eval I Summary: Anesthesia Postop Eval I: Assessment Summary Airway patent Yes 12/01/24 09:37 SENIOR WEB DEVELOPER.[email or web address] Spontaneous unlabored Yes 12/01/24 09:37 SENIOR WEB DEVELOPER.GDOTT respirations Mental status Awake,Calm 12/01/24 09:37 SENIOR WEB DEVELOPER.GDOTT nausea Yes 12/01/24 09:37 SENIOR WEB DEVELOPER.GDOTT Vomiting Yes 12/01/24 09:37 SENIOR WEB DEVELOPER.GDOTT Anesthesia Postop Eval I: Fluid Summary Crystalloid volume administer 1,100 12/01/24 09:37 SENIOR WEB DEVELOPER.GDOTT (ml) Colloids volume administered ( ml) Blood Product volume administered (ml) Total IV fluid infused 1,100 12/01/24 09:37 SENIOR WEB DEVELOPER.GDOTT Anesthesia Postop Eval I: Summary Notes Anesthesia Complication No 12/01/24 09:37 SENIOR WEB DEVELOPER.GDOTT Anesthesia Complication Comment: Post-operative progress note Anesthesia: Postop Eval II Evaluation Mental status: Awake and Calm Pain Level: 4 nausea: No Vomiting: No Complications Anesthesia Complication: No
[2024-12-01] MEDS: Cefazolin 1 GM/50 ML BAG IV (12:57)
== END 2024-12-01 15:53 | disposition home or self-care (01) ==
LOC: SDC 05:20 → AC 05:22
PROVIDERS: Anesthesiology; PCP Student in an Organized Health Care Education/Training Program; Referring Provider Student in an Organized Health Care Education/Training Program; Visit Provider Student in an Organized Health Care Education/Training Program
PROC: 0SRC0JZ Replacement of Right Knee Joint with Synthetic Substitute, Open Approach (ICD-10-PCS; CPT 27447; principal; 2024-12-01 07:00)
DX: M17.11 Unilateral primary osteoarthritis, right knee (principal); M94.262 Chondromalacia, left knee; I10 Essential (primary) hypertension; Z79.899 Other long term (current) drug therapy
CPT/HCPCS: 27447; 64445; 01402; 36415; 73560; 80048; 82040; 82962; 83735; 85025; 87077; 87081; 93005; 97162; C1776; J2405; J3475